=== PATIENT | female | born 1990 | race Caucasian/White ===

== ENCOUNTER 2018-06-04 16:30 | Emergency (ER) | payer OTHER, SELFPAY ==
[2018-06-04 16:31] VITALS: BP 124/72; PULSE 87; RESP 14; TEMP 37.1; O2SAT 97; BMI 25.0
--- NOTE | 2018-06-04 16:47 | US_ITS ---
STUDY: FIRST TRIMESTER OBSTETRICAL ULTRASOUND REASON FOR EXAM: Female, 28 years old. Vaginal bleeding LMP: 03/27/2018 TECHNIQUE: Transvaginal TECHNICAL QUALITY: Adequate. PRIOR ULTRASOUND: None. FINDINGS: There is visualization of a single gestational sac in a normal intrauterine position. Slightly irregular shape of the gestational sac measuring 9 mm. There is a visualized yolk sac. The yolk sac measures 2 mm. The placenta is non-visualized. There is no demonstrated embryo ( pole). The estimated gestation age (EGA) by LMP is 9 weeks, 6 days. The estimated date of delivery (ALEYDA) by LMP is 01/01/2019. The estimated gestation age (EGA) by US is 5 weeks, 4 days. The estimated date of delivery (ALEYDA) by US is 01/31/2019. The uterus measures 8.5 x 6.7 x 5.1 cm. There is no demonstrated uterine fibroid. The cervix is closed. The right ovary measures 2.6 x 2.3 x 1.2 cm. There is no right ovarian cyst. There is no visualized right adnexal mass or complex lesion. The left ovary measures 2.3 x 2.6 x 1.6 cm. Solid appearing isoechoic nodule in the left ovary measures 1.1 x 1.2 x 0.9 cm. There is no visualized left adnexal mass or complex lesion. There is no fluid in the cul de sac. US/Transvaginal w/Preg US IMPRESSION: Intrauterine gestational sac is noted with slight irregularity of the shape. Possible small amount of internal debris. No evidence of pole this time. Size and dates are not matching based on LMP and current gestational sac size. Possible early versus spontaneous . Electronically Signed: Zach Whitt DO at 19:10 EST Tel , Service support ,
--- NOTE | 2018-06-04 16:52 | ED.DCSUM_ITS ---
- ER Visit Summary Date of Service: 06/04/18 Chief Complaint: Spotting in History of Present Illness: The patient is a 28 F presenting with vaginal bleeding in . Patient states she found out 2-3 days ago that she is . She is unsure how far along she is. She believes her last mental period was end of February. She is . She complains of mild pelvic cramping. She does currently have a herpes outbreak as well. Physical Examination: Vitals are stable. Patient is afebrile. Alert no acute distress. HEENT exam is unremarkable. Neck is supple. Lungs are clear and equal bilaterally. Heart is regular rate and rhythm. Abdomen is soft nontender nondistended. Extremities are unremarkable. Skin is warm and dry. No focal neurologic deficit. Remainder of exam is unremarkable. Emergency Department Course and Treatment: HCG quant 3096. Blood type A+. Pelvic ultrasound shows intrauterine gestational sac is noted with slight irregularity of the shape. Possible small amount of internal debris. No evidence of pole this time. Size and dates are not matching based on LMP and current gestational sac size. Possible early versus spontaneous . Patient declined pelvic exam due to pain caused by her herpes outbreak. She states the bleeding has slowed down. She will follow-up with her DIRECTOR OF PHYSICAL THERAPY. She is advised importance of close follow-up. Advised return to ED if worsening complaints. Disposition: Discharge home Impression: Threatened This note was generated with [employer] dictation software. It may contain incorrect words, spelling, and punctuation that were not noted in review of the chart prior to signing ED Disposition - Plan for ED Patient: Referrals: [facility] Doctor,Out of [NON-STAFF] -
[2018-06-04 18:08] LABS: hCG Titer Quant., Serum 3096 mIU/mL (<9 non-preg)
[2018-06-04 18:51] VITALS: RESP 18
--- NOTE | 2018-06-04 19:52 | ED.RN ---
PT REFUSING PELVIC EXAM. DR MONTELONGO AWARE
--- NOTE | 2018-06-04 19:58 | ED.DEP ---
ED Disposition - Plan for ED Patient: Instructions: ED Miscarriage Poss Referrals: [facility],Out of [NON-STAFF] -
[2018-06-04 20:09] VITALS: BP 124/72; PULSE 87; RESP 14; O2SAT 97
== END 2018-06-04 20:11 | disposition home or self-care (01) ==
PROVIDERS: Emergency Provider Emergency Medicine; Family Provider Obstetrics & Gynecology; PCP Obstetrics & Gynecology
DX: O20.0 Threatened abortion (principal); O98.319 Other infections with a predominantly sexual mode of transmission complicating pregnancy, unspecified trimester; A60.04 Herpesviral vulvovaginitis; Z3A.00 Weeks of gestation of pregnancy not specified
CPT/HCPCS: 36415; 76817; 84702; 86900; 99282

== ENCOUNTER 2018-09-05 08:44 | Emergency (ER) | payer OTHER, SELFPAY ==
[2018-09-05 08:45] VITALS: BP 117/83; PULSE 81; RESP 17; TEMP 36.5; O2SAT 100; BMI 24.0
[2018-09-05] MEDS: 0.9% Normal Saline 1,000 ML 1000 ML IV (09:16)
[2018-09-05] MEDS: Ondansetron 4 MG/2 ML Vial IV (09:16)
--- NOTE | 2018-09-05 09:19 | ED.VIS.GEN ---
History of Present Illness Chief Complaint: Nausea/Vomiting Informant: Patient Onset: Days Context: Sudden Onset Timing: Continuous - Nausea and vomiting Quality: Nausea and vomiting and diarrhea Location: GI Current Severity: Moderate Maximum Severity: Moderate Worsened by: Attempt to eat or drink anything Relieved by: Nothing Associated Symptoms: Soft to watery stools x3 weeks Narrative: Patient is a 28-year-old G3, P1 Ab1 (miscarriage May 2018), who presents with nausea vomiting for the past 2 days. She states she is not able to eat or drink anything. She complains of thirst, dry mouth and lightheadedness. She reports decreased urine output. She denies fever, chills or night sweats. She states she has had soft to watery stools over the past 3 weeks. There is no history of inflammatory bowel disorder or IBS. She denies blood or mucus in her stool. She denies hematemesis. She denies abdominal pain. Prior similar symptoms: No Recent Illness/Hospitalization: No - Past Medical History (1) Genital herpes Status: Acute Past Medical History - Allergies and Home Meds Allergies/Adverse Reactions: Allergies morphine Adverse Reaction (Verified 09/05/18 08:45) Other Primary Care Physician: Care Physician,No Primary [Primary Care Provider] - Prior records reviewed: Yes Lives: Spouse/ Significant Other, With Family Smoking Status: Never smoker Review of Systems General: Denies: Chills, Fever, Sweats Eyes: Denies: Visual changes - bilaterally, Blurred Vision - bilaterally, Diplopia ENT: Denies: Rhinorrhea, Sore throat Cardiovascular: Denies: Chest pain, Palpitations Respiratory: Denies: Dyspnea, Cough, Dyspnea on exertion Gastrointestinal: Reports: Nausea, Vomiting, Diarrhea. Denies: Abdominal pain, Constipation, Melena, Hematochezia, -, - Genitourinary: Denies: Dysuria, Hematuria, Frequency Musculoskeletal: Denies: Back pain, Extremity Pain Skin: Denies: Rash, Wounds Neurological: Denies: Headache, Weakness, Parasthesia, Numbness Hematologic: Denies: Easy bruising, Easy bleeding Allergy: Denies: Uticaria, Swelling of the mouth Physical Exam Vital Signs/Narrative: Vital Signs Temp Pulse Resp BP Pulse Ox 09/05/18 08:45 97.7 F L 81 17 117/83 H 100 Inital Vital Signs reviewed: Yes General: Well nourished, Well developed, No Acute Distress Head: Normocephalic, Atraumatic Eyes: Perrl, EOMI ENT: No rhinorrhea, TM's clear, Dry mucous membranes Neck: Supple, Nontender Cardiovascular: Regular rate, Regular rhythm, No murmurs, Normal S1, Normal S2 Respiratory: No distress, CTA bilaterally, Chest nontender Abdomen: Soft, Nontender, Nondistended, Normal bowel sounds Back: Nontender, Normal Inspection. Negative for: CVA tenderness Extremities: Nontender, No edema Skin: Normal color, No rash Neurological: Alert, Oriented x3, Cranial nerves II-XII grossly intact, Normal Strength, Normal Sensation, Normal Gait Psychological: Tearful Diagnostic/Tx/Re-eval Laboratory Results 09/05/18 09:15 Sodium 139 Potassium 3.6 Chloride 103 Carbon Dioxide 24.0 Anion Gap 12 BUN 6 L Creatinine 0.63 Estim Creat Clear Calc 128.13 Est GFR (MDRD) Af Amer 143 Est GFR (MDRD) Non-Af 118 BUN/Creatinine Ratio 9.5 L Glucose 81 Calcium 8.9 - Medical Decision Making With history of nausea vomiting for past 2 days and diarrhea for 3 weeks basic medical panel was obtained to assess electively specifically potassium, CO2 and anion gap as well as renal function. Clinically patient is dehydrated. She received 1 L of normal saline wide open and Zofran. Will reassess after first liter has infused. Nausea vomiting suspected secondary to . Clinically she is dehydrated. Diarrhea may represent IBS. Other causes need to be entertained as well. Patient was reassessed at 1212. She has passed p.o. challenge. Plan is to discharge to home with excuse for work today and tomorrow. ED Disposition - Plan for ED Patient: Disposition: Home or Assisted Living Diagnosis: Nausea & vomiting, First trimester , Mild dehydration Prescriptions: Ondansetron [Zofran Odt] 4 mg PO Q8H PRN PRN #10 tab PRN Reason: Nausea Referrals: Care Physician,No Primary [Primary Care Provider] - Additional Instructions: Follow-up with your OB as scheduled.
[2018-09-05 09:42] LABS: Anion Gap 12 (5-15); BUN 6 mg/dL (7-18); BUN/Creat Ratio 9.5 RATIO (10-20); Calcium,Total 8.9 mg/dL (8.5-10.1); Chloride 103 mmol/L (98-107); Creatinine, Serum 0.63 mg/dL (0.55-1.02); EST Glomerular Filtration Rate 118 mL/min (>60); Est Glom Filt Rate - Afr Amer 143 mL/min (>60); Estimated Creatinine Clearance 128.13 ml/min; Glucose 81 mg/dL (74-106); Potassium 3.6 mmol/L (3.5-5.1); Sodium Level 139 mmol/L (136-145)
[2018-09-05 11:19] VITALS: BP 121/76; PULSE 76; RESP 14; O2SAT 96
--- NOTE | 2018-09-05 12:17 | ED.VISSUMM ---
- ER Visit Summary Date of Service: 09/05/18 Chief Complaint: [] History of Present Illness: The patient is a 28 F [] Physical Examination: [] Test Results: [] Emergency Department Course and Treatment: [] Treatment Plan: [] Disposition: [] Impression: [] This note was generated with [employer] dictation software. It may contain incorrect words, spelling, and punctuation that were not noted in review of the chart prior to signing ED Disposition - Plan for ED Patient: Disposition: Home or Assisted Living Diagnosis: Nausea & vomiting, First trimester , Mild dehydration Instructions: ED Nausea Vomiting Prescriptions: Ondansetron [Zofran Odt] 4 mg PO Q8H PRN PRN #10 tab PRN Reason: Nausea Referrals: Care Physician,No Primary [Primary Care Provider] - Additional Instructions: Follow-up with your OB as scheduled.
[2018-09-05 12:58] VITALS: BP 118/79; PULSE 81; RESP 14; O2SAT 98
== END 2018-09-05 12:59 | disposition home or self-care (01) ==
PROVIDERS: Emergency Provider Emergency Medicine
DX: O21.9 Vomiting of pregnancy, unspecified (principal); O26.891 Other specified pregnancy related conditions, first trimester; E86.0 Dehydration; O98.511 Other viral diseases complicating pregnancy, first trimester; B00.9 Herpesviral infection, unspecified; Z3A.00 Weeks of gestation of pregnancy not specified
CPT/HCPCS: 80048; 96361; 96374; 99283; J7030; A4216; J2405

== ENCOUNTER 2018-10-17 20:11 | Emergency (ER) | payer MEDICAID, SELFPAY ==
[2018-10-17 20:12] VITALS: BP 101/65; PULSE 93; RESP 16; TEMP 36.8; O2SAT 99; BMI 23.3
[2018-10-17 21:29] LABS: Red Blood Cells-Urine 0 SEEN /hpf (0-5)
[2018-10-17 21:31] LABS: Color, Urine Yellow (Yellow); Glucose, Dipstick Normal (Normal); Leukocyte Esterase-Dipstick 25 /ul (Negative); Nitrite-Dipstick Negative (Negative); Occult Blood-Urine Negative /ul (Negative); Protein-Dipstick 15 mg/dl (Negative); Urine Bilirubin Dipstick Negative (Negative); Urine Clarity Sl. Cloudy (Clear); Urine Urobilinogen 4 mg/dl (Normal)
[2018-10-17 21:33] LABS: Absolute Lymphocyte Count 1.34 X10^3/uL (0.83-4.51); Absolute Neutrophil Count 7.3 X10^3/uL (2.0-7.7); Basophil# 0.02 X10^3/uL; Basophil% 0.2 % (0-1); Eosinophil# 0.08 X10^3/uL; Eosinophils% 0.9 % (0-5); Hematocrit 33.6 % (37-47); Hemoglobin 11.6 g/dL (12.0-15.0); Lymphocyte # 1.34 X10^3/ul (4.0); Lymphocyte % 14.3 % (19-41); Mean Corp Hgb Conc 34.5 g/dL (32-36); Mean Corpuscular Hgb 31.4 pg (27.0-32.0); Mean Corpuscular Volume 90.8 fL (81-99); Mean Platelet Vol. 10.5 fl (6.2-12.0); Monocyte# 0.59 X10^3/uL; Monocyte% 6.3 % (0-10); NRBC Flagged by Analyzer 0 % (0-5); Neutrophil # 7.28 X10^3/uL (2.7-7.7); Neutrophil % 77.8 % (47-70); Platelet Count 211 K/mm3 (150-450); RBC Distribution Width CV 13.2 % (11.6-14.6); RBC Distribution Width SD 43.6 fl (35.1-43.9); White Blood Count 9.4 K/mm3 (4.4-11.0)
[2018-10-17 21:34] LABS: Ketone-Dipstick 150 mg/dl (Negative)
[2018-10-17] MEDS: proMETHazine 25 MG/ML Syringe 12.5 MG IV (21:38)
[2018-10-17] MEDS: 0.9% Normal Saline 1,000 ML 1000 ML IV ×2 (21:38→22:00)
[2018-10-17 21:39] LABS: Mucous, Urine 3+ /hpf (<or=2+); White Blood Cells 0-5 SEEN /hpf (0-5)
[2018-10-17 21:40] LABS: Bacteria RARE /hpf (None Seen); Squamous Epithelial Cells - UA 5-10 SEEN /hpf (5-10)
[2018-10-17 21:46] LABS: Anion Gap 9 (5-15); BUN 7 mg/dL (7-18); BUN/Creat Ratio 13.6 RATIO (10-20); Calcium,Total 8.9 mg/dL (8.5-10.1); Chloride 103 mmol/L (98-107); Creatinine, Serum 0.52 mg/dL (0.55-1.02); EST Glomerular Filtration Rate 149 mL/min (>60); Est Glom Filt Rate - Afr Amer 181 mL/min (>60); Estimated Creatinine Clearance 155.23 ml/min; Glucose 82 mg/dL (74-106); Potassium 3.4 mmol/L (3.5-5.1); Sodium Level 135 mmol/L (136-145)
--- NOTE | 2018-10-17 22:35 | ED.DCSUM_ITS ---
- ER Visit Summary Date of Service: 10/17/18 Chief Complaint: Nausea vomiting History of Present Illness: The patient is a 28 F who states that she is approximately 12 weeks . She states this has been plagued with a significant amount of nausea and vomiting. She is tried multiple agents with no relief. Today while retching and vomiting she states she saw some black specks in the vomit. This concerned her. She is G3, P1 Ab1. Previous medical history as noted. She is a smoker. No diarrhea or fevers. She states she is having a difficult time even keeping water down today. She currently sees BIOMEDICAL INSTRUMENT TECHNICIAN in [place]. Physical Examination: Afebrile vital signs stable Gen: Well-nourished well-developed Head: Normocephalic atraumatic Eyes: Perrl EOMI ENT: TMs clear no rhinorrhea moist mucous membranes Neck: Supple no lymphadenopathy no JVD nontender CVS: Regular rate rhythm no murmurs normal S1-S2 Respiratory: No distress clear to auscultation bilaterally chest nontender Abdomen: Soft nontender nondistended normal bowel sounds no masses Back: Nontender Extremity: Nontender no edema Skin: Normal color no rash Neuro: alert orientated ?3 CN II-XII intact normal strength sensation Psych: Normal affect normal mood Test Results: Basic labs showed a potassium 3.4 hemoglobin 11.6. Urinalysis showed 150 ketones. Emergency Department Course and Treatment: Patient received 2 L of IV fluids as well as dose of Phenergan. No further emesis. Should be discharged home to follow-up with OB as scheduled. Impression: 1. Hyperemesis gravidarum This note was generated with [facility] dictation software. It may contain incorrect words, spelling, and punctuation that were not noted in review of the chart prior to signing ED Disposition - Plan for ED Patient: Disposition: Home or Assisted Living Instructions: Hyperemesis Gravidarum Additional Instructions: Follow-up with BIOMEDICAL INSTRUMENT TECHNICIAN as scheduled
[2018-10-17 22:58] VITALS: BP 108/79; PULSE 66; RESP 14; O2SAT 99
== END 2018-10-17 22:59 | disposition home or self-care (01) ==
PROVIDERS: Emergency Provider Emergency Medicine
DX: O21.0 Mild hyperemesis gravidarum (principal); O99.331 Smoking (tobacco) complicating pregnancy, first trimester; Z3A.12 12 weeks gestation of pregnancy
CPT/HCPCS: 80048; 81001; 85025; 96361; 96374; 99283; J7030; A4216

== ENCOUNTER 2018-10-18 22:22 | Emergency (ER) | payer MEDICAID, SELFPAY ==
[2018-10-17 20:12] VITALS: BMI 23.3
[2018-10-18 22:23] VITALS: BP 112/72; PULSE 92; RESP 16; TEMP 36.8; O2SAT 97; BMI 23.3
[2018-10-18] MEDS: Dicyclomine 20 MG/2 ML Vial IM (22:48)
[2018-10-18] MEDS: proMETHazine 25 MG/ML Syringe 12.5 MG IV (23:05)
[2018-10-18] MEDS: 0.9% Normal Saline 1,000 ML 1000 ML IV (23:06)
[2018-10-18] MEDS: 0.9% Normal Saline 1,000 ML 999 ML IV (23:39)
[2018-10-18 23:41] LABS: Absolute Lymphocyte Count 0.99 X10^3/uL (0.83-4.51); Absolute Neutrophil Count 7.4 X10^3/uL (2.0-7.7); Basophil# 0.03 X10^3/uL; Basophil% 0.3 % (0-1); Eosinophil# 0.06 X10^3/uL; Eosinophils% 0.7 % (0-5); Hemoglobin 11.6 g/dL (12.0-15.0); Lymphocyte # 0.99 X10^3/ul (4.0); Lymphocyte % 11.1 % (19-41); Mean Corp Hgb Conc 34.1 g/dL (32-36); Mean Corpuscular Hgb 30.9 pg (27.0-32.0); Mean Corpuscular Volume 90.4 fL (81-99); Mean Platelet Vol. 10.4 fl (6.2-12.0); Monocyte% 4.5 % (0-10); NRBC Flagged by Analyzer 0 % (0-5); Neutrophil # 7.42 X10^3/uL (2.7-7.7); Neutrophil % 82.8 % (47-70); Platelet Count 208 K/mm3 (150-450); RBC Distribution Width CV 13.4 % (11.6-14.6); RBC Distribution Width SD 43.7 fl (35.1-43.9); Red Blood Count 3.76 M/mm3 (4.2-5.4)
[2018-10-18 23:54] LABS: Lactic Acid 0.8 mmol/L (0.4-2.0)
[2018-10-19 00:01] LABS: ALB/GLOB Ratio 0.8 RATIO (0.9-2.4); AST(SGOT) 9 U/L (15-37); Alanine Aminotransfer ALT/SGPT 13 U/L (13-56); Albumin, Serum 3.5 g/dL (3.2-5.0); Alkaline Phosphatase 86 U/L (45-117); Anion Gap 10 (5-15); BUN 3 mg/dL (7-18); BUN/Creat Ratio 6.4 RATIO (10-20); Calcium,Total 8.7 mg/dL (8.5-10.1); Chloride 105 mmol/L (98-107); Creatinine, Serum 0.47 mg/dL (0.55-1.02); EST Glomerular Filtration Rate 166 mL/min (>60); Est Glom Filt Rate - Afr Amer 201 mL/min (>60); Estimated Creatinine Clearance 171.75 ml/min; Globulin 4.3 g/dL (2.2-4.2); Glucose 75 mg/dL (74-106); Potassium 3.6 mmol/L (3.5-5.1); Protein, Total 7.8 g/dL (6.4-8.2); Sodium Level 133 mmol/L (136-145)
[2018-10-19 00:16] LABS: Mucous, Urine 0 SEEN /hpf (<or=2+); Red Blood Cells-Urine 0 SEEN /hpf (0-5)
[2018-10-19 00:22] LABS: Color, Urine Yellow (Yellow); Glucose, Dipstick Normal (Normal); Leukocyte Esterase-Dipstick 25 /ul (Negative); Nitrite-Dipstick Negative (Negative); Occult Blood-Urine Negative /ul (Negative); Protein-Dipstick 30 mg/dl (Negative); Urine Bilirubin Dipstick Negative (Negative); Urine Clarity Clear (Clear); Urine Urobilinogen Normal (Normal)
[2018-10-19 00:33] LABS: Ketone-Dipstick 150 mg/dl (Negative)
[2018-10-19 00:34] LABS: Bacteria RARE /hpf (None Seen); Squamous Epithelial Cells - UA 0-5 SEEN /hpf (5-10); White Blood Cells 0-5 SEEN /hpf (0-5)
--- NOTE | 2018-10-19 01:04 | ED.DCSUM_ITS ---
- ER Visit Summary Date of Service: 10/19/18 Chief Complaint: [Vomiting and diarrhea] History of Present Illness: The patient is a 28 F [[place]entz to the emergency department with vomiting and diarrhea that started yesterday. Patient initially started with vomiting and was seen in the emergency department yesterday. Patient had a history of hyperemesis gravidarum. Patient is about 12 weeks . Patient is G3, P1. She describes abdominal cramping. Patient states the diarrhea started today and she has had 3 watery stools. Patient also has noticed intermittent bright red blood in her emesis. Patient feels generally weak. She denies any fevers. She denies urinary symptoms.] She denies vaginal bleeding. Physical Examination: [HEENT-PERRLA, EOMI. Cranial nerves II through XII grossly intact. TMs clear. Mucous membranes dry. No adenopathy. Cardiovascular-regular rate and rhythm without murmur or ectopy Lungs-clear to auscultation, chest wall stable without crepitus or subcu emphysema Abdomen-normoactive bowel sounds, soft. Patient has some tenderness in the right upper quadrant and epigastric region. There is no rebound, rigidity, cranial signs. Extremities-intact ?4, normal range of motion, normal pulses, atraumatic] Test Results: [CBC with differential white count 9.0, hemoglobin 11.6, hematocrit 34, placed 208. Chemistries unremarkable other than a low CO2 of 18. BUN was 20 creatinine 0.47. Lactate was 0.8. Urinalysis was unremarkable for infection however she did have 150 ketones.] Emergency Department Course and Treatment: [She was given 2 L normal same fluid boluses. Patient initially given Phenergan 12.5 mg IV however she continued to complain of nausea and was given another 12.5 mg IV. Patient was given Bentyl 20 mg IM and this did help her abdominal discomfort and cramping.] Treatment Plan: [I discussed treatment options with patient including admission for IV hydration versus going home and attempting to push fluids. Patient does not want to be admitted at this time and would prefer to go home. I suspect patient may have a gastroenteritis on top of her her hyperemesis.] Disposition: [Discharged home stable condition. Advised to return if persistent vomiting, hydration, or conditions worsen anyway. Advised to return if persistent blood in her emesis and passing clots. Patient did bring with her a sample of her emesis and it appeared there is green material with minimal evidence of blood in it.] Impression: [Gastroenteritis Hyperemesis gravidarum] This note was generated with [employer] dictation software. It may contain incorrect words, spelling, and punctuation that were not noted in review of the chart prior to signing ED Disposition - Plan for ED Patient: Referrals: Care Physician,No Primary [Primary Care Provider] -
[2018-10-19] MEDS: proMETHazine 25 MG/ML Syringe 12.5 MG IV (01:06)
--- NOTE | 2018-10-19 01:08 | ED.DEP ---
ED Disposition - Plan for ED Patient: Instructions: GASTROENTERITIS, Viral (6y-Adult), Hyperemesis Gravidarum (Severe Morning Sickness) Prescriptions: Metoclopramide [Reglan] 10 mg PO 4X/DAY PRN #10 tab PRN Reason: Vomiting Prescription Printed Referrals: Care Physician,No Primary [Primary Care Provider] - Additional Instructions: See your SOCIAL SCIENCE PROFESSOR in 2-3 days
[2018-10-19 02:01] VITALS: BP 120/96; PULSE 90; RESP 18; O2SAT 100
== END 2018-10-19 02:02 | disposition home or self-care (01) ==
LOC: ED 22:47
PROVIDERS: Emergency Provider Emergency Medicine
DX: O21.0 Mild hyperemesis gravidarum (principal); O99.611 Diseases of the digestive system complicating pregnancy, first trimester; K52.9 Noninfective gastroenteritis and colitis, unspecified; Z3A.12 12 weeks gestation of pregnancy
CPT/HCPCS: 80053; 81001; 83605; 85025; 96361; 96372; 96374; 96376; 99285; J7030

== ENCOUNTER 2018-10-20 19:11 | Inpatient (IN) | payer MEDICAID, SELFPAY ==
[2018-10-20 19:12] VITALS: BP 110/68; PULSE 125; RESP 24; TEMP 36.8; O2SAT 98; BMI 23.1
--- NOTE | 2018-10-20 19:25 | CT_ITS ---
STUDY: CTA CHEST REASON FOR EXAM: Female, 28 years old. Soreness of breath 2 days with right-sided pain. RADIATION DOSAGE (If Supplied By Facility): CTDIvol = ( 7.63 ) mGy, DLP = ( 238.90 ) mGycm TECHNIQUE: The examination was performed with the intravenous administration of 100 IV Isovue 370. Post-processing of the angiographic images was performed, with multiplanar reformation and 3D reconstruction. Individualized dose optimization techniques were used for this CT. COMPARISON: None. FINDINGS: There is a large proximal right pulmonary embolism extending into the bilateral posterior segments with mild extension into the proximal right upper pulmonary arteries.. Additionally there is a large proximal left lower pulmonary embolism extending into the basilar posterior segments. Normal enhancement of the bilateral peripheral pulmonary arteries. There is no demonstrated pulmonary embolism. Normal thoracic aorta and visualized great vessels. There is no demonstrated aortic dissection. Normal heart and pericardium. Normal mediastinum. Normal hilar regions. Normal visualized trachea and bronchi. The lungs are well expanded. Airspace disease overlies the right lower lobe posterior segment with differential including acute infiltrate and component of pulmonary infarction given proximal embolus. Normal pleura. Normal chest wall structures. Normal osseous structures. Normal visualized upper abdomen. CT/CTA Chest W/WO Contrast IMPRESSION: 1. Findings consistent with bilateral lower lobe pulmonary artery emboli extending into the posterior basilar segments with right lower lung airspace disease concerning for component of acute infiltrate and infarction given proximal embolus. Mild extension of embolus into the right upper proximal pulmonary artery is also noted. Electronically Signed: Antwan Jose DO at 20:29 EDT , Service support ,
--- NOTE | 2018-10-20 19:26 | EKG12_ITS ---
Test Reason : SOB Blood Pressure : / mmHG Vent. Rate : 130 BPM Atrial Rate : 130 BPM P-R Int : 162 ms QRS Dur : 070 ms QT Int : 286 ms P-R-T Axes : 080 075 045 degrees QTc Int : 420 ms Sinus tachycardia Abnormal ECG Confirmed by CATRACHO CARRILLO, VIBHA ([id number]), acquisitions editor GUNNAR CONWAY ([id number]) on 10/24/2018 2:06:03 PM Referred By: LINCOLN Confirmed By:CHERYL HAYDEN MD
[2018-10-20] MEDS: Ondansetron 4 MG/2 ML Vial IV (19:33)
[2018-10-20] MEDS: 0.9% Normal Saline 1,000 ML 1000 ML IV (19:33)
[2018-10-20 19:35] LABS: Absolute Lymphocyte Count 1.59 X10^3/uL (0.83-4.51); Absolute Neutrophil Count 7.1 X10^3/uL (2.0-7.7); Basophil# 0.03 X10^3/uL; Basophil% 0.3 % (0-1); Eosinophil# 0.13 X10^3/uL; Eosinophils% 1.4 % (0-5); Hematocrit 35.6 % (37-47); Hemoglobin 12.5 g/dL (12.0-15.0); Lymphocyte # 1.59 X10^3/ul (4.0); Lymphocyte % 16.8 % (19-41); Mean Corp Hgb Conc 35.1 g/dL (32-36); Mean Corpuscular Hgb 31.4 pg (27.0-32.0); Mean Corpuscular Volume 89.4 fL (81-99); Mean Platelet Vol. 10.4 fl (6.2-12.0); Monocyte# 0.63 X10^3/uL; Monocyte% 6.6 % (0-10); NRBC Flagged by Analyzer 0 % (0-5); Neutrophil # 7.06 X10^3/uL (2.7-7.7); Neutrophil % 74.5 % (47-70); Platelet Count 222 K/mm3 (150-450); RBC Distribution Width CV 13.4 % (11.6-14.6); RBC Distribution Width SD 43.8 fl (35.1-43.9); Red Blood Count 3.98 M/mm3 (4.2-5.4); White Blood Count 9.5 K/mm3 (4.4-11.0)
[2018-10-20] MEDS: HYDROmorphone 1 MG/ML Syringe IV (19:35)
[2018-10-20 19:57] LABS: ALB/GLOB Ratio 0.7 RATIO (0.9-2.4); AST(SGOT) 13 U/L (15-37); Alanine Aminotransfer ALT/SGPT 14 U/L (13-56); Albumin, Serum 3.4 g/dL (3.2-5.0); Alkaline Phosphatase 102 U/L (45-117); Anion Gap 10 (5-15); BUN 7 mg/dL (7-18); BUN/Creat Ratio 12.6 RATIO (10-20); Calcium,Total 9.4 mg/dL (8.5-10.1); Chloride 104 mmol/L (98-107); Creatinine, Serum 0.56 mg/dL (0.55-1.02); EST Glomerular Filtration Rate 136 mL/min (>60); Est Glom Filt Rate - Afr Amer 165 mL/min (>60); Estimated Creatinine Clearance 144.15 ml/min; Globulin 4.6 g/dL (2.2-4.2); Glucose 73 mg/dL (74-106); Lipase 162 U/L (73-393); Potassium 3.1 mmol/L (3.5-5.1); Sodium Level 135 mmol/L (136-145)
--- NOTE | 2018-10-20 20:39 | ED.VISSUMM ---
- ER Visit Summary Date of Service: 10/20/18 Chief Complaint: Right chest pain History of Present Illness: The patient is a 28 F presenting with right-sided chest pain and shortness of breath. She states this started earlier today. She is approximately 12 weeks . She denies any pelvic pain or vaginal bleeding. She has had vomiting throughout her . She had no vomiting today. Denies injury. Denies other complaints. Physical Examination: Vitals are stable. Heart rate 125. Patient is afebrile. Alert moderate acute distress. HEENT exam is unremarkable. Neck is supple. Lungs are clear and equal bilaterally. Heart is regular and tachycardic Abdomen is soft nontender nondistended. Extremities are unremarkable. Skin is warm and dry. No focal neurologic deficit. Remainder of exam is unremarkable. Emergency Department Course and Treatment: Patient was given Dilaudid, Zofran IV. EKG is sinus tachycardia rate of 130. CBC, chemistries unremarkable other than sodium 135, potassium 3.1, glucose 73. Lipase is 162. Troponin is negative. CTA chest shows findings consistent with bilateral lower lobe pulmonary artery emboli extending into the posterior basilar segments with right lower lung airspace disease concerning for component of acute infiltrate and infarction given proximal embolus. Mild extension of embolus into the right upper proximal pulmonary artery is also noted. 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. Discussed with Dr. Barrera and hospitalist. She was given Lovenox. Patient will be admitted. Disposition: Admission Impression: Bilateral PE, This note was generated with [employer] dictation software. It may contain incorrect words, spelling, and punctuation that were not noted in review of the chart prior to signing ED Disposition - Plan for ED Patient:
[2018-10-20 20:43] VITALS: RESP 18
--- NOTE | 2018-10-20 21:00 | HP.PCM_ITS ---
Problem List (1) Pulmonary embolus Status: Acute (2) Status: Acute History of Present Illness Date of Admission: 10/20/18 Chief Complaint: Chest pain The patient is a 28 year old F with PMH as below who is 12 weeks , presenting to the hospital with right-sided chest pain. Initially she had pain in her back yesterday, and then today progressed to her chest, along with shortness of breath. She presented to the ER and was found to have bilateral PEs on CTA of her chest possible infarct. In the ER she was given a dose of therapeutic Lovenox as well as Dilaudid for pain. Of note she is getting OB care [place], and she having issues with hyperemesis and was being evaluated for having a Zofran pump placed. She was recently in this ER for hematemesis which appears to have resolved. She is okay with seeing one of our OBs while in the hospital. Past Medical History Allergies morphine Adverse Reaction (Verified 10/20/18 19:11) Other HEADACHE AND IRRITABILITY Home Medications: Ambulatory Orders Medication Instructions Recorded Ondansetron [Zofran Odt] 4 mg PO Q8H PRN PRN #10 tab 09/05/18 Sertraline HCl [Zoloft] 50 mg PO DAILY 10/17/18 Metoclopramide [Reglan] 10 mg PO 4X/DAY PRN #10 tab 10/19/18 Surgical History: no surgical history Smoking Status: Former smoker Tobacco Use: Cigarettes Alcohol: None Drugs: None - *Family History Maternal History Items: - - Lupus Review of Systems Constitutional: Denies: Chills, Fever, Weight Change HEENT: Denies: Head Aches, Sinus Congestion, Sinus Drainage Cardiovascular: Reports: Chest Pain, Palpitations Respiratory: Reports: Shortness of Breath. Denies: Cough, Shortness of breath at rest, Sputum production Gastrointestinal: Denies: Abdominal Pain, Nausea, Vomiting Genitourinary: Denies: Dysuria Gynecological: Reports: - - 12 weeks Musculoskeletal: Denies: Joint Pain, Joint Tenderness Skin: Denies: Rash, Wounds Neurological: Denies: Numbness, Tingling, Focal weakness Psychiatric: Denies: Anxiety, Depression Hematologic/ Lymphatic: Denies: Easy Bruising, Easy Bleeding VTE Information - Inpt Only VTE Present on Admission: Yes VTE Mechan Device Prophylaxis: None VTE Pharm Prophylaxis ordered?: Yes VTE Suspected: Suspected PE Patient Problems: Active and Suspected Problems Pulmonary embolus (Acute) (Acute) - Physical Exam General: Alert, Oriented x3, Cooperative, - - Very anxious HEENT: Atraumatic, PERRLA, EOMI, Normocephalic Oral: Moist Mucosa Neck: Supple, No JVD Lungs: Clear to auscultation, Normal air movement, No rhonchi, No wheeze, No rales Cardiovascular: Regular rate, Regular Rhythm, Normal S1, Normal S2, No murmurs Abdomen: Soft, Non Tender, Non-Distended, No Hepato-splenomegaly Extremities: No edema, Capillary Refill Less than 3 Seconds Skin: No rashes, No breakdown Neurological: Deep Tendon Reflexes 2+/4 and Symmetrical, Sensory exam intact to light touch and pain Psych/Mental Status: Anxious Vital Signs Temp Pulse Resp BP Pulse Ox 98.3 F 125 H 18 110/68 98 10/20/18 19:12 10/20/18 19:12 10/20/18 20:43 10/20/18 19:12 10/20/18 19:12 Oxygen Delivery Method Room Air Weight: 147 lb 7.828 oz Body Mass Index (BMI) 23.1 Laboratory Tests Past 24 Hrs 10/20/18 10/20/18 19:27 19:27 WBC 9.5 RBC 3.98 L Hgb 12.5 Hct 35.6 L MCV 89.4 MCH 31.4 MCHC 35.1 RDW Std Deviation 43.8 RDW Coeff of Ziggy 13.4 Plt Count 222 MPV 10.4 Immature Gran % (Auto) 0.400 Neut % (Auto) 74.5 H Lymph % (Auto) 16.8 L [place] % (Auto) 6.6 Eos % (Auto) 1.4 Baso % (Auto) 0.3 Absolute Neuts (auto) 7.1 Absolute Lymphs (auto) 1.59 Absolute Nucleated RBC 0.00 Nucleated RBC % 0 Sodium 135 L Potassium 3.1 L Chloride 104 Carbon Dioxide 21.0 Anion Gap 10 BUN 7 Creatinine 0.56 Estim Creat Clear Calc 144.15 Est GFR (MDRD) Af Amer 165 Est GFR (MDRD) Non-Af 136 BUN/Creatinine Ratio 12.6 Glucose 73 L Calcium 9.4 Total Bilirubin 0.30 AST 13 L ALT 14 Alkaline Phosphatase 102 Troponin I < 0.015 Total Protein 8.0 Albumin 3.4 Globulin 4.6 H Albumin/Globulin Ratio 0.7 L Lipase 162 Assessment/Plan All Active Problems Pulmonary embolus (Acute) (Acute) Genital herpes (Acute) 1. Bilateral pulmonary embolisms with possible infarct/probable lupus -She underwent a CT scan in the ER and demonstrated bilateral lower lobe emboli with possible infarction in the right lower lung -Her mother has a history of lupus and has had multiple blood clots and is on blood thinners -The ER discussed the case with the on-call OB who recommended either heparin or Lovenox and she is not a candidate, due to her , for Xarelto or Eliquis or even Coumadin -I discussed with her and her that given her recent miscarriage, her PEs, and her family history of lupus in her mother and nephew, this probably indicates that she is also a carrier of antiphospholipid antibody syndrome. This does put this at risk for miscarriage as well and I discussed with her that we can have one of our OBs evaluate her while she is here in the hospital but she will need to continue Lovenox injections twice a day while here in the hospital and at home. In the . She will need to follow-up with a product support rep as an outpatient for further testing and evaluation. -For completeness sake we will obtain an echo tomorrow to evaluate her right- sided heart function, however now that we were able to answer any of her questions and calm down her anxiety her heart rate is in the 90s. -We will provide pain meds as necessary 2. 12-week /hyperemesis -She has a 3-year-old at home and just miscarried in May and appears to have gotten in June -We will consult OB for assistance while she is here and then she will resume care with her own OB and [place] -We will continue with her home Reglan and add Zofran 3. Depression -She has been struggling recently with the miscarriage and then the difficulty that she is having now with the hyperemesis -Been started on Zoloft as an outpatient which we will continue while she is here DVT: Therapeutic Lovenox Code Visit Inpatient E&M: 19348 Init Hosp L3
[2018-10-20] MEDS: HYDROmorphone 0.5 MG/0.5 ML SYRINGE IV (21:05)
[2018-10-20 21:07] VITALS: BP 128/75; PULSE 94; RESP 18; O2SAT 98
[2018-10-20] MEDS: Enoxaparin 60 MG/0.6 ML Syringe SC (21:22)
[2018-10-20 22:03] VITALS: BMI 23.3
[2018-10-20 22:17] VITALS: BP 111/69; PULSE 90; RESP 22; TEMP 36.4; O2SAT 100
[2018-10-20 22:20] VITALS: O2SAT 100
[2018-10-20] MEDS: 0.9% NaCl Peripheral Flush Adult/Peds IV (22:35)
[2018-10-20] MEDS: Acetaminophen 325 MG Tablet 650 MG PO (22:40)
--- NOTE | 2018-10-20 23:02 | ECHOD_ITS ---
Reason For Study: Pulm. emboli Procedure This was a 2D Doppler, Color Flow transthoracic echocardiogram. The study was technically difficult. Patient scanned sitting up due to pain. Exam performed portable in patient room. Left Ventricle Normal size and thickness. The estimated ejection fraction is 60 %. No evidence for diastolic dysfunction. No regional wall motion abnormalities noted. Right Ventricle Normal RV size. Normal systolic function. Atria Normal left atrium. Normal right atrium. No doppler evidence for ASD. Mitral Valve There is no mitral valve stenosis. No mitral valve insufficiency. Tricuspid Valve There is no tricuspid stenosis. Unable to estimate RV systolic pressure due to insufficient tricuspid regurgitant envelope. No tricuspid valve insufficiency. Aortic Valve Trisinus/trileaflet aortic valve. There is no aortic stenosis. No aortic valve insufficiency. Pulmonic Valve There is no pulmonic valvular stenosis. No pulmonic valve insufficiency. Great Vessels Normal aortic root. Pericardium/Pleural No pericardial effusion. MMode/2D Measurements & Calculations LVIDd: 3.9 cm IVSd: 0.84 cm Ao root diam: 2.7 cm LVIDs: 2.5 cm LVPWd: 0.89 cm RVDd: 3.0 cm FS: 36.1 % LAV(MOD-bp): 29.2 ml LA A4 area: 13.8 cm2 LA dimension(2D): 3.0 cm LAV(MOD-bp) Indexed: 16.3 ml/m2 LAV(MOD-sp2): 26.5 ml LAV(MOD-sp4): 27.7 ml RA A4 area: 15.8 cm2 Doppler Measurements & Calculations MV E max florentin: 86.4 cm/sec Lat Peak E' Florentin: 13.4 cm/sec Med Peak E' Florentin: 13.2 cm/sec MV A max florentin: 64.3 cm/sec E/E' lat: 6.5 E/E' med: 6.5 MV E/A: 1.3 Ao V2 max: 139.5 cm/sec LV V1 max: 132.9 cm/sec PA V2 max: 105.8 cm/sec Ao max P.8 mmHg LV V1 max P.1 mmHg Interpretation Summary The study was technically difficult as patient had to be scanned in the sitting position due to pain. The estimated ejection fraction is 60 %. No evidence for diastolic dysfunction. The study was technically difficult. Ordering Physician: Martníez Julian Performed By: Michaela Dickerson RDCS
--- NOTE | 2018-10-20 23:24 | NURSING ---
heart tones 150 per doppler
[2018-10-21] VITALS (11 sets, daily range): BP systolic 101–119; BP diastolic 62–85; PULSE 70–101; RESP 16–26; TEMP 36.4–37.2; O2SAT 98–100
[2018-10-21] MEDS: HYDROmorphone 0.5 MG/0.5 ML SYRINGE IV ×2 (01:35→05:41)
[2018-10-21] MEDS: 0.9% NaCl Peripheral Flush Adult/Peds IV ×8 (01:35→21:49)
[2018-10-21] MEDS: HYDROmorphone 1 MG/ML Syringe IV ×5 (02:53→21:48)
[2018-10-21] MEDS: Enoxaparin 80 MG/0.8 ML Syringe 70 MG SC ×2 (05:46→17:59)
[2018-10-21 05:53] LABS: Absolute Neutrophil Count 4.2 X10^3/uL (2.0-7.7); Basophil# 0.02 X10^3/uL; Basophil% 0.3 % (0-1); Eosinophil# 0.15 X10^3/uL; Eosinophils% 2.3 % (0-5); Hematocrit 28.7 % (37-47); Hemoglobin 10.1 g/dL (12.0-15.0); Mean Corp Hgb Conc 35.2 g/dL (32-36); Mean Corpuscular Hgb 31.1 pg (27.0-32.0); Mean Corpuscular Volume 88.3 fL (81-99); Mean Platelet Vol. 10.4 fl (6.2-12.0); Monocyte% 6.3 % (0-10); NRBC Flagged by Analyzer 0 % (0-5); Neutrophil % 65.6 % (47-70); Platelet Count 174 K/mm3 (150-450); RBC Distribution Width CV 13.7 % (11.6-14.6); Red Blood Count 3.25 M/mm3 (4.2-5.4); White Blood Count 6.4 K/mm3 (4.4-11.0)
[2018-10-21 06:11] LABS: Anion Gap 6 (5-15); BUN 4 mg/dL (7-18); BUN/Creat Ratio 11.4 RATIO (10-20); Calcium,Total 8.4 mg/dL (8.5-10.1); Chloride 107 mmol/L (98-107); Creatinine, Serum 0.35 mg/dL (0.55-1.02); EST Glomerular Filtration Rate 232 mL/min (>60); Est Glom Filt Rate - Afr Amer 280 mL/min (>60); Estimated Creatinine Clearance 230.63 ml/min; Glucose 91 mg/dL (74-106); Potassium 3.2 mmol/L (3.5-5.1); Sodium Level 135 mmol/L (136-145)
--- NOTE | 2018-10-21 09:13 | NURSING ---
FHT 150 via bedside doppler; reported to MS NANCY Maxwell.
--- NOTE | 2018-10-21 10:31 | PCM.CONS.PUL ---
Problem List (1) Pulmonary embolus Status: Acute Qualifiers: Chronicity: acute Acute cor pulmonale presence: without acute cor pulmonale (2) Status: Acute Qualifiers: Weeks of gestation: 12 weeks Qualified Code(s): Z3A.12 - 12 weeks gestation of (3) Genital herpes Status: Acute (4) Heroin use disorder, severe, in sustained remission Status: Chronic Reason for Consult Date of Consultation: 10/21/18 Reason for Consultation: Pulmonary embolism History of Present Illness: The patient is a 28 year old F, with past medical history listed below, who presented to [facility] 10/20/2018 secondary to acute onset of right-sided chest pain and dyspnea. Patient states that this had an abrupt onset and was pleuritic in nature. Patient did report that she is 12 weeks and had denied any pelvic pain or vaginal bleeding recently. Patient's primary [facility] is in the [place], but patient wishes to stay at [facility]. Patient has had some issues with vomiting early in her . Patient has not had any significant vomiting today. Patient denied any trauma to her chest. On evaluation in the ER, patient was noted to be tachycardic at 125 bpm and moderate acute distress. Patient was given Dilaudid and Zofran. A CTA of the chest showed bilateral pulmonary emboli with infiltrate in the right base. Patient was admitted to the floor for pain control on minimal nasal cannula oxygen. This morning, I was called emergently to the patient's room secondary to tachypnea and respiratory distress. Patient was reporting significant right chest pain. This was described as sharp and intense. This was worse with deep inhalation. Patient had denied any hemoptysis. Patient was placed on anticoagulation and has had no bleeding complications. Patient was seen by C[employer] ROLL PACKER earlier and heart rate was going to be monitored. Patient does report that her mother has a history of lupus and multiple blood clots in the past. To her knowledge, patient is never had a blood clot previously. Patient is unclear if her mother has a known hereditary predisposition for thrombosis, but states that she has been on anticoagulation for quite some time. Patient did report some concern for being given narcotics as she states that she was a heroin addict in the past. Review of systems otherwise negative x10 systems. Past Medical History Past Medical History (Chronic Problems): Chronic Problems Heroin use disorder, severe, in sustained remission (Chronic) Allergies morphine Adverse Reaction (Verified 10/20/18 19:11) Other HEADACHE AND IRRITABILITY Home Medications: Ambulatory Orders Medication Instructions Recorded Ondansetron [Zofran Odt] 4 mg PO Q8H PRN PRN #10 tab 09/05/18 Sertraline HCl [Zoloft] 50 mg PO DAILY 10/17/18 Metoclopramide [Reglan] 10 mg PO 4X/DAY PRN #10 tab 10/19/18 Surgical History: no surgical history Smoking Status: Former smoker Tobacco Use: Cigarettes Alcohol: None Drugs: None - *Family History Maternal History Items: - - Lupus Review of Systems Comment: See HPI Patient Problems: Active and Suspected Problems Pulmonary embolus (Acute) (Acute) Objective: CTA of the chest was personally reviewed. This does show bilateral pulmonary emboli with a possible infarction in the right lower lobe. No significant mediastinal lymphadenopathy appreciated. Patient does not have any previous echocardiogram or pulmonary function test available for review. - Physical Exam General: Alert, Oriented x3, Cooperative, - - Moderate to severe distress with splinting. Tearful on my arrival. HEENT: Atraumatic, PERRLA, EOMI, Normocephalic, - - Scleral injection without icterus. Oral: Moist Mucosa, No Gingival or Mucosal Lesions/ Ulcerations Neck: Supple, No JVD, No Nodes, Trachea Midline Lungs: No rhonchi, No wheeze, No rales, Diminished - Right base, Tachypneic, Using Accessory Muscles, - - Actively splinting respiration Cardiovascular: Normal S1, Normal S2, No murmurs, No rub noted, No Gallop, Tachycardic Abdomen: Bowel Sounds Present, Soft, Non Tender, Non-Distended Extremities: No clubbing, No cyanosis, No edema Skin: No rashes, No breakdown Musculoskeletal: No Tenderness to Palpation of Joints or Extremities Lymphatic: No Cervical, Supraclavicular, or Inguinal Adenopathy Neurological: Cranial nerves II-XII grossly intact, Neuro grossly intact, Motor Exam 5/5 strength throughout Psych/Mental Status: Agitated, Anxious, Restless Vital Signs Temp Pulse Resp BP Pulse Ox 36.4 C L 97 20 H 119/66 100 10/21/18 08:33 10/21/18 08:33 10/21/18 08:33 10/21/18 08:33 10/21/18 08:33 Oxygen Delivery Method Room Air Weight: 67.6 kg Body Mass Index (BMI) 23.3 Intake and Output for Last 24 Hours 10/19/18 10/20/18 10/21/18 23:59 23:59 23:59 Intake Total 600 / 600 Balance 600 / 600 Laboratory Tests Past 24 Hrs 10/20/18 10/20/18 10/21/18 19:27 19:27 05:30 WBC 9.5 6.4 RBC 3.98 L 3.25 L Hgb 12.5 10.1 L Hct 35.6 L 28.7 L MCV 89.4 88.3 MCH 31.4 31.1 MCHC 35.1 35.2 RDW Std Deviation 43.8 44.0 H RDW Coeff of Ziggy 13.4 13.7 Plt Count 222 174 MPV 10.4 10.4 Immature Gran % (Auto) 0.400 0.500 Neut % (Auto) 74.5 H 65.6 Lymph % (Auto) 16.8 L 25.0 [place] % (Auto) 6.6 6.3 Eos % (Auto) 1.4 2.3 Baso % (Auto) 0.3 0.3 Absolute Neuts (auto) 7.1 4.2 Absolute Lymphs (auto) 1.59 1.60 Absolute Nucleated RBC 0.00 0.00 Nucleated RBC % 0 0 Sodium 135 L Potassium 3.1 L Chloride 104 Carbon Dioxide 21.0 Anion Gap 10 BUN 7 Creatinine 0.56 Estim Creat Clear Calc 144.15 Est GFR (MDRD) Af Amer 165 Est GFR (MDRD) Non-Af 136 BUN/Creatinine Ratio 12.6 Glucose 73 L Calcium 9.4 Total Bilirubin 0.30 AST 13 L ALT 14 Alkaline Phosphatase 102 Troponin I < 0.015 Total Protein 8.0 Albumin 3.4 Globulin 4.6 H Albumin/Globulin Ratio 0.7 L Lipase 162 10/21/18 05:30 WBC RBC Hgb Hct MCV MCH MCHC RDW Std Deviation RDW Coeff of Ziggy Plt Count MPV Immature Gran % (Auto) Neut % (Auto) Lymph % (Auto) [place] % (Auto) Eos % (Auto) Baso % (Auto) Absolute Neuts (auto) Absolute Lymphs (auto) Absolute Nucleated RBC Nucleated RBC % Sodium 135 L Potassium 3.2 L Chloride 107 Carbon Dioxide 22.0 Anion Gap 6 BUN 4 L Creatinine 0.35 L Estim Creat Clear Calc 230.63 Est GFR (MDRD) Af Amer 280 Est GFR (MDRD) Non-Af 232 BUN/Creatinine Ratio 11.4 Glucose 91 Calcium 8.4 L Total Bilirubin AST ALT Alkaline Phosphatase Troponin I Total Protein Albumin Globulin Albumin/Globulin Ratio Lipase Clinical Impression(s) from Imaging Studies Chest CTA 10/20/18 19:25 IMPRESSION: 1. Findings consistent with bilateral lower lobe pulmonary artery emboli extending into the posterior basilar segments with right lower lung airspace disease concerning for component of acute infiltrate and infarction given proximal embolus. Mild extension of embolus into the right upper proximal pulmonary artery is also noted. Electronically Signed: Antwan Jose DO at 20:29 EDT , Service support , Assessment/Plan All Active Problems Pulmonary embolus (Acute) (Acute) Genital herpes (Acute) RECOMMENDATIONS: 1. Continue Lovenox therapy 2. Narcotics for pain control, no NSAIDs 3. Consider outpatient hypercoagulable work-up 4. Walking oximetry prior to discharge 5. Possibly repeat CT scan following IMPRESSIONS: 1. Acute hypoxic respiratory insufficiency secondary to acute bilateral pulmonary emboli with possible lung infarction Patient with significant infiltrate noted in the right lower lobe. Unclear if this represents infarction versus atelectasis secondary to splinting. Patient was also having a component of pleurisy, likely secondary to lung findings. Patient is currently , so Lovenox would be the preferred therapy. NSAIDs should be avoided given early . Patient does have a history of narcotic abuse, but these are likely indicated in the acute period. Encourage incentive spirometer. Patient will need a walking oximetry prior to discharge. Typically would repeat CT scan in 6 to 8 weeks, but given status, this could be completed following delivery, along with a complete PFT. 2. Possible hypercoagulable state Patient does report that her mother has had multiple clots previously. Recommend obtaining some information from her mother to see if she has a potential for genetic inborn error of thrombosis. Outpatient work-up would be recommended. Would not obtain these labs as an inpatient as they are likely not going to change the plan acutely. 3. History of narcotic abuse/genital herpes/ (12 weeks) Complicates care, management, recovery and prognosis. [facility] [facility] is currently following the patient. Code Visit Inpatient E&M: 85447 Init Hosp L3
--- NOTE | 2018-10-21 11:48 | CASEMGMT ---
Addendum entered by Prieto Herndon 10/21/18 14:32: Prior auth form completed by Dr. Johansen. Faxed to [employer] @ PHONE: . Agency is open Wednesday and Wednesday from 9-5:30. MS3 fax # given for return of approval or denial form Original Note: RN CM Assessment Presentation: Pulmonary Embolus Intro role of CM and purpose of RN CM assessment to patient in room. Mother and SO also in room. Demographics, PCP and Pharmacy verified. Pt does not have PCP but is agreeable to receive list of [facility] physicians in [place]. NANCY CM reviewed release of information form for [facility] to receive and give information to patient's PLATFORM STAPLER physician in [place]. Pt agreeable and signed form. Dr. Johansen called pt's HEAT AND FROST INSULATOR HELPER, reviewed case and will order Lovenox injections twice a day for pt. Prescription called to [facility]. Prior auth will be needed . -Call to [place] dept. Prior Auth Form to be faxed to [facility], completed and returned. Will be reviewed and determination received within 24 hours. No expedited Phone review is available through [place]. Dr. Johansen notifed through text that form needs signed. PCP: NONE. List for [facility] Physicians given Specialists: HEAT AND FROST INSULATOR HELPER Dr. Sabrina Galindo [address] [place] [address] [place] [address] PH: [phone] Preferred Pharmacy: [facility] Insurance: [facility] Prescription Benefit: Yes LNOK: MotherJazmin Living Arrangements: Lives independently. No care needs noted at this time. Transportation: Drives or family can drive DME: none. Pt is to have antinausea pump through her [employer]FORM STAP[employer]ER office. Will f/u oupt for this HHC: none SW Consult: Grief/Loss. Recent miscarriage/current High risk Patient DC goals: Home DC PLAN: Home Jenifer EM CM
[2018-10-21] MEDS: HYDROcodone Bitartrate/Apap 5/325 Tablet PO ×2 (13:11→19:18)
[2018-10-21] MEDS: Sertraline 50 MG Tablet PO (13:11)
--- NOTE | 2018-10-21 14:46 | PN_ITS ---
Patient Problems: Active and Suspected Problems Pulmonary embolus (Acute) (Acute) Subjective: Patient was seen and examined today, I talked at length with her and her family who are in the room today including her . Patient is continuing to have episodic pleuritic pain which is quite severe, I have placed her on Dilaudid IV which seems to help sometimes only for short period of time. I had pulmonary medicine see the patient and I also talked with the patient's IMMIGRATION LAW SPECIALIST physician Dr. Galindo who is in practice in the [place]. Dr. Galindo would prefer the patient be on twice daily Lovenox rather than once a day Lovenox due to her increased metabolism during . Pulmonary medicine states it is up to CLIENT DEVELOPMENT MANAGER what dose of Lovenox to use. I have decided to remove the patient from telemetry, I do not feel she needs telemetry, I also talked to the IMMIGRATION LAW SPECIALIST service here who felt that they did not have anything to offer concerning this case so I have decided to remove their consultation order. - Physical Exam General: Alert, Oriented x3, Cooperative, Well developed, - - Patient in moderate distress due to pleuritic chest pain HEENT: Atraumatic, PERRLA, EOMI, Normocephalic Oral: Moist Mucosa Neck: Supple, No JVD, Trachea Midline, Thyroid Normal Size and Texture Lungs: Clear to auscultation, Normal air movement, No rhonchi, No wheeze, No rales Cardiovascular: Regular rate, Regular Rhythm, Normal S1, Normal S2, No murmurs, No Ectopic Activity, PMI Normal, No rub noted Abdomen: Bowel Sounds Present, Soft, Non Tender, Non-Distended, No hernias noted Extremities: No clubbing, No cyanosis, No edema, Capillary Refill Less than 3 Seconds Skin: No rashes, No breakdown Musculoskeletal: No Tenderness to Palpation of Joints or Extremities Neurological: Cranial nerves II-XII grossly intact, Neuro grossly intact, Sens ory exam intact to light touch and pain, Coordination normal Psych/Mental Status: Normal Affect, Appropriate, Alert and oriented to time, place, person, mood and affect Vital Signs Temp Pulse Resp BP Pulse Ox 98.0 F 101 H 22 H 112/85 H 100 10/21/18 11:10 10/21/18 11:10 10/21/18 11:10 10/21/18 11:10 10/21/18 11:10 Oxygen Delivery Method Room Air Weight: 67.6 kg Body Mass Index (BMI) 23.3 Intake and Output for Last 24 Hours 10/19/18 10/20/18 10/21/18 23:59 23:59 23:59 Intake Total 800 / 800 Balance 800 / 800 Laboratory Tests Past 24 Hrs 10/20/18 10/20/18 10/21/18 19:27 19:27 05:30 WBC 9.5 6.4 RBC 3.98 L 3.25 L Hgb 12.5 10.1 L Hct 35.6 L 28.7 L MCV 89.4 88.3 MCH 31.4 31.1 MCHC 35.1 35.2 RDW Std Deviation 43.8 44.0 H RDW Coeff of Ziggy 13.4 13.7 Plt Count 222 174 MPV 10.4 10.4 Immature Gran % (Auto) 0.400 0.500 Neut % (Auto) 74.5 H 65.6 Lymph % (Auto) 16.8 L 25.0 [place] % (Auto) 6.6 6.3 Eos % (Auto) 1.4 2.3 Baso % (Auto) 0.3 0.3 Absolute Neuts (auto) 7.1 4.2 Absolute Lymphs (auto) 1.59 1.60 Absolute Nucleated RBC 0.00 0.00 Nucleated RBC % 0 0 Sodium 135 L Potassium 3.1 L Chloride 104 Carbon Dioxide 21.0 Anion Gap 10 BUN 7 Creatinine 0.56 Estim Creat Clear Calc 144.15 Est GFR (MDRD) Af Amer 165 Est GFR (MDRD) Non-Af 136 BUN/Creatinine Ratio 12.6 Glucose 73 L Calcium 9.4 Total Bilirubin 0.30 AST 13 L ALT 14 Alkaline Phosphatase 102 Troponin I < 0.015 Total Protein 8.0 Albumin 3.4 Globulin 4.6 H Albumin/Globulin Ratio 0.7 L Lipase 162 10/21/18 05:30 WBC RBC Hgb Hct MCV MCH MCHC RDW Std Deviation RDW Coeff of Ziggy Plt Count MPV Immature Gran % (Auto) Neut % (Auto) Lymph % (Auto) [place] % (Auto) Eos % (Auto) Baso % (Auto) Absolute Neuts (auto) Absolute Lymphs (auto) Absolute Nucleated RBC Nucleated RBC % Sodium 135 L Potassium 3.2 L Chloride 107 Carbon Dioxide 22.0 Anion Gap 6 BUN 4 L Creatinine 0.35 L Estim Creat Clear Calc 230.63 Est GFR (MDRD) Af Amer 280 Est GFR (MDRD) Non-Af 232 BUN/Creatinine Ratio 11.4 Glucose 91 Calcium 8.4 L Total Bilirubin AST ALT Alkaline Phosphatase Troponin I Total Protein Albumin Globulin Albumin/Globulin Ratio Lipase Medical Necessity - Tobacco Use Smoking Status: Former smoker Tobacco Use: Cigarettes Assessment/Plan All Active Problems Pulmonary embolus (Acute) (Acute) Genital herpes (Acute) #1 bilateral pulmonary emboli-etiology unclear, possibly secondary to her , continue subcu Lovenox, request was sent for pre-CERT for the patient's Lovenox to her pharmacy. #2 #3 past history of heroin addiction-according to the patient's IMMIGRATION LAW SPECIALIST physician, patient does not use heroin for 3 years. #4 hypokalemia-supplemental potassium was given #5 pleurisy secondary to #1-Dilaudid will be used IV for pain if it is severe, otherwise [place] will be used Code Visit Inpatient E&M: 38860 Subs Hosp L2
--- NOTE | 2018-10-21 15:01 | CASEMGMT ---
Social Work Note SW received referral for support. Pt had a miscarriage in May and is currently with a high risk . SW met with pt, pt currently sleeping but is easily awake. Pt's boyfriend sleeping in pt's room. SW introduced self and role at [facility]. Pt is alert and orientated x4. Pt states that she is doing ok. SW asked pt about any anxious or depressive feelings and pt denied any current anxious or depressive feelings. Pt states that she feels supportive and is overall doing ok. Pt denied any additional needs or concerns at this time. Odette Lester MAGNETIC LOCATER, FORM TAMPER
[2018-10-21] MEDS: Ondansetron 4 MG/2 ML Vial IV (18:37)
[2018-10-22 02:26] VITALS: BP 119/78; PULSE 82; RESP 16; TEMP 36.4; O2SAT 98
[2018-10-22] MEDS: HYDROcodone Bitartrate/Apap 5/325 Tablet PO ×2 (02:28→11:46)
[2018-10-22] MEDS: Ondansetron 4 MG/2 ML Vial IV ×2 (02:34→10:20)
[2018-10-22] MEDS: 0.9% NaCl Peripheral Flush Adult/Peds IV ×2 (02:34→11:47)
--- NOTE | 2018-10-22 06:24 | NURSING ---
FHR found in RLQ 158. Abdomen palpates soft, no contractions noted.
[2018-10-22] MEDS: Enoxaparin 80 MG/0.8 ML Syringe 70 MG SC ×2 (06:27→18:15)
[2018-10-22] MEDS: Acetaminophen 325 MG Tablet 650 MG PO ×2 (07:16→15:58)
--- NOTE | 2018-10-22 07:37 | PCM.PN.PUL ---
Patient Problems: Active and Suspected Problems Pulmonary embolus (Acute) (Acute) Subjective: Patient did well overnight. Patient reporting that her pain is much better controlled today than it was yesterday. Patient reports she had 1 dose of Dilaudid overnight. Patient does report some dark-colored sputum with cough, but no marii hemoptysis. No bleeding complications have been reported. Objective: Echocardiogram shows no RV dysfunction. EF of 60%. - Physical Exam General: Alert, Oriented x3, Cooperative, No apparent distress, Well developed, Well nourished, - - Speaking in full sentences. HEENT: Atraumatic, PERRLA, EOMI, Normocephalic, - - No scleral icterus or injection noted. Oral: Moist Mucosa, No Gingival or Mucosal Lesions/ Ulcerations Neck: Supple, No JVD, No Nodes, Trachea Midline Lungs: No wheeze, No rales, Rhonchi - Right base Cardiovascular: Regular rate, Regular Rhythm, Normal S1, Normal S2, No murmurs, No rub noted, No Gallop Abdomen: Bowel Sounds Present, Soft, Non Tender, Non-Distended Extremities: No clubbing, No cyanosis, No edema, Capillary Refill Less than 3 Seconds Skin: No rashes, No breakdown Musculoskeletal: No Tenderness to Palpation of Joints or Extremities Lymphatic: No Cervical, Supraclavicular, or Inguinal Adenopathy Neurological: Cranial nerves II-XII grossly intact, Neuro grossly intact, Motor Exam 5/5 strength throughout, Sensory exam intact to light touch and pain Psych/Mental Status: Alert and oriented to time, place, person, mood and affect Vital Signs Temp Pulse Resp BP Pulse Ox 36.4 C L 82 16 119/78 98 10/22/18 02:26 10/22/18 02:26 10/22/18 02:26 10/22/18 02:26 10/22/18 02:26 Oxygen Flow Rate (L/min) 2 Oxygen Delivery Method Room Air Weight: 67.6 kg Body Mass Index (BMI) 23.3 Intake and Output for Last 24 Hours 10/20/18 10/21/18 10/22/18 23:59 23:59 23:59 Intake Total 1000 / 1000 Balance 1000 / 1000 Medical Necessity - Tobacco Use Smoking Status: Former smoker Tobacco Use: Cigarettes Assessment/Plan All Active Problems Pulmonary embolus (Acute) (Acute) Genital herpes (Acute) RECOMMENDATIONS: 1. Continue Lovenox therapy 2. Consider using Tylenol ATC with OxyIR for breakthrough, no NSAIDs 3. Consider outpatient hypercoagulable work-up 4. Walking oximetry prior to discharge 5. Likely okay to follow-up with UNIX ANALYST for anticoagulation recommendations 6. Okay to discharge if ambulates on room air IMPRESSIONS: 1. Acute hypoxic respiratory insufficiency secondary to acute bilateral pulmonary emboli with possible lung infarction Patient with significant infiltrate noted in the right lower lobe. Unclear if this represents infarction versus atelectasis secondary to splinting. Patient was also having a component of pleurisy, likely secondary to lung findings. Patient is currently , so Lovenox would be the preferred therapy. NSAIDs should be avoided given early . Patient may benefit from the use of Tylenol [id number] with OxyIR for breakthrough. A CT scan can be completed after the for evaluation. Anticoagulation can be managed by UNIX ANALYST from my perspective given the lack of right heart strain, but we would be happy to see her in the office if requested. Will obtain a walking oximetry. The patient does not require supplemental oxygen, okay to discharge from my perspective. 2. Possible hypercoagulable state Patient does report that her mother has had multiple clots previously. Recommend obtaining some information from her mother to see if she has a potential for genetic inborn error of thrombosis. Outpatient work-up would be recommended. Would not obtain these labs as an inpatient as they are likely not going to change the plan acutely. 3. History of narcotic abuse/genital herpes/ (12 weeks) Complicates care, management, recovery and prognosis. UNIX ANALYST is currently following the patient. Code Visit Inpatient E&M: 82152 Subs Hosp L2
[2018-10-22] MEDS: Sertraline 50 MG Tablet PO (10:02)
[2018-10-22 10:08] VITALS: BP 110/65; PULSE 84; RESP 20; TEMP 37; O2SAT 97
[2018-10-22] MEDS: Ensure Clear 120 ML Liquid PO (10:26)
--- NOTE | 2018-10-22 10:33 | CASEMGMT ---
Case Management Progress Note: Confirmed Fax received for Prior Authorization and Approved for Lovenox, Dr Johansen made aware and states patient is feeling better and plan for DC today. 1030- Called Lilly Ji [phone], s/w Lakeisha and confirmed Has Prior Auth and has Medication Available for patient DC today. Dr Johansen updated on this. Claudia Hernandez RNCM
--- NOTE | 2018-10-22 10:40 | PCM.DC ---
- Discharge Diagnoses Current Active Problems: Current Active and Chronic Problems Pulmonary embolus (Acute) (Acute) Heroin use disorder, severe, in sustained remission (Chronic) You will use the following diet at home:: No restrictions Your food should be the consistency of: Regular Your liquids should be the consistency of: Regular/Thin Discharge Activity: Return to Normal Activity Weight Bearing Status: Full weight bearing Allergies/Adverse Reactions: Allergies morphine Adverse Reaction (Verified 10/20/18 19:11) Other HEADACHE AND IRRITABILITY Medications to take at Discharge Ondansetron [Zofran Odt] 4 mg PO Q8H PRN PRN #10 tab 09/05/18 Sertraline HCl [Zoloft] 50 mg PO DAILY 10/17/18 Metoclopramide [Reglan] 10 mg PO 4X/DAY PRN #10 tab 10/19/18 Acetaminophen [Tylenol Tablet] 650 mg PO Q6H PRN PRN tablet 10/22/18 Enoxaparin [Lovenox] 70 mg SC Q12@0600,1800 syringe 10/22/18 Hydrocodone Bitart/Apap 5-325 [[place] 5/325] 1 - 2 tab PO Q6H PRN PRN 7 Days #10 tab 10/22/18 The following prescriptions were given: Hydrocodone Bitart/Apap 5-325 [[place] 5/325] 1 - 2 tab PO Q6H PRN PRN 7 Days #10 tab PRN Reason: Severe Pain (-01/05) Prescription Printed Primary Care Physician: Care Physician,No Primary [Primary Care Provider] - Test Results: Test results from this visit will be discussed in further detail at your follow-up appointment, if applicable. Please Follow Up With: Sabrina Galindo DO When: call next week to arrange for followup Please Follow Up With: Bj Singleton MD When: in 4 weeks-call for appointment
[2018-10-22] MEDS: proMETHazine 25 MG/ML Syringe 12.5 MG IV (11:48)
--- NOTE | 2018-10-22 12:35 | NURSING ---
AT 1130 this morning, pt sitting up in bed, holding emesis bag having emesis and grabbing side for pain relief. 8 out of 10 pain. Too early for tylenol so [place] can be given but pt vomitting. Zofran recently given and reglan is po. So x1 order obtained at this time for Phenergan 12.5mg IV X1 Which was given and then norco was given as well. Pt is now alseep in bed. No distress and brother is at her side.
--- NOTE | 2018-10-22 15:42 | DS.PCM_ITS ---
Discharge Date and Diagnosis - Problem List Patient Problems: Active and Suspected Problems Pulmonary embolus (Acute) (Acute) Date of Admission: 10/20/18 Date of Discharge: 10/22/18 - Primary Discharge Diagnosis Active and Suspected Problems #1 bilateral pulmonary emboli-etiology unclear, possibly secondary to her #2 #3 past history of heroin addiction #4 hypokalemia #5 pleurisy secondary to #1 - Secondary Discharge Diagnosis Chronic Problems Heroin use disorder, severe, in sustained remission (Chronic) Hospital Course and Treatment Operations: None Procedures: 2-D Echocardiogram Summary of Care Provided: The patient is a 28 year old F who was seen in the emergency room at [facility] with chief complaint of right-sided chest pain and shortness of breath that started earlier in the day. Patient was 12 weeks . Wo rk-up in the emergency room included an EKG which showed a sinus tachycardia at a rate of 130, CBC and chemistries were unremarkable other than a sodium of 136, potassium of 3.1. Troponin was negative. CTA shows findings consistent with bilateral lower lobe pulmonary emboli. Patient was given Lovenox and admitted to [place] [address] with acute bilateral pulmonary emboli, she was given IV narcotics for severe pain felt to be pleuritic in nature. Patient was seen in consultation by pulmonary medicine, she also had an echocardiogram performed which showed a normal EF. I had conversations with the patient's SKIN CARE INSTRUCTOR physician over the phone about her medical care. Patient's chest pain improved during her hospital stay, she did not require any oxygen, on 10/22/2018, patient was seen and examined: On examination she appeared in good health and spirits. Vital signs as documented. Skin warm and dry and without overt rashes. Neck without JVD. Lungs clear. Heart exam notable for regular rhythm, normal sounds and absence of murmurs, rubs or gallops. Abdomen unremarkable and without evidence of organomegaly, masses, or abdominal aortic enlargement. Extremities nonedematous. Neuro: Cranial nerves II through XII are grossly intact, no focal motor deficits were noted, sensation to light touch and pinprick is intact. Psych: Patient is alert and oriented x3, she does not appear anxious or depressed On 10/22/2018, patient was seen and examined and felt to be in stable condition for discharge home Patient Problems: Active and Suspected Problems Pulmonary embolus (Acute) (Acute) - Physical Exam Vital Signs Temp Pulse Resp BP Pulse Ox 98.6 F 84 20 H 110/65 97 10/22/18 10:08 10/22/18 10:08 10/22/18 10:08 10/22/18 10:08 10/22/18 10:08 Oxygen Flow Rate (L/min) 2 Oxygen Delivery Method Room Air Weight: 67.6 kg Body Mass Index (BMI) 23.3 Intake and Output for Last 24 Hours 10/20/18 10/21/18 10/22/18 23:59 23:59 23:59 Intake Total 1000 / 1000 Balance 1000 / 1000 Discharge Activity: Return to Normal Activity Weight Bearing Status: Full weight bearing Home Medications: Medications to take at Discharge Ondansetron [Zofran Odt] 4 mg PO Q8H PRN PRN #10 tab 09/05/18 Sertraline HCl [Zoloft] 50 mg PO DAILY 10/17/18 Metoclopramide [Reglan] 10 mg PO 4X/DAY PRN #10 tab 10/19/18 Acetaminophen [Tylenol Tablet] 650 mg PO Q6H PRN PRN tab 10/22/18 Enoxaparin [Lovenox] 70 mg SUBCUT Q12@0600,1800 syringe 10/22/18 Hydrocodone Bitart/Apap 5-325 [[place] 5/325] 1 - 2 tab PO Q6H PRN PRN 7 Days #10 tab 10/22/18 Following Prescrptions Were Given to Patient: Hydrocodone Bitart/Apap 5-325 [[place] 5/325] 1 - 2 tab PO Q6H PRN PRN 7 Days #10 tab PRN Reason: Severe Pain (-01/05) Prescription Printed Primary Care Physician: Care Physician,No Primary [Primary Care Provider] - Please Follow Up With: Sabrina Galindo DO When: call next week to arrange for followup Please Follow Up With: Bj Singleton MD When: in 4 weeks-call for appointment Disposition: Home Minutes spent on discharge:: 32 Patient Condition:: Stable Medical Necessity - Tobacco Use Smoking Status: Former smoker Tobacco Use: Cigarettes Meaningful Use Info Meaningful Use Diagnoses (Choose all that apply): VTE - VTE Anticoag overlap given w/in hospital stay or rx'd at dc?: No Pt receive overlap for 5 days?: No Reason overlap not ordered, prescribed, or given for 5 days: Treatment Not Indicated Code Visit Inpatient E&M: 82598 Disch Hosp
[2018-10-22 16:00] VITALS: BP 106/66; PULSE 71; RESP 18; TEMP 37.1; O2SAT 100
[2018-10-22] MEDS: Metoclopramide 10 MG Tablet PO (16:00)
--- NOTE | 2018-10-22 16:57 | NURSING ---
This nurse went to give Mag Citrate this morning, pt was nauseated and then a little later vomited. This nurse went to re-assess and pt refused. I'm not drinking that stuff. Will inform Dr. Johansen.
[2018-10-22] MEDS: Bisacodyl 10 MG Suppository RECTAL (18:13)
--- NOTE | 2018-10-24 12:36 | CASEMGMT ---
NANCY MILAN DC PHONE CALL DC DATE: 10/22/18 DC Disposition: Home Diagnosis on Discharge: Pulmonary embolism LACE/STRATA: 11/29 Intro role of CM to patient. States she is doing well, no questions re: Lovenox, other prescriptions, f/u or instructions. No care improvement suggestions were given. Jenifer MARMOLEJON RN ACM
== END 2018-10-22 18:35 | disposition home or self-care (01) | DRG 566 ==
LOC: ED 20:33 → MS3 21:39
PROVIDERS: Admitting Provider Family Medicine; Emergency Provider Emergency Medicine; Visit Provider Internal Medicine
DX: O88.811 Other embolism in pregnancy, first trimester (principal); Z3A.12 12 weeks gestation of pregnancy; Z87.891 Personal history of nicotine dependence; O99.321 Drug use complicating pregnancy, first trimester; F11.21 Opioid dependence, in remission; R09.1 Pleurisy; O99.281 Endocrine, nutritional and metabolic diseases complicating pregnancy, first trimester; E87.6 Hypokalemia
CPT/HCPCS: 36415; 71275; 80048; 80053; 81001; 83605; 83690; 84484; 85025; 93005; 93306; 96361; 96372; 96374; 96376; 99283; 99285; J7030; Q9967; A4216; J2405

== ENCOUNTER 2018-11-11 05:10 | Emergency (ER) | payer MEDICAID, SELFPAY ==
[2018-10-20 22:03] VITALS: BMI 23.3
[2018-11-11 05:11] VITALS: BP 114/75; PULSE 94; RESP 18; TEMP 36.6; O2SAT 98; BMI 23.6
--- NOTE | 2018-11-11 05:22 | EKG12_ITS ---
Test Reason : CP Blood Pressure : / mmHG Vent. Rate : 090 BPM Atrial Rate : 090 BPM P-R Int : 194 ms QRS Dur : 072 ms QT Int : 368 ms P-R-T Axes : -01 033 028 degrees QTc Int : 450 ms Normal sinus rhythm with sinus arrhythmia Normal ECG Confirmed by ANDRAE CARRILLO, JADEN ([id number]), aerial advertiser GUNNAR CONWAY ([id number]) on 11/17/2018 1:07:10 PM Referred By: NATALIYA Confirmed By:JADEN ABEBE MD
--- NOTE | 2018-11-11 05:22 | RAD_ITS ---
HISTORY: Chest pain ADDITIONAL HISTORY: None provided. COMPARISON: CTA 10/20/2018 TECHNIQUE: Frontal and lateral chest radiographs. Number of images including paperwork: 2 FINDINGS: LUNGS AND PLEURA: No consolidation, mass or pleural effusion. Minimal basilar scarring appears similar. CARDIAC SILHOUETTE: Unremarkable. MEDIASTINUM AND HERBER: Unremarkable. UPPER ABDOMEN: Unremarkable. SKELETON AND SOFT TISSUES: No acute findings. OTHER DEVICES AND HARDWARE: Plate and screws in the left clavicle. RAD/Chest PA and Lateral IMPRESSION: No acute cardiopulmonary abnormality. at 0558 Reported and signed by: Rosita Brandon MD Electronically Signed: Rosita Brandon MD at 5:57 EDT Tel , Service support ,
--- NOTE | 2018-11-11 05:23 | ED.VIS.GEN ---
History of Present Illness Chief Complaint: Chest Pain Informant: Patient Narrative: Presents with right-sided sharp chest pain. She stated she had a blood clot diagnosed 3 weeks ago. She had bilateral PEs. Worse clot burden on the right per patient. She is been on Lovenox for the last 3 weeks. She had inpatient stay for 3 days and given narcotics. She was given Vicodin for home which did help control the pain. Since then though she has had worsening pain at night that waxes and wanes. Last night the pain was so significant that she had to come in today for pain control and further evaluation. She denies any shortness of breath. She is 15 weeks . She has not missed any Lovenox injections. She is getting Lovenox twice daily. She followed up with her senior user experience architect recently who told her things were going well and that the pain is likely from arterial inflammation from the clot burden. Patient denies any swelling or pain in her legs. Current severity per patient is moderate. She did take Tylenol. Denies any cardiac history or cardiac risk factors. - Past Medical History (1) Genital herpes Status: Acute (2) Status: Acute (3) Pulmonary embolus Status: Acute (4) Heroin use disorder, severe, in sustained remission Status: Chronic Past Medical History - Allergies and Home Meds Allergies/Adverse Reactions: Allergies morphine Adverse Reaction (Verified 11/11/18 05:15) Other HEADACHE AND IRRITABILITY Primary Care Physician: Care Physician,No Primary [Primary Care Provider] - Prior records reviewed: Yes Past Medical History: - - See problem list Surgical History: no surgical history Smoking Status: Never smoker Alcohol: None Drugs: None - Family History Maternal Family History: Reports: - - Lupus Review of Systems General: Denies: Chills, Fever, Sweats Eyes: Denies: Visual changes - bilaterally, Diplopia ENT: Denies: Rhinorrhea, Sore throat Cardiovascular: Reports: Chest pain. Denies: Palpitations Respiratory: Denies: Dyspnea, Cough, Dyspnea on exertion Gastrointestinal: Denies: Abdominal pain, Nausea, Vomiting, Diarrhea, Melena, Hematochezia Genitourinary: Denies: Dysuria, Hematuria, Frequency Musculoskeletal: Denies: Back pain, Extremity Pain Skin: Denies: Rash, Wounds Neurological: Denies: Headache, Weakness, Numbness Physical Exam Vital Signs/Narrative: Vital Signs Temp Pulse Resp BP Pulse Ox 11/11/18 05:11 97.9 F 94 18 114/75 98 General: Well nourished, Well developed, No Acute Distress Head: Normocephalic, Atraumatic Eyes: Perrl, EOMI ENT: Moist mucous membranes, No rhinorrhea Neck: Supple, Nontender Cardiovascular: Regular rate, Regular rhythm, No murmurs Respiratory: No distress, CTA bilaterally, Chest nontender Abdomen: Soft, Nontender, Nondistended, Normal bowel sounds Back: Nontender, Normal Inspection Extremities: Nontender, No edema Skin: Normal color, No rash Neurological: Alert, Oriented x3, Cranial nerves II-XII grossly intact, Normal Strength, Normal Sensation Psychological: Normal affect, Normal Mood Diagnostic/Tx/Re-eval - Medical Decision Making IV established and lab work chest x-ray and EKG obtained. Patient given a dose of Dilaudid. EKG shows sinus rhythm at a rate of 90 with no ischemia. Positive sinus arrhythmia that is mild in nature. Chest x-ray shows nothing acute. Lab work shows a very slight anemia. Is actually better from previous. Troponin negative. Electrolytes show no acute abnormalities. Patient felt much better after dose of Dilaudid. Think she is having some pain from inflammation inside her pulmonary arteries from the blood clot that is previous. I do not feel she needs a repeat CAT scan. She is resting comfortably. She is not short of breath. Her pulse ox is 100%. She is having no new leg swelling. She is therapeutic on Lovenox and has not missed the dose. She will be given a short course of Vicodin for home. She will follow-up as an outpatient ED Disposition - Plan for ED Patient: Disposition: Home or Assisted Living Diagnosis: Pulmonary embolism affecting Instructions: Pulmonary Embolism Prescriptions: Hydrocodone Bitart/Apap 5-325 [[place] 5MG-325MG] 1 - 2 tab PO Q4H PRN PRN 2 Days #10 tab PRN Reason: Pain Prescription Printed Referrals: Bj Singleton MD [STAFF PHYSICIAN] -
[2018-11-11] MEDS: HYDROmorphone 1 MG/ML Syringe IV (05:33)
[2018-11-11 05:34] LABS: Absolute Lymphocyte Count 1.77 X10^3/uL (0.83-4.51); Absolute Neutrophil Count 6.4 X10^3/uL (2.0-7.7); Basophil# 0.06 X10^3/uL; Basophil% 0.6 % (0-1); Eosinophil# 0.84 X10^3/uL; Eosinophils% 8.7 % (0-5); Hematocrit 32.4 % (37-47); Hemoglobin 11.4 g/dL (12.0-15.0); Lymphocyte # 1.77 X10^3/ul (4.0); Lymphocyte % 18.2 % (19-41); Mean Corp Hgb Conc 35.2 g/dL (32-36); Mean Corpuscular Hgb 32.9 pg (27.0-32.0); Mean Corpuscular Volume 93.6 fL (81-99); Mean Platelet Vol. 9.8 fl (6.2-12.0); Monocyte% 5.1 % (0-10); NRBC Flagged by Analyzer 0 % (0-5); Neutrophil # 6.42 X10^3/uL (2.7-7.7); Neutrophil % 66.2 % (47-70); Platelet Count 242 K/mm3 (150-450); RBC Distribution Width CV 14.9 % (11.6-14.6); RBC Distribution Width SD 50.7 fl (35.1-43.9); Red Blood Count 3.46 M/mm3 (4.2-5.4); White Blood Count 9.7 K/mm3 (4.4-11.0)
[2018-11-11 05:53] LABS: Anion Gap 7 (5-15); BUN 5 mg/dL (7-18); BUN/Creat Ratio 10.4 RATIO (10-20); Calcium,Total 8.8 mg/dL (8.5-10.1); Chloride 106 mmol/L (98-107); Creatinine, Serum 0.48 mg/dL (0.55-1.02); EST Glomerular Filtration Rate 162 mL/min (>60); Est Glom Filt Rate - Afr Amer 196 mL/min (>60); Estimated Creatinine Clearance 168.17 ml/min; Glucose 84 mg/dL (74-106); Potassium 3.9 mmol/L (3.5-5.1); Sodium Level 138 mmol/L (136-145)
[2018-11-11 06:06] VITALS: BP 110/60; PULSE 91; RESP 18; O2SAT 98
== END 2018-11-11 06:07 | disposition home or self-care (01) ==
PROVIDERS: Emergency Provider Emergency Medicine
DX: O88.212 Thromboembolism in pregnancy, second trimester (principal); Z3A.15 15 weeks gestation of pregnancy
CPT/HCPCS: 71046; 80048; 84484; 85025; 93005; 96374; 99285; A4216

== ENCOUNTER 2018-12-09 18:05 | Outpatient (CLI) | payer MEDICAID, SELFPAY ==
[2018-12-09 18:24] VITALS: BMI 22.9
[2018-12-09 19:41] LABS: Bacteria 0 SEEN /hpf (None Seen); Mucous, Urine 0 SEEN /hpf (<or=2+); Red Blood Cells-Urine 0 SEEN /hpf (0-5); White Blood Cells 0 SEEN /hpf (0-5)
[2018-12-09 19:57] LABS: Color, Urine Yellow (Yellow); Glucose, Dipstick Normal (Normal); Ketone-Dipstick 50 mg/dl (Negative); Leukocyte Esterase-Dipstick Negative /ul (Negative); Nitrite-Dipstick Negative (Negative); Occult Blood-Urine Negative /ul (Negative); Protein-Dipstick Negative (Negative); Urine Bilirubin Dipstick Negative (Negative); Urine Clarity Clear (Clear); Urine Urobilinogen Normal (Normal)
[2018-12-09 20:13] LABS: Squamous Epithelial Cells - UA 0-5 SEEN /hpf (5-10)
[2018-12-09 20:30] LABS: Amphetamine Urine VISTA NEGATIVE (<1000 ng/mL); Barbiturate Urine VISTA NEGATIVE (< 200 ng/mL); Benzodiazepine Urine VISTA NEGATIVE (< 200 ng/mL); Cocaine Urine VISTA NEGATIVE (< 300 ng/mL); Ecstacy Urine VISTA NEGATIVE (< 500 ng/mL); Methadone Urine VISTA NEGATIVE (< 300 ng/mL); PCP Urine VISTA NEGATIVE (< 25 ng/mL); THC Urine VISTA POSITIVE (< 50 ng/mL); Vista UDS pH Range 6
--- NOTE | 2018-12-29 18:00 | OB.TRI.HP_ITS ---
- Problem List (1) contractions Status: Acute History of Present Illness Reason For Visit: CRAMPING Allergies morphine Adverse Reaction (Verified 11/11/18 05:15) Other HEADACHE AND IRRITABILITY Laboratory Studies: Laboratory Tests 12/09/18 12/09/18 Range/Units 19:15 19:15 Urine Color Yellow (Yellow) Urine Clarity Clear (Clear) Urine pH 7.0 (5.0 - 8.0) Ur Specific Counce 1.010 (1.002-1.030) Urine Protein Negative (Negative) mg/dl Urine Glucose (UA) Normal (Normal) mg/dl Urine Ketones 50 H (Negative) mg/dl Urine Occult Blood Negative (Negative) /ul Urine Nitrite Negative (Negative) Urine Bilirubin Negative (Negative) mg/dL Urine Urobilinogen Normal (Normal) mg/dl Ur Leukocyte Esterase Negative (Negative) /ul Urine RBC 0 SEEN (0-5) /hpf Urine WBC 0 SEEN (0-5) /hpf Ur Squamous Epith Cells 0-5 SEEN (5-10) /hpf Urine Bacteria 0 SEEN (None Seen) /hpf Urine Mucus 0 SEEN (<or=2+) /hpf Urine Opiates Screen NEGATIVE (< 300 ng/mL) Urine Methadone Screen NEGATIVE (< 300 ng/mL) Ur Barbiturates Screen NEGATIVE (< 200 ng/mL) Ur Phencyclidine Scrn NEGATIVE (< 25 ng/mL) Ur Amphetamines Screen NEGATIVE (<1000 ng/mL) U Methamphetamin-MDMA NEGATIVE (< 500 ng/mL) U Benzodiazepines Scrn NEGATIVE (< 200 ng/mL) Urine Cocaine Screen NEGATIVE (< 300 ng/mL) U Cannabinoids Screen POSITIVE H (< 50 ng/mL) Ur Drug Screen Comment Review of Systems Constitutional: Denies: Chills, Fever, Weight Change Physical Exam General: Alert, Oriented x3, No apparent distress NST - FHR Rate Baby A NST Reactive:: Yes Impression/Plan Patient with premature uterine cramping in 3rd trimester with no evidence of labor. Cervix secure. Urinalysis negative and FHR reassuring. Patient discharged to F/U with primary Encephalographer.
== END 2018-12-09 20:55 | disposition home or self-care (01) ==
LOC: WPOUT 18:12 → WP 18:14
PROVIDERS: Visit Provider Obstetrics & Gynecology Gynecology
DX: Z34.93 Encounter for supervision of normal pregnancy, unspecified, third trimester (principal)
CPT/HCPCS: 59025; 59050; 80307; 81001; 99218; G0378

== ENCOUNTER 2019-02-18 04:08 | Emergency (ER) | payer MEDICAID, SELFPAY ==
[2019-02-18 04:09] VITALS: BP 125/73; PULSE 93; RESP 18; TEMP 36.1; O2SAT 99; BMI 25.6
--- NOTE | 2019-02-18 04:56 | ED.DCSUM_ITS ---
History of Present Illness Chief Complaint: Dental Informant: Patient Onset: Days - 4 Context: Gradual Onset Timing: Continuous Quality: ache Location: right maxillary 1st molar Current Severity: Severe Maximum Severity: Severe Worsened by: palpation/eating Relieved by: - - orajel, tylenol not helping Narrative: Patient with a painful dental cavity on one maxillary tooth that is out of control and keeping her from sleeping tonight. She is 30 weeks , and anticoagulated for pulmonary embolus, so when she saw the dentist couple days ago, they referred her to oral surgery, who she would have to see in order to have her tooth definitively cared for. She is on an antibiotic. She was under the impression it would make the pain better but it is not. She denies any development of swelling or fevers or bleeding or purulent discharge. - Past Medical History (1) Pulmonary embolus Status: Chronic Past Medical History - Allergies and Home Meds Allergies/Adverse Reactions: Allergies morphine Adverse Reaction (Verified 11/11/18 05:15) Other HEADACHE AND IRRITABILITY Primary Care Physician: Care Physician,No Primary [Primary Care Provider] - Surgical History: no surgical history Lives: Spouse/ Significant Other Smoking Status: Never smoker - Family History Maternal Family History: Reports: - - Lupus Review of Systems General: Denies: Chills, Fever, Sweats ENT: Reports: - - Dental pain. See HPI.. Denies: Rhinorrhea, Sore throat Musculoskeletal: Denies: Neck pain, Back pain Hematologic: Reports: Easy bruising, Easy bleeding Physical Exam Vital Signs/Narrative: Vital Signs Temp Pulse Resp BP Pulse Ox 02/18/19 04:09 97.0 F L 93 18 125/73 H 99 Inital Vital Signs reviewed: Yes General: Well nourished, Well developed Head: Normocephalic, Atraumatic Mouth/Throat: Normal inspection lips/gums, Normal oral mucosa, Tenderness on tooth percussion - Tooth #3 only. Negative for: Dental trauma, Dental abscess, Trismus Neck: Supple, No lymphadenopathy, Nontender Skin: Normal color, No rash, No Trauma Neurological: Alert, Oriented x3, Cranial nerves II-XII grossly intact, Normal Strength, Normal Sensation, Normal Gait Psychological: Normal affect, Normal Mood Diagnostic/Tx/Re-eval - Medical Decision Making There is no cavity that is able to be grossly seen or easily reached with temporary filling. We discussed the pros and cons/risks of narcotics in . She understands that and states she would prefer not to have an injection, she has an OMFS appointment after the weekend and would prefer a prescription analgesic to get her through, I do not feel that she is drug- seeking although she does have a history of narcotic abuse in her medical record, she seems reasonable and understanding of the risks. ED Disposition - Plan for ED Patient: Disposition: Home or Assisted Living Diagnosis: Pain due to dental caries Instructions: Dental Pain Prescriptions: Hydrocodone Bitart/Apap 5-325 [[place] 5MG-325MG] 1 tablet PO Q4H PRN PRN 3 Days #15 tablet PRN Reason: Pain Transmission Status: Sent to [id number] Referrals: surgeon, oral [Other] (as scheduled)
[2019-02-18] MEDS: HYDROcodone Bitartrate/Apap 5/325 Tablet PO (05:02)
[2019-02-18 05:29] VITALS: PULSE 91; RESP 16; O2SAT 100
--- NOTE | 2019-02-18 05:30 | ED.RN ---
THIS NURSE REVIEWED D/C INSTRUCTIONS WITH PT AND VISITOR. BOTH VERBALIZED UNDERSTANDING OF INSTRUCTIONS. PT DENIES FURTHER NEEDS OR QUESTIONS AT THIS TIME. PT AMBULATES FROM ROOM ON OWN WITHOUT ASSISTANCE FROM STAFF
== END 2019-02-18 05:31 | disposition home or self-care (01) ==
PROVIDERS: Emergency Provider Emergency Medicine
DX: O26.893 Other specified pregnancy related conditions, third trimester (principal); K02.9 Dental caries, unspecified; Z3A.30 30 weeks gestation of pregnancy; O88.213 Thromboembolism in pregnancy, third trimester; Z79.01 Long term (current) use of anticoagulants
CPT/HCPCS: 99283

== ENCOUNTER 2019-04-21 09:35 | Outpatient (CLI) | payer MEDICAID, SELFPAY ==
--- NOTE | 2019-04-21 12:11 | OB.TRI.HP_ITS ---
History of Present Illness Date of Service: 04/21/19 Reason For Visit: DECREASED MOVEMENT Date of Service: 04/21/19 Final ALEYDA: 04/29/19 Gestational age: 38 Weeks and 6 Days History of Present Illness: Patient presented with decreased movement. Since arrival and after monitoring she now reports more FM and feels better. Allergies morphine Adverse Reaction (Verified 11/11/18 05:15) Other HEADACHE AND IRRITABILITY NST - FHR Rate Baby A Baseline: 135 Variability:: Moderate Accelerations:: 15 x 15 Decelerations:: Variable NST Reactive:: Yes Uterine Activity:: Irrregular Impression/Plan 29yo female @ 38&6 with decreased FM Reactive NST. TAUS - active fetus with fca, RUTH = 14. Patient plans for a scheduled repeat with at [facility]. She plans to f/u with later today. Reviewed FM precautions.
== END 2019-04-21 12:20 | disposition home or self-care (01) ==
LOC: WPOUT 09:39 → OBT 09:40
PROVIDERS: Referring Provider Obstetrics & Gynecology; Visit Provider Obstetrics & Gynecology
DX: O36.8130 Decreased fetal movements, third trimester, not applicable or unspecified (principal); Z3A.38 38 weeks gestation of pregnancy
CPT/HCPCS: 59025; 59050; 76815; 99218; G0378

== ENCOUNTER 2019-05-07 07:01 | Day surgery (SDC) | payer MEDICAID, SELFPAY ==
[2019-05-07] VITALS (10 sets, daily range): BP systolic 96–123; BP diastolic 60–86; PULSE 59–94; RESP 11–20; TEMP 36.3–37.4; O2SAT 96–99; BMI 24.7
[2019-05-07] MEDS: HYDROmorphone 1 MG/ML Syringe IV ×4 (07:20→14:45)
[2019-05-07] MEDS: 0.9% Normal Saline 1,000 ML 1000 ML IV (07:20)
[2019-05-07] MEDS: Ondansetron 4 MG/2 ML Vial IV (07:20)
[2019-05-07 07:30] LABS: Absolute Lymphocyte Count 1.64 X10^3/uL (0.83-4.51); Absolute Neutrophil Count 3.4 X10^3/uL (2.0-7.7); Basophil# 0.04 X10^3/uL; Basophil% 0.7 % (0-1); Eosinophil# 0.06 X10^3/uL; Eosinophils% 1.1 % (0-5); Hematocrit 34.1 % (37-47); Hemoglobin 10.4 g/dL (12.0-15.0); Lymphocyte # 1.64 X10^3/ul (4.0); Lymphocyte % 29.8 % (19-41); Mean Corp Hgb Conc 30.5 g/dL (32-36); Mean Corpuscular Hgb 25.8 pg (27.0-32.0); Mean Corpuscular Volume 84.6 fL (81-99); Mean Platelet Vol. 10.4 fl (6.2-12.0); Monocyte# 0.38 X10^3/uL; Monocyte% 6.9 % (0-10); NRBC Flagged by Analyzer 0 % (0-5); Neutrophil # 3.36 X10^3/uL (2.7-7.7); Neutrophil % 61.1 % (47-70); Platelet Count 395 K/mm3 (150-450); RBC Distribution Width CV 14.2 % (11.6-14.6); RBC Distribution Width SD 44.2 fl (35.1-43.9); Red Blood Count 4.03 M/mm3 (4.2-5.4); White Blood Count 5.5 K/mm3 (4.4-11.0)
--- NOTE | 2019-05-07 07:33 | US_ITS ---
STUDY: ULTRASOUND TRANSVAGINAL CLINICAL: Female, 29 years old. PATIENT GAVE VIA C SECTION ON 04/22/19 AND IS CURRENTLY HAVING PELVIC PAIN AND HEAVY BLEEDING TECHNIQUE: Transvaginal COMPARISON: None. FINDINGS: Normal uterine size measuring 12.9 x 8.0 x 6.6 cm in maximal craniocaudal dimension. There are no myometrial masses. Normal endometrial thickness measuring 24 mm. Echogenic fluid within the endometrial cavity worrisome for retained products of conception.. Normal uterine cervix. Normal right ovary, measuring 3.4 x 2.2 x 1.4 cm. There are multiple follicles without a dominant cyst. Normal left ovary, measuring 2.4 x 2.9 x 1.9 cm. There are multiple follicles without a dominant cyst. There is no free fluid in the pelvis. Polycystic ovary disease: No. US/Transvaginal Non- IMPRESSION: Suspect retained products of conception. Electronically Signed: Rigoberto Delgado MD at 10:27 EST Tel , Service support ,
[2019-05-07 07:34] LABS: Anion Gap 5 (5-15); BUN 14 mg/dL (7-18); BUN/Creat Ratio 21.9 RATIO (10-20); Calcium,Total 9.4 mg/dL (8.5-10.1); Chloride 110 mmol/L (98-107); Creatinine, Serum 0.64 mg/dL (0.55-1.02); EST Glomerular Filtration Rate 116 mL/min (>60); Est Glom Filt Rate - Afr Amer 140 mL/min (>60); Estimated Creatinine Clearance 124.99 ml/min; Glucose 96 mg/dL (74-106); Potassium 4.4 mmol/L (3.5-5.1); Sodium Level 139 mmol/L (136-145)
--- NOTE | 2019-05-07 07:42 | ED.RN ---
Pt resting comfortably. States pain minimal but better after med. Aware of tx plan.
[2019-05-07 07:54] LABS: hCG Titer Quant., Serum 1 mIU/mL (1-3)
--- NOTE | 2019-05-07 07:57 | ED.VISSUMM ---
- ER Visit Summary Date of Service: 05/07/19 Chief Complaint: Abdominal pain History of Present Illness: The patient is a 29 F with no primary care physician. She is 2 weeks status post by Dr. Galindo in [place]. She reports that her vaginal bleeding/lochia had stopped a few days ago. She began bleeding again on the way here. Patient reports that at 630 yesterday evening she had the sudden onset of a sharp, cramping suprapubic pain. Pain is 10 out of 10 in severity. Is worsened by walking and movement. Nothing makes this better. She denies any associated nausea, vomiting, or diarrhea. Her last bowel movement was yesterday. No melena hematochezia. No dysuria or frequency. No fever or chills. Physical Examination: Vitals: Stable. Afebrile. General: Well-nourished and well-developed. Head: Normocephalic atraumatic. Neck: Supple, no lymphadenopathy. No JVD. Nontender. Cardiovascular: Regular rate and rhythm. No murmurs. Respiratory: No respiratory distress. Clear to auscultation bilaterally. Abdominal: Soft, severe suprapubic tenderness to palpation, nondistended, normal bowel sounds. No guarding, rebound, or peritoneal signs. incision is healed well. There is no surrounding erythema or induration. Back: Nontender. Extremities: Nontender, no edema. Skin: Normal color, no rash. Neurologic: Alert and oriented ?3. Cranial nerves II through XII are intact. Normal strength and sensation. Psych: Normal affect. Test Results: CBC shows an H&H 10.4 and 34.1. Chem-7 shows a chloride of 110. Quantitative hCG is 1. Her blood type is a positive. Clinical Impression(s) from Imaging Studies Transvaginal US 05/07/19 07:33 IMPRESSION: Suspect retained products of conception. Electronically Signed: Rigoberto Delgado MD at 10:27 EST Tel , Service support , Emergency Department Course and Treatment: Patient had an IV placed. She was given Dilaudid and Zofran IV. She is resting more comfortably. Treatment Plan: The patient was discussed with Dr. Hutson, covering for Dr. Galindo. He states that she would be happy to take her at [facility], but as if I had spoken with the local OB. I discussed the patient with Dr. Vanita Vazquez. She is going to take her to the operating room and do a D&C here. Disposition: To operating room in stable condition. Impression: 1. 2 weeks status post . 3. Vaginal bleeding. 3. Pelvic pain. This note was generated with testhub dictation software. It may contain incorrect words, spelling, and punctuation that were not noted in review of the chart prior to signing ED Disposition - Plan for ED Patient: Referrals: Care Physician,No Primary [Primary Care Provider] -
[2019-05-07 08:06] LABS: Prothrombin Time (Protime)PT. 12.5 SECONDS (11.7-14.9)
[2019-05-07 08:07] LABS: Partial Thromboplast Time 32.7 Seconds (24.1-36.2)
--- NOTE | 2019-05-07 10:45 | NURSING ---
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
[2019-05-07] MEDS: miSOPROStol 200 MCG Tablet PO (11:18)
[2019-05-07] MEDS: 0.9% Normal Saline 1,000 ML 999 ML IV (11:19)
[2019-05-07] MEDS: Acetaminophen 500 MG Tablet 1000 MG PO (13:09)
[2019-05-07] MEDS: Ketorolac 30 MG/ML Syringe IV (13:09)
--- NOTE | 2019-05-07 13:09 | PCM.HP.BLA ---
History and Physical Date of Admission: 05/07/19 29-year-old female who underwent a section approximately 2 weeks ago. It was her second section. She reports there were no major complications. She received 1 dose of something in the operating room she said to help control her bleeding. She denies any history of blood transfusion or infection after the section. She has been on Lovenox for history of PE that was diagnosed during the . Her bleeding stopped approximately 1 week ago, then last night she started having's more severe abdominal pain from her symphysis to just below her umbilicus. She is having difficulty ambulating, and taking Motrin without relief of the pain. This morning the pain got worse and she was having trouble walking and her significant other called the ER. In the emergency room she started bleeding moderately. She was passing some small clots. Eats that the pain is persistent. She denies that it radiates. She denies any history of infection after her section. She denies any unusual activity yesterday. She denies any history of sexually transmitted diseases during the , and she denies being sexually active since delivery. She has received several doses of IV Dilaudid since she presented to the ER, and is requesting more. Review of systems: General: Denies fevers or chills Cardiac: Denies chest pain or palpitations : She denies any abnormal vaginal discharge, itching or burning. She denies any dysuria or hematuria Respiratory: No shortness of breath or cough GI: Some nausea from the pain, no emesis, normal bowel movements, she denies constipation or diarrhea Allergies: Patient is allergy to morphine Physical exam: Patient is lying on the ER cart, awake and alert no acute distress. Skin: Warm dry and intact Abdomen: Soft, moderate tenderness below the umbilicus. Some significant guarding. No palpable masses. Fascia is palpated to be intact. The incision is clean dry and intact. There is no palpable hematoma, seroma, or hernia. There is no surrounding erythema. There is just normal healing induration under the incision. TECHNICAL INSTRUCTOR: Normal external genitalia, normal perineum, normal mons pubis and hair distribution pattern. Normal urethra. Vagina has pink rugated, good support. Moderate dark brown blood in the vault. Cervix appears closed with some dark red blood coming from the office. No active bright red bleeding. No clots visible at the office. Patient did not tolerate bimanual exam Cellini 8 adnexa versus uterine tenderness. Labs and pelvic ultrasound reviewed. Assessment and plan: Status post repeat section 2 weeks ago. Pelvic ultrasound is difficult for possible retained products of conception versus blood clot. Suspect it is most likely a blood clot. Patient not has no evidence of infectious etiology for her pain, no evidence of hernia, wound dehiscence or other complication. Suspect that her pain is from trying to expel the clot. However, because there is a small chance of retained products will proceed with suction dilation and curettage. Risk benefits and alternatives to this were discussed with the patient and her partner, their questions were answered to their satisfaction she desires to proceed. Will likely be discharged home the same day. We will give a prescription for Toradol and may take acetaminophen as needed for pain. No indication for narcotic pain medication on discharge. If patient has fever, chills, or increased bleeding she should call her primary HUMAN RESOURCES FILE CLERK. She should follow-up with Dr. Galindo's office next week h/o PE- resume lovenox 2/10 am d/c home w/ doxycycline x 3 doses for antibiotic prophylaxis anemia- likely secondary to chronic antepartum anemia w/ superimposed blood loss anemia from c/s. No active large amount of bleeding now. start fe and encouraged to take pNV.
--- NOTE | 2019-05-07 15:56 | ED.RN ---
CALLED REPORT TO KOLBY IN SURGERY, ANTIBIOTIC NOT STARTED IN E.D. KOLBY REQUESTED TO HAVE ANTIBIOTIC SENT TO SURGERY.
--- NOTE | 2019-05-07 16:00 | EMB_PTH ---
PATIENT: MEGHAN LICEA [place] [facility] [id number] AGE/SX: 29/F ROOM: RE05/07/[address]: Dr. Vanita Vazquez MD : [id number] BED: DIS: 05/07/2019 SPEC #: [id number] RECD: 05/08/19 10:12 STATUS: GHASSAN SIMI #: [id number] AMELIA: 05/07/19 16:[address]: Vanita Vazquez DEPT: SURGICAL PATHOLOGY RECD BY: Phi Doll ENTERED: 05/08/19 12:41 SP TYPE: ENDOM BX/C LUIGI DR: No Primary Care Phys Tissues: Endometrium, NOS Procedures: Surgery Specimen Level IV HEADER OPERATION: Suction D & C PRE-OP DIAGNOSIS: Pelvic pain; bleeding TISSUE SUBMITTED: Endometrial curettings MICROSCOPIC DIAGNOSIS Endometrium, curettings: Autolyzed chorionic villi and decidualized stroma. Organizing blood clots. Secretory endometrium with chronic endometritis. Rare fragments of ectocervix and endocervix with mild chronic inflammation. AM:jason 05/09/19 MICROSCOPIC DESCRIPTION Slides are reviewed. GROSS DESCRIPTION Received in fixative is one container labeled with the patient's name and designated endometrial curettings. The specimen consists of multiple irregular fragments of pink-red soft tissue that in aggregate measure 5 x 4.5 x 1 cm. or placental tissue is not identified. Customer Engineering Specialist tissue is submitted in four cassettes. / SJ:jason 05/08/19 TC:3 CPT: 04670
--- NOTE | 2019-05-07 16:19 | DCINST_ITS ---
Discharge Diet: No Restrictions Discharge Activity: Return to Normal Activity, May Shower, May Take a Tub Bath - in 2 weeks. May shower in (days): 1 May resume sexual activity in: 3 weeks Call your doctor if your incision/area has: Sudden Increased Bleeding - sa turating 2 full pads in an hour for 2 hrs jimena row Call your doctor if you observe: Fever of 101 or Higher Cleanse incision/area with: Soap & Water Allergies/Adverse Reactions: Allergies morphine Adverse Reaction (Verified 05/07/19 07:06) Other HEADACHE AND IRRITABILITY Medications to take at Discharge Enoxaparin [Lovenox] 70 mg SUBCUT Q12@0600,1800 04/21/19 Sertraline HCl [Zoloft] 50 mg PO DAILY 04/21/19 Acetaminophen [Non-Aspirin Pain Relief] 1,000 mg PO Q8 PRN 7 Days #30 tab 05/07/19 Doxycycline 100 mg PO BID 2 Days #3 cap 05/07/19 Ketorolac [Toradol] 10 mg PO Q6H 3 Days #12 tab 05/07/19 Levothyroxine [Synthroid] 75 mcg PO DAILY 05/07/19 The following prescriptions were given: Doxycycline 100 mg PO BID 2 Days #3 cap Transmission Status: Pending to [id number] Acetaminophen [Non-Aspirin Pain Relief] 1,000 mg PO Q8 PRN 7 Days #30 tab PRN Reason: Pain Or Fever Transmission Status: Pending to [id number] Ketorolac [Toradol] 10 mg PO Q6H 3 Days #12 tab Transmission Status: Pending to [facility] Primary Care Physician: Care Physician,No Primary [Primary Care Provider] - Test Results: Test results from this visit will be discussed in further detail at your follow- up appointment, if applicable. Please Follow Up With: Sabrina Galindo DO When: Dr. Galindo's office in approximately 1 week or as needed
[2019-05-07] MEDS: Cefazolin 2 GM in 0.9% Normal Saline 100 ML IV (16:27)
--- NOTE | 2019-05-07 16:59 | OP.PCM_ITS ---
Report of Operation Date of Procedure: 05/07/19 Pre-Operative Diagnosis: postop pelvic pain, delayed hemorrhage, possible retained products of conception Post-Operative Diagnosis: SAME Surgery/Procedure Performed:: Suction dilation and curettage w/ ultrasound g uidance Description of Surgical Findings:: Normal-appearing cervix and vagina. Moderate amount of clot and debris in the uterus. holistic specialist: None Type of Anesthesia:: MAC/Supplemental/Local Anesthesiologist: Rodri Lynch Special Medications: None Specimen's removed: Endometrial curettings Drains: none Estimated Blood Loss (mL): 50 Fluids Replaced: 300 Description of Procedure: The patient was taken to the operating room where she was prepped and draped in a dorsolithotomy position. A bimanual examination was done and confirmed the ut erus to be 8 weeks size and anteverted. A weighted speculum was placed in the vagina and the anterior lip of the cervix was grasped with a single-tooth tenaculum. The cervix was dilated serially. A 8 mm suction curette was placed to the uterine fundus and the suction was created. With ultrasound guidance, gentle passes were made to remove clot and debris from the uterus. When minimal bleeding from the cervix and blood was returning procedure was ceased. Ultrasound confirmed a bright white endometrial stripe and the previously noted debris in the uterus was absent. At this point there is no active bleeding from the uterus and minimal blood and no further products of conception were removed. The instruments removed from the cervix and the cervix was observed and no active bleeding was identified. The tenaculum was removed off the cervix and hemostasis of the tenaculum site was assured. Made of the instruments removed from the vagina and the vaginal sweep was completed by me. Sponge and needle counts were correct. The patient was taken to the recovery room in stable condition. Findings: 8 week size uterus, normal cervix and vagina. Specimen: Endometrial curettings Grafts/Implants Used: none - Complications none - Admit VTE Documentation VTE Present on Admission: No VTE Mechan Device Prophylaxis: None VTE Pharm Prophylaxis ordered?: Yes
== END 2019-05-07 17:47 | disposition home or self-care (01) ==
LOC: ED 07:38 → SDC 16:00 → AC 16:02
PROVIDERS: Emergency Provider Emergency Medicine; Visit Provider Obstetrics & Gynecology
PROC: (CPT 59160; principal; 2019-05-07 16:00)
DX: O86.12 Endometritis following delivery (principal); O72.2 Delayed and secondary postpartum hemorrhage; O99.345 Other mental disorders complicating the puerperium; F41.8 Other specified anxiety disorders; Z79.899 Other long term (current) drug therapy; Z86.718 Personal history of other venous thrombosis and embolism; Z86.711 Personal history of pulmonary embolism
CPT/HCPCS: 59160; 76830; 80048; 84702; 85025; 85610; 85730; 88305; 93976; 99284; J7030; A4216; J2405

== ENCOUNTER → 2019-06-06 | Outpatient (CLI) | payer MEDICAID, SELFPAY ==
[2019-05-26 08:37] VITALS: BMI 24.7
[2019-06-06 10:30] LABS: Absolute Lymphocyte Count 1.06 X10^3/uL (0.83-4.51); Absolute Neutrophil Count 3.8 X10^3/uL (2.0-7.7); Basophil# 0.03 X10^3/uL; Basophil% 0.6 % (0-1); Eosinophil# 0.04 X10^3/uL; Eosinophils% 0.8 % (0-5); Hematocrit 33.6 % (37-47); Hemoglobin 9.6 g/dL (12.0-15.0); Lymphocyte # 1.06 X10^3/ul (4.0); Mean Corp Hgb Conc 28.6 g/dL (32-36); Mean Corpuscular Hgb 23.1 pg (27.0-32.0); Mean Corpuscular Volume 80.8 fL (81-99); Mean Platelet Vol. 10.6 fl (6.2-12.0); Monocyte# 0.34 X10^3/uL; Monocyte% 6.4 % (0-10); NRBC Flagged by Analyzer 0 % (0-5); Neutrophil # 3.82 X10^3/uL (2.7-7.7); Neutrophil % 71.8 % (47-70); Platelet Count 327 K/mm3 (150-450); RBC Distribution Width CV 15.3 % (11.6-14.6); RBC Distribution Width SD 44.7 fl (35.1-43.9); Red Blood Count 4.16 M/mm3 (4.2-5.4); White Blood Count 5.3 K/mm3 (4.4-11.0)
[2019-06-06 10:51] LABS: D-Dimer Quantitative (DVT/PE) 0.68 FEU/ug/m (0.27-0.49)
[2019-06-06 11:16] LABS: ALB/GLOB Ratio 0.8 RATIO (0.9-2.4); AST(SGOT) 10 U/L (15-37); Alanine Aminotransfer ALT/SGPT 19 U/L (13-56); Albumin, Serum 3.6 g/dL (3.2-5.0); Alkaline Phosphatase 90 U/L (45-117); Anion Gap 4 (5-15); BUN 13 mg/dL (7-18); BUN/Creat Ratio 18.5 RATIO (10-20); Calcium,Total 8.9 mg/dL (8.5-10.1); Chloride 107 mmol/L (98-107); EST Glomerular Filtration Rate 104 mL/min (>60); Est Glom Filt Rate - Afr Amer 125 mL/min (>60); Globulin 4.3 g/dL (2.2-4.2); Glucose 89 mg/dL (74-106); Protein, Total 7.9 g/dL (6.4-8.2); Sodium Level 137 mmol/L (136-145); T4 Free Direct 1.18 ng/dL (0.76-1.46); Thyroid Stim Hormone (TSH) 0.81 uIU/mL (0.358-3.74)
[2019-06-07 17:06] LABS: ANTINUCLEAR ANTIBODIES DIRECT Negative (Negative)
[2019-06-09 20:17] LABS: Thyroid Peroxidase AB < 9 IU/mL (0-34)
== END | disposition home or self-care (01) ==
LOC: LAB 09:41
PROVIDERS: Internal Medicine Endocrinology, Diabetes & Metabolism; Referring Provider Internal Medicine Hematology & Oncology; Visit Provider Internal Medicine Hematology & Oncology
DX: E03.9 Hypothyroidism, unspecified (principal); I26.99 Other pulmonary embolism without acute cor pulmonale
CPT/HCPCS: 36415; 80053; 81241; 84439; 84443; 85025; 85379; 86038; 86376

== ENCOUNTER 2019-06-11 17:54 | Emergency (ER) | payer MEDICAID, SELFPAY ==
[2019-05-26 08:37] VITALS: BMI 24.7
[2019-06-11 17:55] VITALS: BP 108/74; PULSE 84; RESP 17; TEMP 36.6; O2SAT 100; BMI 21.8
--- NOTE | 2019-06-11 18:23 | EKG12_ITS ---
Test Reason : ABD PAIN Blood Pressure : / mmHG Vent. Rate : 073 BPM Atrial Rate : 073 BPM P-R Int : 242 ms QRS Dur : 070 ms QT Int : 384 ms P-R-T Axes : 056 037 042 degrees QTc Int : 423 ms Sinus rhythm with sinus arrhythmia with 1st degree A-V block Otherwise normal ECG Confirmed by ANDRAE CARRILLO, JADEN ([id number]), science editor XOCHILT MONTESINOS ([id number]) on 06/15/2019 9:08:36 AM Referred By: DAVID Confirmed By:JADEN ABEBE MD
--- NOTE | 2019-06-11 18:36 | RAD_ITS ---
STUDY: X-RAY CHEST REASON FOR EXAM: Female, 29 years old. Shortness of breath, chest pain, Hx PE''s TECHNIQUE: Single frontal view of the chest. COMPARISON: November 11, 2018 FINDINGS: There is no new focal consolidation. Normal size heart. Normal mediastinum and graciela. Normal visualized pulmonary arteries. Normal visualized aortic arch and descending thoracic aorta. Normal visualized thoracic spine. There is a stable plate and screw fixation device within the left clavicle. There is no demonstrated abnormality of the visualized soft tissue structures of the upper abdomen. RAD/Chest 1 View (Portable) IMPRESSION: No acute cardiopulmonary process. Electronically Signed: Trudi Alfonso MD at 19:05 EDT Tel , Service support ,
[2019-06-11] MEDS: Mag Hydrox/Al Hydrox/Simeth 30 ML UDC PO (18:48)
[2019-06-11 18:49] LABS: Absolute Lymphocyte Count 1.52 X10^3/uL (0.83-4.51); Absolute Neutrophil Count 4.8 X10^3/uL (2.0-7.7); Basophil# 0.04 X10^3/uL; Basophil% 0.6 % (0-1); Eosinophil# 0.05 X10^3/uL; Eosinophils% 0.7 % (0-5); Hematocrit 31.8 % (37-47); Hemoglobin 9.4 g/dL (12.0-15.0); Lymphocyte # 1.52 X10^3/ul (4.0); Lymphocyte % 22.3 % (19-41); Mean Corp Hgb Conc 29.6 g/dL (32-36); Mean Corpuscular Hgb 23.9 pg (27.0-32.0); Mean Corpuscular Volume 80.7 fL (81-99); Mean Platelet Vol. 10.8 fl (6.2-12.0); Monocyte% 5.9 % (0-10); NRBC Flagged by Analyzer 0 % (0-5); Neutrophil # 4.79 X10^3/uL (2.7-7.7); Neutrophil % 70.2 % (47-70); Platelet Count 318 K/mm3 (150-450); RBC Distribution Width CV 15.3 % (11.6-14.6); RBC Distribution Width SD 44.8 fl (35.1-43.9); Red Blood Count 3.94 M/mm3 (4.2-5.4); White Blood Count 6.8 K/mm3 (4.4-11.0)
[2019-06-11] MEDS: 0.9% Normal Saline 1,000 ML 150 ML IV (18:50)
[2019-06-11 18:58] LABS: Internal QC Validated? YES +Cl - CLEAR BKGD; Pregnancy, Serum, hCG Quali. NEGATIVE Negative
[2019-06-11 19:12] LABS: AST(SGOT) 13 U/L (15-37); Alanine Aminotransfer ALT/SGPT 22 U/L (13-56); Albumin, Serum 3.4 g/dL (3.2-5.0); Alkaline Phosphatase 78 U/L (45-117); Anion Gap 9 (5-15); BUN 19 mg/dL (7-18); BUN/Creat Ratio 28.4 RATIO (10-20); Bilirubin, Direct 0.09 mg/dL (0.00-0.30); Calcium,Total 8.4 mg/dL (8.5-10.1); Chloride 107 mmol/L (98-107); Creatinine, Serum 0.67 mg/dL (0.55-1.02); EST Glomerular Filtration Rate 110 mL/min (>60); Est Glom Filt Rate - Afr Amer 133 mL/min (>60); Estimated Creatinine Clearance 132.77 ml/min; Globulin 3.9 g/dL (2.2-4.2); Glucose 92 mg/dL (74-106); Lipase 158 U/L (73-393); Potassium 3.7 mmol/L (3.5-5.1); Protein, Total 7.3 g/dL (6.4-8.2); Sodium Level 141 mmol/L (136-145)
--- NOTE | 2019-06-11 20:55 | ED.VIS.GEN ---
History of Present Illness Chief Complaint: Chest Pain Informant: Patient Onset: Today Context: Sudden Onset Current Severity: Mild Maximum Severity: Severe Narrative: Patient presents with rather sudden epigastric and chest pain that started approximate 30 minutes ago. She states she tried to take some Tums. She had difficulty breathing or even swallowing secondary to the pain. Pain is currently significantly improved. She states had a similar episode 2 days ago but it was not as severe. She is a history of PE and is currently on Eliquis. She denies missing any doses of her medication. She states the pain that she is experienced today is not similar to her PE. - Past Medical History (1) Genital herpes Status: Resolved (2) Heroin use disorder, severe, in sustained remission Status: Chronic (3) Hypothyroidism (acquired) Status: Chronic (4) Pulmonary embolus Status: Chronic Past Medical History - Allergies and Home Meds Allergies/Adverse Reactions: Allergies morphine Adverse Reaction (Verified 06/11/19 18:01) Other HEADACHE AND IRRITABILITY Primary Care Physician: Mariano Rogers MD [Primary Care Provider] - 1-2 Weeks Prior records reviewed: Yes Surgical History: no surgical history Lives: With Family Smoking Status: Former smoker - Family History Maternal Family History: Family History (Last Reviewed 05/26/19 @ 10:[address] Yinka Gamboa MD) Mother Anxiety Lupus Bleeding disorder Cancer Mental disorder Grandmother Cancer Aunt Cancer Other Psychiatric care Family History: Reports: - - Lupus Review of Systems General: Denies: Chills, Fever Eyes: Denies: Visual changes - bilaterally ENT: Denies: Bilateral ear pain Cardiovascular: Reports: Chest pain. Denies: Heart racing Respiratory: Reports: Dyspnea. Denies: Cough Gastrointestinal: Reports: Abdominal pain. Denies: Nausea, Vomiting, Diarrhea Genitourinary: Denies: Dysuria Musculoskeletal: Denies: Extremity Pain Skin: Denies: Rash Neurological: Denies: Headache Endocrine: Denies: Polyuria, Polydipsia Allergy: Denies: Uticaria Physical Exam Vital Signs/Narrative: Vital Signs Temp Pulse Resp BP Pulse Ox 06/11/19 17:55 97.8 F 84 17 108/74 100 Inital Vital Signs reviewed: Yes Head: Normocephalic ENT: Moist mucous membranes Neck: Supple Cardiovascular: Regular rate, Regular rhythm Respiratory: No distress, CTA bilaterally Abdomen: Soft, Tender - Focal tenderness in the epigastrium. Back: Nontender Extremities: Nontender Skin: Normal color Neurological: Alert, Oriented x3, Normal Strength, Normal Sensation Psychological: Normal affect Diagnostic/Tx/Re-eval Impressions Chest X-Ray 06/11/19 18:36 IMPRESSION: No acute cardiopulmonary process. Electronically Signed: Trudi Alfonso MD at 19:05 EDT Tel , Service support , 06/11/19 18:36 Chest 1 View (Portable) [RAD] Stat Laboratory Results 06/11/19 06/11/19 06/11/19 18:00 18:00 18:00 WBC 6.8 RBC 3.94 L Hgb 9.4 L Hct 31.8 L MCV 80.7 L MCH 23.9 L MCHC 29.6 L RDW Std Deviation 44.8 H RDW Coeff of Ziggy 15.3 H Plt Count 318 MPV 10.8 Immature Gran % (Auto) 0.300 Neut % (Auto) 70.2 H Lymph % (Auto) 22.3 Bureau % (Auto) 5.9 Eos % (Auto) 0.7 Baso % (Auto) 0.6 Absolute Neuts (auto) 4.8 Absolute Lymphs (auto) 1.52 Nucleated RBC % 0 Sodium 141 Potassium 3.7 Chloride 107 Carbon Dioxide 25.0 Anion Gap 9 BUN 19 H Creatinine 0.67 Estim Creat Clear Calc 132.77 Est GFR (MDRD) Af Amer 133 Est GFR (MDRD) Non-Af 110 BUN/Creatinine Ratio 28.4 H Glucose 92 Calcium 8.4 L Total Bilirubin 0.20 Direct Bilirubin 0.09 AST 13 L ALT 22 Alkaline Phosphatase 78 Troponin I < 0.015 Total Protein 7.3 Albumin 3.4 Globulin 3.9 Lipase 158 Serum , Qual NEGATIVE - EKG Initial EKG Interpretation: Sinus Rhythm - Sinus at 73 with first-degree AV block. No acute ischemia. - Medical Decision Making Patient was given a GI cocktail and Pepcid here. On repeat evaluation she reports significant improvement in her symptoms. She will be started on Prilosec. She will follow with her primary care physician return for worsening symptoms. ED Disposition - Plan for ED Patient: Disposition: Home or Assisted Living Diagnosis: GERD (gastroesophageal reflux disease) Instructions: GERD (Adult) Prescriptions: Omeprazole [Prilosec] 20 mg PO DAILY #30 cap Transmission Status: Received by [id number] Referrals: Mariano Rogers MD [Primary Care Provider] - 1-2 Weeks
[2019-06-11 21:07] VITALS: BP 124/79; PULSE 81; RESP 18; O2SAT 97
--- NOTE | 2019-06-11 21:08 | ED.RN ---
THIS NURSE REVIEWED D/C INSTRUCTIONS WITH PT. PT VERBALIZED UNDERSTANDING OF INSTRUCTIONS. IV D/C. IV CATHETER INTACT. PT TOLERATED WELL. PT DENIES FURTHER NEEDS OR QUESTIONS AT THIS TIME. PT AMBULATES FROM ROOM ON OWN WITHOUT ASSISTANCE FROM STAFF
== END 2019-06-11 21:09 | disposition home or self-care (01) ==
PROVIDERS: Emergency Provider Emergency Medicine; PCP Family Medicine
DX: K21.9 Gastro-esophageal reflux disease without esophagitis (principal); E03.9 Hypothyroidism, unspecified; Z86.711 Personal history of pulmonary embolism; Z79.02 Long term (current) use of antithrombotics/antiplatelets; Z79.899 Other long term (current) drug therapy; Z87.891 Personal history of nicotine dependence
CPT/HCPCS: 71045; 80048; 80076; 83690; 84484; 84703; 85025; 93005; 96365; 96366; 99285; J7050; A4216

== ENCOUNTER → 2019-06-12 | Outpatient (CLI) | payer MEDICAID, SELFPAY ==
[2019-05-07 11:34] VITALS: BMI 24.7
[2019-06-11 17:55] VITALS: BMI 21.8
--- NOTE | 2019-06-12 07:57 | CT_ITS ---
STUDY: CTA CHEST REASON FOR EXAM: Female, 29 years old. Follow up PE 09/2018, prior left clavicle surgery with hardware. RADIATION DOSAGE (If Supplied By Facility): CTDIvol = ( 4.44 ) mGy, DLP = ( 156.98 ) mGycm TECHNIQUE: The examination was performed with the intravenous administration of 100mL Isovue 300. Post-processing of the angiographic images was performed, with multiplanar reformation and 3D reconstruction. Individualized dose optimization techniques were used for this CT. COMPARISON: Comparison is made with prior examination dated October 20, 2018. FINDINGS: Normal enhancement of the main pulmonary artery and right and left pulmonary arteries. Normal enhancement of the bilateral peripheral pulmonary arteries. There is no demonstrated pulmonary embolism. Normal thoracic aorta and visualized great vessels. There is no demonstrated aortic dissection. Normal heart and pericardium. Normal mediastinum. Normal hilar regions. Normal visualized trachea and bronchi. The lungs are well expanded. Minimal increased markings at the right lung base suggestive of a right basilar linear atelectasis Normal pleura. Normal chest wall structures. Normal osseous structures. Normal visualized upper abdomen. CT/CTA Chest W/WO Contrast IMPRESSION: No evidence of pulmonary embolism. Mild degree of increased markings at the right lung base suggestive of linear atelectasis. Electronically Signed: Waqas Dela Cruz, at 9:34 EDT , Service support ,
== END | disposition home or self-care (01) ==
LOC: CT 07:55
PROVIDERS: PCP Family Medicine; Referring Provider Internal Medicine Hematology & Oncology; Visit Provider Internal Medicine Hematology & Oncology
DX: I26.99 Other pulmonary embolism without acute cor pulmonale (principal)
CPT/HCPCS: 71275; Q9967; A4216

== ENCOUNTER 2019-11-11 08:13 | Emergency (ER) | payer MEDICAID, SELFPAY ==
[2019-11-11 08:15] VITALS: BP 99/51; PULSE 111; RESP 28; TEMP 36.9; O2SAT 100; BMI 29.2
--- NOTE | 2019-11-11 08:19 | US_ITS ---
STUDY: ULTRASOUND OF THE FEMALE PELVIS - COMPLETE REASON FOR EXAM: Female, 29 years old. Lower abdominal and pelvic pain. LMP: 10/23/2019 TECHNIQUE: Transabdominal and Transvaginal TECHNICAL QUALITY: Adequate. COMPARISON: None. FINDINGS: The uterus is anteverted and is in a midline position. The uterus measures 9 x 5.8 x 4.7 cm. Normal uterine cervix. The endometrium measures 4 mm in thickness, and is hyperechoic. There is no demonstrated endometrial mass. There is no demonstrated myometrial mass. I.U.D. - The patient does have an I.U.D. The right ovary is visualized. The right ovary measures 2.8 x 2.3 x 1.8 cm. There is no right ovarian cyst or ovarian mass. There is no visualized right adnexal mass or complex lesion. There is normal arterial and normal venous vascularity. The left ovary is visualized. The left ovary measures 2.7 x 2.1 x 1.4 cm. There is no left ovarian cyst or ovarian mass. There is no visualized left adnexal mass or complex lesion. There is normal arterial and normal venous vascularity. There is mild fluid in the cul-de-sac. Polycystic ovary disease: No. US/Transvaginal Non- IMPRESSION: IUD in place. Free fluid in the pelvis. Otherwise unremarkable examination. Electronically Signed: Ubaldo Poon MD at 9:33 EDT Tel , Service support ,
[2019-11-11 08:20] VITALS: BP 118/75; PULSE 78; RESP 28; O2SAT 96
[2019-11-11] MEDS: Ondansetron 4 MG/2 ML Vial IV (08:27)
[2019-11-11] MEDS: HYDROmorphone 1 MG/ML Syringe 0.5 MG IV (08:28)
[2019-11-11] MEDS: HYDROmorphone 0.5 MG/0.5 ML SYRINGE IV (08:39)
--- NOTE | 2019-11-11 08:40 | ED.VIS.GEN ---
History of Present Illness Chief Complaint: Abd Pain Informant: Patient Onset: Hours - 20 minutes prior to presentation Context: Sudden Onset Timing: Continuous Quality: Colicky Location: Pelvic Current Severity: Severe Maximum Severity: Severe Worsened by: Nothing Relieved by: Nothing Associated Symptoms: Nausea Narrative: Patient is a 29-year-old G2, P2 female who delivered March 2019 at outside facility. She states she had similar pain that was due to retained placenta and required surgery after discharge. She denies vaginal bleeding. She states her last menses was not normal. She does have a Mirena device in place. She needs the device was placed April. She does report nausea without vomiting diarrhea. She denies dysuria, frequency, urgency or hematuria. She does have history of renal calculi. She denies fever, chills night sweats. She denies upper respiratory symptoms. She denies cardiac symptoms. Prior similar symptoms: Yes - Due to retained placenta March 2019. Recent Illness/Hospitalization: No - Past Medical History (1) Heroin use disorder, severe, in sustained remission Status: Chronic (2) Hypothyroidism (acquired) Status: Chronic (3) Pulmonary embolus Status: Chronic (4) Genital herpes Status: Resolved Past Medical History - Allergies and Home Meds Allergies/Adverse Reactions: Allergies morphine Adverse Reaction (Verified 06/11/19 18:01) Other HEADACHE AND IRRITABILITY Primary Care Physician: Mariano Rogers MD [Primary Care Provider] - Prior records reviewed: Yes Surgical History: no surgical history Lives: Spouse/ Significant Other, With Family Smoking Status: Former smoker Alcohol: Rare Drugs: Heroin - In remission - Family History Maternal Family History: Family History (Last Reviewed 05/26/19 @ 10:[address] Yinka Gmaboa MD) Mother Anxiety Lupus Bleeding disorder Cancer Mental disorder Grandmother Cancer Aunt Cancer Other Psychiatric care Family History: Reports: - - Lupus Review of Systems General: Denies: Chills, Fever, Malaise, Subjective, Sweats, Weight loss Eyes: Denies: Visual changes - bilaterally, Blurred Vision - bilaterally ENT: Denies: Rhinorrhea, Sore throat Cardiovascular: Denies: Chest pain, Palpitations Respiratory: Denies: Dyspnea, Cough, Dyspnea on exertion Gastrointestinal: Reports: Abdominal pain, Nausea, - - Colicky pelvic pain. Denies: Vomiting, Diarrhea, Constipation, Melena, Hematochezia, - Genitourinary: Denies: Dysuria, Hematuria, Frequency Musculoskeletal: Denies: Myalgias, Arthralgias, Neck pain, Back pain, Swelling, Extremity Pain, -, - Skin: Denies: Rash, Wounds Neurological: Denies: Headache, Weakness, Numbness Psych: Denies: Depression, Anxiety Hematologic: Denies: Easy bruising, Easy bleeding Physical Exam Vital Signs/Narrative: Vital Signs Temp Pulse Resp BP Pulse Ox 11/11/19 08:15 98.5 F 111 H 28 H 99/51 L 100 Inital Vital Signs reviewed: Yes General: Well nourished, Well developed, No Acute Distress Head: Normocephalic, Atraumatic Eyes: Perrl, EOMI. Negative for: Pale conjunctiva, Scleral icterus ENT: Moist mucous membranes, No rhinorrhea Neck: Supple, Nontender, No lymphadenopathy, No JVD Cardiovascular: Regular rhythm, No murmurs, Normal S1, Normal S2, Tachycardia Respiratory: No distress, CTA bilaterally, Chest nontender Abdomen: Soft, Nontender, Nondistended, Normal bowel sounds Rectal: Deferred : - - Genitalia normal. Bimanual exam was limited due to pain. She has significant discomfort with cervical motion and attempt to palpate uterus. Alan was limited because of guarding. Back: Nontender, Normal Inspection. Negative for: CVA tenderness Extremities: Negative for: Nontender, No edema Skin: Normal color, No rash Neurological: Alert, Oriented x3, Cranial nerves II-XII grossly intact, Normal Strength, Normal Sensation Diagnostic/Tx/Re-eval Impressions Transvaginal US 11/11/19 08:19 IMPRESSION: IUD in place. Free fluid in the pelvis. Otherwise unremarkable examination. Electronically Signed: Ubaldo Poon MD at 9:33 EDT Tel , Service support , 11/11/19 08:19 Transvaginal Non- [US] Stat Laboratory Results 11/11/19 11/11/19 11/11/19 08:30 08:30 08:30 WBC 7.1 RBC 5.08 Hgb 12.8 Hct 42.1 MCV 82.9 MCH 25.2 L MCHC 30.4 L RDW Std Deviation 56.3 H RDW Coeff of Ziggy 19.1 H Plt Count 284 MPV 10.7 Immature Gran % (Auto) 0.400 Neut % (Auto) 64.4 Lymph % (Auto) 25.2 [place] % (Auto) 8.2 Eos % (Auto) 1.5 Baso % (Auto) 0.3 Absolute Neuts (auto) 4.6 Absolute Lymphs (auto) 1.79 Nucleated RBC % 0 HCG, Quant < 1 Urine Color Urine Clarity Urine pH Ur Specific [place] Urine Protein Urine Glucose (UA) Urine Ketones Urine Occult Blood Urine Nitrite Urine Bilirubin Urine Urobilinogen Ur Leukocyte Esterase Urine RBC Urine WBC Ur Squamous Epith Cells Urine Bacteria Urine Mucus Blood Type A POSITIVE 11/11/19 09:55 WBC RBC Hgb Hct MCV MCH MCHC RDW Std Deviation RDW Coeff of Ziggy Plt Count MPV Immature Gran % (Auto) Neut % (Auto) Lymph % (Auto) [place] % (Auto) Eos % (Auto) Baso % (Auto) Absolute Neuts (auto) Absolute Lymphs (auto) Nucleated RBC % HCG, Quant Urine Color Yellow Urine Clarity Sl. Cloudy Urine pH 7.0 Ur Specific [place] 1.010 Urine Protein Negative Urine Glucose (UA) Normal Urine Ketones Negative Urine Occult Blood Negative Urine Nitrite Negative Urine Bilirubin Negative Urine Urobilinogen Normal Ur Leukocyte Esterase 25 H Urine RBC 0 SEEN Urine WBC 0 SEEN Ur Squamous Epith Cells 0-5 SEEN Urine Bacteria 0 SEEN Urine Mucus 0 SEEN Blood Type Ultrasound reveals mild to moderate fluid in the cul-de-sac/pelvis. She does have history ovarian cyst. Patient appears much more comfortable when she was reassessed at 1032. Urine reveals no evidence infection or blood to suggest obstructing ureteral stone. Suspect patient's pain was due to ruptured ovarian cyst. - Medical Decision Making Need to evaluate for ectopic , ovarian torsion, miscarriage, migration of device. Patient was medicated with IV Dilaudid and Zofran. She received additional dose of Dilaudid. Since her pain is pelvic ultrasound was obtained. status is uncertain. A bolus was ordered because of hypotension and tachycardia. ED Disposition - Plan for ED Patient: Disposition: Home or Assisted Living Diagnosis: Pelvic pain, Ruptured ovarian cyst Instructions: ED Cyst Ovarian Referrals: Mariano Rogers MD [Primary Care Provider] - As Needed
[2019-11-11 08:48] LABS: Absolute Lymphocyte Count 1.79 X10^3/uL (0.83-4.51); Absolute Neutrophil Count 4.6 X10^3/uL (2.0-7.7); Basophil# 0.02 X10^3/uL; Basophil% 0.3 % (0-1); Eosinophil# 0.11 X10^3/uL; Eosinophils% 1.5 % (0-5); Hematocrit 42.1 % (37-47); Hemoglobin 12.8 g/dL (12.0-15.0); Lymphocyte # 1.79 X10^3/ul (4.0); Lymphocyte % 25.2 % (19-41); Mean Corp Hgb Conc 30.4 g/dL (32-36); Mean Corpuscular Hgb 25.2 pg (27.0-32.0); Mean Corpuscular Volume 82.9 fL (81-99); Mean Platelet Vol. 10.7 fl (6.2-12.0); Monocyte# 0.58 X10^3/uL; Monocyte% 8.2 % (0-10); NRBC Flagged by Analyzer 0 % (0-5); Neutrophil # 4.58 X10^3/uL (2.7-7.7); Neutrophil % 64.4 % (47-70); Platelet Count 284 K/mm3 (150-450); RBC Distribution Width CV 19.1 % (11.6-14.6); RBC Distribution Width SD 56.3 fl (35.1-43.9); Red Blood Count 5.08 M/mm3 (4.2-5.4); White Blood Count 7.1 K/mm3 (4.4-11.0)
[2019-11-11 08:57] LABS: hCG Titer Quant., Serum < 1 mIU/mL (1-3)
[2019-11-11 09:08] VITALS: BP 112/73; PULSE 68; RESP 15; O2SAT 95
[2019-11-11 09:55] VITALS: BP 116/75; PULSE 77; RESP 16; O2SAT 100
[2019-11-11 10:07] LABS: Bacteria 0 SEEN /hpf (None Seen); Mucous, Urine 0 SEEN /hpf (<or=2+); Red Blood Cells-Urine 0 SEEN /hpf (0-5); White Blood Cells 0 SEEN /hpf (0-5)
[2019-11-11 10:08] LABS: Color, Urine Yellow (Yellow); Glucose, Dipstick Normal (Normal); Ketone-Dipstick Negative (Negative); Leukocyte Esterase-Dipstick 25 /ul (Negative); Nitrite-Dipstick Negative (Negative); Occult Blood-Urine Negative /ul (Negative); Protein-Dipstick Negative (Negative); Urine Bilirubin Dipstick Negative (Negative); Urine Clarity Sl. Cloudy (Clear); Urine Urobilinogen Normal (Normal)
[2019-11-11 10:14] LABS: Squamous Epithelial Cells - UA 0-5 SEEN /hpf (5-10)
[2019-11-11] MEDS: Ketorolac 15 MG/ML Vial IV (10:44)
[2019-11-11 10:46] VITALS: BP 100/62; PULSE 80; RESP 15; O2SAT 99
[2019-11-11 11:01] VITALS: BP 103/61; PULSE 67; RESP 14; O2SAT 98
== END 2019-11-11 11:08 | disposition home or self-care (01) ==
PROVIDERS: Emergency Provider Emergency Medicine; PCP Family Medicine
DX: N83.209 Unspecified ovarian cyst, unspecified side (principal); R10.2 Pelvic and perineal pain; E03.9 Hypothyroidism, unspecified; Z86.711 Personal history of pulmonary embolism; Z79.899 Other long term (current) drug therapy; Z87.891 Personal history of nicotine dependence
CPT/HCPCS: 76830; 81001; 84702; 85025; 86900; 86901; 93976; 96361; 96374; 96375; 99284; J7030; A4216; J2405

== ENCOUNTER → 2020-04-11 09:22 | Outpatient (CLI) | payer MEDICAID, SELFPAY ==
[2020-04-11 09:57] LABS: Absolute Lymphocyte Count 1.56 X10^3/uL (0.83-4.51); Absolute Neutrophil Count 3.2 X10^3/uL (2.0-7.7); Basophil# 0.03 X10^3/uL; Basophil% 0.6 % (0-1); Eosinophils% 1.9 % (0-5); Hematocrit 41.2 % (37-47); Hemoglobin 13.8 g/dL (12.0-15.0); Lymphocyte # 1.56 X10^3/ul (4.0); Lymphocyte % 29.2 % (19-41); Mean Corp Hgb Conc 33.5 g/dL (32-36); Mean Corpuscular Hgb 30.1 pg (27.0-32.0); Mean Platelet Vol. 10.7 fl (6.2-12.0); Monocyte# 0.41 X10^3/uL; Monocyte% 7.7 % (0-10); NRBC Flagged by Analyzer 0 % (0-5); Neutrophil # 3.23 X10^3/uL (2.7-7.7); Neutrophil % 60.4 % (47-70); Platelet Count 276 K/mm3 (150-450); RBC Distribution Width CV 14.2 % (11.6-14.6); RBC Distribution Width SD 46.1 fl (35.1-43.9); Red Blood Count 4.58 M/mm3 (4.2-5.4); White Blood Count 5.3 K/mm3 (4.4-11.0)
[2020-04-11 10:35] LABS: AST(SGOT) 19 U/L (15-37); Alanine Aminotransfer ALT/SGPT 22 U/L (13-56); Albumin, Serum 3.8 g/dL (3.2-5.0); Alkaline Phosphatase 92 U/L (45-117); Anion Gap 5 (5-15); BUN 12 mg/dL (7-18); BUN/Creat Ratio 16.1 RATIO (10-20); Calcium,Total 8.7 mg/dL (8.5-10.1); Chloride 108 mmol/L (98-107); Creatinine, Serum 0.75 mg/dL (0.55-1.02); EST Glomerular Filtration Rate 96 mL/min (>60); Est Glom Filt Rate - Afr Amer 117 mL/min (>60); Globulin 3.8 g/dL (2.2-4.2); Glucose 96 mg/dL (74-106); Potassium 3.9 mmol/L (3.5-5.1); Protein, Total 7.6 g/dL (6.4-8.2); Sodium Level 138 mmol/L (136-145)
[2020-04-11 10:57] LABS: Homocysteine 8.8 umol/L (3.2-10.7)
[2020-04-15 09:07] LABS: Dilute Prothrombin Time (dPT) 37.7 sec (0.0-55.0); Dilute Russell Viper Venom 51.2 sec (0.0-47.0); PTT-LA 40.3 sec (0.0-51.9); Thrombin Time 15.6 sec (0.0-23.0); dPT Confirm Ratio 1.44 Ratio (0.00-1.40)
[2020-04-15 10:42] LABS: Anti-Cardiolipin Ab, IgA, Qn < 9 APL U/mL (0-11); Anti-Cardiolipin Ab, IgG, Qn < 9 GPL U/mL (0-14); Anti-Cardiolipin Ab, IgM, Qn 18 MPL U/mL (0-12); Anti-Thrombin 3 AG, Immunol 126 % (72-124); Antithrombin 3 Function 130 % (75-135); Interpretation Comment: (.); Protein C, Functional 163 % (73-180); Protein S, Funtional 110 % (63-140)
== END ==
PROVIDERS: PCP Family Medicine; Referring Provider Internal Medicine Hematology & Oncology; Visit Provider Internal Medicine Hematology & Oncology
DX: D68.52 Prothrombin gene mutation (principal); I26.99 Other pulmonary embolism without acute cor pulmonale; I82.409 Acute embolism and thrombosis of unspecified deep veins of unspecified lower extremity
CPT/HCPCS: 36415; 80053; 83090; 85025; 85300; 85301; 85303; 85306; 86147

== ENCOUNTER → 2020-11-06 | Outpatient (CLI) | payer MEDICAID, SELFPAY ==
[2020-11-06 15:31] LABS: Prothrombin Time (Protime)PT. 21.6 SECONDS (11.7-14.9)
== END | disposition home or self-care (01) ==
LOC: LABSPEC 15:10
PROVIDERS: PCP Family Medicine; Visit Provider Family Medicine
DX: Z86.711 Personal history of pulmonary embolism (principal)
CPT/HCPCS: 85610

== ENCOUNTER → 2020-12-17 | Outpatient (CLI) | payer MEDICAID, SELFPAY ==
[2020-12-17 15:30] LABS: International Normalized Ratio 3.3; Prothrombin Time (Protime)PT. 32.6 SECONDS (11.7-14.9)
== END | disposition home or self-care (01) ==
LOC: LABSPEC 15:01
PROVIDERS: PCP Family Medicine; Visit Provider Family Medicine
DX: Z86.711 Personal history of pulmonary embolism (principal)
CPT/HCPCS: 85610

== ENCOUNTER 2021-02-10 17:00 | Emergency (ER) | payer MEDICAID, SELFPAY ==
[2021-02-10 17:00] VITALS: BP 142/89; PULSE 108; RESP 16; TEMP 36.4; O2SAT 100; BMI 29.6
--- NOTE | 2021-02-10 18:22 | EKG12_ITS ---
Test Reason : CP Blood Pressure : / mmHG Vent. Rate : 093 BPM Atrial Rate : 093 BPM P-R Int : 192 ms QRS Dur : 074 ms QT Int : 354 ms P-R-T Axes : 053 029 056 degrees QTc Int : 440 ms Normal sinus rhythm Normal ECG Confirmed by CECILIO CARRILLO, MANFRED ([id number]), editorial director GUNNAR CONWAY ([id number]) on 02/12/2021 9:54:26 AM Referred By: Confirmed By:MANFRED HERNANDES MD
--- NOTE | 2021-02-10 18:22 | EDS_ITS ---
HPI History of Present Illness Chief Complaint: Chest Pain Narrative Narrative: 30-year-old female presenting with left leg pain. She states on the lateral aspect of the left leg it starts at the left gluteal region and radiates on the lateral aspect of the left leg. This is been ongoing for a few days. She states he has increased sensation in that area not decreased. She is able to ambulate. She denies any numbness. She denies any injury. She does not have any back pain. Patient states that she has a clotting disorder and that she is on Coumadin and has been therapeutic. She states she tried to call her doctor's office however they said that she needed to come to the ER to rule out DVT. Patient herself does not believe it is DVT. The patient states that she is also had some intermittent chest discomfort in the center of her chest for the last 3 days. She denies shortness of breath, diaphoresis, nausea, lightheadedness. She states that this is mild. She does have history of PE but again has been anticoagulated on Coumadin. She has not had any breakthrough cl ots on Coumadin. She denies any cardiac history. [facility] Medical History Anemia BLOOD CLOTS Genital herpes Heroin use disorder, severe, in sustained remission contractions Pulmonary embolus Thyroid disease Home Medications levothyroxine 75 mcg PO DAILY 05/07/19 [History Last Taken 05/06/19] apixaban 5 mg tablet 2.5 mg PO BID 05/26/19 [History Last Taken Unknown] omeprazole 20 mg PO DAILY #30 cap 06/11/19 [Rx Last Taken Unknown] tizanidine 2 mg PO BID 11/11/19 [History Last Taken Unknown] venlafaxine 75 mg PO BID 11/11/19 [History Last Taken Unknown] gabapentin 600 mg PO TID PRN #12 tab 02/10/21 [Rx Last Taken Unknown] Allergy/AdvReac Type Severity Reaction Status Date / Time morphine AdvReac Other Verified 02/10/21 17:03 Family History Mother Anxiety Lupus Bleeding disorder Cancer Mental disorder Grandmother Cancer Aunt Cancer Other Psychiatric care Social History Smoking Status: Current every day smoker tobacco type: cigarettes alcohol intake: never substance use type: former substance user and heroin ROS ROS ED Constitutional Constitutional ED: Denies chills or fever(s) Eyes Eyes: Denies blurry vision or change in vision ENT ENT ED: Denies rhinorrhea or sore throat Cardiovascular Cardiovascular: Reports chest pain; Denies palpitations or racing heartbeat Respiratory/Chest Respiratory/Chest: Denies cough, dyspnea or sputum Gastrointestinal Gastrointestinal: Denies abdominal pain, nausea or vomiting Genitourinary Genitourinary ED: Denies dysuria or hematuria Musculoskeletal Musculoskeletal: Reports other Details: Left lateral leg pain Integumentary Denies Abrasions or rash Neurologic Neurologic: Denies headache(s) or paresthesias EXAM Physical Exam Const Vital Signs: 02/10/21 17:00 02/10/21 19:06 02/10/21 20:39 Temperature 97.6 F L Temperature Source Temporal Pulse Rate 108 H 76 89 Respiratory Rate 16 18 18 Blood Pressure 142/89 H 114/85 H 127/87 H Blood Pressure Mean 106 94 100 Pulse Ox 100 96 98 Oxygen Delivery Method Room Air Room Air 02/10/21 21:28 Temperature Temperature Source Pulse Rate 81 Respiratory Rate 20 H Blood Pressure 123/89 H Blood Pressure Mean 100 Pulse Ox 98 Oxygen Delivery Method Room Air Positive well nourished General Appearance ED: NAD; Negative for pallor HEENT Reports moist mucous membranes Negative for trauma Eyes PERRL and EOMs intact bilaterally Resp normal respiratory effort and clear to auscultation bilaterally Cardio regular rate and regular rhythm Extremity Extremity Narrative: Tenderness down the lateral aspect of the left leg from the hip down to the ankle. There is no tenderness to palpation midline or medially. There is no rash, ecchymosis. Left foot neurovascular intact brisk cap refill to all 5 toes. Plus pedal pulses General Extremety ED: Negative for edema General Extremity: Negative for edema Neuro oriented x3 and CN's II-XII intact bilaterally Sensorium / Orientation: alert Skin no rashes or lesions noted General Skin Exam: Negative for jaundice or pallor MDM MDM MDM Narrative Medical decision making narrative: 30-year-old female presenting with leg pain which appears to be neuropathic in origin. There is no external findings of significance. DVT studies of bilateral extremities are performed and these are negative. EKG on my interpretation shows sinus rhythm at 93 beats minute without sign of ischemic change. Chest x-ray shows no acute cardiopulmonary process and radiologist does agree.Patient does have a history of blood clotting disorder and is complaining of chest pain and since her INR is subtherapeutic I did do a CT of the chest and this is negative for PE. Patient has history of opioid dependence. I will give her a prescription for gabapentin for her pain which appears to be neuropathic in origin. I did attempt to call her primary care physician 3 times and had no return call. I think she is stable for discharge home and follow-up outpatient. Impression: 1. Left leg pain 2. Chest pain 3. Subtherapeutic INR Lab Data Attestation: I reviewed the patient's lab results. Labs: Laboratory Results - last 24 hr 02/10/21 02/10/21 02/10/21 17:40 17:40 17:40 WBC 6.2 RBC 4.39 Hgb 13.6 Hct 40.5 MCV 92.3 MCH 31.0 MCHC 33.6 RDW Std Deviation 45.5 H RDW Coeff of Ziggy 13.3 Plt Count 266 MPV 11.0 Immature Gran % (Auto) 0.300 Neut % (Auto) 63.5 Lymph % (Auto) 28.9 [place] % (Auto) 5.9 Eos % (Auto) 0.8 Baso % (Auto) 0.6 Absolute Neuts (auto) 4.0 Absolute Lymphs (auto) 1.80 Nucleated RBC % 0 PT 17.5 H INR 1.5 Sodium 139 Potassium 3.6 Chloride 108 H Carbon Dioxide 26.0 Anion Gap 5 BUN 13 Creatinine 0.72 Estim Creat Clear Calc 110.09 Est GFR (MDRD) Af Amer 121 Est GFR (MDRD) Non-Af 100 BUN/Creatinine Ratio 18.0 Glucose 97 Calcium 8.9 Troponin I High Sens 4 Radiography Diagnostic Testing: Clinical Impression(s) from Imaging Studies Chest X-Ray 02/10/21 18:30 IMPRESSION: No acute findings in the chest. at 1858 Reported and signed by: Valentín Schuler MD Electronically Signed: Valentín Schuler MD at 18:56 EST Tel , Service support , Venous Duplex 02/10/21 19:19 IMPRESSION: Normal bilateral lower extremity duplex venous ultrasound. at 2056 Reported and signed by: Valentín Schuler MD Electronically Signed: Valentín Schuler MD at 20:55 EST Tel , Service support , Chest CTA 02/10/21 19:40 IMPRESSION: Negative CTA chest. Individualized dose optimization techniques were used for this CT. at 2018 Reported and signed by: Valentín Schuler MD Electronically Signed: Valentín Schuler MD at 20:17 EST Tel , Service support , Discharge Plan Triage Chief Complaint: Chest Pain Other Complaint: Lower Extremity Injury ED Provider: Og Bradley Dx/Rx/DC Orders Instructions: ED Chest Pain, Noncardiac, ED Neuropathy, Peripheral Prescriptions: New gabapentin 600 mg tablet 600 mg PO TID PRN (Reason: pain) Qty: 12 RF: 0 No Action Eliquis 5 mg tablet 2.5 mg PO BID RF: 0 levothyroxine 75 MCG tablet 75 mcg PO DAILY RF: 0 omeprazole 20 MG capsule 20 mg PO DAILY Qty: 30 RF: 0 venlafaxine 75 MG tablet 75 mg PO BID RF: 0 tizanidine 2 MG tablet 2 mg PO BID RF: 0 Primary Care Provider: Mariano Rogers Referrals: Mariano Rogers MD [Primary Care Provider] - Disposition Disposition: Home, Self Care
--- NOTE | 2021-02-10 18:30 | RAD_ITS ---
EXAM: XR CHEST, 1 VIEW : 1990 CLINICAL INDICATION: chest pain TECHNIQUE: Frontal view of the chest. This report was created using [employer] report generation technology. COMPARISON: 06/11/2019 FINDINGS: LUNGS AND PLEURAL SPACES: Unremarkable. No consolidation or edema. No pneumothorax. No effusion. HEART: Unremarkable. Cardiac silhouette not enlarged. MEDIASTINUM: Central airways and mediastinal contour are unremarkable. BONES/JOINTS: There is an orthopedic plate and screws seen across a left clavicle fracture. SOFT TISSUES: Unremarkable. RAD/Chest 1 View (Portable) IMPRESSION: No acute findings in the chest. at 1858 Reported and signed by: Valentín Schuler MD Electronically Signed: Valentín Schuler MD at 18:56 EST Tel , Service support ,
[2021-02-10 18:41] LABS: Basophil# 0.04 X10^3/uL; Basophil% 0.6 % (0-1); Eosinophil# 0.05 X10^3/uL; Eosinophils% 0.8 % (0-5); Hematocrit 40.5 % (37-47); Hemoglobin 13.6 g/dL (12.0-15.0); Lymphocyte % 28.9 % (19-41); Mean Corp Hgb Conc 33.6 g/dL (32-36); Mean Corpuscular Volume 92.3 fL (81-99); Monocyte# 0.37 X10^3/uL; Monocyte% 5.9 % (0-10); NRBC Flagged by Analyzer 0 % (0-5); Neutrophil # 3.95 X10^3/uL (2.7-7.7); Neutrophil % 63.5 % (47-70); Platelet Count 266 K/mm3 (150-450); RBC Distribution Width CV 13.3 % (11.6-14.6); RBC Distribution Width SD 45.5 fl (35.1-43.9); Red Blood Count 4.39 M/mm3 (4.2-5.4); White Blood Count 6.2 K/mm3 (4.4-11.0)
[2021-02-10 18:45] LABS: International Normalized Ratio 1.5; Prothrombin Time (Protime)PT. 17.5 SECONDS (11.7-14.9)
[2021-02-10 18:55] LABS: Anion Gap 5 (5-15); BUN 13 mg/dL (7-18); Calcium,Total 8.9 mg/dL (8.5-10.1); Chloride 108 mmol/L (98-107); Creatinine, Serum 0.72 mg/dL (0.55-1.02); EST Glomerular Filtration Rate 100 mL/min (>60); Est Glom Filt Rate - Afr Amer 121 mL/min (>60); Estimated Creatinine Clearance 110.09 ml/min; Glucose 97 mg/dL (74-106); Potassium 3.6 mmol/L (3.5-5.1); Sodium Level 139 mmol/L (136-145); Troponin-I HS 4 pg/mL (3.0-54.0)
[2021-02-10 19:06] VITALS: BP 114/85; PULSE 76; RESP 18; O2SAT 96
--- NOTE | 2021-02-10 19:19 | US_ITS ---
EXAM: US DUPLEX BILATERAL LOWER EXTREMITIES VEINS : 1990 CLINICAL INDICATION: LEG PAIN LT>RT TECHNIQUE: Real-time duplex ultrasound scan of the bilateral lower extremity veins integrating B-mode two-dimensional vascular structure, Doppler spectral analysis, color flow Doppler imaging and compression. This report was created using [employer] report [employer] technology. COMPARISON: None. FINDINGS: RIGHT DEEP VEINS: Unremarkable. No DVT in the right common femoral, femoral, proximal deep femoral or popliteal veins. The veins demonstrate normal color flow, are normally compressible, with normal phasic flow and/or augmentation response. RIGHT SUPERFICIAL VEINS: Unremarkable. No thrombus in the visualized right great saphenous vein. LEFT DEEP VEINS: Unremarkable. No DVT in the left common femoral, femoral, proximal deep femoral or popliteal veins. The veins demonstrate normal color flow, are normally compressible, with normal phasic flow and/or augmentation response. LEFT SUPERFICIAL VEINS: Unremarkable. No thrombus in the visualized left great saphenous vein. SOFT TISSUES: No acute findings. No popliteal cyst. US/Venous Duplex Imag/Farzad Extrem IMPRESSION: Normal bilateral lower extremity duplex venous ultrasound. at 2056 Reported and signed by: Valentín Schuler MD Electronically Signed: Valentín Schuler MD at 20:55 EST Tel , Service support ,
--- NOTE | 2021-02-10 19:40 | CT_ITS ---
EXAM: CT ANGIOGRAPHY CHEST WITHOUT AND WITH INTRAVENOUS CONTRAST : 1990 CLINICAL INDICATION: chest pain TECHNIQUE: Helically acquired angiography images were obtained of the chest without and with intravenous contrast. This CT exam was performed using one or more of the following dose reduction techniques: automated exposure control, adjustment of the mA and/or kV according to patient size, and/or use of iterative reconstruction technique. This report was created using [employer] report generation technology. MIP reconstructed images were created and reviewed. CONTRAST: IV 100mL [id number] COMPARISON: None. FINDINGS: PULMONARY ARTERIES: Unremarkable. Normal in caliber. No evidence of pulmonary embolism. AORTA: Unremarkable. Normal in caliber. No evidence of dissection. GREAT VESSELS OF AORTIC ARCH: Unremarkable. Normal in caliber. No evidence of dissection. LUNGS AND PLEURAL SPACES: Unremarkable. No mass. No consolidation or edema. No pleural effusion or thickening. No pneumothorax. HEART: Unremarkable. Heart size is normal. No pericardial effusion. No signs of right heart strain, ratio of right ventricle to left ventricle measures less than 1. MEDIASTINUM: Unremarkable. No mediastinal or hilar adenopathy. Esophagus is unremarkable. No hiatal hernia. THYROID: Unremarkable. No thyroid lesions. BONES/JOINTS: Unremarkable. No suspicious lytic or blastic abnormality. CT/CTA Chest W/WO Contrast IMPRESSION: Negative CTA chest. Individualized dose optimization techniques were used for this CT. at 2018 Reported and signed by: Valentín Schuler MD Electronically Signed: Valentín Schuler MD at 20:17 EST Tel , Service support ,
[2021-02-10] MEDS: Gabapentin 600 MG Tablet PO (20:38)
[2021-02-10 20:39] VITALS: BP 127/87; PULSE 89; RESP 18; O2SAT 98
[2021-02-10 21:28] VITALS: BP 123/89; PULSE 81; RESP 20; O2SAT 98
== END 2021-02-10 21:40 | disposition home or self-care (01) ==
PROVIDERS: Emergency Provider Student in an Organized Health Care Education/Training Program; PCP Family Medicine
DX: M79.605 Pain in left leg (principal); R07.9 Chest pain, unspecified; R79.1 Abnormal coagulation profile; E07.9 Disorder of thyroid, unspecified; F17.210 Nicotine dependence, cigarettes, uncomplicated; Z79.899 Other long term (current) drug therapy; Z79.01 Long term (current) use of anticoagulants; Z86.711 Personal history of pulmonary embolism
CPT/HCPCS: 71045; 71275; 80048; 84484; 85025; 85610; 93005; 93970; 99284; Q9967

== ENCOUNTER 2021-05-28 06:55 | Emergency (ER) | payer MEDICAID, SELFPAY ==
[2021-05-28 06:56] VITALS: BP 132/95; PULSE 89; RESP 27; TEMP 36.4; O2SAT 98; BMI 30.4
--- NOTE | 2021-05-28 07:13 | EKG12_ITS ---
Test Reason : CP Blood Pressure : / mmHG Vent. Rate : 079 BPM Atrial Rate : 079 BPM P-R Int : 204 ms QRS Dur : 074 ms QT Int : 380 ms P-R-T Axes : 052 033 063 degrees QTc Int : 435 ms Normal sinus rhythm Normal ECG Confirmed by ANDRAE CARRILLO, JADEN ([id number]), city editor GUNNAR CONWAY ([id number]) on 05/29/2021 1:40:06 PM Referred By: SHELDON Confirmed By:JADEN ABEBE MD
--- NOTE | 2021-05-28 07:16 | ED.VIS.CHEST ---
HPI History of Present Illness Chief Complaint: Chest Pain Informant: patient Onset/Context/Timing Onset: Yesterday Activity at onset: gradual and onset Timing: Continuous Quality: Positive for Pain and Sharp Location: - (sternal w/o radiation) Current Severity: Severe Maximum Severity: Severe Worsened By: Movement of Arm, Movement of Torso, Palpation, Breathing, Coughing and - (lying down) Relieved By: Remaining Still Associated Symptoms: Positive for Palpitations (chronic, occasional skip, unchanged); Negative for Nausea, Vomiting, Diaphoresis, Dyspnea, Cough, Fever and Lightheadedness Narrative Narrative: 31-year-old female with a history of antiphospholipid antibody syndrome and pulmonary emboli remotely presenting with sternal chest discomfort that started yesterday and woke up with it much worse and constant today. She said feels like muscular pain but it is severe she has no reason to have obvious muscular pain, has not changed her usual activities lately, no injury that she remembers or overuse of these muscles. She denies any dyspnea but it really hurts to breathe and to move things around especially when she turns her torso in a different positions. She denies any leg pain or swelling recently. No recent illness except for Covid which was 1.5 months ago. She states it was a mild illness and she got over it without any hospitalization or severe problems, she had been scheduled for her Covid vaccine around that time but then got ill and has postponed it, she subsequently has had the first injection and that was several weeks ago and she is going to get the second 1 here soon. She states she used to be on apixaban but they took her off of it because a specialist at [facility] told her it was not working as it supposed to in her, so and she has been on warfarin ever since. Former IV heroin user, she states she has been clean for the last 7 years. [facility] Medical History (Updated 05/28/21 @ 10:[address] Denver Jimenez MD) Anemia BLOOD CLOTS Genital herpes Heroin use disorder, severe, in sustained remission contractions Pulmonary embolus Thyroid disease Home Medications levothyroxine 75 mcg PO DAILY 05/07/19 [History Last Taken 05/06/19] omeprazole 20 mg PO DAILY #30 cap 06/11/19 [Rx Last Taken Unknown] tizanidine 2 mg PO BID 11/11/19 [History Last Taken Unknown] venlafaxine 75 mg PO BID 11/11/19 [History Last Taken Unknown] warfarin 15 mg PO 05/28/21 [History Last Taken Unknown] Allergy/AdvReac Type Severity Reaction Status Date / Time morphine AdvReac Other Verified 02/10/21 17:03 Family History Mother Anxiety Lupus Bleeding disorder Cancer Mental disorder Grandmother Cancer Aunt Cancer Other Psychiatric care Social History Smoking Status: Current every day smoker tobacco type: cigarettes alcohol intake: never substance use type: former substance user and heroin ROS ROS ED Constitutional Constitutional ED: Denies chills or fever(s) Eyes Eyes: Denies change in vision or diplopia ENT ENT ED: Denies rhinorrhea or sore throat Cardiovascular Cardiovascular: Reports as per HPI, chest pain and palpitations Respiratory/Chest Respiratory/Chest: Denies cough or dyspnea Gastrointestinal Gastrointestinal: Denies abdominal pain, diarrhea, nausea or vomiting Genitourinary Genitourinary ED: Denies dysuria or hematuria Musculoskeletal Musculoskeletal: Denies back pain or neck pain Integumentary Denies abscess or rash Neurologic Neurologic: Denies headache(s), paresthesias or weakness Psychiatric Psychiatric: Denies anxiety or suicidal thoughts EXAM Physical Exam Const Vital Signs: 05/28/21 06:56 05/28/21 06:59 05/28/21 07:26 Temperature 97.6 F L Temperature Source Oral Pulse Rate 89 Respiratory Rate 27 H Respiratory Effort Normal Short of Breath Blood Pressure 132/95 H Blood Pressure Mean 107 Pulse Ox 98 Oxygen Delivery Method Room Air Bi-pap 05/28/21 07:27 05/28/21 08:42 05/28/21 09:13 Temperature Temperature Source Pulse Rate 77 91 85 Respiratory Rate 16 17 21 H Respiratory Effort Blood Pressure 129/88 H 117/88 H 113/68 Blood Pressure Mean 101 97 83 Pulse Ox 96 97 97 Oxygen Delivery Method Room Air Room Air 05/28/21 10:06 Temperature Temperature Source Pulse Rate 67 Respiratory Rate 15 Respiratory Effort Blood Pressure 138/81 H Blood Pressure Mean 100 Pulse Ox 95 Oxygen Delivery Method Positive well nourished and well developed General Appearance ED: well developed and NAD HEENT Reports moist mucous membranes normocephalic and atraumatic Eyes PERRL and EOMs intact bilaterally Neck full ROM and supple Chest Wall inspection of chest normal Chest Narrative: Tender throughout mid sternum reproducing the patient's pain Resp normal respiratory effort and clear to auscultation bilaterally Cardio regular rate, regular rhythm and no murmurs Rate: Negative for tachycardic GI non-tender and non-distended Auscultation: normoactive bowel sounds Palpation: soft Back/Spine no CVA tenderness General Back: other FROM Extremity normal to inspection, no calf tenderness and no pedal edema General Extremety ED: Negative for edema, pulses abnormal or tenderness General Extremity: Negative for edema or pulses abnormal Neuro oriented x3, CN's II-XII intact bilaterally and no sensory deficits noted Sensorium / Orientation: awake and alert Motor Exam: strength 5/5 throughout Psych mental status grossly normal and thought process normal Mood & Affect: anxious Skin no rashes or lesions noted and no wounds MDM MDM MDM Narrative Medical decision making narrative: With regard to treating the patient's pain, we discussed her history of substance abuse. She states she has had narcotics when she has needed them in the past 7 years without getting addicted, she just avoids getting prescriptions, and she would like something for the pain. We are both under the understanding that she is unable to have NSAIDs since she is anticoagulated. She was initially given a [place] and 1 something more for pain so she was then given fentanyl which helped some. Initially her labs were normal except her INR is subtherapeutic at 1.3. She states she cannot tell if the pain is just in her chest wall or in the inside so to be safe we did CT angiography of the chest after discussing the pros and cons of that, it is negative for pulmonary embolus, she is reassured, advised to take an extra dose of warfarin and have her INR checked in the near future, supportive care advised for what is likely costochondritis. Lab Data Attestation: I reviewed the patient's lab results. Labs: Laboratory Results - last 24 hr 05/28/21 05/28/21 05/28/21 07:00 07:00 07:00 WBC 6.6 RBC 4.88 Hgb 15.8 H Hct 46.2 MCV 94.7 MCH 32.4 H MCHC 34.2 RDW Std Deviation 47.2 H RDW Coeff of Ziggy 13.5 Plt Count 242 MPV 11.3 Immature Gran % (Auto) 0.600 Neut % (Auto) 62.7 Lymph % (Auto) 24.6 [place] % (Auto) 8.6 Eos % (Auto) 2.6 Baso % (Auto) 0.9 Absolute Neuts (auto) 4.2 Absolute Lymphs (auto) 1.63 Nucleated RBC % 0 PT 15.1 H INR 1.3 Sodium 136 Potassium 3.9 Chloride 104 Carbon Dioxide 23.0 Anion Gap 9 BUN 11 Creatinine 0.73 Estim Creat Clear Calc 107.59 Est GFR (MDRD) Af Amer 120 Est GFR (MDRD) Non-Af 99 BUN/Creatinine Ratio 15.2 Glucose 101 Calcium 8.9 Troponin I High Sens < 3 L Radiography Diagnostic Testing: Clinical Impression(s) from Imaging Studies Chest X-Ray 05/28/21 07:30 IMPRESSION: No radiographic evidence of acute cardiopulmonary disease. at 0806 Reported and signed by: Mariano Kennedy MD Electronically Signed: Mariano Kennedy MD at 8:05 EST , Chest CTA 05/28/21 09:50 IMPRESSION: Normal CTA chest examination, without a demonstrated pulmonary embolism or arterial dissection. Electronically Signed: Waqas Dela Cruz MD at 10:19 EST , EKG Initial EKG: Attestation: I personally reviewed and interpreted this EKG as follows: Interpretation: Sinus Rhythm and No Acute Injury Pattern Comments: Heart rate 79. No S1Q3T3 pattern. Normal EKG. Discharge Plan Triage Chief Complaint: Chest Pain ED Provider: Denver Jimenez Dx/Rx/DC Orders Clinical Impression: Acute costochondritis, Subtherapeutic international normalized ratio (INR) Instructions: ED Chest Wall Pain, Costochondritis Prescriptions: No Action levothyroxine 75 MCG tablet 75 mcg PO DAILY RF: 0 omeprazole 20 MG capsule 20 mg PO DAILY Qty: 30 RF: 0 venlafaxine 75 MG tablet 75 mg PO BID RF: 0 tizanidine 2 MG tablet 2 mg PO BID RF: 0 warfarin 5 mg tablet 15 mg PO RF: 0 Primary Care Provider: Mariano Rogers Referrals: Mariano Rogers MD [Primary Care Provider] - 3-5 Days if not improving Activity Restrictions/Additional Instructions: Take 1 extra dose of your warfarin, and discussed with your doctor regarding a repeat INR in 1 week or less. Disposition Disposition: Home, Self Care
[2021-05-28 07:27] VITALS: BP 129/88; PULSE 77; RESP 16; O2SAT 96
--- NOTE | 2021-05-28 07:30 | RAD_ITS ---
HISTORY: chest pain EXAMINATION/TECHNIQUE: XR Chest 1 View portable AP view COMPARISON: AP chest x-ray from 02/10/21 FINDINGS: LINES/DEVICES: residential monitor leads. LUNGS: No pulmonary edema. No focal airspace consolidation. No sizable pleural effusion. No pneumothorax detected. MEDIASTINUM AND CARDIOVASCULAR STRUCTURES: Heart size within normal limits for imaging technique. Central airways and mediastinal contour are unremarkable. BONES AND SOFT TISSUES: Status post ORIF left clavicle. RAD/Chest 1 View (Portable) IMPRESSION: No radiographic evidence of acute cardiopulmonary disease. at 0806 Reported and signed by: Mariano Kennedy MD Electronically Signed: Mariano Kennedy MD at 8:05 EST ,
[2021-05-28 07:37] LABS: Absolute Lymphocyte Count 1.63 X10^3/uL (0.83-4.51); Absolute Neutrophil Count 4.2 X10^3/uL (2.0-7.7); Basophil# 0.06 X10^3/uL; Basophil% 0.9 % (0-1); Eosinophil# 0.17 X10^3/uL; Eosinophils% 2.6 % (0-5); Hematocrit 46.2 % (37-47); Hemoglobin 15.8 g/dL (12.0-15.0); Lymphocyte # 1.63 X10^3/ul (0.83-4.51); Lymphocyte % 24.6 % (19-41); Mean Corp Hgb Conc 34.2 g/dL (32-36); Mean Corpuscular Hgb 32.4 pg (27.0-32.0); Mean Corpuscular Volume 94.7 fL (81-99); Mean Platelet Vol. 11.3 fl (6.2-12.0); Monocyte# 0.57 X10^3/uL; Monocyte% 8.6 % (0-10); NRBC Flagged by Analyzer 0 % (0-5); Neutrophil # 4.16 X10^3/uL (2.7-7.7); Neutrophil % 62.7 % (47-70); Platelet Count 242 K/mm3 (150-450); RBC Distribution Width CV 13.5 % (11.6-14.6); RBC Distribution Width SD 47.2 fl (35.1-43.9); Red Blood Count 4.88 M/mm3 (4.2-5.4); White Blood Count 6.6 K/mm3 (4.4-11.0)
[2021-05-28 07:43] LABS: Anion Gap 9 (5-15); BUN 11 mg/dL (7-18); BUN/Creat Ratio 15.2 RATIO (10-20); Calcium,Total 8.9 mg/dL (8.5-10.1); Chloride 104 mmol/L (98-107); Creatinine, Serum 0.73 mg/dL (0.55-1.02); EST Glomerular Filtration Rate 99 mL/min (>60); Est Glom Filt Rate - Afr Amer 120 mL/min (>60); Estimated Creatinine Clearance 107.59 ml/min; Glucose 101 mg/dL (74-106); Potassium 3.9 mmol/L (3.5-5.1); Sodium Level 136 mmol/L (136-145); Troponin-I HS < 3 pg/mL (3.0-54.0)
[2021-05-28] MEDS: HYDROcodone Bitartrate/Apap 5/325 Tablet PO (07:50)
[2021-05-28 08:41] LABS: International Normalized Ratio 1.3; Prothrombin Time (Protime)PT. 15.1 SECONDS (11.7-14.9)
[2021-05-28 08:42] VITALS: BP 117/88; PULSE 91; RESP 17; O2SAT 97
[2021-05-28] MEDS: 0.9% Normal Saline 1,000 ML 999 ML IV (09:10)
[2021-05-28 09:13] VITALS: BP 113/68; PULSE 85; RESP 21; O2SAT 97
[2021-05-28] MEDS: fentaNYL 100 MCG/2 ML Ampul 75 MCG IV (09:20)
--- NOTE | 2021-05-28 09:50 | CT_ITS ---
STUDY: CTA CHEST REASON FOR EXAM: Female, 31 years old. Chest pain, hx PE, subtherapeutic INR RADIATION DOSAGE (If Supplied By Facility): CTDIvol = ( 6.53 ) mGy, DLP = ( 225.02 ) mGycm TECHNIQUE: The examination was performed with the intravenous administration of IV 100mL Isovue-370. Post-processing of the angiographic images was performed, with multiplanar reformation and 3D reconstruction. Individualized dose optimization techniques were used for this CT. COMPARISON: Comparison is made with prior study dated 02/10/2021.. FINDINGS: Normal enhancement of the main pulmonary artery and right and left pulmonary arteries. Normal enhancement of the bilateral peripheral pulmonary arteries. There is no demonstrated pulmonary embolism. Normal thoracic aorta and visualized great vessels. There is no demonstrated aortic dissection. Normal heart and pericardium. Normal mediastinum. Normal hilar regions. Normal visualized trachea and bronchi. The lungs are well expanded. Normal pulmonary parenchyma. Normal pleura. Normal chest wall structures. Normal osseous structures. Dilated inferior vena cava. This is unchanged from prior studies. CT/CTA Chest W/WO Contrast IMPRESSION: Normal CTA chest examination, without a demonstrated pulmonary embolism or arterial dissection. Electronically Signed: Waqas Dela Cruz MD at 10:19 EST ,
[2021-05-28 10:06] VITALS: BP 138/81; PULSE 67; RESP 15; O2SAT 95
[2021-05-28 11:02] VITALS: BP 130/80; PULSE 74; RESP 14; O2SAT 100
== END 2021-05-28 11:14 | disposition home or self-care (01) ==
PROVIDERS: Emergency Provider Emergency Medicine; PCP Family Medicine; Visit Provider Emergency Medicine
DX: M94.0 Chondrocostal junction syndrome [Tietze] (principal); D68.61 Antiphospholipid syndrome; R79.1 Abnormal coagulation profile; Z86.711 Personal history of pulmonary embolism; Z86.16 Personal history of COVID-19; E07.9 Disorder of thyroid, unspecified; Z79.899 Other long term (current) drug therapy; Z79.01 Long term (current) use of anticoagulants; F17.210 Nicotine dependence, cigarettes, uncomplicated
CPT/HCPCS: 71045; 71275; 80048; 84484; 85025; 85610; 93005; 96361; 96374; 99284; J7030; Q9967; A4216

== ENCOUNTER 2021-07-23 17:23 | Emergency (ER) | payer MEDICAID, SELFPAY ==
[2021-07-23 17:25] VITALS: BP 118/100; PULSE 105; RESP 14; TEMP 36.1; O2SAT 100; BMI 30.4
--- NOTE | 2021-07-23 18:00 | ED.VIS.LOWEX ---
HPI History of Present Illness Chief Complaint: Lower Extremity Injury Detail of Chief Complaint: Atraumatic left hamstring pain concern for blood clot Informant: patient Onset/Context/Timing Onset: Today Timing: Continuous Current Severity: Mild Maximum Severity: Mild Associated Symptoms Associated Symptoms: Negative for Parasthesia, Weakness and Loss of Funtion Narrative Narrative: 31-year-old female history of prior pulmonary emboli. History of antiphospholipid antibody syndrome. Has had subtherapeutic INR levels lately. She noticed a sore area in her left upper hamstring and went evaluated. She denies any chest pain. Prior similar symptoms: No Recent Illness/Hospitalization: No [facility] Medical History (Updated 07/23/21 @ 19:[address] Horace Hanson MD) Anemia BLOOD CLOTS Genital herpes Heroin use disorder, severe, in sustained remission contractions Pulmonary embolus Thyroid disease Home Medications omeprazole 20 mg PO DAILY #30 cap 06/11/19 [Rx Last Taken Unknown] tizanidine 2 mg PO BID 11/11/19 [History Last Taken Unknown] venlafaxine 75 mg PO BID 11/11/19 [History Last Taken Unknown] warfarin 15 mg PO DAILY 05/28/21 [History Last Taken Unknown] Allergy/AdvReac Type Severity Reaction Status Date / Time morphine AdvReac Other Verified 07/23/21 17:25 Family History Mother Anxiety Lupus Bleeding disorder Cancer Mental disorder Grandmother Cancer Aunt Cancer Other Psychiatric care Social History Smoking Status: Current every day smoker tobacco type: cigarettes alcohol intake: never substance use type: former substance user and heroin ROS ROS ED ROS Narrative Nausea, vomiting diarrhea last week. Since resolved. Review of Systems ROS Unobtainable: Denies due to encephalopathy Constitutional Constitutional ED: Denies fever(s) Eyes Eyes: Denies change in vision ENT ENT ED: Denies ear pain Cardiovascular Cardiovascular: Denies chest pain Respiratory/Chest Respiratory/Chest: Denies cough or dyspnea Gastrointestinal Gastrointestinal: Reports diarrhea, nausea and vomiting; Denies abdominal pain Genitourinary Genitourinary ED: Denies dysuria Musculoskeletal Musculoskeletal: Denies myalgias Integumentary Denies rash Neurologic Neurologic: Denies headache(s) Psychiatric Psychiatric: Denies depression Endocrine Endocrinology: Denies polyuria Hematologic/Lymphatic Hematologic/Lymphatic: Denies easy bruising Allergic/Immunologic Allergic/Immunologic ED: Denies urticaria EXAM Physical Exam Narrative Exam Narrative: Well-appearing 29-year-old female no acute distress. Vital signs stable afebrile. Pulse ox 9% on room air. H EENT exam unremarkable. Lungs clear. Heart regular rhythm no murmur. Rate about 100. Abdomen soft nontender. Moving all 4 extremities. Calves nontender without edema or cords. Proximal left medial hamstring there is an area of tenderness. Clinically I think this is most likely not a DVT. It seems superficial. Otherwise exam unremarkable. Const Vital Signs: 07/23/21 17:25 Temperature 97 F L Temperature Source Temporal Pulse Rate 105 H Respiratory Rate 14 Blood Pressure 118/100 H Blood Pressure Mean 106 Pulse Ox 100 Oxygen Delivery Method Room Air Positive well nourished and well developed; Negative for cachectic, contractures or unkempt General Appearance ED: well developed and NAD; Negative for unkempt, cachectic or contractures Nutritional Appearance: Negative for cachectic HEENT Reports moist mucous membranes normocephalic and atraumatic Eyes PERRL Neck full ROM and supple Thyroid: Negative for tender Chest Wall inspection of chest normal and palpation of chest normal Resp normal respiratory effort, no retractions and clear to auscultation bilaterally Auscultation: Negative for rales, rhonchi or wheezes Cardio regular rate, regular rhythm, S1 normal heart sound, S2 normal heart sound and no murmurs GI non-tender, non-distended and no masses Auscultation: normoactive bowel sounds Palpation: soft; Negative for tender or guarding Back/Spine no CVA tenderness General Back: Negative for CVA tenderness Cervical Spine: Negative for cervical spine tenderness Thoracic Spine / Upper Back: Negative for thoracic spinal tenderness Lumbar Spine / Lower Back: Negative for lumbar spinal tenderness Extremity normal to inspection and full ROM Extremity Narrative: Mild tender left proximal medial hamstring region. No edema. Calves nontender. General Extremety ED: Negative for cyanosis, edema or weight-bearing difficulty General Extremity: Negative for cyanosis, edema or weight-bearing difficulty Neuro oriented x3 and moves all extremities Sensorium / Orientation: alert, oriented to person, oriented to place and oriented to time; Negative for orientation impaired, confused, lethargic or stuporous Psych mental status grossly normal Appearance: Negative for unkempt Mood & Affect: Negative for anxious Skin no wounds Lesions: no lesions Rashes: no rashes MDM MDM MDM Narrative Medical decision making narrative: Patient with a hypercoagulable state with subtherapeutic Coumadin levels recently. Concern for a sore area on her left proximal hamstring. Ultrasound being obtained. Clinically I think this is most likely not a clot. Ultrasound of the legs showed no DVT as read by the radiologist. There was a nodule seen. She can follow-up with us. Patient be discharged to home Radiography Diagnostic Testing: Clinical Impression(s) from Imaging Studies Venous Duplex 07/23/21 18:20 IMPRESSION: There is no demonstrated deep venous thrombosis.Left medial thigh nodule is 11 mm. Electronically Signed: Kavon Cespedes MD at 19:03 EDT Reading Location ID and State: [facility] / [place] , Service support , Discharge Plan Triage Chief Complaint: Lower Extremity Injury ED Provider: Horace Hanson Dx/Rx/DC Orders Clinical Impression: Nodule of skin of left lower extremity, History of blood clotting disorder Prescriptions: No Action omeprazole 20 MG capsule 20 mg PO DAILY Qty: 30 RF: 0 venlafaxine 75 MG tablet 75 mg PO BID RF: 0 tizanidine 2 MG tablet 2 mg PO BID RF: 0 warfarin 5 mg tablet 15 mg PO DAILY RF: 0 Primary Care Provider: Mariano Rogers Referrals: Mariano Rogers MD [Primary Care Provider] - 1-2 Weeks Activity Restrictions/Additional Instructions: Follow-up with your primary care provider. There is no blood clot. They see a soft tissue nodule left upper leg. Disposition Disposition: Home, Self Care
--- NOTE | 2021-07-23 18:20 | US_ITS ---
STUDY: VENOUS DOPPLER ULTRASOUND - LEFT LOWER EXTREMITY REASON FOR EXAM: Female, 31 years old. LEG PAIN AND SWELLING LT INNER UPPER THIGH PAINFUL PALP LUMP TECHNIQUE: Ultrasound evaluation of the deep vein system to include bowen-scale imaging and compression was performed. Bowen-scale imaging and Doppler sonographic evaluation, including duplex spectral analysis and qualitative color flow sonography, was performed. COMPARISON: None. FINDINGS: Common Femoral Vein: Normal compression, spontaneity and augmentation. Normal color Doppler. Common Femoral Vein/Greater Saphenous Junction: Normal compression, spontaneity and augmentation. Normal color Doppler. Superficial Femoral Proximal: Normal compression, spontaneity and augmentation. Normal color Doppler. Superficial Femoral Middle: Normal compression, spontaneity and augmentation. Normal color Doppler. Superficial Femoral Distal: Normal compression, spontaneity and augmentation. Normal color Doppler. Popliteal Vein: Normal compression, spontaneity and augmentation. Normal color Doppler. Posterior Tibial Vein: Normal compression, spontaneity and augmentation. Normal color Doppler. Peroneal Vein: Normal compression, spontaneity and augmentation. Normal color Doppler. Left medial thigh nodule is 11 mm. There is no demonstrated deep venous thrombosis. US/Venous Duplex Imag/Limited/Uni IMPRESSION: There is no demonstrated deep venous thrombosis.Left medial thigh nodule is 11 mm. Electronically Signed: Kavon Cespedes MD at 19:03 EDT ,
== END 2021-07-23 19:45 | disposition home or self-care (01) ==
PROVIDERS: Emergency Provider Emergency Medicine; PCP Family Medicine; Visit Provider Emergency Medicine
DX: R22.9 Localized swelling, mass and lump, unspecified (principal); D68.59 Other primary thrombophilia; Z86.711 Personal history of pulmonary embolism; Z79.01 Long term (current) use of anticoagulants; F17.210 Nicotine dependence, cigarettes, uncomplicated
CPT/HCPCS: 93971; 99282

== ENCOUNTER 2021-12-05 10:01 | Emergency (ER) | payer MEDICAID, SELFPAY ==
[2021-12-05 10:01] VITALS: BP 127/94; PULSE 83; RESP 16; TEMP 36.6; O2SAT 97; BMI 28.3
--- NOTE | 2021-12-05 10:12 | CT_ITS ---
STUDY: CTA OF THE BRAIN REASON FOR EXAM: Female, 31 years old. Headache RADIATION DOSAGE (If Supplied By Facility): CTDIvol = ( 25.37 ) mGy, DLP = ( 1239.34 ) mGycm TECHNIQUE: CT angiography was performed with a multi-detector CT scanner. Data acquisition was obtained from the skull base through the vertex following intravenous administration of IV 100mL Isovue-370. MIP images were reconstructed from the axial data set. Post-processing of the angiographic images was performed, with multiplanar reformation and 3D reconstruction. Individualized dose optimization techniques were used for this CT. COMPARISON: None. FINDINGS: Normal bilateral petrous carotid arteries. Normal right cavernous carotid artery with a normal supraclinoid bifurcation. Normal left cavernous carotid artery with a normal supraclinoid bifurcation. Normal right A1 segments of the anterior cerebral artery. Normal left A1 segments of the anterior cerebral artery. Normal intact anterior communicating artery (ACOM). Normal bilateral A2 segments of the anterior cerebral arteries. Normal right M1 and M2 segments of the middle cerebral arteries, with a normal M1 bifurcation. Normal left M1 and M2 segments of the middle cerebral arteries, with a normal M1 bifurcation. There is a persistent origin of the right posterior cerebral artery with absence of the posterior communicating artery (PCOM). Normal left posterior communicating artery (PCOM). Normal bilateral vertebral arteries. Normal basilar artery with a normal basilar bifurcation. The visualized bilateral superior cerebellar (SCA) arteries are normal. Normal bilateral P1, P2 and visualized P3 segments of the posterior cerebral arteries. There is no demonstrated aneurysm of the [place] of [place]. There is no demonstrated abnormality of the visualized brain. CT/CTA Head W/WO Contrast IMPRESSION: Normal [place] of [place] without a demonstrated aneurysm or hemodynamically significant stenosis. Electronically Signed: Waqas Dela Cruz MD at 11:06 EDT ,
--- NOTE | 2021-12-05 10:14 | EX.ED.VIS.HA ---
HPI History of Present Illness Chief Complaint: Headache Narrative Narrative: 31-year-old female presenting with headache. She states that unilateral on the left side of her head. She admits to feeling dizzy when she bends over and moves. She states the headache was acute in onset yesterday. She admits to photophobia and phonophobia as well. No history of migraine headache. No visual complaints other than light sensitivity. No facial droop, slurred speech, paresthesias. She admits to feeling nauseous and sweaty with movements. She states when she bends over she gets lightheaded. 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 daily. She states she was previously on 15 mg p.o. daily and her INR was 1. Her Coumadin was increased last week to 20. She was on her way to get her INR checked but since had a headache she came to the emergency room. Patient denies any history of head injury. [facility] Medical History Anemia BLOOD CLOTS Genital herpes Heroin use disorder, severe, in sustained remission contractions Pulmonary embolus Thyroid disease Home Medications omeprazole 20 mg capsule,delayed release 20 mg PO DAILY #30 caps 06/11/19 [Rx Last Taken Unknown] tizanidine 2 mg tablet 2 mg PO BID 11/11/19 [History Last Taken Unknown] venlafaxine 75 mg tablet 75 mg PO BID 11/11/19 [History Last Taken Unknown] warfarin 5 mg tablet 15 mg PO QODAY 05/28/21 [History Last Taken Unknown] warfarin 10 mg tablet 10 mg PO QODAY 12/05/21 [History Last Taken Unknown] Allergy/AdvReac Type Severity Reaction Status Date / Time morphine AdvReac Other Verified 12/05/21 10:05 Family History Mother Anxiety Lupus Bleeding disorder Cancer Mental disorder Grandmother Cancer Aunt Cancer Other Psychiatric care Social History Smoking Status: Former smoker alcohol intake: never substance use type: former substance user and heroin ROS ROS ED Constitutional Constitutional ED: Reports sweats; Denies chills ENT ENT ED: Denies rhinorrhea or sore throat Cardiovascular Cardiovascular: Denies chest pain or palpitations Respiratory/Chest Respiratory/Chest: Denies cough, dyspnea or dyspnea on exertion Gastrointestinal Gastrointestinal: Reports nausea; Denies abdominal pain or constipation Genitourinary Genitourinary ED: Denies dysuria or hematuria Musculoskeletal Musculoskeletal: Denies neck pain Integumentary Denies Abrasions or rash Neurologic Neurologic: Reports headache(s); Denies paresthesias Psychiatric Psychiatric: Denies anxiety or depression EXAM Physical Exam Const Vital Signs: 12/05/21 10:01 Temperature 97.9 F Temperature Source Temporal Pulse Rate 83 Respiratory Rate 16 Blood Pressure 127/94 H Blood Pressure Mean 105 Pulse Ox 97 Oxygen Delivery Method Room Air Positive well nourished General Appearance ED: NAD; Negative for pallor HEENT Reports normocephalic, TM's clear and moist mucous membranes atraumatic Tympanic Membrane ED: Yes TM's clear Eyes PERRL and EOMs intact bilaterally Resp normal respiratory effort and clear to auscultation bilaterally Auscultation: Negative for rales or rhonchi Cardio regular rate and regular rhythm Extremity normal to inspection and full ROM Neuro oriented x3 and CN's II-XII intact bilaterally Sensorium / Orientation: awake and alert Coordination / Balance: [id number] test normal and [id number] test normal Speech: speech normal Motor Exam: strength 5/5 throughout Psych mental status grossly normal Skin General Skin Exam: Negative for jaundice or pallor MDM MDM MDM Narrative Medical decision making narrative: Patient presenting with fairly acute onset headache. She states has had these before with medication changes including her Coumadin and states this was recently increased she thought this may be the problem which has no history of migraine. No focal neurologic deficits. She only reports photophobia and phonophobia. Blood work is obtained and her INR is subtherapeutic at 1.9 still even on 20 mg of Coumadin daily. She is counseled she will need to see her primary care provider for her medication changes. She is to continue taking her Coumadin. Renal function electrolytes are normal. CTA of the head head is negative. Patient reevaluated at 130 and her headache is completely gone. She wishes to be discharged home. Return precautions were discussed. Impression: 1. Headache 2. Subtherapeutic INR Lab Data Attestation: I reviewed the patient's lab results. Labs: Laboratory Results - last 24 hr 12/05/21 12/05/21 10:20 10:20 PT 21.8 H INR 1.9 Sodium 140 Potassium 4.0 Chloride 107 Carbon Dioxide 26.0 Anion Gap 7 BUN 14 Creatinine 0.74 Estim Creat Clear Calc 106.14 Est GFR (MDRD) Af Amer 116 Est GFR (MDRD) Non-Af 96 BUN/Creatinine Ratio 18.9 Glucose 100 Calcium 9.6 Total Bilirubin 0.40 AST 11 L ALT 29 Alkaline Phosphatase 76 Total Protein 8.0 Albumin 4.0 Globulin 4.0 Albumin/Globulin Ratio 1.0 Radiography Diagnostic Testing: Clinical Impression(s) from Imaging Studies Head CTA 12/05/21 10:12 IMPRESSION: Normal [place] without a demonstrated aneurysm or hemodynamically significant stenosis. Electronically Signed: Waqas Dela Cruz MD at 11:06 EDT Reading Location ID and State: [facility] / [place] , Service support , Discharge Plan Triage Chief Complaint: Headache ED Provider: Og Bradley Dx/Rx/DC Orders Instructions: ED Headache Unspecified Prescriptions: No Action omeprazole 20 MG capsule 20 mg PO DAILY Qty: 30 0RF venlafaxine 75 MG tablet 75 mg PO BID tizanidine 2 MG tablet 2 mg PO BID warfarin 5 mg tablet 15 mg PO QODAY Label Comments: TAKE 3 TABLETS BY MOUTH ONCE DAILY OR DIRECTED Rx Instructions: TAKES WEDNESDAY AND WEDNESDAY warfarin 10 mg Tablet 10 mg PO QODAY Rx Instructions: TAKES WEDNESDAY, WEDNESDAY, WEDNESDAY, WEDNESDAY AND WEDNESDAY Primary Care Provider: Mariano Rogers Referrals: Mariano Rogers MD [Primary Care Provider] - Disposition Disposition: Home, Self Care
[2021-12-05] MEDS: proCHLORPERazine 10 MG/2 ML Vial IV (10:22)
[2021-12-05] MEDS: DiphenhydrAMINE 50 MG/ML Syringe 25 MG IV (10:23)
--- NOTE | 2021-12-05 10:28 | ED.RN ---
CALLED CT SCAN TO COME TAKE PT TO CT SCAN MELINDA.
[2021-12-05 10:40] LABS: International Normalized Ratio 1.9; Prothrombin Time (Protime)PT. 21.8 SECONDS (11.7-14.9)
[2021-12-05 11:03] LABS: AST(SGOT) 11 U/L (15-37); Alanine Aminotransfer ALT/SGPT 29 U/L (13-56); Alkaline Phosphatase 76 U/L (45-117); Anion Gap 7 (5-15); BUN 14 mg/dL (7-18); BUN/Creat Ratio 18.9 RATIO (10-20); Calcium,Total 9.6 mg/dL (8.5-10.1); Chloride 107 mmol/L (98-107); Creatinine, Serum 0.74 mg/dL (0.55-1.02); EST Glomerular Filtration Rate 96 mL/min (>60); Est Glom Filt Rate - Afr Amer 116 mL/min (>60); Estimated Creatinine Clearance 106.14 ml/min; Glucose 100 mg/dL (74-106); Sodium Level 140 mmol/L (136-145)
== END 2021-12-05 13:36 | disposition home or self-care (01) ==
PROVIDERS: Emergency Provider Student in an Organized Health Care Education/Training Program; PCP Family Medicine; Visit Provider Student in an Organized Health Care Education/Training Program
DX: R51.9 Headache, unspecified (principal); Z79.01 Long term (current) use of anticoagulants; Z87.891 Personal history of nicotine dependence
CPT/HCPCS: 70496; 80048; 80053; 85610; 96374; 96375; 99283; Q9967

== ENCOUNTER 2022-05-16 08:34 | Observation (INO) | payer MEDICAID, SELFPAY ==
[2022-05-16] VITALS (14 sets, daily range): BP systolic 111–142; BP diastolic 64–86; PULSE 78–100; RESP 16–20; TEMP 36.4–36.8; O2SAT 93–100; BMI 29.7
--- NOTE | 2022-05-16 08:49 | US_ITS ---
HISTORY: PAIN RUQ. TECHNIQUE: Bowen scale and color doppler imaging was performed of the right upper quadrant. 109 images. COMPARISON: None. FINDINGS: LIVER: 15.7 cm in length. Homogeneous echotexture without focal lesion demonstrated. No intrahepatic ductal dilatation. MAIN PORTAL VEIN: Patent. COMMON BILE DUCT: 3 mm in diameter. GALLBLADDER: 13 mm nonmobile gallstone in the gallbladder neck. 2 mm wall thickness, within normal limits with the gallbladder distended. No pericholecystic fluid. Sonographic Prakash sign positive. PANCREAS: Visualized proximal portion unremarkable. RIGHT KIDNEY: 11.7 cm in length with a cortical thickness of 1.7 cm. No hydronephrosis or gross renal mass demonstrated. US/Gallbladder IMPRESSION: Cholelithiasis with a large impacted gallstone in the gallbladder neck and a positive sonographic Prakash sign reported, raising the possibility of acute cholecystitis. Electronically Signed: Maribell Reyes MD at 10:43 EST ,
--- NOTE | 2022-05-16 08:50 | EDS_ITS ---
HPI HPI - GI History of Present Illness Chief Complaint: Abd Pain Detail of Chief Complaint: Upper quadrant abdominal pain with known history of gallstones. Informant: patient Abdominal Pain/Flank Pain Onset: Days Context: Gradual Onset Timing: Intermittent Location: RUQ Current Severity: Mild Maximum Severity: Moderate Worsened by: Food Relieved by: Nothing Nausea/Vomiting/Emesis GI Symptom: Positive for Nausea and Vomiting Onset: Days Severity: Mild Diarrhea/Melena/Hematochezia GI Symptom: Negative for Diarrhea, Melena or Hematochezia Associated Symptoms Associated Symptoms: Negative for Dysuria, Frequency, Hematuria or Urgency Narrative Narrative: 32-year-old female history of antiphospholipid antibody syndrome with prior DVT and PEs on Coumadin. Also has a history of known gallstones diagnosed on ultrasound. They discussed with her having her gallbladder taken out in the past she was just concerned due to her clotting disorder and was hoping she would not need that. States over the last several months she has had recurrent right upper quadrant abdominal pain nausea and vomiting. Denies fever. The symptoms she had attributes to when she eats. She had about a 10 pound weight l oss in the last several months. She states she feels bloated. She has had a prior appendectomy. Prior similar symptoms: Yes Recent Illness/Hospitalization: No PFSH PFS Medical History Anemia BLOOD CLOTS Genital herpes Heroin use disorder, severe, in sustained remission contractions Pulmonary embolus Thyroid disease Home Medications omeprazole 20 mg capsule,delayed release 20 mg PO DAILY #30 caps 06/11/19 [Rx Last Taken Unknown] tizanidine 2 mg tablet 2 mg PO BID 11/11/19 [History Last Taken Unknown] venlafaxine 75 mg tablet 75 mg PO BID 11/11/19 [History Last Taken Unknown] warfarin 5 mg tablet 15 mg PO QODAY 05/28/21 [History Last Taken Unknown] warfarin 10 mg tablet 10 mg PO QODAY 12/05/21 [History Last Taken Unknown] Allergy/AdvReac Type Severity Reaction Status Date / Time morphine AdvReac Other Verified 05/16/22 08:38 Family History Mother Anxiety Lupus Bleeding disorder Cancer Mental disorder Grandmother Cancer Aunt Cancer Other Psychiatric care Social History Smoking Status: Former smoker alcohol intake: never substance use type: former substance user and heroin ROS ROS ED ROS Narrative Right upper quadrant abdominal pain nausea and vomiting. Review of Systems ROS Unobtainable: Denies due to encephalopathy Constitutional Constitutional ED: Denies chills or fever(s) ENT ENT ED: Denies ear pain Cardiovascular Cardiovascular: Denies chest pain Respiratory/Chest Respiratory/Chest: Denies cough or dyspnea Gastrointestinal Gastrointestinal: Reports abdominal pain, nausea and vomiting; Denies constipation, diarrhea or melena Genitourinary Genitourinary ED: Denies dysuria or hematuria Musculoskeletal Musculoskeletal: Denies arthralgias Integumentary Denies abscess Neurologic Neurologic: Denies headache(s) Psychiatric Psychiatric: Denies anxiety Endocrine Endocrinology: Denies polydipsia Hematologic/Lymphatic Hematologic/Lymphatic: Denies easy bleeding Allergic/Immunologic Allergic/Immunologic ED: Denies mouth swelling or tongue swelling EXAM Physical Exam Narrative Exam Narrative: 32-year-old female vital signs stable afebrile. She does not look septic or toxic. She does not look dehydrated. H EENT exam unremarkable. Lungs clear. Heart regular rhythm rate about 95 no murmur. Chest were nontender. Abdomen so ft nondistended normal bowel sounds no peritoneal signs. Right upper quadrant tenderness. Left-sided abdomen right lower quadrant unremarkable. No hernia or mass. No obstruction. Back nontender. Moving all 4 extremities. Neurologically awake and alert with no focal motor deficits. Const Vital Signs: 05/16/22 08:36 Temperature 98.3 F Temperature Source Temporal Pulse Rate 100 Respiratory Rate 18 Blood Pressure 142/84 H Blood Pressure Mean 103 Pulse Ox 98 Oxygen Delivery Method Room Air Positive well nourished and well developed; Negative for cachectic, contractures or unkempt General Appearance ED: well developed and NAD; Negative for unkempt, cachectic, contractures or pallor Nutritional Appearance: Negative for cachectic HEENT Reports moist mucous membranes normocephalic and atraumatic; Negative for trauma or tenderness Eyes PERRL and EOMs intact bilaterally General Eye ED: Negative for pale conjunctiva or scleral icterus Neck no lymphadenopathy, supple and no JVD Lymph Lymphatic: Negative for other Resp normal respiratory effort and clear to auscultation bilaterally Effort and Inspection: Negative for respiratory distress Auscultation: Negative for rales, rhonchi or wheezes Cardio regular rate, regular rhythm, S1 normal heart sound, S2 normal heart sound and no murmurs Rate: Negative for bradycardia Rhythm: Negative for abnormal rhythm GI non-distended and no masses; Negative for non-tender Inspection: Negative for abdominal distention Auscultation: normoactive bowel sounds Palpation: soft and tender; Negative for guarding, rigid, hepatomegaly, splenomegaly, hernia, mass, pulsatile mass or rebound tenderness present Back/Spine no CVA tenderness Extremity full ROM General Extremety ED: Negative for edema or tenderness General Extremity: Negative for edema Neuro CN's II-XII intact bilaterally and moves all extremities Sensorium / Orientation: alert, oriented to person, oriented to place and oriented to time; Negative for orientation impaired, confused, lethargic or stuporous Motor Exam: strength 5/5 throughout Psych mental status grossly normal and thought process normal Appearance: Negative for unkempt Attitude: No agitated Mood & Affect: Negative for depressed, anxious or tearful Skin no wounds General Skin Exam: Negative for jaundice or pallor Lesions: no lesions Rashes: no rashes Trauma: Negative for abrasion Nails: Negative for discolored MDM MDM MDM Narrative Medical decision making narrative: 32-year-old female with a right upper quadrant abdominal pain with nausea vomiting. This been going on for several weeks to months. She has a known history of gallstones. She strongly would like her gallbladder removed. The complicating factor is that she has a clotting disorder is on Coumadin. The appropriate abdominal labs will be obtained along with a right upper quadrant ultrasound. She did not anything for pain she will be given 4 mg of Zofran. Her INR will also be checked due to being on Coumadin. Exam no significant change at 11:39 AM. Patient still has right upper quadrant abdominal pain. She and I discussed all of her test results her labs are unremarkable but the ultrasound does show a gallstone stuck in the gallbladder neck and also signs of cholecystitis. I discussed the patient's case and care with general surgeon on-call Dr. Lydia Hua. She will admit the patient. Patient be started on IV Zosyn. She will be given Dilaudid for pain. Surgery will determine when they can do her cholecystectomy. Lab Data Attestation: I reviewed the patient's lab results. Lab results narrative: CBC shows a white count of 3.8. H&H 14 and 44. Platelets 259. Electrolytes unremarkable gap of 7 normal BUN and creatinine. Liver enzymes are unremarkable. Lipase is 122. test is negative. Labs: Laboratory Results - last 24 hr 05/16/22 05/16/22 05/16/22 08:00 08:00 08:00 WBC 3.8 L RBC 4.89 Hgb 14.8 Hct 44.7 MCV 91.4 MCH 30.3 MCHC 33.1 RDW Std Deviation 44.1 H RDW Coeff of Ziggy 13.0 Plt Count 259 MPV 10.8 Immature Gran % (Auto) 0.500 Neut % (Auto) 59.4 Lymph % (Auto) 28.2 [place] % (Auto) 10.0 Eos % (Auto) 1.1 Baso % (Auto) 0.8 Absolute Neuts (auto) 2.3 Absolute Lymphs (auto) 1.07 Nucleated RBC % 0 PT 16.9 H INR 1.4 Sodium 141 Potassium 3.6 Chloride 107 Carbon Dioxide 27.0 Anion Gap 7 BUN 13 Creatinine 0.73 Estim Creat Clear Calc 106.59 Est GFR (MDRD) Af Amer 118 Est GFR (MDRD) Non-Af 98 BUN/Creatinine Ratio 17.9 Glucose 99 Calcium 8.8 Total Bilirubin 0.50 AST 20 ALT 30 Alkaline Phosphatase 80 Total Protein 7.8 Albumin 3.7 Globulin 4.1 Albumin/Globulin Ratio 0.9 Lipase 122 Urine Test 05/16/22 08:40 WBC RBC Hgb Hct MCV MCH MCHC RDW Std Deviation RDW Coeff of Ziggy Plt Count MPV Immature Gran % (Auto) Neut % (Auto) Lymph % (Auto) [place] % (Auto) Eos % (Auto) Baso % (Auto) Absolute Neuts (auto) Absolute Lymphs (auto) Nucleated RBC % PT INR Sodium Potassium Chloride Carbon Dioxide Anion Gap BUN Creatinine Estim Creat Clear Calc Est GFR (MDRD) Af Amer Est GFR (MDRD) Non-Af BUN/Creatinine Ratio Glucose Calcium Total Bilirubin AST ALT Alkaline Phosphatase Total Protein Albumin Globulin Albumin/Globulin Ratio Lipase Urine Test Negative Radiography Diagnostic Testing: Clinical Impression(s) from Imaging Studies Gallbladder Ultrasound 05/16/22 08:49 IMPRESSION: Cholelithiasis with a large impacted gallstone in the gallbladder neck and a positive sonographic Prakash sign reported, raising the possibility of acute cholecystitis. Electronically Signed: Maribell Reyes MD at 10:43 EST , Discharge Plan Dx/Rx/DC Orders Clinical Impression: Acute cholecystitis, Cholelithiasis, History of blood clotting disorder Disposition Disposition: Acute Care Hospital [facility]
[2022-05-16] MEDS: Ondansetron 4 MG/2 ML Vial IV ×3 (09:17→19:46)
[2022-05-16] MEDS: 0.9% Normal Saline 1,000 ML 125 ML IV (09:17)
[2022-05-16 09:18] LABS: Absolute Lymphocyte Count 1.07 X10^3/uL (0.83-4.51); Absolute Neutrophil Count 2.3 X10^3/uL (2.0-7.7); Basophil# 0.03 X10^3/uL; Basophil% 0.8 % (0-1); Eosinophil# 0.04 X10^3/uL; Eosinophils% 1.1 % (0-5); Hematocrit 44.7 % (37-47); Hemoglobin 14.8 g/dL (12.0-15.0); International Normalized Ratio 1.4; Lymphocyte # 1.07 X10^3/ul (0.83-4.51); Lymphocyte % 28.2 % (19-41); Mean Corp Hgb Conc 33.1 g/dL (32-36); Mean Corpuscular Hgb 30.3 pg (27.0-32.0); Mean Corpuscular Volume 91.4 fL (81-99); Mean Platelet Vol. 10.8 fl (6.2-12.0); Monocyte# 0.38 X10^3/uL; NRBC Flagged by Analyzer 0 % (0-5); Neutrophil # 2.26 X10^3/uL (2.7-7.7); Neutrophil % 59.4 % (47-70); Platelet Count 259 K/mm3 (150-450); Prothrombin Time (Protime)PT. 16.9 SECONDS (11.7-14.9); RBC Distribution Width SD 44.1 fl (35.1-43.9); Red Blood Count 4.89 M/mm3 (4.2-5.4); White Blood Count 3.8 K/mm3 (4.4-11.0)
[2022-05-16 09:19] LABS: Internal QC Validated? YES +Cl - CLEAR BKGD; Pregnancy, Urine Negative Negative
[2022-05-16 09:24] LABS: ALB/GLOB Ratio 0.9 RATIO (0.9-2.4); AST(SGOT) 20 U/L (15-37); Alanine Aminotransfer ALT/SGPT 30 U/L (13-56); Albumin, Serum 3.7 g/dL (3.2-5.0); Alkaline Phosphatase 80 U/L (45-117); Anion Gap 7 (5-15); BUN 13 mg/dL (7-18); BUN/Creat Ratio 17.9 RATIO (10-20); Calcium,Total 8.8 mg/dL (8.5-10.1); Chloride 107 mmol/L (98-107); Creatinine, Serum 0.73 mg/dL (0.55-1.02); EST Glomerular Filtration Rate 98 mL/min (>60); Est Glom Filt Rate - Afr Amer 118 mL/min (>60); Estimated Creatinine Clearance 106.59 ml/min; Globulin 4.1 g/dL (2.2-4.2); Glucose 99 mg/dL (74-106); Lipase 122 U/L (73-393); Potassium 3.6 mmol/L (3.5-5.1); Protein, Total 7.8 g/dL (6.4-8.2); Sodium Level 141 mmol/L (136-145)
[2022-05-16] MEDS: HYDROmorphone 1 MG/ML Syringe IV (12:06)
--- NOTE | 2022-05-16 12:26 | RAD_ITS ---
INDICATION: LAP KACY EXAMINATION/TECHNIQUE: Images assigned to this order were provided in conjunction with a surgical procedure performed in the operating room/procedural suite. Please see operative report for details. Fluoroscopic images: 33 Fluoroscopic time: 6.0 seconds Cumulative dose: NA, mGym2; 2.02; mGy COMPARISON: Gallbladder ultrasound examination of 05/16/2022 FINDINGS: No filling defects are identified. There is no biliary ductal dilatation. There is free passage into the duodenum. RAD/Cholangiogram/ O R,Initial IMPRESSION: Normal intraoperative cholangiogram, no filling defects or evidence of choledocholithiasis. Electronically Signed: Rigoberto Aly MD at 17:12 EST ,
--- NOTE | 2022-05-16 12:32 | HP.PCM.SX_ITS ---
HPI - General General Date of Admission: 05/16/22 HPI Narrative MEGHAN LICEA, is a 32 F who presents to the ER due to right upper quadrant pain nausea and vomiting. Patient has a history of known gallstones. She has been having gallbladder episodes for about the last year however the last month has been the worst and she has been having off-and-on nausea and vomiting. Patient is on Coumadin for history of PE/DVT. Have her INR at admission is 1.4 due to patient's nausea and vomiting. Ultrasound the gallbladder showed gallbladder stone at the neck of the gallbladder no pericholecystic fluid, normal common bile duct. Patient has what blood count 3.8, normal LFTs. [facility] Medical History Anemia BLOOD CLOTS Genital herpes Heroin use disorder, severe, in sustained remission contractions Pulmonary embolus Thyroid disease Home Medications omeprazole 20 mg capsule,delayed release 20 mg PO DAILY #30 caps 06/11/19 [Rx Last Taken Unknown] tizanidine 2 mg tablet 2 mg PO BID 11/11/19 [History Last Taken Unknown] venlafaxine 75 mg tablet 75 mg PO BID 11/11/19 [History Last Taken Unknown] warfarin 5 mg tablet 15 mg PO QODAY 05/28/21 [History Last Taken Unknown] warfarin 10 mg tablet 10 mg PO QODAY 12/05/21 [History Last Taken Unknown] Allergy/AdvReac Type Severity Reaction Status Date / Time morphine AdvReac Other Verified 05/16/22 08:38 Family History Mother Anxiety Lupus Bleeding disorder Cancer Mental disorder Grandmother Cancer Aunt Cancer Other Psychiatric care Social History Smoking Status: Former smoker alcohol intake: never substance use type: former substance user and heroin Vital Signs Vital Signs Vital Signs: 05/16/22 08:36 05/16/22 10:35 05/16/22 12:29 Temperature 98.3 F 97.8 F Temperature Source Temporal Temporal Pulse Rate 100 78 78 Respiratory Rate 18 16 16 Blood Pressure 142/84 H 134/78 H 134/78 H Blood Pressure Mean 103 96 96 Pulse Ox 98 98 98 Oxygen Delivery Method Room Air Room Air Room Air 05/16/22 12:31 Temperature Temperature Source Pulse Rate 78 Respiratory Rate 16 Blood Pressure 139/64 H Blood Pressure Mean 89 Pulse Ox 98 Oxygen Delivery Method Room Air Weight Weight: 190 lb Body Mass Index (BMI) 29.7 Physical Exam Const alert, oriented x3 and no apparent distress HEENT normocephalic and head/scalp atraumatic Resp normal respiratory effort Cardio regular rate GI soft to palpation; Negative for non-distended Palpation: tender RUQ; Negative for guarding Extremity no clubbing, cyanosis or edema Neuro CN's II-XII intact bilaterally Psych mental status grossly normal Results Lab / Micro Data Result Diagrams: 05/16/22 08:00 05/16/22 08:00 Labs: Laboratory Results - last 24 hr 05/16/22 08:00: WBC 3.8 L, RBC 4.89, Hgb 14.8, Hct 44.7, MCV 91.4, MCH 30.3, MCHC 33.1, RDW Std Deviation 44.1 H, RDW Coeff of Ziggy 13.0, Plt Count 259, MPV 10.8, Immature Gran % (Auto) 0.500, Neut % (Auto) 59.4, Lymph % (Auto) 28.2, [place] % (Auto) 10.0, Eos % (Auto) 1.1, Baso % (Auto) 0.8, Absolute Neuts (auto) 2.3, Absolute Lymphs (auto) 1.07, Nucleated RBC % 0 05/16/22 08:00: PT 16.9 H, INR 1.4 05/16/22 08:00: Sodium 141, Potassium 3.6, Chloride 107, Carbon Dioxide 27.0, Anion Gap 7, BUN 13, Creatinine 0.73, Estim Creat Clear Calc 106.59, Est GFR (MDRD) Af Amer 118, Est GFR (MDRD) Non-Af 98, BUN/Creatinine Ratio 17.9, Glucose 99, Calcium 8.8, Total Bilirubin 0.50, AST 20, ALT 30, Alkaline Phosphatase 80, Total Protein 7.8, Albumin 3.7, Globulin 4.1, Albumin/Globulin Ratio 0.9, Lipase 122 05/16/22 08:40: Urine Test Negative Radiology Impression Gallbladder Ultrasound 05/16/22 08:49 IMPRESSION: Cholelithiasis with a large impacted gallstone in the gallbladder neck and a positive sonographic Prakash sign reported, raising the possibility of acute cholecystitis. Electronically Signed: Maribell Reyes MD at 10:43 EST , Assessment & Plan Assessment/Plan (1) Acute cholecystitis: (2) History of blood clotting disorder: PLAN: Plan Plan to get patient started back on her anticoagulation postoperatively would likely bridge with Lovenox starting tomorrow. Reviewed the anatomy with the patient and discussed the procedure: laparoscopic cholecystectomy with possible cholangiograms, possible open. Review risks including but not limited to bleeding, infection, hernia, bile leak, retained gallstones requiring another procedure ERCP- Endoscopic Retrograde Cholangiopan creatography, injury to another organ (bile ducts, common bile duct, small bowel, etc.) and conversion to an open procedure. All questions were answered. Patient no further question this time. Kristie Hua M.D. Pager: [phone] [facility] [address] [place] [address], [address] [place] [address] Office: [phone]
[2022-05-16] MEDS: Lactated Ringers 1,000 ML 15 ML IV (13:30)
--- NOTE | 2022-05-16 14:10 | PCM.OPRPT ---
Report of Operation Date of Procedure: 05/16/22 Pre-Operative Diagnosis: Acute cholecystitis Post-Operative Diagnosis: Same Surgery/Procedure Performed:: Laparoscopic cholecystectomy with cholangiograms Surgeon: Kristie Hua Type of Anesthesia: General/Supplemental Anesthesiologist: Benjamin Chilel Special Medications: Zosyn 4.5 g IV x1 given in the ER for acute cholecystitis Specimen's removed: Gallbladder and stone Estimated Blood Loss (mL): 10 cc Description of Procedure: Indications: this is a 32 year-old female who developed abdominal pain/nausea/vomiting and on workup was found to have acute cholecystitis, cholelithiasis, with a normal common bile duct. Laparoscopic cholecystectomy was elected. Description procedure: The patient was placed on operating table in supine position. A timeout was completed verifying correct patient, procedure, site, position and special equipment prior to beginning procedure. General Anesthesia was induced. The abdomen was prepped and draped in usual sterile fashion. An incision was made in the natural skin line below the umbilicus. The fascia was elevated and incised. The peritoneum was elevated and incised. Entry into the peritoneum was confirmed visually and no bowel was noted in the vicinity of the incision. Irwin trocar was placed. The abdomen was insufflated with carbon dioxide to a pressure of 12-15 mmHg. Patient tolerated insufflation well. The laparoscope was then inserted and abdomen inspected. No injuries from initial trocar placement were noted. Additional trochars were then inserted in the following locations 5 mm trocar in the epigastrium and 2 more 5 mm trochars along the right costal margin. The abdomen was inspected no abnormalities were found. The table is placed in reverse Trendelenburg position with the right side up. The adhesions between the gallbladder and omentum were lysed sharply. The dome of the gallbladder was grasped with atraumatic grasper passed through the lateral port and retracted over the dome of the liver. Infundibulum was then grasped with atraumatic grasper through the midclavicular port and retracted to the right lower quadrant. This maneuver exposed Calot's triangle. The peritoneum overlying the gallbladder infundibulum was then incised and cystic duct and artery identified and circumferentially dissected. Steve catheter was used for cholangiograms. The cholangiogram showed good filling of the common bile duct into the duodenum with no filling defects, good filling of the right and left bile ducts as well. The cystic duct and artery were then doubly clipped and divided close to the gallbladder. The gallbladder then dissected from its peritoneal attachments by electrocautery. Hemostasis was checked and the gallbladder and contained stones were removed using the endoscopic retrieval bag through the umbilical port. The gallbladder is passed off table as specimen. The gallbladder fossa was irrigated with saline and hemostasis obtained. There is no evidence of bleeding from the gallbladder fossa or cystic artery leakage of bile from the cystic duct stump. Secondary trochars removed under direct vision. No bleeding was noted the trocar sites. The laparoscope was withdrawn and umbilical trocar removed. The abdomen was allowed to collapse. The fascia of the 12 mm trocar was closed with a [id number] 0 Vicryl suture. The skin was closed with sutures of 4-0 Monocryl and Steri-Strips. The patient was extubated. The patient tolerated procedure well and was taken to the postanesthesia care unit in stable condition. Complications none
[2022-05-16] MEDS: Bupivacaine Mpf 0.5% 30 ML VIAL (14:11)
[2022-05-16] MEDS: 0.9% Normal Saline 1,000 ML 120 ML IV (15:56)
[2022-05-16] MEDS: HYDROmorphone 0.5 MG/0.5 ML SYRINGE IV ×2 (15:57→19:40)
--- NOTE | 2022-05-16 16:55 | CPS ---
patient refused due to nausea.
[2022-05-16] MEDS: oxyCODONE 5 MG Tablet PO ×2 (17:41→22:13)
[2022-05-16] MEDS: Enoxaparin 40 MG/0.4 ML Syringe SC (22:22)
[2022-05-17 00:38] VITALS: BP 114/86; PULSE 68; RESP 18; TEMP 36.4; O2SAT 100
[2022-05-17] MEDS: 0.9% Normal Saline 1,000 ML 120 ML IV ×2 (00:42→08:40)
[2022-05-17] MEDS: oxyCODONE 5 MG Tablet PO ×3 (03:20→11:18)
[2022-05-17 05:27] LABS: Absolute Lymphocyte Count 1.15 X10^3/uL (0.83-4.51); Absolute Neutrophil Count 3.5 X10^3/uL (2.0-7.7); Basophil# 0.01 X10^3/uL; Basophil% 0.2 % (0-1); Eosinophil# 0.04 X10^3/uL; Eosinophils% 0.8 % (0-5); Hematocrit 35.8 % (37-47); Hemoglobin 11.7 g/dL (12.0-15.0); Lymphocyte # 1.15 X10^3/ul (0.83-4.51); Lymphocyte % 22.6 % (19-41); Mean Corp Hgb Conc 32.7 g/dL (32-36); Mean Corpuscular Hgb 30.5 pg (27.0-32.0); Mean Corpuscular Volume 93.2 fL (81-99); Mean Platelet Vol. 10.8 fl (6.2-12.0); Monocyte# 0.39 X10^3/uL; Monocyte% 7.7 % (0-10); NRBC Flagged by Analyzer 0 % (0-5); Neutrophil # 3.47 X10^3/uL (2.7-7.7); Neutrophil % 68.1 % (47-70); Platelet Count 204 K/mm3 (150-450); RBC Distribution Width CV 13.2 % (11.6-14.6); RBC Distribution Width SD 45.1 fl (35.1-43.9); Red Blood Count 3.84 M/mm3 (4.2-5.4); White Blood Count 5.1 K/mm3 (4.4-11.0)
[2022-05-17 05:49] LABS: International Normalized Ratio 1.5; Prothrombin Time (Protime)PT. 18.2 SECONDS (11.7-14.9)
[2022-05-17 06:31] VITALS: BP 116/85; PULSE 81; RESP 18; TEMP 36.4; O2SAT 99
[2022-05-17] MEDS: Acetaminophen 325 MG Tablet 650 MG PO ×2 (06:44→11:17)
[2022-05-17 07:50] VITALS: BP 118/82; PULSE 77; RESP 16; TEMP 36.4; O2SAT 99
--- NOTE | 2022-05-17 08:39 | PCM.PN.SRG ---
Subjective Subjective Patient states her pain is controlled with the oxy currently complains of some bloating. Otherwise tolerating p.o. patient did not get Lovenox 40 mg subcu yesterday and also started her Coumadin 15 mg p.o. last night. Patient was concerned whether her insurance would be paying for her Lovenox for the bridge. Objective Data Objective Data Vital Signs: Vital Signs Temp Pulse Resp BP Pulse Ox O2 Del Method 97.6 F L 77 16 118/82 H 99 Room Air 05/17/22 07:50 05/17/22 07:50 05/17/22 07:50 05/17/22 07:50 05/17/22 07:50 05/17/22 07:50 Oxygen Delivery Method Room Air Weight: 190 lb Body Mass Index (BMI) 29.7 Intake & Output: Intake and Output for Last 24 Hours 05/15/22 05/16/22 05/17/22 23:59 23:59 23:59 Intake Total 1467.08 / 1467.08 1850 / 1850 Output Total 400 / 400 Balance 1467.08 / 1467.08 1450 / 1450 Lab / Micro Data Result Diagrams: 05/17/22 04:57 05/16/22 08:00 Labs: Laboratory Results - last 24 hr 05/16/22 08:00: WBC 3.8 L, RBC 4.89, Hgb 14.8, Hct 44.7, MCV 91.4, MCH 30.3, MCHC 33.1, RDW Std Deviation 44.1 H, RDW Coeff of Ziggy 13.0, Plt Count 259, MPV 10.8, Immature Gran % (Auto) 0.500, Neut % (Auto) 59.4, Lymph % (Auto) 28.2, Grundy % (Auto) 10.0, Eos % (Auto) 1.1, Baso % (Auto) 0.8, Absolute Neuts (auto) 2.3, Absolute Lymphs (auto) 1.07, Nucleated RBC % 0 05/16/22 08:00: PT 16.9 H, INR 1.4 05/16/22 08:00: Sodium 141, Potassium 3.6, Chloride 107, Carbon Dioxide 27.0, Anion Gap 7, BUN 13, Creatinine 0.73, Estim Creat Clear Calc 106.59, Est GFR (MDRD) Af Amer 118, Est GFR (MDRD) Non-Af 98, BUN/Creatinine Ratio 17.9, Glucose 99, Calcium 8.8, Total Bilirubin 0.50, AST 20, ALT 30, Alkaline Phosphatase 80, Total Protein 7.8, Albumin 3.7, Globulin 4.1, Albumin/Globulin Ratio 0.9, Lipase 122 05/16/22 08:40: Urine Test Negative 05/17/22 04:57: PT 18.2 H, INR 1.5 05/17/22 04:57: WBC 5.1, RBC 3.84 L, Hgb 11.7 L, Hct 35.8 L, MCV 93.2, MCH 30.5, MCHC 32.7, RDW Std Deviation 45.1 H, RDW Coeff of Ziggy 13.2, Plt Count 204, MPV 10.8, Immature Gran % (Auto) 0.600, Neut % (Auto) 68.1, Lymph % (Auto) 22.6, Grundy % (Auto) 7.7, Eos % (Auto) 0.8, Baso % (Auto) 0.2, Absolute Neuts (auto) 3.5, Absolute Lymphs (auto) 1.15, Nucleated RBC % 0 Radiography Diagnostic Testing: Radiology Impression Gallbladder Ultrasound 05/16/22 08:49 IMPRESSION: Cholelithiasis with a large impacted gallstone in the gallbladder neck and a positive sonographic Prakash sign reported, raising the possibility of acute cholecystitis. Electronically Signed: Maribell Reyes MD at 10:43 EST , Cholangiogram 05/16/22 12:26 IMPRESSION: Normal intraoperative cholangiogram, no filling defects or evidence of choledocholithiasis. Electronically Signed: Rigoberto Aly MD at 17:12 EST , Physical Exam Resp normal respiratory effort Cardio regular rate GI GI Narrative: Abdomen: Soft, nondistended, tender near incision's dressed clean dry and intact, no peritoneal signs Assessment & Plan Assessment/Plan (1) S/P laparoscopic cholecystectomy: (2) History of blood clotting disorder: PLAN: Plan Patient is tolerating p.o. pain is controlled with OxyIR. Okay to DC home. Patient insurance did cover her Lovenox 90 mg subcu twice daily until her INR is therapeutic. Patient will follow-up with her PCP to continue to monitor this. Kristie Hua M.D. Pager: [phone] [facility] [address] [place] [address], [address] [place] [address] Office: [phone]
[2022-05-17] MEDS: Enoxaparin 100 MG/ML Syringe 90 MG SC (09:07)
--- NOTE | 2022-05-17 09:23 | DCINST_ITS ---
Discharge Instructions Diet Discharge Diet: No restrictions Activity Discharge Activity: May Shower (24 hr from surgery) Lifting Restrictions: < 20 lbs x 2 wk, <40 lbs for the next 2 wks- no strenuous exercise 5 wks Dressing / Incision Call your doctor if your incision/area has: Continuous Slow Oozing, Sudden Increased Bleeding, Increased Pain/ Swelling and Increased Redness Call your doctor if you observe: Fever of 101 or Higher Remove Dressing in: 2 days Cleanse incision/area with: Soap & Water Additional Dressing/Incision Instructions:: If still has not follow-up in 7 to 10 days okay to remove after 10 days. Follow Up Care Please Follow Up With: Kristie Hua MD When: Call the office for follow-up appointment in 2 weeks. [phone] Test Results: Test results from this visit will be discussed in further detail at your follow- up appointment, if applicable. Discharge Plan Admission Admit Date/Time: 05/16/22 11:57 Attending Provider: Kristie Hua Primary Care Provider: Mariano Rogers Discharge Orders/Prescriptions Prescriptions: New warfarin [Jantoven] 5 mg Tablet 15 mg PO DINNER Qty: 0 0RF enoxaparin [Lovenox] 100 mg/mL syringe 90 mg subcut Q12H Qty: 10 1RF oxycodone-acetaminophen 5-325 mg tablet 1 - 2 tab PO Q6H PRN (Reason: pain) 3 Days Qty: 18 0RF Discontinued warfarin 5 mg tablet 20 mg PO QODAY Label Comments: TAKE 4 TABLETS BY MOUTH ONCE DAILY OR DIRECTED No Action omeprazole 20 MG capsule 20 mg PO DAILY Qty: 30 0RF Referrals / Follow Up: Mariano Rogers MD [Primary Care Provider] - Disposition Disposition (needs filled in before D/C Order can be placed): Home, Self Care
--- NOTE | 2022-05-17 13:20 | GALL_PTH ---
PATIENT: MEGHAN LICEA LOC: MS3 U#:[id number] AGE/SX: 32/F ROOM: IN321 RE05/16/[address]: Dr. Kristie Hua MD : 1990 BED: 1 DIS: 05/17/2022 SPEC #: [id number] RECD: 05/17/22 15:02 STATUS: GHASSAN BELCHER #: [id number] AMELIA: 05/17/22 13:[address]: Kristie Hua DEPT: SURGICAL PATHOLOGY RECD BY: Maddie Herron ENTERED: 05/18/22 09:15 SP TYPE: MEERA MEYERS DR: Dr. Mariano Rogers MD Tissues: Gallbladder, NOS Procedures: Surgery Specimen Level III HEADER OPERATION: Laparoscopic cholecystectomy with IOC PRE-OP DIAGNOSIS: Acute cholecystitis, history of blood clotting disorder TISSUE SUBMITTED: Gallbladder MICROSCOPIC DIAGNOSIS Gallbladder, cholecystectomy: Chronic cholecystitis. See comment. ELLYN:jason 05/19/2022 COMMENT No stones are identified in the container or in the gallbladder. MICROSCOPIC DESCRIPTION Slides are reviewed. GROSS DESCRIPTION Received is one container labeled with the patient's name and designated gallbladder. The specimen consists of a gallbladder measuring 9.0 x 3.0 x 2.0 cm. The external surface is smooth and glistening. Focally, it is granular, hemorrhagic and contains cautery artifact. The lumen of the gallbladder contains yellow-green mucoid bile and no calculi. The mucosa is bile-stained and without any mass lesions. The gallbladder wall averages 0.2 cm in thickness and is free of mass lesions. Manager Administrative sections of the gallbladder and the cystic duct at margin of resection are submitted in one cassette. / AM:jason 05/18/2022 TC:3 CPT: 00376
== END 2022-05-17 11:32 | disposition home or self-care (01) ==
LOC: ED 12:21 → MS3 12:25
PROVIDERS: Admitting Provider Surgery; Emergency Provider Emergency Medicine; PCP Family Medicine; Visit Provider Surgery
PROC: (CPT 47610; principal; 2022-05-16 13:00)
DX: K81.2 Acute cholecystitis with chronic cholecystitis (principal); D68.9 Coagulation defect, unspecified; Z87.891 Personal history of nicotine dependence; Z86.718 Personal history of other venous thrombosis and embolism; Z86.711 Personal history of pulmonary embolism; Z79.01 Long term (current) use of anticoagulants; Z79.899 Other long term (current) drug therapy
CPT/HCPCS: 47563; 00790; J0330; J7030 ×2; J7120; 36415; 74300; 76000; 76705; 80053; 81025; 83690; 85025; 85610; 88304; 94668; 96361; 96365; 96366; 96367; 96372; 96375; 96376; 99221; 99252; 99284; J7050; A4216; G0378; G0463; J2405

== ENCOUNTER 2022-05-21 15:30 | Emergency (ER) | payer MEDICAID, SELFPAY ==
[2022-05-21 15:31] VITALS: BP 135/87; PULSE 74; RESP 16; TEMP 36; O2SAT 98; BMI 29.7
--- NOTE | 2022-05-21 16:03 | CT_ITS ---
STUDY: CT ABDOMEN AND PELVIS WITH CONTRAST REASON FOR EXAM: Female, 32 years old. post op pain RADIATION DOSAGE (If Supplied By Facility): CTDIvol = ( 12.71 ) mGy, DLP = ( 859.99 ) mGycm TECHNIQUE: Transaxial images were obtained from the dome of the diaphragm to the symphysis pubis without oral contrast. IV 100mL Isovue-300 was administered. Sagittal and coronal images were reconstructed. Individualized dose optimization techniques were used for this CT. COMPARISON: Abdominal ultrasound May 16, 2022. FINDINGS: The visualized lung bases are unremarkable. The visualized portions of the heart are within normal limits. Normal liver. Gallbladder is not identified. Normal spleen. Normal pancreas. Normal bilateral adrenal glands. Punctate nonobstructing nephrolith noted on the right. Normal left kidney. Normal visualized stomach. Normal small intestine. Normal colon. Appendix is surgically absent. Normal abdominal aorta. Normal inferior vena cava. Normal retroperitoneum. Normal urinary bladder. IUD is in the uterus. Bilateral adnexal cysts measuring up to 3 cm on the left. Fat-containing umbilical hernia. Normal osseous structures. CT/Abdomen/Pelvis W IV Cont ONLY IMPRESSION: Bilateral adnexal cysts measuring up to 3 cm on the left. IUD in the uterus. Punctate nonobstructing nephrolith on the right. Otherwise no acute disease. Pelvic ultrasound may be helpful if clinically warranted. Electronically Signed: Joo Vaughan MD at 17:16 EST ,
--- NOTE | 2022-05-21 16:08 | EX.ED.DYSGE1 ---
HPI History of Present Illness Chief Complaint: Abn Labs Narrative Narrative: 32-year-old female, past medical history of blood clotting disorder for which she takes 20 mg of Coumadin, presents with abnormal laboratory work. She relates history that she was having problems with her gallbladder and was seen in the emergency department on Wednesday, 6 days ago. At that time, her INR was low at 1.4, and she needed to have her cholecystectomy performed. She was admitted to the hospital and Dr. Hua reportedly performed a laparoscopic cholecystectomy. Patient states that she was discharged home on Lovenox and 15 mg of Coumadin daily. She had appropriate postoperative pain on Wednesday, but then the following day, 2 days ago, she felt very lightheaded and dizzy and felt as if she was going to pass out. She states she called EMS who evaluated her, and told her that her vital signs were normal, so she decided not to be transported, fell asleep, and awoke the next day. She has a standing order to have her INR checked because she states that her INR is tenuous and is always fluctuating. This morning, she had her INR drawn and it is elevated at 6.5. She was told to come to the emergency department for evaluation and to stop Coumadin and Lovenox. She states that she has been taking 15 mg daily and using Lovenox also and was supposed to do so until at least Wednesday, 4 days from now when she has follow-up with her surgeon. While she states she has appropriate abdominal pain she states that she does not feel right. [facility] Medical History Anemia BLOOD CLOTS Genital herpes Heroin use disorder, severe, in sustained remission contractions Pulmonary embolus Thyroid disease Home Medications omeprazole 20 mg capsule,delayed release 20 mg PO DAILY #30 caps 06/11/19 [Rx Last Taken Unknown] enoxaparin 100 mg/mL subcutaneous syringe (Lovenox) 90 mg (0.9 mL) subcut Q12H #10 mL 05/17/22 [Rx Last Taken Unknown] oxycodone-acetaminophen 5 mg-325 mg tablet 1 - 2 tab PO Q6H PRN pain 3 days #18 tabs 05/17/22 [Rx Last Taken Unknown] warfarin 5 mg tablet (Jantoven) 15 mg PO DINNER #0 tabs 05/17/22 [Rx Last Taken Unknown] ondansetron 4 mg disintegrating tablet 8 mg PO Q6H PRN nausea and vomiting #10 tabs 05/18/22 [Rx Last Taken Unknown] pantoprazole 40 mg tablet,delayed release (Protonix) 40 mg PO DAILY #30 tabs 05/18/22 [Rx Last Taken Unknown] Allergy/AdvReac Type Severity Reaction Status Date / Time morphine AdvReac HEADACHE Verified 05/21/22 15:39 AND IRRITABILITYH Family History Mother Anxiety Lupus Bleeding disorder Cancer Mental disorder Grandmother Cancer Aunt Cancer Other Psychiatric care Surgical History H/O dilation and curettage History of nasal surgery S/P laparoscopic appendectomy S/P laparoscopic cholecystectomy Social History Smoking Status: Former smoker alcohol intake: never substance use type: former substance user and heroin ROS ROS ED ROS Narrative Constitutional: No fever, no chills. Positive malaise. HEENT: No sore throat. No neck pain. No loss of vision. No rhinorrhea. Cardiovascular: No chest pain. No palpitations. No pedal edema. Respiratory: No cough, no shortness of breath. Abdominal: Right upper quadrant postoperative abdominal pain. No nausea. No vomiting. Genitourinary: No dysuria. No hematuria. Musculoskeletal: No myalgias. No arthralgias. Neurologic: No headaches. 2 days ago felt lightheaded and dizzy and near syncopal, but that has resolved. Skin: No rash. No change in color. Psychiatric: No depression. No anxiety. EXAM Physical Exam Narrative Exam Narrative: Afebrile. Vital signs noted. HEENT: Normocephalic. Atraumatic. PERRL, EOMI. Neck soft and supple. No point tenderness or step off. Cardiovascular: Regular rate and rhythm. No murmurs, rubs, or gallops appreciated. Respiratory: No tachypnea. Lungs clear to auscultation bilaterally. Gastrointestinal: Abdomen soft, mild tenderness right upper quadrant, appropriate, with normoactive bowel sounds. No rebound or guarding. Steri-Strips over port incisions, clean, dry, and intact. Neurological: Awake. Alert. Nonfocal, nonlateralizing. Skin: No rash. Normal color. No pallor. Musculoskeletal: No pedal edema. Full range of motion extremities. Const Vital Signs: 05/21/22 15:31 05/21/22 15:37 Temperature 96.8 F L Temperature Source Oral Pulse Rate 74 Respiratory Rate 16 Respiratory Effort Normal Non-Labored Respiratory Pattern Normal Blood Pressure 135/87 H Blood Pressure Mean 103 Pulse Ox 98 Oxygen Delivery Method Room Air MDM MDM MDM Narrative Medical decision making narrative: Primary concern is for postoperative hemorrhage with reported elevated INR. I will repeat her INR here, and obtain CT imaging. I will obtain a CBC to rule out profound anemia requiring transfusion. We will also check her BUN and creatinine to make sure that she can handle the dye load. I reviewed the patient's laboratory work. She has normal white count of 5.4, and her hemoglobin is normal at 13.4 with platelet count normal at 299. Repeat of her INR today shows it to be at the top range of her therapeutic level at 3.5. CMP is grossly unremarkable except for AST of 218 and ALT of 371, but she is postoperative from laparoscopic cholecystectomy. There is no evidence of dehydration. CT of the abdomen pelvis was obtained with IV contrast which shows no postoperative intra-abdominal bleeding. At this point in time, I feel she can be discharged safely home with follow-up to her primary care physician regarding her use of Coumadin. She states that it ranges anywhere from 10 mg to 20 at times. She will call him tomorrow to see how much she should be taking as her INR is therapeutic currently. I did discuss the patient with her surgeon, Dr. Hua, who agrees with scheduled outpatient follow-up. I feel she be discharged safely home. Return instructions were reviewed. Disposition is discharged home in stable condition. Lab Data Attestation: I reviewed the patient's lab results. Labs: Laboratory Results - last 24 hr 05/21/22 05/21/22 05/21/22 16:15 16:15 16:15 WBC 5.4 RBC 4.38 Hgb 13.4 Hct 40.3 MCV 92.0 MCH 30.6 MCHC 33.3 RDW Std Deviation 43.0 RDW Coeff of Ziggy 12.9 Plt Count 299 MPV 10.5 Immature Gran % (Auto) 0.400 Neut % (Auto) 56.3 Lymph % (Auto) 35.9 Gordon % (Auto) 5.4 Eos % (Auto) 1.1 Baso % (Auto) 0.9 Absolute Neuts (auto) 3.1 Absolute Lymphs (auto) 1.94 Nucleated RBC % 0 PT 34.9 H INR 3.5 Sodium 141 Potassium 3.7 Chloride 107 Carbon Dioxide 26.0 Anion Gap 8 BUN 11 Creatinine 0.60 Estim Creat Clear Calc 129.69 Est GFR (MDRD) Af Amer 149 Est GFR (MDRD) Non-Af 124 BUN/Creatinine Ratio 18.5 Glucose 92 Calcium 9.3 Total Bilirubin 0.30 AST 218 H ALT 371 H Alkaline Phosphatase 101 Total Protein 7.3 Albumin 3.7 Globulin 3.6 Albumin/Globulin Ratio 1.0 Radiography Diagnostic Testing: Clinical Impression(s) from Imaging Studies Abdomen/Pelvis CT 05/21/22 16:03 IMPRESSION: Bilateral adnexal cysts measuring up to 3 cm on the left. IUD in the uterus. Punctate nonobstructing nephrolith on the right. Otherwise no acute disease. Pelvic ultrasound may be helpful if clinically warranted. Electronically Signed: Joo Vaughan MD at 17:16 EST Reading Location ID and State: [facility] / [place] , Service support , Discharge Plan Triage Chief Complaint: Abn Labs ED Provider: Rhett Alberto Dx/Rx/DC Orders Clinical Impression: Postoperative abdominal pain, Encounter for monitoring Coumadin therapy Instructions: Managing Post-Op Pain at Home, ED Post Op Wound Check, Pain Prescriptions: No Action omeprazole 20 MG capsule 20 mg PO DAILY Qty: 30 0RF warfarin [Jantoven] 5 mg Tablet 15 mg PO DINNER Qty: 0 0RF enoxaparin [Lovenox] 100 mg/mL syringe 90 mg subcut Q12H Qty: 10 1RF oxycodone-acetaminophen 5-325 mg tablet 1 - 2 tab PO Q6H PRN (Reason: pain) 3 Days Qty: 18 0RF ondansetron 4 mg tablet,disintegrating 8 mg PO Q6H PRN (Reason: nausea and vomiting) Qty: 10 0RF pantoprazole [Protonix] 40 mg tablet,delayed release (DR/EC) 40 mg PO DAILY Qty: 30 2RF Primary Care Provider: Mariano Rogers Referrals: Mariano Rogers MD [Primary Care Provider] - 1 Day Activity Restrictions/Additional Instructions: Stop use of your Lovenox as your INR was measured at 3.[address] Rogers regarding how much Coumadin you should be taking now. Follow-up with Dr. Hua on Wednesday as scheduled. Disposition Disposition: Home, Self Care
[2022-05-21 16:40] LABS: Absolute Lymphocyte Count 1.94 X10^3/uL (0.83-4.51); Absolute Neutrophil Count 3.1 X10^3/uL (2.0-7.7); Basophil# 0.05 X10^3/uL; Basophil% 0.9 % (0-1); Eosinophil# 0.06 X10^3/uL; Eosinophils% 1.1 % (0-5); Hematocrit 40.3 % (37-47); Hemoglobin 13.4 g/dL (12.0-15.0); Lymphocyte # 1.94 X10^3/ul (0.83-4.51); Lymphocyte % 35.9 % (19-41); Mean Corp Hgb Conc 33.3 g/dL (32-36); Mean Corpuscular Hgb 30.6 pg (27.0-32.0); Mean Platelet Vol. 10.5 fl (6.2-12.0); Monocyte# 0.29 X10^3/uL; Monocyte% 5.4 % (0-10); NRBC Flagged by Analyzer 0 % (0-5); Neutrophil # 3.05 X10^3/uL (2.7-7.7); Neutrophil % 56.3 % (47-70); Platelet Count 299 K/mm3 (150-450); RBC Distribution Width CV 12.9 % (11.6-14.6); Red Blood Count 4.38 M/mm3 (4.2-5.4); White Blood Count 5.4 K/mm3 (4.4-11.0)
[2022-05-21 16:47] LABS: International Normalized Ratio 3.5; Prothrombin Time (Protime)PT. 34.9 SECONDS (11.7-14.9)
[2022-05-21 16:53] LABS: AST(SGOT) 218 U/L (15-37); Alanine Aminotransfer ALT/SGPT 371 U/L (13-56); Albumin, Serum 3.7 g/dL (3.2-5.0); Alkaline Phosphatase 101 U/L (45-117); Anion Gap 8 (5-15); BUN 11 mg/dL (7-18); BUN/Creat Ratio 18.5 RATIO (10-20); Calcium,Total 9.3 mg/dL (8.5-10.1); Chloride 107 mmol/L (98-107); EST Glomerular Filtration Rate 124 mL/min (>60); Est Glom Filt Rate - Afr Amer 149 mL/min (>60); Estimated Creatinine Clearance 129.69 ml/min; Globulin 3.6 g/dL (2.2-4.2); Glucose 92 mg/dL (74-106); Potassium 3.7 mmol/L (3.5-5.1); Protein, Total 7.3 g/dL (6.4-8.2); Sodium Level 141 mmol/L (136-145)
[2022-05-21 18:12] VITALS: BP 124/69; PULSE 71; RESP 16; O2SAT 98
== END 2022-05-21 18:13 | disposition home or self-care (01) ==
PROVIDERS: Emergency Provider Emergency Medicine; PCP Family Medicine; Visit Provider Emergency Medicine
DX: R10.9 Unspecified abdominal pain (principal); G89.18 Other acute postprocedural pain; Z87.891 Personal history of nicotine dependence; Z79.01 Long term (current) use of anticoagulants; Z51.81 Encounter for therapeutic drug level monitoring; Z86.2 Personal history of diseases of the blood and blood-forming organs and certain disorders involving the immune mechanism
CPT/HCPCS: 74177; 80053; 85025; 85610; 99285; Q9967; A4216

== ENCOUNTER → 2022-05-27 | Outpatient (CLI) | payer MEDICAID, SELFPAY ==
[2022-05-27 11:10] LABS: International Normalized Ratio 3.9; Prothrombin Time (Protime)PT. 37.8 SECONDS (11.7-14.9)
== END | disposition home or self-care (01) ==
LOC: LAB.FUTURE 10:03 → LAB 10:06
PROVIDERS: PCP Family Medicine; Referring Provider Family Medicine; Visit Provider Family Medicine
DX: D68.59 Other primary thrombophilia (principal); Z79.01 Long term (current) use of anticoagulants; Z51.81 Encounter for therapeutic drug level monitoring
CPT/HCPCS: 36415; 85610

== ENCOUNTER → 2023-06-28 | Outpatient (CLI) | payer OTHER, SELFPAY ==
[2023-06-28 16:59] LABS: Vitamin B12 276 pg/mL (211-911)
[2023-06-28 17:02] LABS: Cholesterol 200 mg/dL (200); High Density Lipoprotein 37 mg/dL; Thyroid Stim Hormone (TSH) 2.71 uIU/mL (0.358-3.74); Triglycerides 169 mg/dL; Very Low Density Lipoprotein 34 mg/dL (5-40)
[2023-06-28 17:27] LABS: Vitamin D,25 Hydroxy 33.6 ng/mL
== END | disposition home or self-care (01) ==
LOC: BIMLAB 14:26
PROVIDERS: PCP Nurse Practitioner; Referring Provider Nurse Practitioner; Visit Provider Nurse Practitioner
DX: Z00.00 Encounter for general adult medical examination without abnormal findings (principal); E03.9 Hypothyroidism, unspecified; L65.9 Nonscarring hair loss, unspecified
CPT/HCPCS: 36415; 80061; 82306; 82607; 84439; 84443

== ENCOUNTER → 2023-06-29 | Outpatient (CLI) | payer OTHER, SELFPAY ==
[2023-07-05 00:07] LABS: Calprotectin, Stool 7 ug/g (0-120)
== END | disposition home or self-care (01) ==
LOC: LABSPEC 11:37
PROVIDERS: PCP Nurse Practitioner; Visit Provider Nurse Practitioner
DX: K58.9 Irritable bowel syndrome, unspecified (principal); R19.7 Diarrhea, unspecified
CPT/HCPCS: 82274; 83630; 83993; 87177; 87209; 87329; 87493; 87506

== ENCOUNTER 2023-07-27 16:09 | Emergency (ER) | payer OTHER, SELFPAY ==
[2023-07-27 16:10] VITALS: BP 140/89; PULSE 84; RESP 18; TEMP 36.4; O2SAT 100
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
--- NOTE | 2023-07-27 16:44 | RAD_ITS ---
STUDY: X-RAY - LEFT CLAVICLE REASON FOR EXAM: Female, 33 years old. Injury/Pain TECHNIQUE: 2 view(s) of the clavicle. COMPARISON: None. FINDINGS: There is an old healed fracture of the mid clavicle with indwelling orthopedic hardware.. Normal acromioclavicular articulation. Normal visualized sternoclavicular articulation. Normal visualized pulmonary apex. RAD/Clavicle IMPRESSION: Old healed midclavicular fracture status post ORIF without evidence for acute fracture or dislocation Electronically Signed: David Pinon MD at 17:00 EDT ,
[2023-07-27 18:31] VITALS: BP 120/85; PULSE 76; RESP 16; TEMP 35.3; O2SAT 97
== END 2023-07-27 18:32 | disposition home or self-care (01) ==
PROVIDERS: Emergency Provider Emergency Medicine; PCP Nurse Practitioner; Visit Provider Emergency Medicine
DX: M25.512 Pain in left shoulder (principal); F43.10 Post-traumatic stress disorder, unspecified; Z87.891 Personal history of nicotine dependence; E03.9 Hypothyroidism, unspecified
CPT/HCPCS: 73000; 99282

== ENCOUNTER 2023-08-13 22:08 | Emergency (ER) | payer SELFPAY ==
[2023-08-13 22:08] VITALS: BP 141/89; PULSE 95; RESP 16; TEMP 35.6; O2SAT 98; BMI 29.9
--- NOTE | 2023-08-13 22:22 | EKG12_ITS ---
Test Reason : CP Blood Pressure : / mmHG Vent. Rate : 085 BPM Atrial Rate : 085 BPM P-R Int : 212 ms QRS Dur : 074 ms QT Int : 352 ms P-R-T Axes : 062 020 058 degrees QTc Int : 418 ms Sinus rhythm with 1st degree A-V block Possible Left atrial enlargement Borderline ECG Confirmed by Mehrdad Jacob ([id number]), slot editor MARTINEZ WASSERMAN ([id number]) on 08/16/2023 1:00:47 PM Referred By: VALERIANO Confirmed By:Mehrdad Jacob
--- NOTE | 2023-08-13 22:45 | EX.ED.DYSGE1 ---
HPI History of Present Illness Chief Complaint: Chest Pain Informant: patient and family Narrative Narrative: Patient is a 33-year-old female with past medical history of PTSD hypothyroidism and pulmonary embolus. She states this evening she was at home alone watching TV and as she began to fall asleep she noted pain in the right anterior chest wall. She states there is been no trauma or excessive activity. She denies any recent sick symptoms such as congestion cough nausea vomiting or diarrhea. She states there is no family history of cardiac disease at a young age. She does admit to a previous PE multiple years ago and states that she was taken off her anticoagulation years ago as well. She denies any recent travel or surgery but because of her chest discomfort and history of PE she presents for evaluation [facility] Medical History (Updated 08/14/23 @ 03:[address] Clinton Tierney, DO) Panic disorder Depression PTSD (post-traumatic stress disorder) delivery delivered Antiphospholipid antibody syndrome ADHD Thyroid disease BLOOD CLOTS Anemia contractions Heroin use disorder, severe, in sustained remission Pulmonary embolus Genital herpes Home Medications ?Medication ?Instructions ?Recorded ?Last Taken ?Type omeprazole 40 mg capsule,delayed 40 mg PO QDAY #30 caps 06/28/23 Unknown Rx release cholestyramine (with sugar) 4 gram 2 ea PO BID 08/13/23 Unknown History oral powder Allergy/AdvReac Type Severity Reaction Status Date / Time No Known Allergies Allergy Verified 08/13/23 22:10 Family History Mother Anxiety Lupus Bleeding disorder Cancer Mental disorder Grandmother Cancer Aunt Cancer Other Psychiatric care Surgical History (Updated 08/13/23 @ 22:20 by Patti Vyas) History of appendectomy S/P laparoscopic cholecystectomy History of nasal surgery H/O dilation and curettage S/P laparoscopic appendectomy Social History adopted: No household members: children number of children: 2 current occupational status: employed current occupation: [employer] pets and animals: No Smoking Status: Current every day smoker tobacco type: cigarettes Tobacco: How many years used: 15 alcohol intake: never substance use type: former substance user and heroin caffeine: No frequency: 1-2 times per week do you feel safe at home: Yes ROS ROS ED Constitutional Constitutional ED: Denies chills or fever(s) Eyes Eyes: Denies change in vision ENT ENT ED: Denies sore throat Cardiovascular Cardiovascular: Reports chest pain; Denies palpitations or racing heartbeat Respiratory/Chest Respiratory/Chest: Denies cough or dyspnea Gastrointestinal Gastrointestinal: Denies abdominal pain, diarrhea, nausea or vomiting Genitourinary Genitourinary ED: Denies dysuria or hematuria Musculoskeletal Musculoskeletal: Denies back pain or myalgias Integumentary Denies rash Neurologic Neurologic: Denies headache(s) Psychiatric Psychiatric: Reports anxiety; Denies suicidal ideation or suicidal thoughts Hematologic/Lymphatic Hematologic/Lymphatic: Denies easy bleeding or easy bruising EXAM Physical Exam Const Vital Signs: 08/13/23 22:08 08/13/23 22:18 08/13/23 22:49 Temperature 96.1 F L 97.3 F L Temperature Source Temporal Pulse Rate 95 67 Respiratory Rate 16 17 Respiratory Effort Normal Non-Labored Blood Pressure 141/89 H 110/63 Blood Pressure Mean 106 78 Pulse Ox 98 98 Oxygen Delivery Method Room Air Positive well nourished and well developed General Appearance ED: well developed; Negative for pallor HEENT HEENT Narrative: Normocephalic atraumatic Eyes PERRL and EOMs intact bilaterally General Eye ED: Negative for scleral icterus Neck supple and No no JVD Neck Narrative: No nuchal rigidity or meningeal signs Chest Wall Chest Narrative: There is reproducible right anterior chest wall pain and rib regions 4-6 that the patient states is the same pain she has been experiencing. No bony deformity or crepitus No overlying soft tissue skin changes to suggest trauma or infection Resp normal respiratory effort and clear to auscultation bilaterally Cardio regular rate and regular rhythm Rate: other Other Details: Heart is regular rate and rhythm without murmurs rubs or gallops Radial and carotid pulses are equal and symmetric GI normal to inspection, nondistended, normoactive bowel sounds, non-tender, non-distended and no masses GI Narrative: No voluntary guarding or rigidity or pulsatile mass Auscultation: normoactive bowel sounds Palpation: soft Back/Spine no CVA tenderness Extremity normal to inspection Extremity Narrative: No asymmetric edema no pitting edema negative Homans' sign bilaterally Neuro oriented x3, CN's II-XII intact bilaterally and no sensory deficits noted Sensorium / Orientation: alert Motor Exam: Negative for strength 5/5 throughout Psych Psych Narrative: Patient has a nervous/anxious affect Skin no rashes or lesions noted and no wounds General Skin Exam: Negative for jaundice or pallor MDM MDM MDM Narrative Medical decision making narrative: Patient arrived to the ER mildly hypertensive otherwise with stable vitals. She reported right anterior chest pain that occurred in the last 1 to 2 hours without excessive activity or trauma or sick symptoms. She admits to a history of DVT/PE but denies any recent travel or surgery. He denies any family history of cardiac disease at a young age. An EKG was obtained which revealed normal sinus rhythm without ischemic changes or pulmonary strain pattern. I discussed with patient that differential diagnosis is for acute coronary syndrome versus musculoskeletal chest wall pain versus anxiety versus lung pathology such as pneumonia or pneumothorax. We discussed obtaining basic blood work and a chest x-ray. Patient states that as her EKG and vitals are normal and that physical exam points more of a musculoskeletal cause she does not want workup at this time. Therefore patient be discharged home. She does understand that she can return at any time for repeat workup if she changes her mind History & Record Review Discussion w/independent historian: Patient and Family Discharge Plan Triage Chief Complaint: Chest Pain ED Provider: Clinton Tierney Dx/Rx/DC Orders Clinical Impression: Nonspecific chest pain, Hypothyroidism (acquired), PTSD (post-traumatic stress disorder) Instructions: ED Chest Pain, Uncertain Cause Prescriptions: No Action omeprazole 40 mg capsule,delayed release(DR/EC) 40 mg PO QDAY Qty: 30 1RF cholestyramine (with sugar) 4 gram powder 2 ea PO BID Primary Care Provider: Darcy Reyes Referrals: Darcy Reyes, MARSHAL-C [Primary Care Provider] - Activity Restrictions/Additional Instructions: If symptoms worsen or he have any further concerns please return to the ER for repeat evaluation Print Language: Turkmen Disposition Disposition: Home, Self Care Discharge Date/Time: 08/13/23 22:50
[2023-08-13 22:49] VITALS: BP 110/63; PULSE 67; RESP 17; TEMP 36.3; O2SAT 98
== END 2023-08-13 22:50 | disposition home or self-care (01) ==
PROVIDERS: Emergency Provider Emergency Medicine; PCP Nurse Practitioner; Visit Provider Emergency Medicine
DX: R07.89 Other chest pain (principal); F43.10 Post-traumatic stress disorder, unspecified; F17.210 Nicotine dependence, cigarettes, uncomplicated; E03.9 Hypothyroidism, unspecified; Z86.711 Personal history of pulmonary embolism; F41.9 Anxiety disorder, unspecified
CPT/HCPCS: 93005; 99282

== ENCOUNTER → 2023-08-19 | Outpatient (CLI) | payer SELFPAY ==
[2023-08-21 12:10] LABS: Chlamydia By Nucleic Acid AMP Negative (Negative); Gonococcus By Nucleic Acid AMP Negative (Negative)
[2023-08-26 03:07] LABS: HPV APTIMA, High Risk Positive (Negative); HPV Genotype 16, Aptima Negative (Negative); HPV Genotype 18,45 Aptima Negative (Negative)
== END | disposition home or self-care (01) ==
PROVIDERS: PCP Nurse Practitioner; Referring Provider Nurse Practitioner Family; Visit Provider Nurse Practitioner Family
DX: Z12.4 Encounter for screening for malignant neoplasm of cervix (principal); Z11.3 Encounter for screening for infections with a predominantly sexual mode of transmission
CPT/HCPCS: 87491; 87591; 87624; 88175; G0145

== ENCOUNTER → 2023-09-20 | Outpatient (CLI) | payer OTHER, SELFPAY ==
--- NOTE | 2023-09-20 | ECC_PTH ---
PATIENT: MEGHAN LICEA [facility]: [facility] U#:[id number] AGE/SX: 33/F ROOM: RE09/20/[address]: Dr. Arelis Zepeda DO : 1990 BED: DIS: 09/20/2023 SPEC #: [id number] RECD: 09/20/23 14:23 STATUS: GHASSAN FERRERAMason #: [id number] AMELIA: 09/20/23 00:[address]: Arelis Zepeda DEPT: SURGICAL PATHOLOGY RECD BY: Phi Doll ENTERED: 09/20/23 14:23 SP TYPE: ALFA MEYERS DR: Darcy Reyes, GUEVARA Tissues: Endocervical Procedures: Surgery Specimen Level IV HEADER OPERATION: Colposcopy PRE-OP DIAGNOSIS: HPV+ TISSUE SUBMITTED: ECC MICROSCOPIC DIAGNOSIS Endocervical curettings: Rare minute fragments of benign endocervical epithelium and mucous, negative for dysplasia. See comment. ELLYN/ 09/21/2023 COMMENT Clinical correlation and appropriate follow up are necessary. MICROSCOPIC DESCRIPTION Slides are reviewed. GROSS DESCRIPTION Received in fixative is a metallic brush with adherent minute fragments of loyola-red tissue and labeled with the patient's name and and designated per the requisition as ECC BRUSH. The material is dislodged from the brush and submitted for cell block preparation in one cassette. SJ/mr 09/20/2023 TC:4
== END | disposition home or self-care (01) ==
LOC: LABSPEC 12:12
PROVIDERS: PCP Nurse Practitioner; Referring Provider Obstetrics & Gynecology; Visit Provider Obstetrics & Gynecology
DX: Z11.51 Encounter for screening for human papillomavirus (HPV) (principal)
CPT/HCPCS: 88305

== ENCOUNTER → 2023-11-05 | Outpatient (CLI) | payer OTHER, SELFPAY ==
--- NOTE | 2023-11-05 17:50 | US_ITS ---
HISTORY: Pelvic pain/IUD pain. TECHNIQUE: Transabdominal and transvaginal pelvic ultrasound was performed with souza scale and color Doppler evaluation. 103 images. COMPARISON: CT 05/21/2022. FINDINGS: UTERUS: 8.2 x 5 x 6.5 cm. Anteverted. Unremarkable cervix. ENDOMETRIAL THICKNESS: 6 mm. Intrauterine device in place. RIGHT OVARY: Not well-visualized due to overlying bowel gas and incomplete distention of the bladder. No adnexal masses. LEFT OVARY: 1.4 x 2 x 2.1 cm with follicles measuring up to 1.1 cm. No adnexal masses. FREE FLUID: Trace. US/Pelvic w/ Transvaginal IMPRESSION: Intrauterine device in place. Electronically Signed: Maribell Reyes MD at 10:10 EDT ,
== END | disposition home or self-care (01) ==
LOC: US 17:50
PROVIDERS: PCP Nurse Practitioner; Visit Provider Obstetrics & Gynecology
DX: R10.2 Pelvic and perineal pain (principal); N92.6 Irregular menstruation, unspecified
CPT/HCPCS: 76830; 76856

== ENCOUNTER 2024-02-20 17:04 | Emergency (ER) | payer OTHER, SELFPAY ==
[2024-02-20 17:04] VITALS: BP 124/79; PULSE 108; RESP 19; TEMP 36.2; O2SAT 100; BMI 28.7
--- NOTE | 2024-02-20 17:40 | EDS_ITS ---
HPI History of Present Illness Chief Complaint: Upper Extremity Injury Informant: patient Narrative Narrative: Patient states she injured her right hand an hour or 2 ago while she was putting a bed frame together. She states she was trying to click the 2 parts together and it slipped and the end of one of the metal pieces hit her hard in the hand and she sustained a couple of abrasions is resolved, which is where the pain is now. [id number]. No other injuries. [facility] Medical History Panic disorder Depression PTSD (post-traumatic stress disorder) delivery delivered Antiphospholipid antibody syndrome ADHD Thyroid disease BLOOD CLOTS Anemia contractions Heroin use disorder, severe, in sustained remission Pulmonary embolus Genital herpes Home Medications ?Medication ?Instructions ?Recorded ?Last Taken ?Type omeprazole 40 mg capsule,delayed 40 mg PO QDAY #30 caps 06/28/23 Unknown Rx release levonorgestrel (Mirena) 1 device intrauterine ONCE 08/19/23 Unknown History aripiprazole 5 mg tablet 5 mg PO QHS #30 tabs 09/14/23 Unknown Rx escitalopram oxalate 10 mg tablet 10 mg PO DAILY #30 tabs 09/14/23 Unknown Rx ondansetron 4 mg disintegrating 4 mg PO Q6H PRN nausea and 09/28/23 Unknown Rx tablet vomiting #30 tabs sumatriptan succinate 50 mg tablet 50 mg PO .COMPLEX #30 tabs 09/28/23 Unknown Rx cholestyramine (with sugar) 4 gram 2 ea PO DAILY #378 grams 01/19/24 Unknown Rx oral powder Allergy/AdvReac Type Severity Reaction Status Date / Time No Known Allergies Allergy Verified 02/20/24 17:07 Family History Mother Anxiety Lupus Bleeding disorder Cancer Mental disorder Grandmother Cancer Aunt Cancer Other Psychiatric care Surgical History Broken clavicle History of appendectomy S/P laparoscopic cholecystectomy History of nasal surgery H/O dilation and curettage S/P laparoscopic appendectomy Social History adopted: No household members: children number of children: 2 current occupational status: employed current occupation: [employer] pets and animals: No Smoking Status: Current every day smoker tobacco type: cigarettes Tobacco: How many years used: 15 alcohol intake: never substance use type: former substance user and heroin caffeine: No frequency: 1-2 times per week do you feel safe at home: Yes ROS ROS ED Constitutional Constitutional ED: Denies chills or fever(s) Musculoskeletal Musculoskeletal: Reports extremity pain; Denies neck pain Integumentary Denies Abrasions, rash or wounds Neurologic Neurologic: Denies paresthesias or weakness EXAM Physical Exam Const Vital Signs: 02/20/24 17:04 Temperature 97.1 F L Temperature Source Temporal Pulse Rate 108 H Respiratory Rate 19 H Blood Pressure 124/79 H Blood Pressure Mean 94 Pulse Ox 100 Oxygen Delivery Method Room Air Positive well nourished and well developed Constitutional Narrative: Smells of marijuana. Alert and cooperative. General Appearance ED: well developed and NAD Neck full ROM and supple Back/Spine normal ROM and normal to inspection Extremity full ROM Extremity Narrative: Superficial linear abrasions and contusions to the radial aspect of the dorsum of the right hand, mostly pain and tenderness in the area of the second metacarpal. No deformities. All FDS FDP and extensor tendon function intact throughout. No other injuries. Neuro oriented x3, no focal motor deficits and no sensory deficits noted Sensorium / Orientation: alert Psych mental status grossly normal and thought process normal Skin no wounds Rashes: no rashes MDM MDM MDM Narrative Medical decision making narrative: Three-view x-ray series of the right hand were obtained and are negative on my interpretation radiology in agreement. Patient's abrasions were cleansed and dressed, she was given some ibuprofen and instructions for supportive care. Discharge Plan Triage Chief Complaint: Upper Extremity Injury ED Provider: Denver Jimenez Dx/Rx/DC Orders Clinical Impression: Contusion of hand, right, Abrasion of hand, right Instructions: ED Hand Contusion Prescriptions: No Action omeprazole 40 mg capsule,delayed release(DR/EC) 40 mg PO QDAY Qty: 30 1RF Mirena 21 mcg/24 hr (8 yrs) 52 mg intrauterine device 1 device intrauterine ONCE Rx Instructions: as a single dose escitalopram oxalate 10 mg tablet 10 mg PO DAILY Qty: 30 1RF aripiprazole 5 mg tablet 5 mg PO QHS Qty: 30 1RF sumatriptan succinate 50 mg tablet 50 mg PO .COMPLEX Qty: 30 0RF Rx Instructions: 50 mg orally; take 1 tab at onset of headache; if no relief may repeat 1 tab after at least 2 hrs; max = 4 tabs/24 hr PO and 12 tablets per month ondansetron 4 mg tablet,disintegrating 4 mg PO Q6H PRN (Reason: nausea and vomiting) Qty: 30 0RF cholestyramine (with sugar) 4 gram powder 2 ea PO DAILY Qty: 378 0RF Primary Care Provider: Darcy Reyes Referrals: Darcy Reyes, GANTRY RIGGER-C [Primary Care Provider] - As Needed Print Language: Icelandic Disposition Disposition: Home, Self Care
[2024-02-20] MEDS: Ibuprofen 600 MG Tablet PO (17:43)
--- NOTE | 2024-02-20 17:45 | RAD_ITS ---
EXAM: XR RIGHT HAND COMPLETE, 3 OR MORE VIEWS CLINICAL INDICATION: injury TECHNIQUE: Frontal, lateral and oblique views of the right hand. COMPARISON: No relevant prior studies available. FINDINGS: BONES/JOINTS: Unremarkable. No acute fracture. No subluxation. Normal alignment. Preservation of the joint space. No sclerotic or destructive changes observed. SOFT TISSUES: Unremarkable. No soft tissue swelling or gas. No radiopaque foreign body. RAD/Hand Min 3 Views IMPRESSION: Negative right hand x-rays. Electronically Signed: Kavon Cespedes MD at 17:57 EST ,
== END 2024-02-20 18:42 | disposition home or self-care (01) ==
PROVIDERS: Emergency Provider Emergency Medicine; PCP Nurse Practitioner; Visit Provider Emergency Medicine
DX: S60.511A Abrasion of right hand, initial encounter (principal); F17.210 Nicotine dependence, cigarettes, uncomplicated; S60.221A Contusion of right hand, initial encounter; W22.8XXA Striking against or struck by other objects, initial encounter
CPT/HCPCS: 73130; 99282

== ENCOUNTER → 2024-03-06 | Outpatient (CLI) | payer OTHER, SELFPAY ==
[2024-03-06 12:32] LABS: D-Dimer Quantitative (DVT/PE) 0.31 FEU/ug/m (0.27-0.49)
[2024-03-06 12:53] LABS: CPK Total, Creatine Kinase 53 U/L (26-192); Rheumatoid Factor < 10.0 IU/mL (<15); Troponin-I HS < 3 pg/mL (3.0-54.0)
[2024-03-07 11:09] LABS: Anti-Centromere B Ab <0.2 AI (0.0-0.9); Anti-Chromatin <0.2 AI (0.0-0.9); Anti-Jo <0.2 AI (0.0-0.9); Anti-Scleroderma-70 AB <0.2 AI (0.0-0.9); Anti-dsDNA Ab 1 IU/mL (0-9); RNP Ab <0.2 AI (0.0-0.9); SJOGREN'S Anti-SS-A test < 0.2 AI (0.0-0.9); SJOGREN'S Anti-SS-B test < 0.2 AI (0.0-0.9); Smith Ab <0.2 AI (0.0-0.9)
[2024-03-07 16:09] LABS: CCP IgG Antibodies 6 units (0-19); Endomysial Antibody IgA Negative (Negative); Immunoglobulin A 237 mg/dL (87-352); t-Transglutaminase IgA <2 U/mL (0-3)
== END | disposition home or self-care (01) ==
LOC: BIMLAB 08:20
PROVIDERS: PCP Internal Medicine; Referring Provider Internal Medicine; Visit Provider Internal Medicine
DX: R07.9 Chest pain, unspecified (principal); K52.9 Noninfective gastroenteritis and colitis, unspecified
CPT/HCPCS: 36415; 82550; 82784; 83516; 84484; 85379; 86200; 86225; 86235; 86255; 86431

== ENCOUNTER 2024-03-22 13:02 | Emergency (ER) | payer OTHER, SELFPAY ==
[2024-03-22 13:03] VITALS: BP 130/74; PULSE 99; RESP 22; TEMP 36.7; O2SAT 99; BMI 28.1
--- NOTE | 2024-03-22 13:11 | RAD_ITS ---
INDICATION: cough, dyspnea EXAMINATION/TECHNIQUE: X-RAY - XR Chest 1 View COMPARISON: May 28, 2021 FINDINGS: LINES/DEVICES: None. LUNGS: There are patchy opacities throughout the left mid and lower lung. There is a nodular opacity within the right lower lung. No pneumothorax. MEDIASTINUM AND CARDIOVASCULAR STRUCTURES: Cardiac silhouette not enlarged. Central airways and mediastinal contour are unremarkable. BONES AND SOFT TISSUES: There is a plate and screw fixation device within the left clavicle. RAD/Chest 1 View (Portable) IMPRESSION: Bilateral nonspecific opacities, more pronounced on the left, suggestive of pneumonia. Recommend follow-up chest radiograph in 6-8 weeks. Electronically Signed: Trudi Alfonso MD at 13:59 EST ,
--- NOTE | 2024-03-22 13:17 | EKG12_ITS ---
Test Reason : CP Blood Pressure : */* mmHG Vent. Rate : 83 BPM Atrial Rate : 83 BPM P-R Int : 214 ms QRS Dur : 74 ms QT Int : 352 ms P-R-T Axes : 53 26 50 degrees QTcB Int : 413 ms Sinus rhythm with 1st degree A-V block Otherwise normal ECG Confirmed by ANDRAE CARRILLO, JADEN ([id number]), editor dictionary GUNNAR CONWAY ([id number]) on 03/24/2024 9:27:07 AM Referred By: Confirmed By: JADEN ABEBE MD
--- NOTE | 2024-03-22 13:18 | EX.ED.DYSGE1 ---
HPI History of Present Illness Chief Complaint: Chest Pain Detail of Chief Complaint: Cough, chest pain, shortness of breath Informant: patient Narrative Narrative: Patient presents the emergency department complaint of cough and chest pain and shortness of breath. She initially started with the cough 3 days ago and at that time had a fever up to 103. Since that time she had an antibiotic called in and she is currently on Augmentin 875 mg twice a day. She has been on the antibiotic for 2 days. Patient complains of pain with breathing and cough mostly in her chest. She describes a burning sensation. She has history of PEs but states that this feels different. She tells me her son was ill recently with cough. [facility] Medical History Panic disorder Depression PTSD (post-traumatic stress disorder) delivery delivered Antiphospholipid antibody syndrome ADHD Thyroid disease BLOOD CLOTS Anemia contractions Heroin use disorder, severe, in sustained remission Pulmonary embolus Genital herpes Home Medications ?Medication ?Instructions ?Recorded ?Last Taken ?Type omeprazole 40 mg capsule,delayed 40 mg PO QDAY #30 caps 06/28/23 Unknown Rx release levonorgestrel (Mirena) 1 device intrauterine ONCE 08/19/23 Unknown History aripiprazole 5 mg tablet 5 mg PO QHS #30 tabs 03/06/24 Unknown Rx cholestyramine (with sugar) 4 gram 2 ea PO DAILY #378 grams 03/06/24 Unknown Rx oral powder escitalopram oxalate 10 mg tablet 10 mg PO DAILY #30 tabs 03/06/24 Unknown Rx ondansetron 4 mg disintegrating 4 mg PO Q6H PRN nausea and 03/06/24 Unknown Rx tablet vomiting #30 tabs sumatriptan succinate 50 mg tablet 50 mg PO .COMPLEX #30 tabs 03/06/24 Unknown Rx hydrocodone-acetaminophen 5-325mg 1 tab PO Q4H PRN PRN Pain 2 days 03/22/24 Unknown Rx 5mg-325mg #10 TABLETS levofloxacin 750 mg tablet 750 mg PO DAILY #6 tabs 03/22/24 Unknown Rx Allergy/AdvReac Type Severity Reaction Status Date / Time No Known Allergies Allergy Verified 03/22/24 13:05 Family History Mother Anxiety Lupus Bleeding disorder Cancer Mental disorder Grandmother Cancer Aunt Cancer Other Psychiatric care Surgical History Broken clavicle History of appendectomy S/P laparoscopic cholecystectomy History of nasal surgery H/O dilation and curettage S/P laparoscopic appendectomy Social History adopted: No household members: children number of children: 2 current occupational status: employed current occupation: [employer] pets and animals: No Smoking Status: Current every day smoker tobacco type: cigarettes Tobacco: How many years used: 15 alcohol intake: never substance use type: former substance user and heroin caffeine: No frequency: 1-2 times per week do you feel safe at home: Yes ROS ROS ED Review of Systems ROS Unobtainable: other Constitutional Constitutional ED: Reports lethargy; Denies chills, fever(s), sweats or weight loss Eyes Eyes: Denies blurry vision, change in vision or diplopia ENT ENT ED: Denies rhinorrhea or sore throat Cardiovascular Cardiovascular: Reports chest pain; Denies orthopnea or racing heartbeat Respiratory/Chest Respiratory/Chest: Reports cough, dyspnea and dyspnea on exertion; Denies orthopnea or sputum Gastrointestinal Gastrointestinal: Denies abdominal pain, diarrhea, nausea or vomiting Genitourinary Genitourinary ED: Denies dysuria, hematuria or urinary frequency Musculoskeletal Musculoskeletal: Denies arthralgias, back pain, myalgias or neck pain Integumentary Denies abscess, Abrasions or rash Neurologic Neurologic: Denies headache(s) or weakness Psychiatric Psychiatric: Denies anxiety, depression or suicidal thoughts Endocrine Endocrinology: Denies polydipsia, polyphagia or polyuria Hematologic/Lymphatic Hematologic/Lymphatic: Denies easy bleeding, easy bruising or lymphadenopathy Allergic/Immunologic Allergic/Immunologic ED: Denies mouth swelling, tongue swelling or urticaria EXAM Physical Exam Const Vital Signs: 03/22/24 13:03 Temperature 98.1 F Temperature Source Temporal Pulse Rate 99 Respiratory Rate 22 H Blood Pressure 130/74 H Blood Pressure Mean 92 Pulse Ox 99 Oxygen Delivery Method Room Air Positive well nourished and well developed General Appearance ED: well developed and NAD HEENT Reports TM's clear and moist mucous membranes normocephalic and atraumatic; Negative for trauma or tenderness Tympanic Membrane ED: Yes TM's clear Eyes PERRL and EOMs intact bilaterally General Eye ED: Negative for pale conjunctiva or scleral icterus Neck no lymphadenopathy, supple and no JVD General: Negative for tenderness Chest Wall inspection of chest normal and palpation of chest normal Chest: Negative for tenderness Resp normal respiratory effort and clear to auscultation bilaterally Effort and Inspection: Negative for respiratory distress or pain with movement Auscultation: Negative for rhonchi, wheezes or diminished lung sounds Cardio regular rate, regular rhythm, S1 normal heart sound, S2 normal heart sound and no murmurs Peripheral Pulses: pulses 2+ throughout GI normal to inspection, nondistended, normoactive bowel sounds, soft to palpation, non-tender, non-distended and no masses Back/Spine no CVA tenderness and no thoracic nor lumbar tenderness Extremity normal to inspection General Extremety ED: Negative for edema General Extremity: Negative for edema Neuro oriented x3, CN's II-XII intact bilaterally, no sensory deficits noted and gait normal Sensorium / Orientation: awake, alert, oriented to person, oriented to place and oriented to time Motor Exam: strength 5/5 throughout and strength abnormal Psych mental status grossly normal Skin no rashes or lesions noted and no wounds MDM MDM MDM Narrative Medical decision making narrative: Patient presents with cough and chest pain and had fever on day 1 of illness. History of PE currently not anticoagulated. Clinically suspect likely infectious etiology such as pneumonia or viral infection. Patient is not hypoxic. In the differential also would be PE given her history. IV line established. 1 view chest x-ray obtained showed left lower lobe infiltrate consistent with pneumonia. D-dimer also obtained and was elevated at 1.31. CTA of the chest was ordered. Blood cultures ordered and CBC, lactate, and BMP. Patient was started on Levaquin 750 mg IV. Care of patient turned over to evening physician awaiting CT results and remaining lab results. Clinically she looks well and I feel that if her workup is otherwise unremarkable she may be discharged to home with prescription for Levaquin and [place] for pain. Lab Data Attestation: I reviewed the patient's lab results. Labs: Laboratory Results - last 24 hr 03/22/24 13:36 D-Dimer Quant (PE/DVT) 1.31 H* Radiography Diagnostic Testing: Clinical Impression(s) from Imaging Studies Chest X-Ray 03/22/24 13:11 IMPRESSION: Bilateral nonspecific opacities, more pronounced on the left, suggestive of pneumonia. Recommend follow-up chest radiograph in 6-8 weeks. Electronically Signed: Trudi Alfonso MD at 13:59 EST , 1 view chest x-ray obtained interpreted by myself as left lower lobe infiltrate consistent with pneumonia. Radiology in agreement felt there were bilateral nonspecific opacities more pronounced on the left. Discharge Plan Triage Chief Complaint: Chest Pain ED Provider: Starr Casas Dx/Rx/DC Orders Clinical Impression: Pneumonia, Chest pain Instructions: ED Chest Pain, Uncertain Cause, ED Pneumonia (Adult) Prescriptions: New hydrocodone-acetaminophen 5-325 mg tablet 1 tab PO Q4H PRN PRN (Reason: Pain) 2 Days Qty: 10 0RF levofloxacin 750 mg tablet 750 mg PO DAILY Qty: 6 0RF No Action omeprazole 40 mg capsule,delayed release(DR/EC) 40 mg PO QDAY Qty: 30 1RF Mirena 21 mcg/24 hr (8 yrs) 52 mg intrauterine device 1 device intrauterine ONCE Rx Instructions: as a single dose cholestyramine (with sugar) 4 gram powder 2 ea PO DAILY Qty: 378 0RF ondansetron 4 mg tablet,disintegrating 4 mg PO Q6H PRN (Reason: nausea and vomiting) Qty: 30 0RF sumatriptan succinate 50 mg tablet 50 mg PO .COMPLEX Qty: 30 0RF Rx Instructions: 50 mg orally; take 1 tab at onset of headache; if no relief may repeat 1 tab after at least 2 hrs; max = 4 tabs/24 hr PO and 12 tablets per month aripiprazole 5 mg tablet 5 mg PO QHS Qty: 30 1RF escitalopram oxalate 10 mg tablet 10 mg PO DAILY Qty: 30 1RF Primary Care Provider: Marie Mclaughlin Referrals: Marie Mclaughlin MD [Primary Care Provider] - Print Language: Mohawk
[2024-03-22] MEDS: Morphine 4 MG/ML Syringe IV (13:30)
[2024-03-22] MEDS: Ondansetron 4 MG/2 ML Vial IV ×2 (13:30→15:53)
[2024-03-22 13:51] LABS: D-Dimer Quantitative (DVT/PE) 1.31 FEU/ug/m (0.27-0.49)
--- NOTE | 2024-03-22 13:57 | CT_ITS ---
STUDY: CTA CHEST REASON FOR EXAM: Female, 33 years old. Chest pain RADIATION DOSAGE (If Supplied By Facility): CTDIvol = ( 5.81 ) mGy, DLP = ( 314.43 ) mGycm TECHNIQUE: The examination was performed with the intravenous administration of IV 100mL Isovue-370. Post-processing of the angiographic images was performed, with multiplanar reformation and 3D reconstruction. The protocol utilizes one or more of the following dose reduction techniques: automated exposure control, adjustment of mA and/or kV according to patient size,and/or use of iterative reconstruction technique. COMPARISON: May 28, 2021 FINDINGS: Normal enhancement of the main pulmonary artery and right and left pulmonary arteries. Normal enhancement of the bilateral peripheral pulmonary arteries. There is no demonstrated pulmonary embolism. Normal thoracic aorta and visualized great vessels. There is no demonstrated aortic dissection. Normal heart and pericardium. There are no coronary artery calcifications. Normal mediastinum. Normal hilar regions. Normal visualized trachea and bronchi. Within the left upper lobe there are patchy opacities. There are less pronounced patchy and groundglass opacities within the right lower lobe. There is minimal bibasilar atelectasis and/or scarring. Normal chest wall structures. Normal osseous structures. The limited images of the upper abdomen demonstrate splenomegaly. CT/CTA Chest W/WO Contrast IMPRESSION: No demonstrated pulmonary embolism or arterial dissection. Left upper lobe patchy opacities associated with less pronounced right lower lobe patchy and groundglass opacities concerning for multifocal pneumonia, recommend follow-up chest radiograph 6-8 weeks to assess for resolution. Electronically Signed: Trudi Alfonso MD at 14:38 EST ,
[2024-03-22] MEDS: levoFLOXacin IV 750 MG/150 ML BAG 100 MG IV (14:16)
[2024-03-22 14:23] LABS: Absolute Neutrophil Count 6.1 X10^3/uL (2.0-7.7); Basophil# 0.04 X10^3/uL; Basophil% 0.5 % (0-1); Eosinophil# 0.07 X10^3/uL; Eosinophils% 0.9 % (0-5); Hematocrit 35.9 % (37-47); Hemoglobin 12.4 g/dL (12.0-15.0); Lymphocyte % 12.9 % (19-41); Mean Corp Hgb Conc 34.5 g/dL (32-36); Mean Corpuscular Hgb 31.7 pg (27.0-32.0); Mean Corpuscular Volume 91.8 fL (81-99); Mean Platelet Vol. 10.5 fl (6.2-12.0); Monocyte# 0.49 X10^3/uL; Monocyte% 6.3 % (0-10); NRBC Flagged by Analyzer 0 % (0-5); Neutrophil # 6.11 X10^3/uL (2.7-7.7); Platelet Count 189 K/mm3 (150-450); RBC Distribution Width CV 12.8 % (11.6-14.6); RBC Distribution Width SD 42.7 fl (35.1-43.9); Red Blood Count 3.91 M/mm3 (4.2-5.4); White Blood Count 7.7 K/mm3 (4.4-11.0)
[2024-03-22 14:33] LABS: Anion Gap 7 (5-15); BUN 11 mg/dL (7-18); BUN/Creat Ratio 17.1 RATIO (10-20); Calcium,Total 8.8 mg/dL (8.5-10.1); Chloride 107 mmol/L (98-107); Creatinine, Serum 0.64 mg/dL (0.55-1.02); EST Glomerular Filtration Rate 112 mL/min (>60); Est Glom Filt Rate - Afr Amer 135 mL/min (>60); Estimated Creatinine Clearance 136.13 ml/min; Glucose 99 mg/dL (74-106); Potassium 3.5 mmol/L (3.5-5.1); Sodium Level 136 mmol/L (136-145)
[2024-03-22 14:37] LABS: Lactic Acid 1.1 mmol/L (0.4-1.9)
[2024-03-22 14:56] VITALS: BP 119/72; PULSE 82; RESP 19; TEMP 36.8; O2SAT 100
[2024-03-22 15:02] VITALS: BP 122/77; PULSE 89; RESP 14; O2SAT 98
[2024-03-22 16:19] VITALS: BP 122/70; PULSE 78; RESP 18; TEMP 36.8; O2SAT 98
== END 2024-03-22 16:29 | disposition home or self-care (01) ==
PROVIDERS: Emergency Provider Emergency Medicine; PCP Internal Medicine; Visit Provider Emergency Medicine
DX: J18.9 Pneumonia, unspecified organism (principal); F17.210 Nicotine dependence, cigarettes, uncomplicated; R07.9 Chest pain, unspecified; Z86.711 Personal history of pulmonary embolism; Z79.890 Hormone replacement therapy
CPT/HCPCS: 71045; 71275; 80048; 83605; 85025; 85379; 87040; 87631; 93005; 96365; 96366; 96375; 96376; 99282; Q9967; A4216; J2405

== ENCOUNTER → 2024-04-27 | Outpatient (CLI) | payer OTHER, SELFPAY ==
--- NOTE | 2024-04-27 07:53 | ECHOD_ITS ---
Reason For Study: Palpitations Procedure This was a 2D Doppler, Color Flow transthoracic echocardiogram. Exam performed in department. Left Ventricle Normal LV size. Left ventricular systolic function is normal. The left ventricular ejection fraction is 60 %. No regional wall motion abnormalities noted. Right Ventricle Normal RV size. Normal systolic function. Atria Normal left atrium. Normal right atrium. Mitral Valve Normal mitral valve. Tricuspid Valve Normal tricuspid valve. Mild tricuspid valve insufficiency. Pulmonary artery systolic pressure is 23 mmHg. Aortic Valve Trisinus/trileaflet aortic valve. Pulmonic Valve Normal pulmonic valve. Great Vessels Normal aortic root. The pulmonary is not well visualized. Inferior vena cava collapse with respiration. Pericardium/Pleural No pericardial effusion. MMode/2D Measurements & Calculations LVIDd: 4.3 cm IVSd: 0.90 cm Ao root diam: 2.5 cm LVIDs: 2.9 cm LVPWd: 0.68 cm RVDd: 3.7 cm FS: 33.4 % _ LAV(MOD-bp): 36.9 ml LVAd ap4: 30.4 cm2 SV(MOD-sp4): 53.4 ml LAV(MOD-bp) Indexed: 19.1 ml/m2 LVLd ap4: 8.4 cm SI(MOD-sp4): 27.7 ml/m2 LAV(MOD-sp2): 35.8 ml EDV(MOD-sp4): 90.1 ml LAV(MOD-sp4): 35.5 ml EDV(sp4-el): 93.1 ml LVAs ap4: 17.5 cm2 LVLs ap4: 7.0 cm ESV(MOD-sp4): 36.7 ml ESV(sp4-el): 37.1 ml EF(MOD-sp4): 59.3 % EF(sp4-el): 60.2 % _ SV(sp4-el): 56.0 ml LA A4 area: 15.0 cm2 LA dimension(2D): 3.2 cm _ RA A4 area: 15.7 cm2 TAPSE: 1.6 cm Time Measurements MV dec time: 0.25 sec Doppler Measurements & Calculations MV E max florentin: 69.0 cm/sec Lat Peak E' Florentin: 16.2 cm/sec Med Peak E' Florentin: 12.7 cm/sec MV A max florentin: 75.4 cm/sec E/E' lat: 4.3 E/E' med: 5.4 MV E/A: 0.92 _ MV V2 max: 83.7 cm/sec MV P1/2t max florentin: 81.6 cm/sec Ao V2 max: 118.5 cm/sec MV max P.8 mmHg MV P1/2t: 83.6 msec Ao max P.6 mmHg MV V2 mean: 51.8 cm/sec Ao V2 mean: 87.7 cm/sec MV mean P.3 mmHg MV dec slope: 286.0 cm/sec2 Ao mean P.5 mmHg MV V2 VTI: 21.2 cm MVA(P1/2t): 2.6 cm2 Ao V2 VTI: 26.6 cm AV (velocity ratio): 0.77 _ LV V1 max: 98.5 cm/sec PA V2 max: 97.0 cm/sec TR max florentin: 223.5 cm/sec LV V1 max P.9 mmHg PA V2 mean: 67.1 cm/sec TR max P.0 mmHg LV V1 mean P.3 mmHg LV V1 mean: 71.1 cm/sec LV V1 VTI: 20.4 cm ECHO/Echo Complete Interpretation Summary Normal LV size. Left ventricular systolic function is normal. The left ventricular ejection fraction is 60 %. Pulmonary artery systolic pressure is 23 mmHg. Ordering Physician: Marie Mclaughlin Referring Physician: Marie Mclaughlin Performed By: Cb Moseley RCS
== END | disposition home or self-care (01) ==
PROVIDERS: PCP Internal Medicine; Referring Provider Internal Medicine; Visit Provider Internal Medicine
DX: I44.0 Atrioventricular block, first degree (principal); R00.2 Palpitations
CPT/HCPCS: 93306

== ENCOUNTER → 2024-09-18 | Outpatient (CLI) | payer SELFPAY ==
[2024-09-21 04:59] LABS: Chlamydia By Nucleic Acid AMP Negative (Negative); Gonococcus By Nucleic Acid AMP Negative (Negative)
== END | disposition home or self-care (01) ==
LOC: LABSPEC 16:31
PROVIDERS: PCP Internal Medicine; Referring Provider Obstetrics & Gynecology; Visit Provider Obstetrics & Gynecology
DX: Z11.3 Encounter for screening for infections with a predominantly sexual mode of transmission (principal)
CPT/HCPCS: 87491; 87591

== ENCOUNTER 2025-01-02 01:19 | Emergency (ER) | payer OTHER, SELFPAY ==
[2025-01-02 01:21] VITALS: BP 124/75; PULSE 104; RESP 18; TEMP 36.7; O2SAT 99
[2025-01-02 01:30] VITALS: BP 121/76; PULSE 100; RESP 18; O2SAT 98
--- NOTE | 2025-01-02 01:51 | EDS_ITS ---
HPI History of Present Illness Chief Complaint: Substance Abuse Informant: patient and family Narrative Narrative: Patient is a 34-year-old female with past medical history of anxiety and PTSD. She states she has done extensive counseling secondary to this. She states that she typically smokes marijuana at night to help her sleep. She states she typically gets her marijuana from a dispensary. However today she got it from a friend who grows their own. She states that sometimes this type of stress can lead to worsening anxiety. She states she was trying to sleep when she felt her like her heart was racing and she was shaking. She states this felt like her previous bouts of panic attacks. As she cannot get under control at home she presents for evaluation [facility] Medical History (Updated 01/02/25 @ 02:[address] Clinton Tierney, ) Marijuana smoker Panic disorder Depression PTSD (post-traumatic stress disorder) delivery delivered Antiphospholipid antibody syndrome ADHD Thyroid disease BLOOD CLOTS Anemia contractions Heroin use disorder, severe, in sustained remission Pulmonary embolus Genital herpes Home Medications ?Medication ?Instructions ?Recorded ?Last Taken ?Type cholestyramine (with sugar) 4 gram 2 g PO DAILY #378 g gladis 11/28/24 Unknown Rx oral powder ondansetron 4 mg disintegrating 4 mg PO Q8H PRN PRN Na usea #10 tabs 12/28/24 Unknown Rx tablet ubrogepant 100 mg tablet (Ubrelvy) 100 mg PO ONCE #12 tabs 12/29/24 Unknown Rx lorazepam 1 mg tablet (Ativan) 1 mg PO TID PRN anxiety 5 days #15 01/02/25 Unknown Rx tabs Allergy/AdvReac Type Severity Reaction Status Date / Time No Known Allergies Allergy Verified 01/02/25 01:20 Family History Mother Anxiety Lupus Bleeding disorder Cancer cervical Mental disorder Grandmother Cancer cervical Aunt Cancer cervical Sister Cancer cervical Other Psychiatric care Surgical History Delivery by section Broken clavicle S/P laparoscopic cholecystectomy History of nasal surgery H/O dilation and curettage S/P laparoscopic appendectomy Social History adopted: No household members: children number of children: 2 current occupational status: employed current occupation: [employer] pets and animals: No Smoking Status: Current every day smoker tobacco type: cigarettes Tobacco: How many years used: 15 quit status: considering quitting alcohol intake: never substance use type: former substance user Date of last use: 2014 and heroin caffeine: No frequency: 1-2 times per week do you feel safe at home: Yes ROS ROS ED Constitutional Constitutional ED: Denies chills or fever(s) Eyes Eyes: Denies blurry vision or change in vision ENT ENT ED: Denies sore throat Cardiovascular Cardiovascular: Reports palpitations and racing heartbeat; Denies chest pain Respiratory/Chest Respiratory/Chest: Denies cough or dyspnea Gastrointestinal Gastrointestinal: Reports nausea; Denies abdominal pain, diarrhea or vomiting Musculoskeletal Musculoskeletal: Denies myalgias Integumentary Denies rash Neurologic Neurologic: Denies headache(s) Psychiatric Psychiatric: Reports anxiety; Denies suicidal ideation or suicidal thoughts EXAM Physical Exam Const Vital Signs: 01/02/25 01:21 Temperature 98.1 F Temperature Source Oral Pulse Rate 104 H Respiratory Rate 18 Blood Pressure 124/75 H Blood Pressure Mean 91 Pulse Ox 99 Oxygen Delivery Method Room Air Positive well nourished and well developed General Appearance ED: well developed; Negative for pallor HEENT HEENT Narrative: Normocephalic atraumatic Eyes PERRL and EOMs intact bilaterally General Eye ED: Negative for scleral icterus Neck supple Resp normal respiratory effort and clear to auscultation bilaterally Cardio regular rate and regular rhythm Rate: other Other Details: Heart is regular rate and rhythm without murmurs rubs or gallop Radial and carotid pulses are equal and symmetric GI normal to inspection, nondistended, normoactive bowel sounds, non-tender, non- distended and no masses GI Narrative: No voluntary guarding or rigidity or pulsatile mass Auscultation: normoactive bowel sounds Palpation: soft Extremity normal to inspection Extremity Narrative: No asymmetric edema no pitting edema negative Homans' sign bilaterally Neuro oriented x3, CN's II-XII intact bilaterally and no sensory deficits noted Sensorium / Orientation: alert Motor Exam: strength 5/5 throughout Psych Psych Narrative: No homicidal or suicidal ideation Mood & Affect: anxious and tearful Skin no rashes or lesions noted General Skin Exam: Negative for jaundice or pallor MDM MDM MDM Narrative Medical decision making narrative: Patient arrived to the ER and had improvement of her reported heart rate/palpitations and shaking. She stated symptoms were consistent with her previous bouts of breakthrough anxiety. We discussed obtaining an EKG as well as keeping her on a cardiac cath rn to assess for cardiac ischemia or cardiac dysrhythmia. We also discussed obtaining laboratory studies to look for acute blood loss anemia acute kidney injury or [place] abnormality or thyroid disorder. The patient states this feels very similar nature to her previous bouts of anxiety. She is not have homicidal or suicidal ideation and therefore do not feel she needs evaluated by crisis center/psychiatry. At this time the patient states she believes she would benefit from medication to help calm her but does not believe she requires a workup as she has had this happen in the past. Based on her history and physical exam I do feel this was breakthrough anxiety. I have low concern that this is secondary to an infection hyper/hypothyroidism or electrolyte abnormality. Therefore she was given IM Ativan to help with the anxiety exacerbation and is otherwise safe for discharge History & Record Review Discussion w/independent historian: Patient and Family Discharge Plan Triage Chief Complaint: Substance Abuse ED Provider: Clinton Tierney Dx/Rx/DC Orders Clinical Impression: Anxiety reaction, PTSD (post-traumatic stress disorder), Hypothyroidism (acquired) Instructions: Your Body's Response to Anxiety Prescriptions: New lorazepam [Ativan] 1 mg tablet 1 mg PO TID PRN (Reason: anxiety) 5 Days Qty: 15 0RF No Action Ubrelvy 100 mg tablet 100 mg PO ONCE Qty: 12 1RF Rx Instructions: as a single dose; may repeat once in >=2 hours after first dose if needed cholestyramine (with sugar) 4 gram powder 2 g PO DAILY Qty: 378 0RF ondansetron 4 mg tablet,disintegrating 4 mg PO Q8H PRN PRN (Reason: Nausea) Qty: 10 0RF Primary Care Provider: Marie Mclaughlin Referrals: Marie Mclaughlin MD [Primary Care Provider, Internal Medicine] Activity Restrictions/Additional Instructions: Please continue all of your other medications as directed by your doctor. However if you have breakthrough anxiety you may take the prescribed Ativan as directed. Return to the ER should you have any further concerns Print Language: Iraqi Disposition Disposition: Home, Self Care
[2025-01-02 01:54] VITALS: BP 115/73; PULSE 92; RESP 18; TEMP 36.7; O2SAT 99
[2025-01-02 02:19] VITALS: BP 110/74; PULSE 85; RESP 16; O2SAT 97
== END 2025-01-02 02:20 | disposition home or self-care (01) ==
PROVIDERS: Emergency Provider Emergency Medicine; PCP Internal Medicine; Visit Provider Emergency Medicine
DX: F41.1 Generalized anxiety disorder (principal); F43.10 Post-traumatic stress disorder, unspecified; E03.9 Hypothyroidism, unspecified; F17.210 Nicotine dependence, cigarettes, uncomplicated
CPT/HCPCS: 96372; 99284

== ENCOUNTER 2025-03-04 07:21 | Emergency (ER) | payer SELFPAY ==
[2025-03-04 07:22] VITALS: BP 102/78; PULSE 118; RESP 18; TEMP 36.8; O2SAT 99; BMI 25.7
--- NOTE | 2025-03-04 08:00 | ED.VIS.LOWEX ---
HPI History of Present Illness Chief Complaint: Lower Extremity Injury Informant: patient Narrative Narrative: Patient is a 34-year-old female with a history of accessory navicular syndrome presenting with severe foot pain. - Reports severe pain in the bottom of her foot, making ambulation difficult; pain has been present since October. - Diagnosed with accessory navicular syndrome by podiatry; has tried a walking boot and steroids with minimal relief. - Describes pain as sharp and shooting, causing her toes to curl; worsened by pressure and movement of toes. 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 - Denies pain in the other foot, despite having accessory navicular syndrome bilaterally. - Has been using a heating pad, ice, and ibuprofen for pain management; reports ibuprofen causes stomach discomfort. - Wears a knee brace at work and tapes her foot for support; uses custom inserts provided by her director of retention. - Denies current swelling in the lower leg or ankle; has a history of pulmonary embolisms during and a genetic predisposition to blood clots; not on anticoagulants. 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 - Does not have health insurance currently but will obtain it in March; plans to follow up with podiatry and consider an MRI at that time. [facility] Medical History Marijuana smoker Panic disorder Depression PTSD (post-traumatic stress disorder) delivery delivered Antiphospholipid antibody syndrome ADHD Thyroid disease BLOOD CLOTS Anemia contractions Heroin use disorder, severe, in sustained remission Pulmonary embolus Genital herpes Home Medications ?Medication ?Instructions ?Recorded ?Last Taken ?Type ondansetron 4 mg disintegrating 4 mg PO Q8H PRN PRN Nausea #10 tabs 12/28/24 Unknown Rx tablet ubrogepant 100 mg tablet (Ubrelvy) 100 mg PO ONCE #12 tabs 12/29/24 Unknown Rx lorazepam 1 mg tablet (Ativan) 1 mg PO TID PRN anxiety 5 days #15 01/02/25 Unknown Rx tabs cholestyramine (with sugar) 4 gram 2 g PO DAILY #378 grams 01/23/25 Unknown Rx oral powder Allergy/AdvReac Type Severity Reaction Status Date / Time No Known Allergies Allergy Verified 03/04/25 07:23 Family History Mother Anxiety Lupus Bleeding disorder Cancer cervical Mental disorder Grandmother Cancer cervical Aunt Cancer cervical Sister Cancer cervical Other Psychiatric care Surgical History Delivery by section Broken clavicle S/P laparoscopic cholecystectomy History of nasal surgery H/O dilation and curettage S/P laparoscopic appendectomy Social History adopted: No household members: children number of children: 2 current occupational status: employed current occupation: [employer] pets and animals: No Smoking Status: Current every day smoker tobacco type: cigarettes Tobacco: How many years used: 15 quit status: considering quitting alcohol intake: never substance use type: former substance user Date of last use: 2014 and caffeine: No frequency: 1-2 times per week do you feel safe at home: Yes ROS ROS ED Constitutional Constitutional ED: Denies chills or fever(s) Cardiovascular Cardiovascular: Denies leg edema Musculoskeletal Musculoskeletal: Reports extremity pain; Denies neck pain Integumentary Denies Abrasions, rash or wounds Neurologic Neurologic: Denies paresthesias or weakness EXAM Physical Exam Const Vital Signs: 03/04/25 07:22 Temperature 98.2 F Temperature Source Oral Pulse Rate 118 H Respiratory Rate 18 Blood Pressure 102/78 Blood Pressure Mean 86 Pulse Ox 99 Oxygen Delivery Method Room Air Positive well nourished and well developed General Appearance ED: well developed and NAD Neck full ROM and supple Back/Spine normal ROM and normal to inspection Extremity normal to inspection and full ROM Extremity Narrative: Tenderness over accessory navicular bone medial right midfoot, normal appearing without swelling or skin abn. tenderness over plantar surface of foot just proximal to 1st MTPJ, pain with dorsiflexion of toes, but no bony tenderness throughout this area. no swelling or erythema. no leg edema or calf tenderness. Neuro oriented x3, no focal motor deficits and no sensory deficits noted Sensorium / Orientation: alert Psych mental status grossly normal and thought process normal Skin no wounds Rashes: no rashes MDM MDM MDM Narrative Medical decision making narrative: On the patient?s right foot, she has a prominent bony bump that is normal in appearance with regard to the skin but is sore when pressure is applied. This is consistent with an accessory navicular. There is no indication of fluid, cellulitis, or any other skin abnormality or lesion. With regards to the rest of her lower leg, there is no clinical suspicion here for DVT and patient is in agreement. Another area of tenderness is in the tendons of the plantar aspect of the foot, just proximal to the first MTP joint. The bone is not tender, and neither are the metatarsals dorsally. The skin is normal here as well. The patient agrees she would benefit from a post-op shoe to prevent bending her toes, as dorsiflexing her toes worsens the tendon pain. I believe this is consistent with tendinitis, in addition to the accessory navicular pain. She does not want analgesics and will take anti-inflammatories as needed. The post-op shoe is preferable to a boot because it lowers her risk for DVT. She is comfortable with this plan. Discharge Plan Triage Chief Complaint: Lower Extremity Injury ED Provider: Denver Jimenez Dx/Rx/DC Orders Clinical Impression: Tendinitis of right foot, Pain associated with accessory navicular bone of right foot Instructions: Treating Tendonitis of the Foot Prescriptions: No Action Ubrelvy 100 mg tablet 100 mg PO ONCE Qty: 12 1RF Rx Instructions: as a single dose; may repeat once in >=2 hours after first dose if needed lorazepam [Ativan] 1 mg tablet 1 mg PO TID PRN (Reason: anxiety) 5 Days Qty: 15 0RF ondansetron 4 mg tablet,disintegrating 4 mg PO Q8H PRN PRN (Reason: Nausea) Qty: 10 0RF cholestyramine (with sugar) 4 gram powder 2 g PO DAILY Qty: 378 0RF Primary Care Provider: Marie Mclaughlin Referrals: João Means DPM [Med Staff - Active Staff, Podiatry] Activity Restrictions/Additional Instructions: - Wear the prescribed post-op shoe on your right foot to keep your toes from bending when you walk; you can drive and do desk work while wearing it. - Place a piece of moleskin inside the shoe: cut a hole over the bony bump (accessory navicular) to cushion that area and reduce pressure. - Continue using the custom foot inserts Dr. Means provided for accessory navicular support. - Apply ice to the bottom of your foot and calf as needed to help with pain. - Take ibuprofen as needed for inflammation and pain relief, following the dosing on the label and monitoring for stomach discomfort. - Avoid lower-body exercises that stress the bottom of your foot (for example, squats or running); you may continue upper-body workouts. 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 - A doctor?s note has been provided for your time off work today. - After your health insurance starts in March, schedule a follow-up appointment with podiatry (Dr. Means) to discuss obtaining an MRI and next steps in treatment. Print Language: Angolan Disposition Disposition: Home, Self Care
--- OUTSIDE RECORDS SUMMARY | 2025-03-04 08:19 | XMS RPT_ITS | CCD ---
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 adjustment of mA and/or kV according to patient size,and/or use of iterative reconstruction technique. COMPARISON: May 28, 2021 FINDINGS: Normal enhancement of the main pulmonary artery and right and left pulmonary arteries. Normal enhancement of the bilateral peripheral pulmonary arteries. There is no demonstrated pulmonary embolism. Normal thoracic aorta and visualized great vessels. There is no demonstrated aortic dissection. Normal heart and pericardium. There are no coronary artery calcifications. Normal mediastinum. Normal hilar regions. Normal visualized trachea and bronchi. Within the left upper lobe there are patchy opacities. There are less pronounced patchy and groundglass opacities within the right lower lobe. There is minimal bibasilar atelectasis and/or scarring. Normal chest wall structures. Normal osseous structures. The limited images of the upper abdomen demonstrate splenomegaly. CT/CTA Chest W/WO Contrast IMPRESSION: No demonstrated pulmonary embolism or arterial dissection. Left upper lobe patchy opacities associated with less pronounced right lower lobe patchy and groundglass opacities concerning for multifocal pneumonia, recommend follow-up chest radiograph 6-8 weeks to assess for resolution. Electronically Signed: Trudi Alfonso MD at 14:38 EST , CC: Dr. Roman Mclaughlin MD; Dr. Starr Casas DO Jewelry Cutter: Signed Normal [facility] Chest 1 View (Portable)on Chest 1 View (Portable) [facility] Imaging Services [address] [place] [address] Chest 1 View (Portable) MR#: [id number] Acct: [id number] Name: MEGHAN LICEA Rep #: [id number] : 1990 F 33 From: Trudi Alfonso MD PCP: Dr. Roman Mclaughlin MD Status: REG ER Study: Chest 1 View (Portable) Date of Exam: 03/22/24 Exam# [id number] Ordering Dr: Starr Casas DO [id number] INDICATION: cough, dyspnea EXAMINATION/TECHNIQUE: X-RAY - XR Chest 1 View COMPARISON: May 28, 2021 FINDINGS: LINES/DEVICES: None. LUNGS: There are patchy opacities throughout the left mid and lower lung. There is a nodular opacity within the right lower lung. No pneumothorax. MEDIASTINUM AND CARDIOVASCULAR STRUCTURES: Cardiac silhouette not enlarged. Central airways and mediastinal contour are unremarkable. BONES AND SOFT TISSUES: There is a plate and screw fixation device within the left clavicle. RAD/Chest 1 View (Portable) IMPRESSION: Bilateral nonspecific opacities, more pronounced on the left, suggestive of pneumonia. Recommend follow-up chest radiograph in 6-8 weeks. Electronically Signed: Trudi Alfonos MD at 13:59 EST , CC: Dr. Roman Mclaughlin MD; Dr. Starr Casas DO Jewelry Cutter: Signed Normal [facility] D-Dimer Quantitative (DVT/PE )on 03-22-2024 D-DIMER QUANT 1.31 FEU/ug/m Invalid Interpretation Code 0.27-0.49 [facility] Comment on above: Result Comment: D-Di diana ELEVATED (>0.49): Additional studies and clinical assessments are indicated to conclude diagnosis of: Deep Vein Thrombosis (DVT) or Pulmonary Embolism (PE) CRITICAL VALUE CALLED TO DTENNANT 03/22/24 1351 Beatriz Doshi. RESULTS READ BACK BY SAME. Performed By: #### L [id number] #### [facility] [address] [place], [address] Emergency Department Summary on 03-22-2024 Emergency Department Summary [facility] Medical Records Department [address] [place] [address] Emergency Department Summary 03/22/24 MR#: [id number] Acct: [id number] Name: MEGHAN LICEA Rep #: [id number] : 1990 33 From: Starr Casas DO PCP: Dr. Roman Mclaughlin MD Status:REG ER Location: ED ADDENDUM by Dr. Starr Casas DO on 03/22/24 at 1411 EKG obtained showed a sinus rhythm with ventricular rate of 34 bpm with no acute ST segment changes 03/22/24 1411 Cosigner Signature (if applicable): cc: Dr. Roman Mclaughlin MD * Signed HPI History of Present Illness Chief Complaint: Chest Pain Detail of Chief Complaint: Cough, chest pain, shortness of breath Informant: patient Narrative Narrative: Patient presents the emergency department complaint of cough and chest pain and shortness of breath. She initially started with the cough 3 days ago and at that time had a fever up to 103. Since that time she had an antibiotic called in and she is currently on Augmentin 875 mg twice a day. She has been on the antibiotic for 2 days. Patient complains of pain with breathing and cough mostly in her chest. She describes a burning sensation. She has history of PEs but states that this feels different. She tells me her son was ill recently with cough. [facility] Medical History Panic disorder Depression PTSD (post-traumatic stress disorder) delivery delivered Antiphospholipid antibody syndrome ADHD Thyroid disease BLOOD CLOTS Anemia contractions Heroin use disorder, severe, in sustained remission Pulmonary embolus Genital herpes Home Medications ???Medication ???Instructions ???Recorded ???Last Taken ???Type omeprazole 40 mg capsule,delayed 40 mg PO QDAY #30 caps 06/28/23 Unknown Rx release levonorgestrel (Mirena) 1 device intrauterine ONCE 08/19/23 Unknown History aripiprazole 5 mg tablet 5 mg PO QHS #30 tabs 03/06/24 Unknown Rx cholestyramine (with sugar) 4 gram 2 ea PO DAILY #378 grams 03/06/24 Unknown Rx oral powder escitalopram oxalate 10 mg tablet 10 mg PO DAILY #30 tabs 03/06/24 Unknown Rx ondansetron 4 mg disintegrating 4 mg PO Q6H PRN nausea and 03/06/24 Unknown Rx tablet vomiting #30 tabs sumatriptan succinate 50 mg tablet 50 mg PO .COMPLEX #30 tabs 03/06/24 Unknown Rx hydrocodone-acetaminophen 5-325mg 1 tab PO Q4H PRN PRN Pain 2 days 03/22/24 Unknown Rx 5mg-325mg #10 TABLETS levofloxacin 750 mg tablet 750 mg PO DAILY #6 tabs 03/22/24 Unknown Rx Allergy/AdvReac Type Severity Reaction Status Date / Time No Known Allergies Allergy Verified 03/22/24 13:05 Family History Mother Anxiety Lupus Bleeding disorder Cancer Mental disorder Grandmother Cancer Aunt Cancer Other Psychiatric care Surgical History Broken clavicle History of appendectomy S/P laparoscopic cholecystectomy History of nasal surgery H/O dilation and curettage S/P laparoscopic appendectomy Social History adopted: No household members: children number of children: 2 current occupational status: employed current occupation: [employer] pets and animals: No Smoking Status: Current every day smoker tobacco type: cigarettes Tobacco: How many years used: 15 alcohol intake: never substance use type: former substance user and heroin caffeine: No frequency: 1-2 times per week do you feel safe at home: Yes ROS ROS ED Review of Systems ROS Unobtainable: other Constitutional Constitutional ED: Reports lethargy; Denies chills, fever(s), sweats or weight loss Eyes Eyes: Denies blurry vision, change in vision or diplopia ENT ENT ED: Denies rhinorrhea or sore throat Cardiovascular Cardiovascular: Reports chest pain; Denies orthopnea or racing heartbeat Respiratory/Chest Respiratory/Chest: Reports cough, dyspnea and dyspnea on exertion; Denies orthopnea or sputum Gastrointestinal Gastrointestinal: Denies abdominal pain, diarrhea, nausea or vomiting Genitourinary Genitourinary ED: Denies dysuria, hematuria or urinary frequency Musculoskeletal Musculoskeletal: Denies arthralgias, back pain, myalgias or neck pain Integumentary Denies abscess, Abrasions or rash Neurologic Neurologic: Denies headache(s) or weakness Psychiatric Psychiatric: Denies anxiety, depression or suicidal thoughts Endocrine Endocrinology: Denies polydipsia, polyphagia or polyuria Hematologic/Lymphatic Hematologic/Lymphatic: Denies easy bleeding, easy bruising or lymphadenopathy Allergic/Immunologic Allergic/Immunologic ED: Denies mouth swelling, tongue swelling or (more content not included)... Normal [facility] Lactic Acidon 03-22-2024 Lactate [Moles/Vol] 1.1 mmol/L Normal 0.4-1.9 [facility] Comment on above: Order Comment: Y Performed By: #### L 503.6005 ####[facility] [address] [facility] [place], [place], [address] M100.678on 03-22-2024 M100.678 Pending SARS-CoV-2 (COVID 19) Negative INFLUENZA A Negative INFLUENZA B Negative RSV PCR Negative Normal [facility] Comment on above: Performed By: #### M 100.678 ####[facility] [address] [facility] [place], [place], [address] HANNA Comprehensive Panelon HANNA TABLE Comment Normal . [facility] Comment on above: Result Comment: Auto antibody Disease Association Condition Frequency --------- Antinuclear Antibody, SLE, mixed connective Direct (HANNA-D) tissue diseases --------- dsDNA SLE 40 - 60% --------- Chromatin Drug induced SLE 90% SLE 48 - 97% --------- SSA (Ro) SLE 25 - 35% Sjogren's Syndrome 40 - 70% Lupus 100% --------- SSB (La) SLE 10% Sjogren's Syndrome 30% --------- Sm (anti-Viera) SLE 15 - 30% --------- CONFERENCE CONCIERGE Mixed Connective Tissue Disease 95% (U1 nRNP, SLE 30 - 50% anti-ribonucleoprotein) Polymyositis and/or Dermatomyositis 20% --------- Scl-70 (antiDNA Scleroderma (diffuse) 20 - 35% topoisomerase) Crest 13% --------- Wendi-1 Polymyositis and/or Dermatomyositis 20 - 40% --------- Centromere B Scleroderma - Crest variant 80% Performed at: [address] [id number] Crop Puller: Kevin Boo PhD, Phone: [phone] Performed By: #### L 300.8000, L505.7010, L4600.0100, L3410.2400, L501.3620, L3100.5440, L501.4020 ####[facility] [address] [facility] [place], [place], [address] ANTI-CENT B AB <0.2 Normal 0.0-0.9 [facility] Comment on above: Performed By: #### L 300.8000, L505.7010, L4600.0100, L3410.2400, L501.3620, L3100.5440, L501.4020 ####[facility] [address] [place], [place], [address] ANTI-DNA (DS)AB 1 IU/mL Normal 0-9 [facility] Comment on above: Result Comment: Nega tive <5 Equivocal 5 - 9 Positive >9 Performed By: #### L 300.8000, L505.7010, L4600.0100, L3410.2400, L501.3620, L3100.5440, L501.4020 ####[facility] [address] [place], [address] ANTI-WENDI-1 <0.2 Normal 0.0-0.9 [facility] Comment on above: Performed By: #### L 300.8000, L505.7010, L4600.0100, L3410.2400, L501.3620, L3100.5440, L501.4020 ####[facility] [address] [place], [address] ANTI-SS-A < 0.2 Normal 0.0-0.9 [facility] Comment on above: Performed By: #### L 300.8000, L505.7010, L4600.0100, L3410.2400, L501.3620, L3100.5440, L501.4020 ####[facility] [address] [place], [address] ANTI-SS-B < 0.2 Normal 0.0-0.9 [facility] Comment on above: Performed By: #### L 300.8000, L505.7010, L4600.0100, L3410.2400, L501.3620, L3100.5440, L501.4020 ####[facility] [address] [place], [address] ANTICHROMATIN <0.2 Normal 0.0-0.9 [facility] Comment on above: Performed By: #### L 300.8000, L505.7010, L4600.0100, L3410.2400, L501.3620, L3100.5440, L501.4020 ####[facility] [address] [place], [address] ANTISCLERODERM <0.2 Normal 0.0-0.9 [facility] Comment on above: Performed By: #### L 300.8000, L505.7010, L4600.0100, L3410.2400, L501.3620, L3100.5440, L501.4020 ####[facility] [address] [place], [address] CONFERENCE CONCIERGE Ab <0.2 Normal 0.0-0.9 [facility] Comment on above: Performed By: #### L 300.8000, L505.7010, L4600.0100, L3410.2400, L501.3620, L3100.5440, L501.4020 ####[facility] [address] [place], [address] VIERA Ab <0.2 Normal 0.0-0.9 [facility] Comment on above: Performed By: #### L 300.8000, L505.7010, L4600.0100, L3410.2400, L501.3620, L3100.5440, L501.4020 ####[facility] [address] [place], [address] CCP IgG Antibodieson 024 CCP IgG Ab. 6 units Normal 0-19 [facility] Comment on above: Result Comment: Nega tive <20 Weak positive 20 - 39 Moderate positive 40 - 59 Strong positive >59 Performed at: [address] [id number] Crop Puller: Kevin Boo PhD, Phone: [phone] Performed By: #### L 300.8000, L505.7010, L4600.0100, L3410.2400, L501.3620, L3100.5440, L501.4020 ####[facility] [address] [place], [address] Celiac Disease Profileon ENDOMYSIAL IGA Negative Normal Negative [facility] Comment on above: Performed By: #### L 300.8000, L505.7010, L4600.0100, L3410.2400, L501.3620, L3100.5440, L501.4020 ####[facility] [address] [place] [id number] IMMUNOGLOB A QN 237 mg/dL Normal 87-352 [facility] Comment on above: Performed By: #### L 300.8000, L505.7010, L4600.0100, L3410.2400, L501.3620, L3100.5440, L501.4020 ####[facility] [address] [place], [place], [address] tTG IGA <2 Normal 0-3 [facility] Comment on above: Result Comment: Nega tive 0 - 3 Weak Positive 4 - 10 Positive >10 Tissue Transglutaminase (tTG) has been identified as the endomysial antigen. Studies have demonstr- ated that endomysial IgA antibodies have over 99% specificity for gluten sensitive enteropathy. Performed By: #### L 300.8000, L505.7010, L4600.0100, L3410.2400, L501.3620, L3100.5440, L501.4020 ####[facility] [address] [place], [place], [address] CPK Total, Creatine Kinaseon 03-06-2024 CPK TOTAL 53 U/L Normal 26-192 [facility] Comment on above: Order Comment: 1 Performed By: #### L 300.8000, L505.7010, L4600.0100, L3410.2400, L501.3620, L3100.5440, L501.4020 #### [facility] [address] [place], [place], [address] D-Dimer Quantitative (DVT/PE )on 03-06-2024 D-DIMER QUANT 0.31 FEU/ug/m Normal 0.27-0.49 [facility] Comment on above: Result Comment: NORM AL D-Dimer level (<0.50) indicates no DVT or PE. Performed By: #### L 300.8000, L505.7010, L4600.0100, L3410.2400, L501.3620, L3100.5440, L501.4020 #### [facility] [address] [place], [address] L501.4020on 03-06-2024 TROPONIN-I HS < 3 Low 3.0-54.0 [facility] Comment on above: Order Comment: 1 Result Comment: Radha mcallister Note: New Test Units and Gender Specific Reference Ranges. For more information see Policy Stat Procedure [place] High Sensitivity Troponin (TNIH) and attachments. Performed By: #### L 300.8000, L505.7010, L4600.0100, L3410.2400, L501.3620, L3100.5440, L501.4020 #### [facility] [address] [place], [address] Rheumatoid Factoron 03-06-20 RHEUMATOID FAC < 10.0 Normal <15 [facility] Comment on above: Order Comment: 1 Performed By: #### L 300.8000, L505.7010, L4600.0100, L3410.2400, L501.3620, L3100.5440, L501.4020 ####[facility] [address] [place], [address] Internal Medicine Office Vis iton 03-01-2024 Internal Medicine Office Visit [facility] [address] [place], [place] [address] OFFICE VISIT Date of Service: 03/06/24 MR#: [id number] Acct: [id number] Name: MEGHAN LICEA Rep #: [id number] : 1990 Provider: Dr. Roman garcia MD Age/Sex: 33/F Location[place] [facility] Status: Signed Intake Vital Signs 02/20/24 17:04 03/06/24 07:38 Height 5 ft 7 in 5 ft 7 in Weight: 181 lb BMI 28.3 BP 110/72 Blood Pressure Location Lt brachial Position Sitting Respiration 14 Pulse 80 Pulse Source Monitor Temp 97.7 F L Temp Source Temporal Pulse Oximetry (%) 98 Oxygen Delivery Method room air Intake Visit Reasons: ACUTE CHEST PAINS- NEEDS EST APPT Shoe Reconditioner Required: No Is patient in pain?: No Allergies No Known Allergies Allergy (Verified 03/06/24 07:28) Medications ???Medication ???Instructions ???Recorded ???Confirmed ???Type omeprazole 40 mg capsule,delayed 40 mg PO QDAY #30 caps 06/28/23 03/06/24 Rx release levonorgestrel (Mirena) 1 device intrauterine ONCE 08/19/23 03/06/24 History aripiprazole 5 mg tablet 5 mg PO QHS #30 tabs 03/06/24 03/06/24 Rx cholestyramine (with sugar) 4 gram 2 ea PO DAILY #378 grams 03/06/24 03/06/24 Rx oral powder escitalopram oxalate 10 mg tablet 10 mg PO DAILY #30 tabs 03/06/24 03/06/24 Rx ondansetron 4 mg disintegrating 4 mg PO Q6H PRN nausea and 03/06/24 03/06/24 Rx tablet vomiting #30 tabs sumatriptan succinate 50 mg tablet 50 mg PO .COMPLEX #30 tabs 03/06/24 03/06/24 Rx Nurse's Note: States she has h/o PE. States Dr. John did not explain anything for her to understand so she has no info regarding this. Also see's Rheumatology as Lupus runs in family and she could not get a definitive dx. Thinks she does have flares and wonders if the chest pains are asscociated w/ it. States that the chest pains are random. States that it is the top chest which goes all across, states it is sharp and squeezing. Nothing seems to bring it on or make it go away she will have to hold her chest when this happens. Denies any radiation into arms or back. States she is not able to identify if there is any SOB associated as it is so painful. States L collar bone is fake and gives her issues. Was wondering about labs that could be rheumatoid, or cardiac related to rule everything out. States when this happens she does not treat w/ anything otc. States that it doesn't last long when it comes on. unable to identify how many a week she gets. She gets during physical acitivty and w/o doing. is not currently having chest pains. needs refill on cholestramine PFSH Medical History Panic disorder Depression PTSD (post-traumatic stress disorder) delivery delivered Antiphospholipid antibody syndrome ADHD Thyroid disease BLOOD CLOTS Anemia contractions Heroin use disorder, severe, in sustained remission Pulmonary embolus Genital herpes Surgical History Broken clavicle History of appendectomy S/P laparoscopic cholecystectomy History of nasal surgery H/O dilation and curettage S/P laparoscopic appendectomy Family History Mother Anxiety Lupus Bleeding disorder Cancer Mental disorder Grandmother Cancer Aunt Cancer Other Psychiatric care Social History adopted: No household members: children number of children: 2 current occupational status: employed current occupation: [employer] pets and animals: No Smoking Status: Current every day smoker tobacco type: cigarettes Tobacco: How many years used: 15 alcohol intake: never substance use type: former substance user and heroin caffeine: No frequency: 1-2 times per week do you feel safe at home: Yes HPI HPI Details: MEGHAN LICEA, is a 33 F who presents to the office today for an acute visit. She was seeing Vince Reyes, and plans on re-establishing at a future visit. She has concerns about chest pain. She reports that it has been going on intermittently for about a year to year and a half. She reports she has been seen in the ED twice with a negative work up. She reports they are getting more frequent and painful. She reports they are a sharp, squeezing, tight pain, which can involve either side, although seems to be more on the left side recently. She reports there is no predictability to how often it occurs stating she can have multiple episodes in one day, and other times can go multiple days between an episode. She reports the episodes last only seconds when they come on and then resolve on their own. She reports it doesn't last long enough to take anyt (more content not included)... Normal [facility] Emergency Department Summary on 02-20-2024 Emergency Department Summary [facility] Medical Records Department [address] [place] [address] Emergency Department Summary 02/20/24 MR#: [id number] Acct: [id number] Name: MEGHAN LICEA Rep #: [id number] : 1990 33 From: Denver Jimenez MD PCP: GUEVARA Trujillo Status:REG ER Location: ED HPI History of Present Illness Chief Complaint: Upper Extremity Injury Informant: patient Narrative Narrative: Patient states she injured her right hand an hour or 2 ago while she was putting a bed frame together. She states she was trying to click the 2 parts together and it slipped and the end of one of the metal pieces hit her hard in the hand and she sustained a couple of abrasions is resolved, which is where the pain is now. Usmqm-wxxj-mkecbnul. No other injuries. [facility] Medical History Panic disorder Depression PTSD (post-traumatic stress disorder) delivery delivered Antiphospholipid antibody syndrome ADHD Thyroid disease BLOOD CLOTS Anemia contractions Heroin use disorder, severe, in sustained remission Pulmonary embolus Genital herpes Home Medications ???Medication ???Instructions ???Recorded ???Last Taken ???Type omeprazole 40 mg capsule,delayed 40 mg PO QDAY #30 caps 06/28/23 Unknown Rx release levonorgestrel (Mirena) 1 device intrauterine ONCE 08/19/23 Unknown History aripiprazole 5 mg tablet 5 mg PO QHS #30 tabs 09/14/23 Unknown Rx escitalopram oxalate 10 mg tablet 10 mg PO DAILY #30 tabs 09/14/23 Unknown Rx ondansetron 4 mg disintegrating 4 mg PO Q6H PRN nausea and 09/28/23 Unknown Rx tablet vomiting #30 tabs sumatriptan succinate 50 mg tablet 50 mg PO .COMPLEX #30 tabs 09/28/23 Unknown Rx cholestyramine (with sugar) 4 gram 2 ea PO DAILY #378 grams 01/19/24 Unknown Rx oral powder Allergy/AdvReac Type Severity Reaction Status Date / Time No Known Allergies Allergy Verified 02/20/24 17:07 Family History Mother Anxiety Lupus Bleeding disorder Cancer Mental disorder Grandmother Cancer Aunt Cancer Other Psychiatric care Surgical History Broken clavicle History of appendectomy S/P laparoscopic cholecystectomy History of nasal surgery H/O dilation and curettage S/P laparoscopic appendectomy Social History adopted: No household members: children number of children: 2 current occupational status: employed current occupation: [employer] pets and animals: No Smoking Status: Current every day smoker tobacco type: cigarettes Tobacco: How many years used: 15 alcohol intake: never substance use type: former substance user and heroin caffeine: No frequency: 1-2 times per week do you feel safe at home: Yes ROS ROS ED Constitutional Constitutional ED: Denies chills or fever(s) Musculoskeletal Musculoskeletal: Reports extremity pain; Denies neck pain Integumentary Denies Abrasions, rash or wounds Neurologic Neurologic: Denies paresthesias or weakness EXAM Physical Exam Const Vital Signs: 02/20/24 17:04 Temperature 97.1 F L Temperature Source Temporal Pulse Rate 108 H Respiratory Rate 19 H Blood Pressure 124/79 H Blood Pressure Mean 94 Pulse Ox 100 Oxygen Delivery Method Room Air Positive well nourished and well developed Constitutional Narrative: Smells of marijuana. Alert and cooperative. General Appearance ED: well developed and NAD Neck full ROM and supple Back/Spine normal ROM and normal to inspection Extremity full ROM Extremity Narrative: Superficial linear abrasions and contusions to the radial aspect of the dorsum of the right hand, mostly pain and tenderness in the area of the second metacarpal. No deformities. All FDS FDP and extensor tendon function intact throughout. No other injuries. Neuro oriented x3, no focal motor deficits and no sensory deficits noted Sensorium / Orientation: alert Psych mental status grossly normal and thought process normal Skin no wounds Rashes: no rashes MDM MDM MDM Narrative Medical decision making narrative: Three-view x-ray series of the right hand were obtained and are negative on my interpretation radiology in agreement. Patient's abrasions were cleansed and dressed, she was given some ibuprofen and instructions for supportive care. Discharge Plan Triage Chief Complaint: Upper Extremity Injury ED Provider: Denver Jimenez Dx/Rx/DC Orders Clinical Impression: Contusion of hand, right, Abrasion of hand, right Instructions: ED Hand Contusion Prescriptions: No Action omeprazole 40 mg capsule,delayed release(DR/EC) (more content not included)... Normal [facility] Hand Min 3 Viewson 4 Hand Min 3 Views [facility] Imaging Services [address] [place] [address] Hand Min 3 Views MR#: [id number] Acct: [id number] Name: MEGHAN LICEA Rep #: [id number] : 1990 F 33 From: Kavon Olvera PCP: AIDEN TrujilloC Status: REG ER Study: Hand Min 3 Views Date of Exam: 02/20/24 Exam# [id number] Ordering Dr: Denver Jimenez MD 1:[id number] EXAM: XR RIGHT HAND COMPLETE, 3 OR MORE VIEWS CLINICAL INDICATION: injury TECHNIQUE: Frontal, lateral and oblique views of the right hand. COMPARISON: No relevant prior studies available. FINDINGS: BONES/JOINTS: Unremarkable. No acute fracture. No subluxation. Normal alignment. Preservation of the joint space. No sclerotic or destructive changes observed. SOFT TISSUES: Unremarkable. No soft tissue swelling or gas. No radiopaque foreign body. RAD/Hand Min 3 Views IMPRESSION: Negative right hand x-rays. Electronically Signed: Kavon Cespedes MD at 17:57 EST Reading Location ID and State: [facility] / [place] , Service support , CC: GUEVARA Reyes; Dr. Denver Jimenez MD Jewelry Cutter: Signed Normal [facility] CT Abdomen and Pelvis W cont rast Best 07-02-2023 [facility] Clostridioides difficile nuc leic acid assay by PCROrdered By: Vince Reyes on 06-29-2023 C. difficile DNA GOSIA+probe Ql (Unsp spec) [facility] No Panel InformationOrdered By: Vince Reyes on 06-29-2023 Giardia Antigen (KATERYNA) [facility] Stool Calprotectin 7 ug/g 0-120 [facility] Comment on above: Concentration Interp retation Follow-Up< 5 - 50 ug/g Normal None>50 -120 ug/g Borderline Re-evaluate in 4-6 weeks >120 ug/g Abnormal Repeat as clinically indicatedPerformed at: - [facility] [id number] Director: Rufina Ochoa MD, Phone: [phone] Ova and parasitesOrdered By: Vince Reyes on 06-29-2023 Ova and parasites identified LM Nom (Unsp spec) [facility] Stool enteric pathogen panel by probe and target amplification methodOrdered By: Vince Reyes on 06-29-2023 Gastrointestinal pathogens panel GOSIA+probe (Stl) [facility] Stool gastrointestinal hemog lobin detection by immunologic methodOrdered By: Vince Reyes on 06-29-2023 Lower GI hemoglobin IA Ql (Stl) [facility] Stool lactoferrin detection by immunoassayOrdered By: Vince Reyes on 06-29-2023 Lactoferrin IA Ql (l) [facility] Basophil percentageOrdered B y: Vince Reyes on 06-28-2023 Cholesterol [Mass/Vol] 200 mg/dL <200 [facility] Comment on above: <200 mg/dL Desirable 200-240 mg/dL Borderline >240 mg/dL High Risk Triglyceride [Mass/Vol] 169 mg/dL <199 [facility] Comment on above: The drugs N-Acetylcy steine and Metamizole may falsely depress this assay.Serum Triglycerides Reference Interval Normal <150 mg/dL Borderline high 150 - 199 mg/dL High 200 - 499 mg/dL Very High > or = 500 mg/dL Laboratory - Chemistry and C hemistry - challengeOrdered By: Vince Reyes on 06-28-2023 Cholesterol in HDL [Mass/Vol] 37 mg/dL >40 [facility] Comment on above: The drugs N-Acetylcy steine and Metamizole may falsely depress this assay. Reference Range HDL <40 mg/dL Low HDL Cholesterol HDL >or= 60 mg/dL High HDL Cholesterol Cholesterol in LDL [Mass/Vol] 129 mg/dL 0-130 [facility] Cobalamin (Vitamin B12) [Mass/Vol] 276 pg/mL 211-911 [facility] No Panel InformationOrdered By: Vince Reyes on 06-28-2023 Vitamin D 25-Hydroxy 33.6 ng/mL [facility] Comment on above: Vitamin D 25(OH) Sta tus Range Deficiency <20 ng/mL (50nmol/L) Insufficiency 20 - 30 ng/mL (50 - 75 nmol/L) Sufficiency 30 - 100 ng/mL (75 - 250 nmol/L) Toxicity >100 ng/mL (>250 nmol/L) VLDL Cholesterol 34 mg/dL 5-40 [facility] Serum or plasma thyroid stim ulating hormone (TSH) measurement (units/volume)Ordered By: Vince Reyes on 06-28-2023 TSH Qn 2.71 uIU/mL 0.358-3.74 [facility] Thin prep Papanicolaou smear with manual screeningOrdered By: Vince Reyes on 06-28-2023 Thin prep Papanicolaou smear with manual screening 0.90 ng/dL 0.76-1.46 [facility] INDUSTRY CONSULTANT Visit - [employer] 3 INDUSTRY CONSULTANT Visit - Text INDUSTRY CONSULTANT Visit Entered On : 01/05/2023 18:12 EDT Performed On: 01/05/2023 18:11 EDT by Anneliese Jauregui INDUSTRY CONSULTANT Menstrual History Menstrual Status : Prophylaxis Anneliese Jauregui - 01/05/2023 18:11 EDT INDUSTRY CONSULTANT Screenings Date of Last Pap Smear : 10/20/21 Last Pap Result : Positive for abnormal cells Last Pap Result Comment : 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 Anneliese Jauregui - 01/05/2023 18:11 EDT Contraception Contraception Method : IUD IUD Type : Mirena IUD Insertion Date : 06/05/2019 IUD Replacement Date : 06/05/2027 Anneliese Jauregui - 01/05/2023 18:11 EDT Normal [facility] Phone Ms[facility]ona 08-05-2022 Phone Msg - From: Heavenly Chavez To: JAMES MUNROE; Sent: 08/05/2022 09:13:52 EDT Subject: NO SHOW APPT Actions: Message Caller Name: MEGHAN LICEA; Caller Number: Janie CALLED AND SPOKE WITH PATIENT REGARDING HER APPT FOR 08/05/2022 SHE DID NOT SHOW AND SHE STATED SHE FORGOT TO CALL SHE IS WAITING ON MEDICAL CLEARANCE FROM A VASCLUAR DOCTOR. SHE THEN WILL CALL BACK TO R/S APPT TO MICHAEL DAWSON. 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 Alberto on 05-21-2022 Lymphocytes Auto (Unsp spec) [#/Vol] 1.94 10*3/uL 0.83-4.51 [facility] Basophil percentageOrdered B y: Dr. Alberto on 05-21-2022 Basophils/100 WBC (Bld) 0.9 % 0-1 [facility] Bilirubin [Mass/Vol] 0.30 mg/dL 0.20-1.00 [facility] Comment on above: For patients on eltr ombopag therapy, use of [place] TBIL is not recommended. Chloride [Moles/Vol] 107 mmol/L 98-107 [facility] Eosinophils/100 WBC (Bld) 1.1 % 0-5 [facility] Glucose [Mass/Vol] 92 mg/dL 74-106 [facility] Neutrophils (Bld) [#/Vol] 3.1 10*3/uL 2.0-7.7 [facility] Neutrophils/100 WBC (Bld) 56.3 % 47-70 [facility] Potassium [Moles/Vol] 3.7 mmol/L 3.5-5.1 [facility] Protein [Mass/Vol] 7.3 g/dL 6.4-8.2 [facility] Sodium [Moles/Vol] 141 mmol/L 136-145 [facility] WBC (Bld) [#/Vol] 5.4 10*3/uL 4.4-11.0 [facility] Blood erythrocytes count (nu mber/volume)Ordered By: Dr. Alberto on 05-21-2022 RBC (Bld) [#/Vol] 4.38 10*6/uL 4.2-5.4 [facility] Blood hemoglobin measurement (mass/volume)Ordered By: Dr. Alberto on 05-21-2022 Hemoglobin (Bld) [Mass/Vol] 13.4 g/dL 12.0-15.0 [facility] Blood lymphocytes/100 leukoc ytesOrdered By: Dr. Alberto on 05-21-2022 Lymphocytes/100 WBC (Bld) 35.9 % 19-41 [facility] Blood monocytes/100 leukocyt esOrdered By: Dr. Alberto on 05-21-2022 Monocytes/100 WBC (Bld) 5.4 % 0-10 [facility] Blood platelet mean volumeOr dered By: Dr. Alberto on 05-21-2022 Platelet mean volume (Bld) [Entitic vol] 10.5 fL 6.2-12.0 [facility] Determination of erythrocyte mean corpuscular volume (MCV)Ordered By: Dr. Alberto on 05-21-2022 MCV (RBC) [Entitic vol] 92.0 fL 81-99 [facility] Hematocrit Auto (Bld) [Volum e fraction]Ordered By: Dr. Alberto on 05-21-2022 Hematocrit (Bld) [Volume fraction] 40.3 % 37-47 [facility] INR in Blood by Coagulation assayOrdered By: Dr. Alberto on 05-21-2022 INR Coag (Bld) [Relative time] 3.5 {INR} [facility] Laboratory - Chemistry and C hemistry - challengeOrdered By: Dr. Alberto on 05-21-2022 ALP [Catalytic activity/Vol] 101 U/L 45-117 [facility] ALT [Catalytic activity/Vol] 371 U/L 13-56 [facility] CO2 [Moles/Vol] 26.0 mmol/L 21.0-32.0 [facility] Globulin (S) [Mass/Vol] 3.6 g/dL 2.2-4.2 [facility] Urea nitrogen/Creatinine [Mass ratio] 18.5 mg/mg 10-20 [facility] Laboratory - CoagulationOrde red By: Dr. Alberto on 05-21-2022 PT Coag (PPP) [Time] 34.9 s 11.7-14.9 [facility] Laboratory - Hematology and Cell countsOrdered By: Dr. Alberto on 05-21-2022 Erythrocyte distribution width (RBC) [Entitic vol] 43.0 fL 35.1-43.9 [facility] Erythrocyte distribution width (RBC) [Ratio] 12.9 % 11.6-14.6 [facility] Immature granulocytes/100 WBC (Bld) 0.400 % 0.0-0.9 [facility] Comment on above: IG% - Immature Granu locytes (promyelocytes, myelocytes and metamyelocytes) > 1% indicates that a LEFT SHIFT is Present. MCH (RBC) [Entitic mass] 30.6 pg 27.0-32.0 [facility] Nucleated RBC/100 WBC (Bld) [Ratio] 0 % 0-5 [facility] MCHC Auto (RBC) [Mass/Vol]Or dered By: Dr. Alberto on 05-21-2022 MCHC (RBC) [Mass/Vol] 33.3 g/dL 32-36 [facility] No Panel InformationOrdered By: Dr. Alberto on 05-21-2022 Estimated Creatinine Clearance Calc 129.69 ml/min [facility] Estimated GFR (MDRD) Amer 149 mL/min >60 [facility] Comment on above: GFR Calc Estimated GFR (MDRD) Non-Af Amer 124 mL/min >60 [facility] Comment on above: Non- GFR Calc Platelets bldOrdered By: Dr. Alberto on 05-21-2022 Platelets (Bld) [#/Vol] 299 10*3/uL 150-450 [facility] Serum or plasma albumin ted urement (mass/volume)Ordered By: Dr. Alberto on 05-21-2022 Albumin [Mass/Vol] 3.7 g/dL 3.2-5.0 [facility] Serum or plasma albumin/glob ulin mass ratioOrdered By: Dr. Alberto on 05-21-2022 Albumin/Globulin [Mass ratio] 1.0 {ratio} 0.9-2.4 [facility] Serum or plasma calcium ted urement (mass/volume)Ordered By: Dr. Alberto on 05-21-2022 Calcium [Mass/Vol] 9.3 mg/dL 8.5-10.1 [facility] Serum or plasma creatinine m easurement (mass/volume)Ordered By: Dr. Alberto on 05-21-2022 Creatinine [Mass/Vol] 0.60 mg/dL 0.55-1.02 [facility] Comment on above: The validity of the calculated GFR & GFRAA in patients over 70 years has not been determined. Clinical correlation is essential. Serum or plasma urea nitroge n measurement (mass/volume)Ordered By: Dr. Alberto on 05-21-2022 Urea nitrogen [Mass/Vol] 11 mg/dL 7-18 [facility] Thin prep Papanicolaou smear with manual screeningOrdered By: Dr. Alberto on 05-21-2022 Thin prep Papanicolaou smear with manual screening 218 U/L 15-37 [facility] Thin prep Papanicolaou smear with manual screening 8 5-15 [facility] Absolute lymphocyte countOrd ered By: Dr. Hua on 05-17-2022 Lymphocytes Auto (Unsp spec) [#/Vol] 1.15 10*3/uL 0.83-4.51 [facility] Basophil percentageOrdered B y: Dr. Hua on 05-17-2022 Basophils/100 WBC (Bld) 0.2 % 0-1 [facility] Eosinophils/100 WBC (Bld) 0.8 % 0-5 [facility] Neutrophils (Bld) [#/Vol] 3.5 10*3/uL 2.0-7.7 [facility] Neutrophils/100 WBC (Bld) 68.1 % 47-70 [facility] WBC (Bld) [#/Vol] 5.1 10*3/uL 4.4-11.0 [facility] Blood erythrocytes count (nu mber/volume)Ordered By: Dr. Hua on 05-17-2022 RBC (Bld) [#/Vol] 3.84 10*6/uL 4.2-5.4 [facility] Blood hemoglobin measurement (mass/volume)Ordered By: Dr. Hua on 05-17-2022 Hemoglobin (Bld) [Mass/Vol] 11.7 g/dL 12.0-15.0 [facility] Blood lymphocytes/100 leukoc ytesOrdered By: Dr. Hua on 05-17-2022 Lymphocytes/100 WBC (Bld) 22.6 % 19-41 [facility] Blood monocytes/100 leukocyt esOrdered By: Dr. Hua on 05-17-2022 Monocytes/100 WBC (Bld) 7.7 % 0-10 [facility] Blood platelet mean volumeOr dered By: Dr. Hua on 05-17-2022 Platelet mean volume (Bld) [Entitic vol] 10.8 fL 6.2-12.0 [facility] Determination of erythrocyte mean corpuscular volume (MCV)Ordered By: Dr. Hua on 05-17-2022 MCV (RBC) [Entitic vol] 93.2 fL 81-99 [facility] Hematocrit Auto (Bld) [Volum e fraction]Ordered By: Dr. Hua on 05-17-2022 Hematocrit (Bld) [Volume fraction] 35.8 % 37-47 [facility] INR in Blood by Coagulation assayOrdered By: Dr. Hua on 05-17-2022 INR Coag (Bld) [Relative time] 1.5 {INR} [facility] Laboratory - CoagulationOrde red By: Dr. Hua on 05-17-2022 PT Coag (PPP) [Time] 18.2 s 11.7-14.9 [facility] Laboratory - Hematology and Cell countsOrdered By: Dr. Hua on 05-17-2022 Erythrocyte distribution width (RBC) [Entitic vol] 45.1 fL 35.1-43.9 [facility] Erythrocyte distribution width (RBC) [Ratio] 13.2 % 11.6-14.6 [facility] Immature granulocytes/100 WBC (Bld) 0.600 % 0.0-0.9 [facility] Comment on above: IG% - Immature Granu locytes (promyelocytes, myelocytes and metamyelocytes) > 1% indicates that a LEFT SHIFT is Present. MCH (RBC) [Entitic mass] 30.5 pg 27.0-32.0 [facility] Nucleated RBC/100 WBC (Bld) [Ratio] 0 % 0-5 [facility] MCHC Auto (RBC) [Mass/Vol]Or dered By: Dr. Hua on 05-17-2022 MCHC (RBC) [Mass/Vol] 32.7 g/dL 32-36 [facility] Platelets bldOrdered By: Dr. Hua on 05-17-2022 Platelets (Bld) [#/Vol] 204 10*3/uL 150-450 [facility] Absolute lymphocyte countOrd ered By: Dr. Hanson on 05-16-2022 Lymphocytes Auto (Unsp spec) [#/Vol] 1.07 10*3/uL 0.83-4.51 [facility] Basophil percentageOrdered B y: Dr. Hanson on 05-16-2022 Basophils/100 WBC (Bld) 0.8 % 0-1 [facility] Bilirubin [Mass/Vol] 0.50 mg/dL 0.20-1.00 [facility] Comment on above: For patients on eltr ombopag therapy, use of [place] TBIL is not recommended. Chloride [Moles/Vol] 107 mmol/L 98-107 [facility] Eosinophils/100 WBC (Bld) 1.1 % 0-5 [facility] Glucose [Mass/Vol] 99 mg/dL 74-106 [facility] Neutrophils (Bld) [#/Vol] 2.3 10*3/uL 2.0-7.7 [facility] Neutrophils/100 WBC (Bld) 59.4 % 47-70 [facility] Potassium [Moles/Vol] 3.6 mmol/L 3.5-5.1 [facility] Protein [Mass/Vol] 7.8 g/dL 6.4-8.2 [facility] Sodium [Moles/Vol] 141 mmol/L 136-145 [facility] WBC (Bld) [#/Vol] 3.8 10*3/uL 4.4-11.0 [facility] Blood erythrocytes count (nu mber/volume)Ordered By: Dr. Hanson on 05-16-2022 RBC (Bld) [#/Vol] 4.89 10*6/uL 4.2-5.4 [facility] Blood hemoglobin measurement (mass/volume)Ordered By: Dr. Hanson on 05-16-2022 Hemoglobin (Bld) [Mass/Vol] 14.8 g/dL 12.0-15.0 [facility] Blood lymphocytes/100 leukoc ytesOrdered By: Dr. Hanson on 05-16-2022 Lymphocytes/100 WBC (Bld) 28.2 % 19-41 [facility] Blood monocytes/100 leukocyt esOrdered By: Dr. Hanson on 05-16-2022 Monocytes/100 WBC (Bld) 10.0 % 0-10 [facility] Blood platelet mean volumeOr dered By: Dr. Hanson on 05-16-2022 Platelet mean volume (Bld) [Entitic vol] 10.8 fL 6.2-12.0 [facility] Determination of erythrocyte mean corpuscular volume (MCV)Ordered By: Dr. Hanson on 05-16-2022 MCV (RBC) [Entitic vol] 91.4 fL 81-99 [facility] Hematocrit Auto (Bld) [Volum e fraction]Ordered By: Dr. Hanson on 05-16-2022 Hematocrit (Bld) [Volume fraction] 44.7 % 37-47 [facility] INR in Blood by Coagulation assayOrdered By: Dr. Hansno on 05-16-2022 INR Coag (Bld) [Relative time] 1.4 {INR} [facility] Laboratory - Chemistry and C hemistry - challengeOrdered By: Dr. Hanson on 05-16-2022 HCG ( test) Ql (U) Negative [facility] Comment on above: Very dilute urine sp ecimens, as indicated by a low specificgravity, may not contain b2b outside sales representative levels of hCG. If is still suspected, a first morning urinespecimen should be collected 48 hours later and tested. ALP [Catalytic activity/Vol] 80 U/L 45-117 [facility] ALT [Catalytic activity/Vol] 30 U/L 13-56 [facility] CO2 [Moles/Vol] 27.0 mmol/L 21.0-32.0 [facility] Globulin (S) [Mass/Vol] 4.1 g/dL 2.2-4.2 [facility] Lipase [Catalytic activity/Vol] 122 U/L 73-393 [facility] Urea nitrogen/Creatinine [Mass ratio] 17.9 mg/mg 10-20 [facility] Laboratory - CoagulationOrde red By: Dr. Hanson on 05-16-2022 PT Coag (PPP) [Time] 16.9 s 11.7-14.9 [facility] Laboratory - Hematology and Cell countsOrdered By: Dr. Hanson on 05-16-2022 Erythrocyte distribution width (RBC) [Entitic vol] 44.1 fL 35.1-43.9 [facility] Erythrocyte distribution width (RBC) [Ratio] 13.0 % 11.6-14.6 [facility] Immature granulocytes/100 WBC (Bld) 0.500 % 0.0-0.9 [facility] Comment on above: IG% - Immature Granu locytes (promyelocytes, myelocytes and metamyelocytes) > 1% indicates that a LEFT SHIFT is Present. MCH (RBC) [Entitic mass] 30.3 pg 27.0-32.0 [facility] Nucleated RBC/100 WBC (Bld) [Ratio] 0 % 0-5 [facility] MCHC Auto (RBC) [Mass/Vol]Or dered By: Dr. Hanson on 05-16-2022 MCHC (RBC) [Mass/Vol] 33.1 g/dL 32-36 [facility] No Panel InformationOrdered By: Dr. Hanson on 05-16-2022 Estimated Creatinine Clearance Calc 106.59 ml/min [facility] Estimated GFR (MDRD) Amer 118 mL/min >60 [facility] Comment on above: GFR Calc Estimated GFR (MDRD) Non-Af Amer 98 mL/min >60 [facility] Comment on above: Non- GFR Calc Platelets bldOrdered By: Dr. Hanson on 05-16-2022 Platelets (Bld) [#/Vol] 259 10*3/uL 150-450 [facility] Serum or plasma albumin ted urement (mass/volume)Ordered By: Dr. Hanson on 05-16-2022 Albumin [Mass/Vol] 3.7 g/dL 3.2-5.0 [facility] Serum or plasma albumin/glob ulin mass ratioOrdered By: Dr. Hanson on 05-16-2022 Albumin/Globulin [Mass ratio] 0.9 {ratio} 0.9-2.4 [facility] Serum or plasma calcium ted urement (mass/volume)Ordered By: Dr. Hanson on 05-16-2022 Calcium [Mass/Vol] 8.8 mg/dL 8.5-10.1 [facility] Serum or plasma creatinine m easurement (mass/volume)Ordered By: Dr. Hanson on 05-16-2022 Creatinine [Mass/Vol] 0.73 mg/dL 0.55-1.02 [facility] Comment on above: The validity of the calculated GFR & GFRAA in patients over 70 years has not been determined. Clinical correlation is essential. Serum or plasma urea nitroge n measurement (mass/volume)Ordered By: Dr. Hanson on 05-16-2022 Urea nitrogen [Mass/Vol] 13 mg/dL 18 [facility] Thin prep Papanicolaou smear with manual screeningOrdered By: Dr. Hanson on 05-16-2022 Thin prep Papanicolaou smear with manual screening 20 U/L 15-37 [facility] Thin prep Papanicolaou smear with manual screening 7 5-15 [facility] Basophil percentageon 2021 Bilirubin [Mass/Vol] 0.40 mg/dL 0.20-1.00 [facility] Work Phone: Comment on above: For patients on eltr ombopag therapy, use of [place] TBIL is not recommended. Chloride [Moles/Vol] 107 mmol/L 98-107 [facility] Work Phone: Glucose [Mass/Vol] 100 mg/dL 74-106 [facility] Work Phone: Comment on above: Fasting Glucose resu lt from 100 to 125 mg/dL suggests IMPAIRED HOMEOSTASIS per A.D.A. criteria. Potassium [Moles/Vol] 4.0 mmol/L 3.5-5.1 [facility] Work Phone: Protein [Mass/Vol] 8.0 g/dL 6.4-8.2 [facility] Work Phone: Sodium [Moles/Vol] 140 mmol/L 136-145 [facility] Work Phone: INR in Blood by Coagulation assayon 12-05-2021 INR Coag (Bld) [Relative time] 1.9 {INR} [facility] Work Phone: Laboratory - Chemistry and C hemistry - challengeon 12-05-2021 ALP [Catalytic activity/Vol] 76 U/L 45-117 [facility] Work Phone: ALT [Catalytic activity/Vol] 29 U/L 13-56 [facility] Work Phone: CO2 [Moles/Vol] 26.0 mmol/L 21.0-32.0 [facility] Work Phone: Globulin (S) [Mass/Vol] 4.0 g/dL 2.2-4.2 [facility] Work Phone: Urea nitrogen/Creatinine [Mass ratio] 18.9 mg/mg 10-20 [facility] Work Phone: Laboratory - Coagulationon 0 12-05-2021 PT Coag (PPP) [Time] 21.8 s 11.7-14.9 [facility] Work Phone: No Panel Informationon 12-05 Estimated Creatinine Clearance Calc 106.14 ml/min [facility] Work Phone: Estimated GFR (MDRD) Amer 116 mL/min >60 [facility] Work Phone: Comment on above: GFR Calc Estimated GFR (MDRD) Non-Af Amer 96 mL/min >60 [facility] Work Phone: Comment on above: Non- GFR Calc Serum or plasma albumin ted urement (mass/volume)on 12-05-2021 Albumin [Mass/Vol] 4.0 g/dL 3.2-5.0 [facility] Work Phone: Serum or plasma albumin/glob ulin mass ratioon 12-05-2021 Albumin/Globulin [Mass ratio] 1.0 {ratio} 0.9-2.4 [facility] Work Phone: Serum or plasma calcium ted urement (mass/volume)on 12-05-2021 Calcium [Mass/Vol] 9.6 mg/dL 8.5-10.1 [facility] Work Phone: Serum or plasma creatinine m easurement (mass/volume)on 12-05-2021 Creatinine [Mass/Vol] 0.74 mg/dL 0.55-1.02 [facility] Work Phone: Comment on above: The validity of the calculated GFR & GFRAA in patients over 70 years has not been determined. Clinical correlation is essential. Serum or plasma urea nitroge n measurement (mass/volume)on 12-05-2021 Urea nitrogen [Mass/Vol] 14 mg/dL 7-18 [facility] Work Phone: Thin prep Papanicolaou smear with manual screeningon 12-05-2021 Thin prep Papanicolaou smear with manual screening 11 U/L 15-37 [facility] Work Phone: Thin prep Papanicolaou smear with manual screening 7 5-15 [facility] Work Phone: XR FOOT GENERAL 3V AP/LAT/OB L BILATERALon 07-16-2021 [facility] Note - Heme Oncon Clinic Note - Heme Onc History of Present Illness: ID Statement: MEGHAN LICEA is a 30 year old Female Interval History: Interval history Patient was evaluated virtually on pulmonary embolism, she is currently on Eliquis 2.5 mg p.o. twice daily and is doing well since August 2019 Denies any bleeding from any orifice pt has Merina IUD PERTINENT ROS: no fever, sob, diarrhea, abdominal pain, urinary sx, ARGUELLO, sz Labs Done at [facility], in March 2020 Anticardiolipin antibody IgM is 18, circulating lupus anticoagulant is positive with DRVVT 51 and DPT confirmation ratio 1.44 overall consistent with presence of a circulating lupus anticoagulant. Antithrombin III level was 126% protein C 163%, protein S was 110% homocystine level was 8.8 Assessment and plan proximal right pulmonary embolism extending into bilateral posterior segment with mild extension into the proximal right upper pulmonary arteries on October 15, 2018, patient was admitted at [facility]. Patient was 13 weeks at that time. Patient was started on Lovenox 1 mg/kg subcutaneous twice a day. Patient delivered a baby on 22 April 2019, initially she was continued on Lovenox as she did have Lovenox at home until May 10, 2019 when she was switched to eliquis 5 mg by mouth twice a day until August 2019 and was later switched to Eliquis 2.5 mg p.o. twice daily. Hypercoagulable state work-up is positive for Prothrombin gene mutation- heterozygous diagnosed in August 2019, and in March 2020 she was found to have positive lupus anticoagulant and positive anticardiolipin antibody IgM of 18, overall consistent with antiphospholipid antibody syndrome done at [facility]. So patient was switched to Coumadin with goal INR 2.5-3.5 with Coumadin clinic follow-up from March 2020 Risk-benefit and alternative of anticoagulation and Coumadin were discussed I have also explained that in presence of antiphospholipid antibody Coumadin is better than Eliquis, and patient has agreed to change to Coumadin. My plan is to overlap Eliquis and Coumadin for at least 5 to 7 days until therapeutic INR is reached. Patient will be followed by Coumadin clinic close to home Coumadin education was done Teratogenicity of Coumadin were discussed Patient has Mirena IUD again risk and benefit of hormonal control were discussed Past history of heroin addiction patient is sober miscarriage during her second , probably related to lupus anticoagulant Charting was completed using voice recognition technology and may include unintended errors. Abraham Payne MD Hematology-Oncology [place] Office [facility] Office Allergies and Intolerances: Allergies: No Known Allergies: Active Outpatient Medication Profile: * Patient Currently Takes Medications as of 26-Sep-2019 11:00 documented in Structured Notes Eliquis 2.5 mg oral tablet: 1 tab(s) orally 2 times a day , Start Date: 26-Sep-2019 Zoloft 50 mg oral tablet: 1 tab(s) orally once a day Medical History: Prothrombin [id number] mutation: ICD-10: D68.52, Status: Active : ICD-10: Z34.90, Status: Active PE (pulmonary thromboembolism): ICD-10: I26.99, Status: Active Family History: No Family History items are recorded in the problem list. Social History: Social Substance History: Smoking Statusformer smoker Additional History Patient smoked 1 pack per day for 7 years, quit in June 2018, denies any alcohol use, patient denies illicit drug use at this time. She has a history of heroin abuse in the past Single A1, currently 13 weeks (1) Lab Results: Results CBC date/time WBC HGB HCT PLT Neut 10-Jan-2019 08:53 8.9 10.4(L) 31.4(L) 224 7.38 BMP date/time NA K CL CO2 BUN CREAT 10-Jan-2019 08:52 137 4.5 105 N/A 6 0.45(L) Patient Instructions: Instructions: change to Eliquis 5 mg twice a day, patient already has the prescription and she will take it. Start Coumadin 5 mg p.o. nightly concomitantly with Eliquis. Patient to see Coumadin clinic close to [facility] on Wednesday to have PT/INR tested. If we cannot find Coumadin clinic close by, she can follow-up with Coumadin clinic at in [place] goal INR is 2.5-3.5 Patient can discontinue Eliquis once her goal INR is reached Return for follow-up in 6 weeks Note Recipients: Talha Rogers MD - [id number] Lulu Ledbetter MD - [id number] Select Yes when ready to send to Provider(s) Listed Above: Note sent to providers named above Electronic Signatures: Abraham Payne) (Signed 16-Apr-2020 15:31) Authored: History of Present Illness, Allergies and Outpatient Medication Profile, Problem List, Social History, Physical Exam, Results, Patient Instructions, To Send Document via Auto Fax, Attestation Last Updated: 16-Apr-2020 15:31 by Abraham Payne) References: 1. Data Referenced From Clinic Note - Heme Onc 26-Sep-2019 10:30 Normal [facility] Clinic Note - Heme Oncon Clinic Note - Heme Onc History of Present Illness: Interval History: Problem list proximal right pulmonary embolism extending into bilateral posterior segment with mild extension into the proximal right upper pulmonary arteries on October 15, 2018, patient was admitted at [facility]. Patient was 13 weeks . Patient also had significant nausea and vomiting related to keeping her very ill and decreased activity and contributed to her pulmonary embolism. Patient was started on Lovenox 1 mg/kg subcutaneous twice a day. Patient delivered a baby on 22 April 2019, initially she was continued on Lovenox as she did have Lovenox at home until May 10, 2019 when she was switched to eliquis 5 mg by mouth twice a day. prothrombin gene mutation- heterozygous diagnosed in August 2019 Factor V Leiden was negative Past medical history Past history of heroin addiction Miscarriage during her second Interval history Patient returns today for follow-up on pulmonary embolism, Patient is currently on eliquis 5 mg by mouth twice a day starting April 2019 after she delivered a baby in March 2019, prior to that she was taking Lovenox. She is being feeling good denies any headache fever cough chest pain shortness of breath urinary symptom nausea vomiting and seems to be tolerating eliquis without any major problem although she feels very uncomfortable stopping anticoagulation. PERTINENT ROS: no fever, sob, diarrhea, abdominal pain, urinary sx, ARGUELLO, sz Physical examination General: Conscious, alert, oriented x3, HEENT: Normocephalic. JUAN. No icterus. Conjunctivae and pharynx are pink. Oral mucosa dry. No nasal discharge. Neck is supple. No cervical or supraclavicular lymphadenopathy. Chest:Bilateral symmetrical, bilateral air entry. CVS: S1, S2. Regular rate and rhythm. Abdomen: Soft, gravid uterus LEVELMAN: Speech is normal. Extremities: No clubbing, cyanosis, or edema. Skin: No petechial rash. Assessment and plan patient developed large pulmonary embolism and she was 13 weeks in September 2018. Hypercoagulable state workup revealed prothrombin gene mutation heterozygous Patient is currently on eliquis Patient does not require long-term anticoagulation at the same time patient is feeling very uncomfortable stopping anticoagulation. Risk-benefit and alternative of anticoagulation versus risk of recurrence of venous thromboembolism were discussed. Again patient feels uncomfortable stopping anticoagulation so we will reduce the dose of eliquis to 2.5 mg by mouth twice a day especially it may have similar risk of prevention of venous thromboembolism with approximately 1% risk of bleeding. Follow-up CT chest in May 2019 was negative at [facility] Hypercoagulable state workup revealed prothrombin gene mutation- heterozygous,factor V lieden -ve, Other hypercoagulable state workup including lupus anticoagulant, protein C protein S antithrombin III anti-beta-2 glycoprotein 1 antibody and anticardiolipin antibodies as well as homocystine level was not tested initially which we will check with next blood draw. Charting was completed using voice recognition technology and may include unintended errors. Abraham Payne MD Hematology-Oncology [facility] Office [facility] Office Allergies and Intolerances: Allergies: No Known Allergies: Active Outpatient Medication Profile: * Patient Currently Takes Medications as of 26-Sep-2019 10:11 documented in Structured Notes Eliquis 5 mg oral tablet: Last Dose Taken: , 1 tab(s) orally 2 times a day , Start Date: 10-Jul-2019 Zoloft 50 mg oral tablet: Last Dose Taken: , 1 tab(s) orally once a day Medical History: : ICD-10: Z34.90, Status: Active PE (pulmonary thromboembolism): ICD-10: I26.99, Status: Active Social History: Social Substance History: Smoking Statusformer smoker (1) Additional History Patient smoked 1 pack per day for 7 years, quit in June 2018, denies any alcohol use, patient denies illicit drug use at this time. She has a history of heroin abuse in the past Single A1, currently 13 weeks (1) Patient Instructions: Instructions: change to Eliquis 2.5 mg bid RTC 6 months CBC, CMP, lupus anticoagulant, protein C protein S antithrombin III anti-beta-2 glycoprotein 1 antibody and anticardiolipin antibodies as well as homocystine level Note Recipients: Lulu Ledbetter MD - [id number] [] Talha Rogers MD - [id number] [] Select Yes when ready to send to Provider(s) Listed Above: Note sent to providers named above Electronic Signatures: Abraham Payne) (Signed 26-Sep-2019 18:13) Authored: History of Present Illness, Allergies and Outpatient Medication Profile, Problem List, Social History, Physical Exam, Patient Instructions, To Send Document via Auto Fax Last Updated: 26-Sep-2019 18:13 by Abraham Payne) References: 1. Data Referenced From Clinic Note - Heme Onc 09-May-2019 14:02 Normal [facility] Clinic Note - Intakeon 09-25 Clinic Note - Intake Patient Visit Infor mation: Visit TypeFollow Up Visit Patient StatesFollow up Source of Informationpatient Admission Information: Admission Since Last VisitNo Vital Signs: Temp (degrees C)36.5 degrees C Heart Rate (beats/min)86 beats per minute Respiration (breaths/min)16 breath per minute BP Systolic (mm Hg)114 mmHg BP Diastolic (mm Hg)79 mmHg BP Mean (mm Hg)90 mmHg Height in cm169.7 centimeter(s) Height Methodmeasured per last note Heightstanding Weight in kg80.1 kilogram(s) Weight Methodstanding scale BMI (kg/m2)27.8 BSA (m2)1.94 Last 3 Weights & HeightsDate: Weight/Scale Type:Height: 09-May-2019 13:3770.2 kg / standing rjbro522.7 cm 17-Mar-2019 12:2674.8 kg / standing bndmi387.7 cm 10-Jan-2019 09:0768.3 kg 169.7 cm SpO2 (%)100 % SpO2 Patient Onroom air Pain Screening: Patient States Painno (0) Allergies: No Known Allergies: Active Outpatient Medication Profile: * Patient Currently Takes Medications as of 26-Sep-2019 10:11 documented in Structured Notes Eliquis 5 mg oral tablet: Last Dose Taken: , 1 tab(s) orally 2 times a day , Start Date: 10-Jul-2019 Zoloft 50 mg oral tablet: Last Dose Taken: , 1 tab(s) orally once a day Notification: NotificationsAnnual Screens Due Dates ___ Advanced Directives: Oct 25, 2019 Family Violence: Oct 25, 2019 Depression (Due every 6 months for ONC only; all others use Annual date): Apr 23, 2019 Substance Use - Alcohol: Oct 25, 2019 Substance Use - Drugs: Oct 25, 2019 Nutrition: Oct 25, 2019 Learning: Oct 25, 2019 Travel History: COVID-19 Screening Completedno exposure or symptoms Falls: Have you fallen in the last 6 monthsno Do you have a fear of fallingno Do you feel you need assistanceno Is the patient using an assistive deviceno Electronic Signatures: Gauri Cordova) (Signed 26-Sep-2019 10:12) Authored: Patient Visit Information, Vital Signs, Allergies, Outpatient Medication Profile, Adult Admission Risk Screen Last Updated: 26-Sep-2019 10:12 by Gauri Cordova) [facility] Clinic Note - Heme Oncon Clinic Note - Heme Onc History of Present Illness: Interval History: Problem list proximal right pulmonary embolism extending into bilateral posterior segment with mild extension into the proximal right upper pulmonary arteries on October 15, 2018, patient was admitted at [facility]. Patient was 13 weeks . Patient also had significant nausea and vomiting related to keeping her very ill and decreased activity and contributed to her pulmonary embolism. Patient was started on Lovenox 1 mg/kg subcutaneous twice a day. Patient delivered a baby on 22 April 2019, initially she was continued on Lovenox as she did have Lovenox at home until May 10, 2019 when she was switched to eliquis 5 mg by mouth twice a day. Past medical history Past history of heroin addiction Miscarriage during her second Interval history Patient returns today for follow-up on pulmonary embolism, patient is currently on Lovenox 70 mg subcutaneous twice a day, patient delivered healthy baby on 22 April 2019, patient has been taking Lovenox as she did have injections at home, patient at this time denies any headache fever cough chest pain shortness of breath. Patient claims that one week after delivering a baby she had significant vaginal bleeding requiring D&C when she was admitted at [facility]. Patient at this time denies any vaginal bleeding or bleeding from any orifice. Patient has been doing well denies any chest pain shortness of breath or urinary symptom. PERTINENT ROS: no fever, sob, diarrhea, abdominal pain, urinary sx, ARGUELLO, sz Physical examination General: Conscious, alert, oriented x3, HEENT: Normocephalic. JUAN. No icterus. Conjunctivae and pharynx are pink. Oral mucosa dry. No nasal discharge. Neck is supple. No cervical or supraclavicular lymphadenopathy. Chest:Bilateral symmetrical, bilateral air entry. CVS: S1, S2. Regular rate and rhythm. Abdomen: Soft, gravid uterus LEVELMAN: Speech is normal. Extremities: No clubbing, cyanosis, or edema. Skin: No petechial rash. Assessment and plan Patient who was 13 weeks , also has one miscarriage in the past and a family history with mother with pulmonary embolism who has large bilateral pulmonary embolism, patient received Lovenox during and tired , later she delivered a baby on 22 April 2019, postoperative she was placed back on Lovenox 70 mg subcutaneous twice a day, we will now switch her to eliquis 5 mg by mouth twice a day. Patient is not breast feeding at this time.. We will do CT chest in 5-6 weeks, if negative, could consider stopping anticoagulation and 5 weeks later we will check d-dimer and other hypercoagulable state workup. Patient although somewhat uncomfortable stopping anticoagulation, for now we will check factor V Leiden and prothrombin gene mutation, she was also told that she may have lupus so I will also add HANNA at that time. In case if he decided to discontinue anticoagulation she will have other hypercarbic of the state workup 5 weeks after stopping eliquis such as lupus anticoagulant, protein C protein S antithrombin III anti-beta-2 glycoprotein 1 antibody and anticardiolipin antibodies as well as homocystine level.. Charting was completed using voice recognition technology and may include unintended errors. Abraham Payne MD Hematology-Oncology [place] Office [facility] Office Allergies and Intolerances: Allergies: No Known Allergies: Active Outpatient Medication Profile: * Patient Currently Takes Medications as of 09-May-2019 13:39 documented in Structured Notes Zoloft 50 mg oral tablet: Last Dose Taken: , 1 tab(s) orally once a day Medical History: : Status: Active PE (pulmonary thromboembolism): Status: Active Family History: No Family History items are recorded in the problem list. Social History: Smoking Status: former smoker (1) Alcohol Use: denies(1) Drug Use: history of abuse (1) Additional History: Patient smoked 1 pack per day for 7 years, quit in June 2018, denies any alcohol use, patient denies illicit drug use at this time. She has a history of heroin abuse in the past Single A1, currently 13 weeks (1) Vitals and Measurements: Vitals: Temp: 37.2 HR: 82 RR: 16 BP: 82/16 SPO2%: 99 Measurements: HT(cm): 169.7 WT(kg): 70.2 BSA: 1.81 BMI: 24.3 Lab Results: Results CBC date/time WBC HGB HCT PLT Neut 10-Jan-2019 08:53 8.9 10.4(L) 31.4(L) 224 7.38 BMP date/time NA K CL CO2 BUN CREAT 10-Jan-2019 08:52 137 4.5 105 N/A 6 0.45(L) Patient Instructions: Instructions: d/c lovenox start Eliquis 5 mg bid( coupon please) in 5 wks CBC, CMP, D dimer, factor V Leiden Prothrombin gene mutation, HANNA Ct chest with PE protocol in 5 wks RTC 6 wks Smoking Cessation Counseling Referral: Is the patient interested in referral for cessation counseling: no Note Recipients: Lulu Ledbetter MD - [id number] Kayy Eddy DO - [id number] Select Yes when ready to send to Provider(s) Listed Above: Note sent to providers named above Electronic Signatures: Abraham Payne) (Signed 09-May-2019 17:14) Authored: History of Present Illness, Allergies and Outpatient Medication Profile, Problem List, Social History, Performance Assessments, Vitals and Measurements, Physical Exam, Results, Patient Instructions, To Send Document via Auto Fax Last Updated: 09-May-2019 17:14 by Abraham Payne) References: 1. Data Referenced From Clinic Note - Heme Onc 17-Mar-2019 12:47 Normal [facility] Clinic Note - Intakeon 05-09 Clinic Note - Intake Patient Visit Infor mation: Visit TypeFollow Up Visit Patient StatesFollow up Source of Informationpatient Admission Information: Admission Since Last VisitNo Vital Signs: Temp (degrees C)37.2 degrees C Temperaturecore Heart Rate (beats/min)82 beats per minute Respiration (breaths/min)16 breath per minute BP Systolic (mm Hg)Image has been removed. 82 mmHg BP Diastolic (mm Hg)Image has been removed. 16 mmHg BP Mean (mm Hg)Image has been removed. 38 mmHg Height in cm169.7 centimeter(s) Height Methodper last note Heightstanding Weight in kg70.2 kilogram(s) Weight Methodstanding scale BMI (kg/m2)24.3 BSA (m2)1.81 Last 3 Weights & HeightsDate: Weight/Scale Type:Height: 17-Mar-2019 12:2674.8 kg / standing wnvba219.7 cm 10-Jan-2019 09:0768.3 kg 169.7 cm 08-Nov-2018 08:4565.5 kg / standing .7 cm SpO2 (%)99 % SpO2 Patient Onroom air Pain Screening: Patient States Painno (0) Allergies: No Known Allergies: Active Outpatient Medication Profile: * Patient Currently Takes Medications as of 09-May-2019 13:39 documented in Structured Notes Zoloft 50 mg oral tablet: Last Dose Taken: , 1 tab(s) orally once a day Notification: NotificationsAnnual Screens Due Dates ___ Advanced Directives: Oct 25, 2019 Family Violence: Oct 25, 2019 Depression: Oct 25, 2019 Substance Use - Alcohol: Oct 25, 2019 Substance Use - Drugs: Oct 25, 2019 Nutrition: Oct 25, 2019 Learning: Oct 25, 2019 Falls: Have you fallen in the last 6 monthsno Do you have a fear of fallingno Do you feel you need assistanceno Is the patient using an assistive deviceno Electronic Signatures: Gauri Cordova) (Signed 09-May-2019 13:39) Authored: Patient Visit Information, Vital Signs, Allergies, Outpatient Medication Profile, Adult Admission Risk Screen Last Updated: 09-May-2019 13:39 by Gauri Cordova) Normal [facility] Comprehensive Panelon 2018 ALP [Catalytic activity/Vol] 153 U/L High 45-117 [facility] Comment on above: Performed By: #### L P14 #### [facility] [address] [place], [place] [address] Bilirubin [Mass/Vol] 0.2 mg/dL Normal 0.2-1.0 [facility] Comment on above: Performed By: #### L P14 #### [address] [address] Protein [Mass/Vol] 7.3 g/dL Normal 6.4-8.2 [facility] Comment on above: Performed By: #### L P14 #### [address] [address] ALT [Catalytic activity/Vol] 11 U/L Low 12-78 [facility] Comment on above: Performed By: #### L P14 #### [facility] [address] [place], [place] [address] AST [Catalytic activity/Vol] 9 U/L Low 15-37 [facility] Comment on above: Performed By: #### L P14 #### [address] [address] Creatinine [Mass/Vol] 0.44 mg/dL Low 0.51-0.95 [facility] Comment on above: Performed By: #### L P14 #### [address] [address] Albumin [Mass/Vol] 2.9 g/dL Low 3.4-5.0 [facility] Comment on above: Performed By: #### L P14 #### [facility] [address] [place], [place] [address] Anion gap [Moles/Vol] 12 mmol/L Normal 8-16 [facility] Comment on above: Performed By: #### L P14 #### [address] [address] CO2 [Moles/Vol] 22 mmol/L Normal 21-32 [facility] Comment on above: Performed By: #### L P14 #### [facility] [address] [place], [place] [address] Glucose [Mass/Vol] 84 mg/dL Normal 70-99 [facility] Comment on above: Performed By: #### L P14 #### [facility] [address] [place], [place] [address] Urea nitrogen [Mass/Vol] 5 mg/dL Low 7-18 [facility] Comment on above: Performed By: #### L P14 #### [facility] [address] [place], [place] [address] Calcium [Mass/Vol] 9.1 mg/dL Normal 8.5-10.1 [facility] Comment on above: Performed By: #### L P14 #### [facility] [address] [place] [address] Chloride [Moles/Vol] 108 mmol/L High 98-107 [facility] Comment on above: Performed By: #### L P14 #### [facility] [address] [place] [address] Potassium [Moles/Vol] 3.9 mmol/L Normal 3.5-5.1 [facility] Comment on above: Performed By: #### L P14 #### [facility] [address] [place] [address] Sodium [Moles/Vol] 138 mmol/L Normal 136-145 [facility] Comment on above: Performed By: #### L P14 #### [place] [address] Cult Urineon 03-22-2019 Cult Urine Test performed at [facility] ORGANISM: Mixed Shannon (ID: 1) >100,000 CFU/ml Three or more organisms, no one type predominant, suggesting contamination during collection. Recollect if clincally indicated. Normal [facility] Comment on above: Performed By: #### L P14 #### [facility] [address] [place] [address] ED NOTEon 03-22-2019 ED NOTE HNO ID: [id number] Author: Tashia GarciaBernardo Hickman RN Service: ? Author Type: Registered Nurse Type: ED Notes Filed: 03/22/2019 2:09 PM Note Text: Bed: 21-ED Expected date: Expected time: Means of arrival: Comments: TRIAGE Normal [facility] ED NOTE HNO ID: [id number] Author: Dasia JohnsonRn) JEET Bennett Service: [facility] EMERGENCY DEPT SURGERY Author Type: Registered Nurse Type: ED Notes Filed: 03/22/2019 2:05 PM Note Text: Pt was discharged from [facility] yesterday for same. Pt states was started on Lovenox after a Heparin trial. Pt is on Lovenox for PE. Pt's Hgb was 8.3 at [facility] per her fiance. Pt c/o ongoing fatigue, SOB, dizziness, and weakness x one week. Respirations unlabored at this time. [facility] ED PROV NOTEon 03-22-2019 ED PROV NOTE HNO ID: [id number] Author: Brittany Maxwell MD Service: Emergency Medicine Author Type: Physician Type: ED Provider Notes Filed: 03/22/2019 3:17 PM Note Text: Patient is 34 weeks . She presents to the emergency department complaining of lightheadedness which occurs every time she stands as well as shortness of breath. She was diagnosed with pulmonary emboli during her 13th week of and was started on subcutaneous Lovenox. She was evaluated if he reviewed a week ago for shortness of breath where she had a CAT scan of her chest which was reportedly negative. The switch her from subcutaneous Lovenox subcutaneous heparin. She denies any nausea or vomiting. She also denies any melena, vaginal bleeding, or abdominal cramping. She is awake and alert. Her skin is pink, warm, dry. Her lungs rose are clear. Abdomen is gravid and nontender. It is consistent with dates. She is alert and appropriate with a nonfocal exam with no tenderness or swelling in the legs bilaterally. We will need to assess laboratory studies here to identify any potential cause for her lightheadedness such as anemia or electrolyte imbalance. EKG demonstrates a sinus rhythm and also acute ischemic changes or ectopy. heart tones are pending. She is currently in stable condition. Brittany Maxwell MD 03/22/19 1517 Normal [facility] [facility] HNO ID: [id number] Author: Brittany Maxwell MD Service: Emergency Medicine Author Type: Physician Type: ED Provider Notes Filed: 03/22/2019 3:46 PM Note Text: ED Provider Note Patient Name: Meghan Licea SERVICE DATE: 03/22/19 History Patient presents with: Shortness of Breath Chest Pain Weakness The patient is a 28-year-old female who is 34 weeks with PEs in the 13th week of currently on subcutaneous Lovenox presents for lightheadedness, shortness of breath. The patient states that these symptoms developed approximately 6 days ago was seen at [facility] on the . She states that this was the time she was switched from Lovenox to subcutaneous heparin. The patient states that she has had a headache has a profound weakness and exertional dyspnea as well as lightheadedness. The patient states that when she goes from laying flat to sitting, she becomes very lightheaded and her heart rate rises. She has similar symptoms when she attempts to ambulate. The patient is felt weak and run down. The patient denies chest pain or pressure. The patient states that she was seen at [facility] and a PE was ruled out with a CT scan. The patient also stated that she was told her hemoglobin was 8.6 down from 10 at that time. She has no history of hypertension, gestational hypertension, gestational diabetes, or preeclampsia. The patient states that her symptoms improved after fluid [facility] but she is currently experiencing the same symptoms again. The patient denies worsening of symptoms and states that they are similar to how they were prior to going to [facility]. The patient also states that while at [facility] she was switched back to the Lovenox instead of the heparin. The patient denies chest pain and states this does not feel like her PE. The patient states that she feels the baby moving. The patient has 4-5 contractions every day PAST MEDICAL HISTORY Diagnosis Date - Abnormal weight loss - Alopecia - Anxiety state - Cough - Depressive disorder with anxiety - Dysmenorrhea - Generalized anxiety disorder - Genital herpes in women - Herpetic vulvovaginitis Acyclovir - Hip pain - Low back pain Pars intercularis issues - Muscle pain - Neuropathic pain - Palpitations PACs - Pleurisy - Pleuritic pain - Post herpetic neuralgia - Ruptured ovarian cyst - Seizure (HCC) - Trochanteric bursitis - Unspecified inflammatory disease of female pelvic organs and tissues Rocephin, Metronidazole, Doxycycline PAST SURGICAL HISTORY Procedure Laterality Date - APPENDECTOMY HX - PAST SURGICAL HISTORY OF 05/14/2010 left clavicle repair - RHINOPLASTY 05/14/2010 fx FAMILY HISTORY Problem Relation Age of Onset - Breast Cancer Maternal Grandmother - Cancer Maternal Grandmother ovarian - Arthritis Mother RA - other (Bipolar disorder) Mother - other (Depressive disorder) Mother - other (Systemic lupus) Mother Maternal GF - other (Heart disease) Maternal Grandfather Paternal GF - other (Anxiety) Other - other (Blood Clots) Other Social History Tobacco Use - Smoking status: Former Smoker Packs/day: 0.50 Types: Cigarettes - Smokeless tobacco: Never Used - Tobacco comment: 3 CIGGS PER DAY Substance and Sexual Activity - Alcohol use: No Comment: Non-drinker - Drug use: No Types: Marijuana, Narcotics Comment: recovering heoin addict stopped 8 months ago - Sexual activity: Yes Partners: Male control/protection: None ALLERGIES Allergen Reactions - Morphine Other: See Comments Severe headache - Narcotics [Opioids * Other: See Comments Pt is a recovering addict - Tramadol Other: See Comments headache Review of Systems Constitutional: Negative for chills and fever. HENT: Negative for congestion. Eyes: Negative for visual disturbance. Respiratory: Positive for shortness of breath. Negative for cough. Cardiovascular: Negative for chest pain, palpitations and leg swelling. Gastrointestinal: Positive for constipation. Negative for abdominal pain, diarrhea, nausea and vomiting. Genitourinary: Positive for frequency. Negative for dysuria. Musculoskeletal: Negative for back pain and neck pain. Skin: Negative for rash and wound. Neurological: Positive for weakness (generalized), light-headedness and headaches. Negative for dizziness, syncope and numbness. Physical Exam BP 114/62 Pulse 101 Temp (Src) 98.2 (Oral) Resp 16 Ht 5' 7 (1.70m) Wt 162 lb (73.5kg) SpO2 96% LMP 07/23/2018 BMI 25.37 kg/(m2). O2 Therapy: Room Air Physical Exam Vitals signs and nursing note reviewed. Constitutional: General: She is not in acute distress. Appearance: She is well-developed. HENT: Head: Normocephalic and atraumatic. Eyes: Pupils: Pupils are equal, round, and reactive to light. Neck: Musculoskeletal: Normal range of motion and neck supple. Cardiovascular: Rate and Rhythm: Normal rate and regular rhythm. Heart sounds: Normal heart sounds. No murmur. Pulmonary: Effort: Pulmonary effort is normal. No respiratory distress. Breath sounds: Decreased breath sounds (Diffuse) present. No wheezing. Abdominal: General: Bowel sounds are normal. There is no distension. Palpations: Abdomen is soft. Tenderness: There is no abdominal tenderness. Comments: Gravid Musculoskeletal: Normal range of motion. General: No tenderness or deformity. Right lower leg: She exhibits no tenderness. No edema. Left lower leg: She exhibits no tenderness. No edema. Skin: General: Skin is warm and dry. Capillary Refill: Capillary refill takes less than 2 seconds. Neurological: Mental Status: She is alert and oriented to person, place, and time. Cranial Nerves: No cranial nerve deficit. Diagnostic Testing ED Labs Ordered and Reviewed - No data to display Procedures ED Course / Clinical Impression MDM / Disposition / Plan The patient is a 28-year-old female presents for lightheadedness, dizziness and weakness specifically with ambulation. Reviewed imaging and lab work from [facility]. The patient's CT PE was negative for pulmonary embolus. I do not believe at this time we need to repeat chest imaging. We will check CBC to trend anemia and also ensure platelets are normal as patient was on heparin. We will look to rule out HIT. The patient will get a liter of normal saline. We will also check kidney function and LFTs. The patient is not hypertensive in the emergency department. The patient was signed out to Dr. Dorsey, pending laboratory evaluation. EKG was ordered. The patient will need orthostatic vitals the patient is to be discharged. At [facility] patient had significant elevation in her heart rate with ambulation and when going from a lying position to a seated position. Ultimate disposition pending laboratory evaluation. SIGNATURE: MD Tristen Childs (Res) Keila Resident 03/22/19 4751 Attending Note I evaluated the patient and personally participated in the solano components. I agree with the resident's findings and plan as documented and have discussed the case and management of the patient's care with the resident. Signature: Brittany Maxwell MD Date: 03/22/2019 Time: 3:46 PM Brittany Maxwell MD 03/22/19 1546 Normal [facility] ED Triage Noteon 03-22-2019 ED Triage Note HNO ID: [id number] Author: Rhiannon Garcia (Elana) ELANA Mason Service: Emergency Medicine Author Type: Physician Mail Messenger Contractor Type: ED Triage Notes Filed: 03/22/2019 2:06 PM Note Text: ED INTAKE NOTE Patient Name: Meghan Licea Service Date: 03/22/19 BRIEF HPI: 28y F 34w c/o generalized fatigue, SOB, lightheadedness. Pt takes lovenox for PEs and was switched to heparin. Was seen at [facility], discharged yesterday where they switched her back to lovenox. CT neg there and Hb 8.3. Pt states symptoms are worsening and we are closer, so she came here. BRIEF EXAM: Awake and Alert Tachy CTAB INTAKE WORKUP: defer SIGNATURE: Rhiannon Mason PA-C Normal [facility] Hemogram/Diffon 03-22-2019 Abs Immature Grans 0.15 thou/cmm High 0.00-0.05 [facility] Comment on above: Performed By: #### L P14 #### [place] [address] Abs Neut (ANC) 6.86 thou/cmm High 1.56-6.13 [facility] Comment on above: Performed By: #### L P14 #### [place] [address] Abs. Baso 0.03 thou/cmm Normal 0.01-0.08 [facility] Comment on above: Performed By: #### L P14 #### [place] [address] Abs. Pettis 0.56 thou/cmm Normal 0.27-0.70 [facility] Comment on above: Performed By: #### L P14 #### [place] [address] Basophils/100 WBC (Bld) 0.3 % Normal [facility] Comment on above: Performed By: #### L P14 #### [facility] [address] [place] [address] Eosinophils (Bld) [#/Vol] 0.05 thou/cmm Normal 0.00-0.31 [facility] Comment on above: Performed By: #### L P14 #### [facility] [address] [place] [address] Eosinophils/100 WBC (Bld) 0.5 % Normal [facility] Comment on above: Performed By: #### L P14 #### [facility] [address] [place] [address] Erythrocyte distribution width (RBC) [Ratio] 14.3 % Normal 11.7-14.4 [facility] Comment on above: Performed By: #### L P14 #### [place] [address] Hematocrit (Bld) [Volume fraction] 28.2 % Low 34.1-44.9 [facility] Comment on above: Performed By: #### L P14 #### [place] [address] Hemoglobin (Bld) [Mass/Vol] 9.3 g/dL Low 11.2-15.7 [facility] Comment on above: Performed By: #### L P14 #### [place] [address] Immature Grans 1.60 % Normal [facility] Comment on above: Performed By: #### L P14 #### [place] [address] Lymphocytes (Bld) [#/Vol] 1.51 thou/cmm Normal 1.18-3.74 [facility] Comment on above: Performed By: #### L P14 #### [place] [address] Lymphocytes/100 WBC (Bld) 16.5 % Normal [facility] Comment on above: Performed By: #### L P14 #### [place] [address] MCH (RBC) [Entitic mass] 29.7 pg Normal 25.6-32.2 [facility] Comment on above: Performed By: #### L P14 #### [facility] [address] [place] [address] MCHC (RBC) [Mass/Vol] 33.0 % Normal 31.6-34.8 [facility] Comment on above: Performed By: #### L P14 #### [facility] [address] [place] [address] MCV (RBC) [Entitic vol] 90.1 fL Normal 79.4-94.8 [facility] Comment on above: Performed By: #### L P14 #### [facility] [address] [place] [address] Monocytes/100 WBC (Bld) 6.1 % Normal [facility] Comment on above: Performed By: #### L P14 #### [facility] [address] [place] [address] Platelet mean volume (Bld) [Entitic vol] 10.2 fL Normal 9.4-12.3 [facility] Comment on above: Performed By: #### L P14 #### [facility] [address] [place] [address] Platelets (Bld) [#/Vol] 217 thou/cmm Normal 182-369 [facility] Comment on above: Performed By: #### L P14 #### [facility] [address] [place] [address] RBC (Bld) [#/Vol] 3.13 mil/cmm Low 3.93-5.22 [facility] Comment on above: Performed By: #### L P14 #### [facility] [address] [place] [address] RDW SD 46.4 fl High 36.4-46.3 [facility] Comment on above: Performed By: #### L P14 #### [facility] [address] [place] [address] Seg Neutrophil 75.0 % Normal [facility] Comment on above: Performed By: #### L P14 #### [facility] [address] [place] [address] WBC (Bld) [#/Vol] 9.15 thou/cmm Normal 3.98-10.04 [facility] Comment on above: Performed By: #### L P14 #### [place] [address] MDRD GFRon 03-22-2019 GFR/1.73 sq M predicted among non-blacks MDRD (S/P/Bld) [Vol rate/Area] mL/min/{1.73_m2} Normal >60mL/min/1 .73m2 [facility] Comment on above: Result Comment: If t he patient is , multiply the result by 1.210. Performed By: #### L P14 #### [place] [address] Urinalysis Routineon 019 Bacteria LM.HPF (Urine sed) [#/Area] 3+ Abnormal None [facility] Comment on above: Performed By: #### L P14 #### [place] [address] Ep Cells Urine 21.3 /hpf High 0.0-5.0 [facility] Comment on above: Performed By: #### L P14 #### [place] [address] Hyaline Cast 0.0 /lpf Normal 0.0-1.0 [facility] Comment on above: Performed By: #### L P14 #### [place] [address] RBC LM.HPF (Urine sed) [#/Area] 1.1 /[HPF] Normal 0.0-5.0 [facility] Comment on above: Performed By: #### L P14 #### [place] [address] WBC LM.HPF (Urine sed) [#/Area] 20.4 /[HPF] High 0.0-5.0 [facility] Comment on above: Performed By: #### L P14 #### [place] [address] Appearance (U) CLOUDY Normal [facility] Comment on above: Performed By: #### L P14 #### [address] [place], [place] [address] Bilirubin (U) [Mass/Vol] Negative Normal Negative [facility] Comment on above: Performed By: #### L P14 #### [facility] [address] [place] [address] Color (U) YELLOW Normal [facility] Comment on above: Performed By: #### L P14 #### [place] [address] Glucose Ql (U) Negative Normal Negative [facility] Comment on above: Performed By: #### L P14 #### [facility] [address] [place] [address] Hemoglobin,Urine Negative Normal Negative [facility] Comment on above: Performed By: #### L P14 #### [place] [address] Ketone Urine Negative Normal Negative [facility] Comment on above: Performed By: #### L P14 #### [place] [address] Leukocytes Esterase MODERATE Abnormal Negative [facility] Comment on above: Performed By: #### L P14 #### [place] [address] Nitrites Urine Negative Normal Negative [facility] Comment on above: Performed By: #### L P14 #### [place] [address] pH (U) 7.0 [pH] Normal 5.0-8.0 [facility] Comment on above: Performed By: #### L P14 #### [place] [address] Protein (U) [Mass/Vol] Negative Normal Negative [facility] Comment on above: Performed By: #### L P14 #### [place] [address] Specific [place], Ur 1.012 Normal 1.005-1.030 [facility] Comment on above: Performed By: #### L P14 #### [place] [address] Urobilinogen,Ur 1.0 EU/dL Normal 0.2-1.0 [facility] Comment on above: Performed By: #### L P14 #### [facility] [address] [place] [address] [address] CHEST W IVCON PEon 2018 CT CHEST W IVCON PE * * *Final Report* * * DATE OF EXAM: Mar 20 2019 10:47PM [facility] 0540 - CT CHEST W IVCON PE / PROCEDURE REASON: PE suspected, * * * * Physician Interpretation * * * * EXAMINATION: CHEST CT WITH CONTRAST (PULMONARY EMBOLISM PROTOCOL) CLINICAL HISTORY: 34 weeks, third trimester, , inpatient female presented with chest pain. PE suspected, . There is matching of prior pulmonary embolism to 13 weeks with no prior CTs available for direct comparison. Technique: Spiral CT acquisition of the chest from the thoracic inlet to the upper abdomen following IV contrast. MQ: CTCP_4 Contrast: 95 mL Omnipaque [address] Dose-Length Product: 229 mGy*cm CT Dose Reduction Employed: Automated exposure control (AEC) Comparison: Chest x-ray from 04/23/2017. No prior CT studies are available for comparison. RESULT: Limitations: Motion artifacts. Evaluation for thromboembolic disease: - Right heart chambers: No thromboembolic disease. - Main pulmonary arteries: No thromboembolic disease. - Lobar pulmonary arteries: No thromboembolic disease. - Segmental pulmonary arteries: Suboptimal assessment with no thromboembolic disease. - Subsegmental pulmonary arteries: Suboptimal assessment with no thromboembolic disease. Lines, tubes, and devices: None. Lung parenchyma and pleura: Linear subpleural densities noted in the right lower lobe consistent with areas of compressive atelectasis. No pneumothorax or consolidation. No suspicious pulmonary nodule. No pleural effusion. Central airways are patent. Thoracic inlet, heart, and mediastinum: No lymphadenopathy in the axillary, mediastinal, or hilar regions. The thoracic aorta and main pulmonary artery are normal in caliber. The cardiac chambers are normal in size. No coronary artery atherosclerotic calcifications are noted, although the study is not optimized for coronary assessment. No pericardial effusion or thickening. Bones and soft tissues: No destructive bone lesion. Chest wall is unremarkable. Upper abdomen: No acute abnormality in the imaged upper abdomen. IMPRESSION: Motion artifacts with no CT evidence of pulmonary embolism. No CT evidence of acute process in the chest. Jewelry Cutter: DEANA Transcribe Date/Time: Mar 20 2019 11:00P Dictated by : MARIA TERESA LORENZANA MD This examination was interpreted and the report reviewed and electronically signed by: MARIA TERESA LORENZANA MD on Mar 20 2019 11:08PM EST [id number] [facility] ECG COMPLETEon 03-21-2019 ECG COMPLETE NAME : MEGHAN LICEA PID : [id number] : 1990 Gender : Female Race : ORD : [id number] Procedure Date : Mar 20 2019 23:05:30 Edit Date : Mar 22 2019 12:02:59 Diagnosis:Sinus rhythm Prolonged TX interval Low voltage anterolateral leads Confirmed by MARY ENNIS M.D. ([id number]) on 03/22/2019 12:02:57 PM Ventricular Rate : 85 BPM Atrial Rate : 85 BPM P-R Interval : 234 ms QRS Duration : 92 ms Q-T Interval : 363 ms QTC Calculation(Bazett) : 432 ms P [place] : 50 degrees R [place] : 34 degrees [place] : 14 degrees Test Reason : Chest Pain Location : 400 : FVEKG 3S18 Overread By : MARY ENNIS M.D. Edited By : MARY ENNIS M.D. Referred By : , Acquired by : [id number], [facility] PROCEDUREon 03-21-2019 PROCEDURE HNO ID: [id number] Author: Yimi Henderson Service: Nursing Author Type: Physician Type: Procedures Filed: 03/21/2019 11:28 PM Note Text: OBSTETRICS NST SUMMARY SERVICE DATE: March 21, 2019 The patient is a 28 year old female, , who is at 34w3d with an ALEYDA of 04/29/2019, Date entered prior to episode creation dating method. NST OBJECTIVE FINDINGS PER NURSE: Start Time: 1019 (03/21/19 1050 : Arelis Garcia) Sandra, RN) Complete Time: 1050 (03/21/19 1050 : Arelis Flores, RN) Indications: Other: Comment(Chest pain) (03/21/19 1050 : Arelis Garcia) Sandra, RN) Patient Reason For: monitor baby (03/21/19 1050 : Arelis Flores, RN) NST Explanation: Procedure Explained;Monitor Explained;Verbalizes Understanding (03/21/19 1050 : Arelis Flores, RN) Acoustic Stimulator: No (03/21/19 1050 : Arelis Flores RN) Interventions: MONITORING/ASSESSMENT: Baseline: 145 bpm (03/21/19 1050 : Arelis lFores RN) Variability: Moderate (6-25 bpm) (03/21/19 1050 : Arelis Garcia) JEET Flores) Accelerations: Present (03/21/19 1050 : Arelis Flores RN) Decelerations: Decelerations: None (03/21/19 1050 : Arelis Garcia) JEET Flores) Contractions: Not present (03/21/19 1050 : Arelis Flores RN) Frequency: Above information forwarded to Dr. Henderson (03/21/19 1050 : Arelis Flores RN) for final review and interpretation. SIGNATURE: Arelis Flores RN PATIENT NAME: Meghan Licea DATE: March 21, 2019 TIME: 11:04 AM PROVIDER INTERPRETATION: Reactive SIGNATURE: Yimi Henderson MD DATE: March 21, 2019 TIME: 11:28 PM [facility] PROGRESSon 03-21-2019 PROGRESS HNO ID: [id number] Author: Horace Caceres Service: Maternal Medicine Author Type: Physician Type: Progress Notes Filed: 03/21/2019 2:14 PM Note Text: Patient feeling better this afternoon No complaints currently Blood pressure 107/66, pulse 87, temperature 36.7 ?C (98.1 ?F), temperature source Oral, resp. rate 16, height 170.2 cm (5' 7), weight 73.5 kg (162 lb), last menstrual period 07/23/2018, SpO2 97 %, unknown if currently . Echocardiogram - structurally normal heart, normal function; no evidence of pulmonary HTN TSH increased, Free T4 1.0 (0.9-1.7) Suspect mild hypothyroidism, particularly with patient's symptoms - will start synthroid 75 mcg every day Restart therapeutic lovenox - would continue til term (37 weeks) No other acute cardiopulmonary process at this time, and patient appears to be stable No obstetrical issues Will discharge home F/u with Dr. Ledbetter / Mateo in 1 week Horace Caceres MD [facility] PROGRESS HNO ID: [id number] Author: Horace Caceres Service: Gynecology Author Type: Physician Type: Progress Notes Filed: 03/21/2019 12:35 PM Note Text: OBSTETRICS ANTEPARTUM PROGRESS NOTE SERVICE DATE: 03/21/2019 SERVICE TIME: 6:35 AM ASSESSMENT AND PLAN: 28yo 34w3d a/f pre-syncope in setting of personal history of VTE in and FHx of APLS ? Pre-syncope - 03/17/2019 Transitioned to heparin 15,000 bid for concern for hx of PTL - Transitioned on admission back to Lovenox 70 BID given concern for acute VTE - 03/20 CTPE negative - R/o cardiac etiology: Trop WNL, EKG 1st degree AV block - no significant change from prior - R/o endocrine: TSH 5.74 (elevated), fT4 pending - start synthroid 75 mcg daily consider increasing to 100 mcg if T4 low - R/o metabolic: CBC, CMP WNL - R/o tox: UDS neg - R/o infection: AF, WBC 9.5, Flu neg - Overnight obs with IVF resuscitation - MFM consult to discuss optimal AC planning with patient given h/o PTL at 35w - F/u Echo today ? Depression: Home Venlafaxine ER 75 every day ? Routine - Pain Regimen: Tyl 650 q4h PRN - Anti-emetics PRN: Zofran 4 q6h PRN - Bowel regimen: None - Diet/IVF: Reg, HLIV - Lines: R Peripheral - PPX/PTOT: SCDs - ID: None - Labs/Imaging: As above - Consults: MFM - FWB: NST daily SUBJECTIVE: No current vaginal bleeding, No current leaking of fluid, No contractions, Good movement, No shortness of breath or chest pain, No calf tenderness and patient reports shortness of breath and chest pain especially when she ambulates, she also has had worsening fatigure for the last two weeks OBJECTIVE: LAST VITALS: Pulse BP Resp O2 Sat Temp Pain 83 105/70 15 99 % 36.5 ?C (97.7 ?F) 0 PHYSICAL EXAM: General: NAD Heart: RR, S1, S2, no neal, rub, or murmur appreciated Lungs: clear to auscultation Abdomen: soft, nontender Uterus: soft, NT Extremities: no edema MONITORING/ASSESSMENT: NST with text intrepretation: MONITORING/ASSESSMENT: Baseline: 140 bpm (03/20/192029 : Jessenia (Jeet) JEET Rodríguez) Variability: Moderate (6-25 bpm) (03/20/192029 : Jessenia (Jeet) Marcos RN) Accelerations: Present (03/20/192029 : Jessenia (Jeet) JEET Rodríguez) Decelerations: Decelerations: None (03/20/192029 : Jessenia (Jeet) JEET Rodríguez) Contractions: Not present (03/20/192029 : Jessenia (Jeet) JEET Rodríguez) Frequency: Reactive LABS Diagnostic tests reviewed for today's visit: Most recent labs and imaging results. 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 Uncertain etiology for symptoms - will get echocardiogram to better evaluate cardiac function Begin treatment with synthroid Restart Lovenox - will continue until 37 weeks Valtrex prophylaxis Horace Caceres MD Restart Lovenox Normal [facility] Rapid PCR Assay FLUon 2018 Influenza A PCR Negative [facility] Comment on above: Performed By: #### F LUPCR #### [place] [phone] Influenza B PCR Negative [facility] Comment on above: Performed By: #### F LUPCR #### [place] [phone] Specimen source Nom (Unsp spec) Nasopharyngeal Swab [facility] Comment on above: Performed By: #### F LUPCR #### [place] [address] Toxicology Screen,Uron 03-21 Amphetamines, Urine Negative Normal Negative [facility] Comment on above: Result Comment: Cuto ff threshold at 1000 ng/mL. Performed By: #### U TOX2 #### [place] [address] Barbiturates, Urine Negative Normal Negative [facility] Comment on above: Result Comment: Cuto ff threshold at 200 ng/mL. Performed By: #### U TOX2 #### [place] [address] Benzodiazepines, Ur Negative Normal Negative [facility] Comment on above: Result Comment: Cuto ff threshold at 200 ng/mL. Performed By: #### U TOX2 #### [place] [address] Cannabinoids, Urine Negative Normal Negative [facility] Comment on above: Result Comment: Cuto ff threshold at 50 ng/mL. Performed By: #### U TOX2 #### [place] [address] Cocaine, Urine Negative Normal Negative [facility] Comment on above: Result Comment: Cuto ff threshold at 300 ng/mL. Performed By: #### U TOX2 #### [place] [address] Ethanol, Urine <11 Normal <11 [facility] Comment on above: Performed By: #### U TOX2 #### [place] [address] Opiates, Urine Negative Normal Negative [facility] Comment on above: Result Comment: Cuto ff threshold at 300 ng/mL. Performed By: #### U TOX2 #### [place] [address] Oxycodone, Urine Negative Normal Negative [facility] Comment on above: Result Comment: Cuto ff threshold at 100 ng/mL. Comment: Immunoassay screen only. Cross reactivity with other substances can occur with immunoassay screening. Detection of any drug(s) in this urine toxicology panel is presumptive only. These tests are for medical purposes only and should not be used for compliance monitoring, legal, or forensic use. Samples should be within normal physiological conditions (e.g. pH). This assay does not include adulteration/specimen validity testing. In clinical settings, confirmatory testing is at the practitioner's discretion [1]. If clinically indicated, confirmation by high specificity, quantitative methodology, which includes adulteration/specimen validity testing, may be requested on the same specimen through Client Services ([phone]) if contacted within 48 hours of initial testing. [1]Substance Abuse and Mental Health Services Administration (2012). Clinical Drug Testing in Primary Care Technical Assistance Publication Series 32. Department of Health and Human Services, [place], p.10. Performed By: #### U TOX2 #### [place] [address] Phencyclidine, Urine Negative Normal Negative [facility] [place] Comment on above: Result Comment: Cuto ff threshold at 25 ng/mL. Performed By: #### U TOX2 #### [place] [address] Activated PTTon 03-20-2019 aPTT Coag (Bld) [Time] 24.6 s Normal 23.0-32.4 [facility] Comment on above: Result Comment: Note : New Reference Range Unfractionated Heparin Therapeutic Ranges: Standard Heparin Nomogram: 53 to 78 seconds (anti-Xa level of 0.3 to 0.7 U/mL) Low Dose/ACS Nomogram: 49 to 67 seconds (anti-Xa level of 0.2 to 0.5 U/mL) Stroke Treatment Nomogram: 49 to 67 seconds (anti-Xa level of 0.2 to 0.5 U/mL) Note: The APTT therapeutic range has been determined for the current lot of laboratory APTT reagent in use throughout the [facility]. Performed By: #### L P14 #### [facility] [address] [place] [address] Comprehensive Panelon 2018 Albumin [Mass/Vol] 3.2 g/dL Low 3.4-5.0 [facility] Comment on above: Performed By: #### L P14 #### [facility] [address] [place] [address] ALP [Catalytic activity/Vol] 189 U/L High 46-116 [facility] Comment on above: Performed By: #### L P14 #### [facility] [address] [place] [address] ALT-SGPT Blood 13 U/L Low 14-63 [facility] Comment on above: Performed By: #### L P14 #### [facility] [address] [place] [address] Anion gap [Moles/Vol] 10 mmol/L Normal 8-20 [facility] Comment on above: Performed By: #### L P14 #### [facility] [address] [place] [address] AST-SGOT Blood 11 U/L Low 15-37 [facility] Comment on above: Performed By: #### L P14 #### [facility] [address] [place] [address] Bilirubin Ql (U) 0.3 mg/dL Normal 0.2-1.0 [facility] Comment on above: Performed By: #### L P14 #### [place] [address] Calcium [Mass/Vol] 9.6 mg/dL Normal 8.5-10.1 [facility] Comment on above: Performed By: #### L P14 #### [place] [address] CO2 Blood 22 mEq/L Normal 21-32 [facility] Comment on above: Performed By: #### L P14 #### [facility] [address] [place] [address] Creatinine [Mass/Vol] 0.53 mg/dL Normal 0.51-0.95 [facility] Comment on above: Performed By: #### L P14 #### [place] [address] Glucose [Mass/Vol] 83 mg/dL Normal 70-99 [facility] Comment on above: Performed By: #### L P14 #### [facility] [address] [place], [place] [address] Protein [Mass/Vol] 8.2 g/dL Normal 6.4-8.2 [facility] Comment on above: Performed By: #### L P14 #### [facility] [address] [place], [place] [address] Urea nitrogen [Mass/Vol] 7 mg/dL Normal 7-18 [facility] Comment on above: Performed By: #### L P14 #### [facility] [address] [place], [place] [address] Urea nitrogen/Creatinine [Mass ratio] 13 mg/mg Normal 10-20 [facility] Comment on above: Performed By: #### L P14 #### [facility] [address] [place] [address] Chloride [Moles/Vol] 106 mmol/L Normal 98-109 [facility] Comment on above: Result Comment: Test ing performed on an Estrella i-STAT. Performed By: #### L P14 #### [facility] [address] [place], [place] [address] Potassium [Moles/Vol] 3.7 mmol/L Normal 3.5-4.9 [facility] Comment on above: Result Comment: Test ing performed on an Estrella i-STAT. Performed By: #### L P14 #### [place] [address] Sodium [Moles/Vol] 134 mmol/L Low 138-146 [facility] Comment on above: Result Comment: Test ing performed on an Estrella i-STAT. Performed By: #### L P14 #### [place] [address] ECG COMPLETEon 03-20-2019 ECG COMPLETE NAME : MEGHAN LICEA PID : [id number] : 1990 Gender : Female Race : ORD : [id number] Procedure Date : Mar 20 2019 13:20:04 Edit Date : Mar 23 2019 11:17:59 Diagnosis:NORMAL SINUS RHYTHM WITH FIRST DEGREE AV BLOCK CANNOT RULE OUT ANTERIOR INFARCT , AGE UNDETERMINED ABNORMAL ECG WHEN COMPARED WITH ECG OF 31-JAN-2013 15:20, NO SIGNIFICANT CHANGE WAS FOUND Confirmed by MD PAULA, HARINDER ([id number]) on 03/23/2019 11:17:58 AM Ventricular Rate : 88 BPM Atrial Rate : 88 BPM P-R Interval : 206 ms QRS Duration : 70 ms Q-T Interval : 364 ms QTC Calculation(Bazett) : 440 ms P [place] : 58 degrees R [place] : 46 degrees [place] : 41 degrees Test Reason : Chest Pain Location : 150 : LodiED 7 Overread By : MD MITCHELL VINAYAK Edited By : MD MITCHELL VINAYAK Referred By : , Acquired by : KENNEDY WONG Normal [facility] Fecal Occult Bloodon 019 Fecal Occult Blood Negative Normal Negative [facility] Comment on above: Performed By: #### L P14 #### [facility] [address] [place], [place] [address] Free T4on 03-20-2019 Free T4 [Mass/Vol] 1.0 ng/dL Normal 0.9-1.7 [facility] Comment on above: Performed By: #### T SH #### [facility] [address] [place] [address] #### FT4 #### [facility] [address] [place], [place] [id number] HISTORY PHYSICALon 9 HISTORY PHYSICAL HNO ID: [id number] Author: Miroslava Blair Service: Obstetrics Author Type: Physician Type: HANDP Filed: 03/21/2019 6:28 AM Note Text: OBSTETRICS HISTORY AND PHYSICAL SERVICE DATE: March 20, 2019 SERVICE TIME: 8:00 PM Subjective Patient's stated reason for arrival: Chest pain, and feels horrible CHIEF COMPLAINT: Pre-syncope HISTORY OF THE PRESENT ILLNESS: 28yo 34w2d here with pre-syncope. PMHx bilateral pulmonary emboli at 13wga, started on Lovenox 70 BID, last dose 03/18 7PM. Transitioned to SQ Heparin 25204 BID, first dose 03/19 7AM, last dose 03/19 7PM. Presented to lab for bloodwork on 03/20 AM and developed severe lightheadedness, SOB, tachycardia, dull occipital headache, intermittent sharp L anterolateral and posterolateral chest pain. Syndrome improves with rest, worse with exertion including extended periods of talking. Denies neurologic deficits, fevers, pleurisy, arrhythmia, abdominal pain, lower extremity edema, dysuria, hematuria, cough, new rash or dermatologic lesion. FHx notable for SLE in mother with APLS. In ED, symptoms not improved with IVF bolus. Patient ambulated in ED 20 yards before exertional tachycardia to 140s noted without change in SaO2. HISTORY REVIEW PAST MEDICAL HISTORY Diagnosis Date - Abnormal weight loss - Alopecia - Anxiety state - Cough - Depressive disorder with anxiety - Dysmenorrhea - Generalized anxiety disorder - Genital herpes in women - Herpetic vulvovaginitis Acyclovir - Hip pain - Low back pain Pars intercularis issues - Muscle pain - Neuropathic pain - Palpitations PACs - Pleurisy - Pleuritic pain - Post herpetic neuralgia - Ruptured ovarian cyst - Seizure (HCC) - Trochanteric bursitis - Unspecified inflammatory disease of female pelvic organs and tissues Rocephin, Metronidazole, Doxycycline PAST SURGICAL HISTORY Procedure Laterality Date - APPENDECTOMY HX - PAST SURGICAL HISTORY OF 05/14/2010 left clavicle repair - RHINOPLASTY 05/14/2010 fx FAMILY HISTORY Problem Relation Age of Onset - Breast Cancer Maternal Grandmother - Cancer Maternal Grandmother ovarian - Arthritis Mother RA - other (Bipolar disorder [Other]) Mother - other (Depressive disorder [Other]) Mother - other (Heart disease [Other]) Maternal Grandfather Paternal GF - other (Systemic lupus [Other]) Mother Maternal GF - other (Anxiety [Other]) Unknown - other (Blood Clots [Other]) Unknown Social History Tobacco Use - Smoking status: Smoker, Current Status Unknown Packs/day: 0.50 Types: Cigarettes - Smokeless tobacco: Never Used - Tobacco comment: 3 CIGGS PER DAY Substance Use Topics - Alcohol use: No Comment: Non-drinker - Drug use: No Types: Marijuana, Narcotics Comment: recovering heoin addict stopped 8 months ago Obstetric History T1 L1 SAB0 TAB0 Ectopic0 Multiple0 Live Births1 Name of Baby 1: Not recorded Date: 07/12/15 GA: 37w0d Delivery: , Low Transverse Apgar1: 9 Apgar5: 9 Living: Living Name of Baby 2: Not recorded Date: Not recorded GA: Not recorded Delivery: Not recorded Apgar1: Not recorded Apgar5: Not recorded Living: Not recorded Active Non-Hospital Problems Diagnosis Date Noted - Nicotine use disorder, F17.2 06/10/2018 - Herpes infection during in third trimester 07/11/2015 - labor in third trimester 07/11/2015 - False labor before 37 completed weeks of gestation in third trimester 05/27/2015 - ADHD (attention deficit hyperactivity disorder) 06/04/2014 - Polysubstance dependence in early, early partial, sustained full, or sustained partial remission (HCC) 06/04/2014 - Dysmenorrhea - Depression 09/26/2009 - Panic anxiety syndrome 09/26/2009 - Sacroiliitis (HCC) 09/26/2009 - Ovarian cyst 07/09/2009 - Lumbago 07/02/2009 ALLERGIES Allergen Reactions - Morphine Other: See Comments Severe headache - Narcotics [Opioids * Other: See Comments Pt is a recovering addict - Tramadol Other: See Comments headache Prior to Admission Medications Prescriptions Last Dose Informant Patient Reported? Taking? famotidine (PEPCID) 40 mg tablet Yes No Sig: Take 40 mg by mouth once daily. heparin sodium,porcine (HEPARIN, PORCINE, INJECTION) Yes No Si mL by INJECTION(UNSPECIFIED PARENTERAL ROUTES) route. prazosin (MINIPRESS) 1 mg cap No No Sig: Take 1 capsule by mouth daily at bedtime. venlafaxine ER (EFFEXOR XR) 75 mg 24 hr capsule No No Sig: Take 1 capsule by mouth once daily. Facility-Administered Medications: None REVIEW OF SYSTEMS: The remainder of the review of systems is negative. Objective LAST VITALS: Pulse BP Resp O2 Sat Temp Pain 88 114/69 18 100 % 36.8 ?C (98.2 ?F) HT/WT/BMI: Height Weight BMI (P) 170.2 cm (5' 7) (P) 73.5 kg (162 lb) (P) 25.37 PHYSICAL EXAM: Gen: AANDOx3, NAD CV: RRR no m/g/r Pulm: CTABL no w/r/r Abd: Soft nontender gravid Ext: Nonedematous BLEs, no palpable cords, -Bernardo's sign bilaterally Skin: No rashes or lesions Neuro: No focal deficit MONITORING/ASSESSMENT: Baseline: Baseline Rate: 140 bpm (03/20/19 2030 : Jessenia Garcia) JEET Rodríguez) Variability: Variability: Moderate (6-25 bpm) (03/20/192029 : Jessenia Rodríguez RN) Accelerations: Accelerations: Present (03/20/192029 : Jessenia Garcia) JEET Rodríguez) Decelerations: Decelerations: None (03/20/192029 : Jessenia Garcia) JEET Rodríguez) Contractions: Not present (03/20/192029 : Jessenia Rodríguez RN) Frequency: NST Interpretation: FHR Category: 1 EFW: 5 based on clinical assessment. LABS Diagnostic tests reviewed for today's visit: Most recent labs and imaging results. Assessment/Plan 28yo 34w2d a/f pre-syncope in setting of personal history of VTE in and FHx of APLS Pre-syncope - Resume Lovenox 70 BID given concern for acute VTE - R/o cardiac etiology: Trop WNL, EKG 1st degree AV block - R/o PE: CTPE WNL - R/o endocrine: TSH 5.74 (elevated), fT4 pending - R/o metabolic: CBC, CMP WNL - R/o tox: UDS neg - R/o infection: AF, WBC 9.5, Flu neg - Overnight obs with IVF resuscitation - MFM consult to discuss optimal AC planning with patient given h/o PTL at 35w Depression: Home Venlafaxine ER 75 every day Routine - Pain Regimen: Tyl 650 q4h PRN - Anti-emetics PRN: Zofran 4 q6h PRN - Bowel regimen: None - Diet/IVF: Reg, LR@75 - Lines: R Peripheral - PPX/PTOT: SCDs - ID: None - Labs/Imaging: As above - Consults: MFM - FWB: NST daily SIGNATURE: Lisandro Neumann MD PATIENT NAME: Meghan Licea DATE: March 20, 2019 TIME: 9:03 PM PAGER/CONTACT #: [phone] Attending Note: I saw and evaluated the patient with the resident. I personally obtained the solano and critical portions of the history and physical exam. I reviewed the resident's documentation and discussed the patient with the resident. I agree with the resident's medical decision making as documented in the resident's note. Transfer from [place] for rule out PE. Hx of PE at 13 wk had been on lovenox and transitioned to heparin on Wednesday- but didn't feel well, so when she was getting her scheduled labs on Wednesday went to ED. They were concerned for tachycardia and her hx and their CT PE machine was not functioning, so transferred here for further work-up. Per d/w MFM, pt was restarted on lovenox for ease of therapeutic dosing and Dr. Caceres will discuss further with patient today. VSS No acute processes noted on her CT PE here. FWB: Cat 1, reassuring. Miroslava Blair MD Normal [facility] Hemogram/Manual Diffon 03-20 Abs. Baso 0.00 thou/cmm Normal 0.00-0.08 [facility] Comment on above: Performed By: #### L MCBD #### [place] [address] Abs. Eosin 0.19 thou/cmm Normal 0.00-0.41 [facility] Comment on above: Performed By: #### L MCBD #### [place] [address] Abs. Lymph 1.05 thou/cmm Low 1.50-3.65 [facility] Comment on above: Performed By: #### L MCBD #### [place] [address] Abs. Pettis 0.29 thou/cmm Normal 0.20-1.00 [facility] Comment on above: Performed By: #### L MCBD #### [place] [address] Abs. Neut (ANC) 7.97 thou/cmm High 3.00-5.67 [facility] Comment on above: Performed By: #### L MCBD #### [place] [address] Anisocytosis Ql (Bld) Slight Normal [facility] Comment on above: Performed By: #### L MCBD #### [place] [address] Basophil 0.0 % Normal [facility] Comment on above: Performed By: #### L MCBD #### [facility] [address] [place], [place] [address] Eosinophil 2.0 % Normal [facility] Comment on above: Performed By: #### L MCBD #### [facility] [address] [place] [address] Lymphocyte 11.0 % Normal [facility] Comment on above: Performed By: #### L MCBD #### [facility] [address] [place] [address] Monocyte 3.0 % Normal [facility] Comment on above: Performed By: #### L MCBD #### [facility] [address] [place] [address] Platelets (Bld) [#/Vol] Normal Normal [facility] Comment on above: Performed By: #### L MCBD #### [facility] [address] [place] [address] Poikilocytosis Slight Normal [facility] Comment on above: Performed By: #### L MCBD #### [facility] [address] [place] [address] Seg Neutrophil 84.0 % Normal [facility] Comment on above: Performed By: #### L MCBD #### [facility] [address] [place] [address] Diff Type Manual Diff Normal [facility] Comment on above: Performed By: #### L MCBD #### [facility] [address] [place] [address] Erythrocyte distribution width (RBC) [Ratio] 14.2 % Normal 11.5-15.9 [facility] Comment on above: Performed By: #### L MCBD #### [facility] [address] [place] [address] Hematocrit (Bld) [Volume fraction] 26.3 % Low 37.0-47.0 [facility] Comment on above: Performed By: #### L MCBD #### [facility] [address] [place] [address] Hemoglobin (Bld) [Mass/Vol] 8.6 g/dL Low 12.0-16.0 [facility] Comment on above: Performed By: #### L MCBD #### [facility] [address] [place] [address] MCH (RBC) [Entitic mass] 30.1 pg Normal 27.0-31.0 [facility] Comment on above: Performed By: #### L MCBD #### [facility] [address] [place] [address] MCHC (RBC) [Mass/Vol] 32.7 % Normal 32.0-36.0 [facility] Comment on above: Performed By: #### L MCBD #### [facility] [address] [place] [address] MCV (RBC) [Entitic vol] 92.0 fl Normal 81.0-99.0 [facility] Comment on above: Performed By: #### L MCBD #### [place] [address] Platelet mean volume (Bld) [Entitic vol] 10.2 fl Normal 7.1-10.5 [facility] Comment on above: Performed By: #### L MCBD #### [place] [address] Platelets (Bld) [#/Vol] 272 thou/cmm Normal 150-400 [facility] Comment on above: Performed By: #### L MCBD #### [place] [address] RBC (Bld) [#/Vol] 2.86 mil/cmm Low 4.20-5.40 [facility] Comment on above: Performed By: #### L MCBD #### [facility] [address] [place] [address] WBC (Bld) [#/Vol] 9.5 thou/cmm Normal 4.8-10.5 [facility] Comment on above: Performed By: #### L MCBD #### [place] [address] Hgbon 03-20-2019 Hemoglobin (Bld) [Mass/Vol] 8.3 g/dL Low 12.0-16.0 [facility] Comment on above: Performed By: #### L P14 #### [facility] [address] [place], [place] [address] MDRD eGFRon 03-20-2019 GFR/1.73 sq M predicted among non-blacks MDRD (S/P/Bld) [Vol rate/Area] mL/min/{1.73_m2} Normal >60mL/min/1 .73m2 [facility] Comment on above: Result Comment: If t he patient is , multiply the result by 1.210. Performed By: #### L P14 #### [facility] [address] [place], [place] [address] PROCEDUREon 03-20-2019 PROCEDURE HNO ID: [id number] Author: Miroslava Blair Service: Services Author Type: Physician Type: Procedures Filed: 03/21/2019 12:17 AM Note Text: OBSTETRICS NST SUMMARY SERVICE DATE: March 20, 2019 The patient is a 28 year old female, , who is at 34w2d with an ALEYDA of 04/29/2019, Date entered prior to episode creation dating method. NST OBJECTIVE FINDINGS PER NURSE: Start Time: 1945 (03/20/192029 : Jessenia Rodríguez RN) Complete Time: 2029 (03/20/192029 : Jessenia Rodríguez RN) Indications: Other: Comment(chest pain) (03/20/192029 : Jessenia Rodríguez RN) Patient Reason For: monitor baby (03/20/192029 : Jessenia Rodríguez RN) NST Explanation: Procedure Explained;Monitor Explained;Verbalizes Understanding (03/20/192029 : Jessenia Rodríguez RN) Acoustic Stimulator: Interventions: MONITORING/ASSESSMENT: Baseline: 140 bpm (03/20/192029 : Jessenia Rodríguez RN) Variability: Moderate (6-25 bpm) (03/20/192029 : Jessenia Rodríguez RN) Accelerations: Present (03/20/192029 : Jessenia Rodríguez RN) Decelerations: Decelerations: None (03/20/192029 : Jessenia Rodríguez RN) Contractions: Not present (03/20/192029 : Jessenia Rodríguez RN) Frequency: Above information forwarded to Dr. blair (03/20/192029 : Jessenia Rodríguez RN) for final review and interpretation. SIGNATURE: Jessenia Rodríguez RN PATIENT NAME: Meghan Licea DATE: March 20, 2019 TIME: 8:35 PM PROVIDER INTERPRETATION: Category I and Reactive SIGNATURE: Miroslava Blair MD DATE: March 21, 2019 TIME: 12:17 AM Normal [facility] Protimeon 03-20-2019 INR Coag (PPP) [Relative time] 0.94 {INR} Normal 0.90-1.30 [facility] Comment on above: Result Comment: Rafaela min K Antagonist (VKA) Therapeutic Range: INR 2 to 3 (Target INR of 2.5) Note: For patients treated with VKA drugs, such as warfarin, the [place] [employer] 2012 Guideline recommends a therapeutic INR range of 2 to 3 (target INR of 2.5). This recommendation includes high-risk patients with antiphospholipid syndrome with previous arterial or venous thromboembolism, current-generation mechanical or bioprosthetic aortic heart valve replacement. Note: Patients with mechanical aortic valve replacement and additional risk factors for thromboembolic events (atrial fibrillation, previous thromboembolism, LV dysfunction, hypercoagulable conditions) or an older generation mechanical AVR (i.e., ball in-Cage) or any mechanical MVR should have a INR therapeutic range of 2.5 to 3.5 target INR of 3). Nicole GH, et al. Chest 2012; 141:7S-47S Bj RA, et al. JACC 2017; 70: 252-289 Performed By: #### L PT #### [address] [address] PT Coag (PPP) [Time] 10.0 s Normal 9.7-13.0 [facility] Comment on above: Result Comment: . Performed By: #### L PT #### [place] [id number] TSHon 03-20-2019 TSH Qn 5.740 uU/mL High 0.270-4.200 [facility] Comment on above: Result Comment: If t he patient is , TSH reference range varies by gestational period: First Trimester (weeks 9-12): 0.180-2.990 mcIU/mL Second Trimester: 0.110-3.980 mcIU/mL Third Trimester: 0.480-4.710 mcIU/mL Wayne Ahumada et al. A Practical Approach for the Verifications and Determination of Site- and Trimester-Specific Reference Intervals for Thyroid Function tests in . Thyroid, 2019:29:3:412-420. Bubba E, et al. 2017 Guidelines of the [place] [employer] for the Diagnosis and Management of Thyroid Disease during and the . Thyroid, 2017:27:3:315-389. Performed By: #### T SH #### [place] [phone] #### FT4 #### [facility] [address] [place] [phone] Troponin Ton 03-20-2019 Troponin T.cardiac [Mass/Vol] ug/L Normal 0.000-0.029 [facility] Comment on above: Performed By: #### T NT #### [place] [phone] Type and Scr,Prenatlon 03-20 ABO/RH(D) Positive Normal [facility] Comment on above: Performed By: #### T SPN #### [place] [phone] Urinalysis Routineon 019 Appearance (U) 1+ (HAZY) Normal [facility] [facility] Comment [facility] above: Performed By: #### L P14 #### [place] [address] Bacteria LM.HPF (Urine sed) [#/Area] FEW Abnormal None [facility] Comment on above: Performed By: #### L P14 #### [place] [id number] Bilirubin Urine Negative Normal Negative [facility] Comment on above: Performed By: #### L P14 #### [facility] [address] [place] [address] Color (U) YELLOW Normal [facility] Comment on above: Performed By: #### L P14 #### [facility] [address] [place] [address] Ep Cells Urine 13-20 Abnormal 0-5 [facility] Comment on above: Performed By: #### L P14 #### [facility] [address] [place] [address] Glucose Ql (U) Negative Normal Negative [facility] Comment on above: Performed By: #### L P14 #### [facility] [address] [place] [address] Hemoglobin,Urine Negative Normal Negative [facility] Comment on above: Performed By: #### L P14 #### [place] [address] Ketone Urine Negative Normal Negative [facility] Comment on above: Performed By: #### L P14 #### [facility] [address] [place] [address] Leukocytes Esterase TRACE Abnormal Negative [facility] Comment on above: Performed By: #### L P14 #### [facility] [address] [place] [address] Nitrites Urine Negative Normal Negative [facility] Comment on above: Performed By: #### L P14 #### [place] [address] pH (U) 6.5 [pH] Normal 5.0-8.0 [facility] Comment on above: Performed By: #### L P14 #### [facility] [address] [place] [address] Protein (U) [Mass/Vol] Negative Normal Negative [facility] Comment on above: Performed By: #### L P14 #### [facility] [address] [place] [address] RBC LM.HPF (Urine sed) [#/Area] 0-3 Normal 0-3 [facility] Comment on above: Performed By: #### L P14 #### [facility] [address] [place] [address] Specific [place], Ur 1.020 Normal 1.005-1.030 [facility] Comment on above: Performed By: #### L P14 #### [facility] [address] [place] [address] Urobilinogen,Ur 0.2 EU/dL Normal 0.2-1.0 [facility] Comment on above: Performed By: #### L P14 #### [facility] [address] [place] [address] WBC LM.HPF (Urine sed) [#/Area] 2-5 Normal 0-5 [facility] Comment on above: Performed By: #### L P14 #### [facility] [address] [place] [address] US Transvaginalon 08-23-2018 US Transvaginal Patient Name: MEGHAN LICEA Ultrasound Exam Date/Time 08/23/2018 13:08:07 EDT Exam US Transvaginal Ordering Physician [id number] YOO Accession Number [id number] CPT4 Codes 79110 () Reason For Exam ectopic Report OB ULTRASOUND-FIRST TRIMESTER: CLINICAL INDICATION: Pelvic cramping, positive home test on 08/19/2018. Beta-hCG of 1049. TECHNIQUE: Transvaginal evaluation of the pelvis COMPARISON: None. FINDINGS: The uterus is retroverted and measures 8.4 x 5.6 x 4.5 cm. The endometrium is thickened measuring 17 mm. No evidence of an intrauterine gestational sac. Other: There is a moderate amount of free pelvic fluid. Two hypoechoic lesions are seen in the left ovary, the larger measuring 1.7 cm. Single hypoechoic lesion is seen in the right ovary, measuring 2.2 cm.. IMPRESSION: 1. No evidence of an intrauterine . Given the patient's elevated beta hCG, these findings could be related to a failed first trimester , or could be related to a very early first trimester or nonvisualized ectopic . Recommend serial beta hCG levels in 48 hours and consider short-term follow-up ultrasound. 2. Moderate free pelvic fluid. 3. Hypoechoic lesions both ovaries, may represent small hemorrhagic cysts. Report Dictated on Final Dictated: 08/23/2018 1:19 pm Dictating Physician: MD SHEN NICHOLAS Signed Date and Time: 08/23/2018 1:26 pm Signed by: MD SHEN NICHOLAS Transcribed Date and Time: 08/23/2018 1:19 Normal [facility] Urinalysis,Macroon 9 Appearance (U) Clear Normal Clear [facility] Comment on above: Performed By: #### U AMAC, UAMIC #### [address] [place] [address] Bilirubin,Ur Negative Normal Negative [facility] Comment on above: Performed By: #### U AMAC, UAMIC #### [address] [place] [address] Color (U) Yellow Normal Lt. Yellow [facility] Comment on above: Performed By: #### U AMAC, UAMIC #### [address] [place] [address] Glucose Ql (U) NEG (Normal) Normal Negative [facility] Comment on above: Performed By: #### U AMAC, UAMIC #### [address] [place] [address] Ketone,Urine 1+ (small) Normal Negative [facility] Comment on above: Performed By: #### U AMAC, UAMIC #### [address] [place] [address] Nitrite Ql (U) Negative Normal Negative [facility] Comment on above: Performed By: #### U AMAC, UAMIC #### [address] [place] [address] Occult Blood,Ur Negative Normal Negative [facility] Comment on above: Performed By: #### U AMAC, UAMIC #### [address] [place] [address] pH (U) 6.0 Normal 5.0-8.0 [facility] Comment on above: Performed By: #### U AMAC, UAMIC #### [address] [address] Protein (U) [Mass/Vol] Negative Normal Negative [facility] Comment on above: Performed By: #### U AMAC, UAMIC #### [address] [address] Specific [place],Urine 1.015 Normal 1.005-1.030 [facility] Comment on above: Performed By: #### U AMAC, UAMIC #### [address] [address] Urobilinogen Qn (U) Normal (0.2) Normal 0-1 [facility] Comment on above: Performed By: #### U AMAC, UAMIC #### [address] [address] WBC (Bld) [#/Vol] Trace Normal Negative [facility] Comment on above: Performed By: #### U AMAC, UAMIC #### [address] [address] Urinalysis,Microscopicon Bacteria LM.HPF (Urine sed) [#/Area] Many (51-100) Normal Negative [facility] Comment on above: Performed By: #### U AMAC, UAMIC #### [address] [address] Epithelial cells LM.HPF (Urine sed) [#/Area] 3 - 5 Normal 3-5 [facility] Comment on above: Performed By: #### U AMAC, UAMIC #### [address] [address] Mucous Threads Few Normal Negative [facility] Comment on above: Performed By: #### U AMAC, UAMIC #### [address] [address] RBC LM.HPF (Urine sed) [#/Area] Negative Normal 0-2 [facility] Comment on above: Performed By: #### U AMAC, UAMIC #### [address] [address] WBC LM.HPF (Urine sed) [#/Area] 0 - 2 Normal 0-5 [facility] Comment on above: Performed By: #### U AMAC, UAMIC #### [facility] [address] [place] [address] hCG Quantitativeon 9 hCG Quantitative 1049 m[IU]/mL Abnormal < 3 [facility] Comment on above: Performed By: #### Q WNT #### [facility] [address] [place] [id number] Chronic Care Managementon Chronic Care Management Patient Care Team Care Team MemberRoleSpecialtyOffice Number Kayy Eddy DO [phone] Darin CARRILLO, Karen [phone] Active Problems Cigarette nicotine dependence without complication (305.1) (F17.210) Depression with anxiety (300.4) (F41.8) Headache (784.0) (R51) History of ADHD (V11.8) (Z86.59) Insomnia, unspecified type (780.52) (G47.00) Migraine headache (346.90) (G43.909) Numbness and tingling (782.0) (R20.0,R20.2) Panic attacks (300.01) (F41.0) PTSD (post-traumatic stress disorder) (309.81) (F43.10) Screen for STD (sexually transmitted disease) (V74.5) (Z11.3) Tension-type headache (339.10) (G44.209) Bipolar disorder (296.80) (F31.9) Allergies No Known Allergies Recorded By: Missy Diaz; 02/04/2017 3:06:01 PM Note Body Pt has a troubling past including drug addiction. She is rebuilding her life, has a young child that she is devoted to, has a job, sees counseling, and is willing to work hard to get better. Recently, has been experiencing some sadness and anxiety, meds were discussed and prescribed by . Reviewed her case with and PHIL. Total of 25 minutes. 06/01/18 Called and spoke with pt via telephone. She is doing well, no concerns or worries but found out she is . Congratulations offered. Pt is happy with news and wondered if it's safe to continue taking her meds. Message sent to to , psychiatrist, regarding psych meds. Also, placed referral in the system for psych access. Per , pt is ok to continue with meds until she sees either psych or obgyn. Called pt and she scheduled apt to see psych on 07/07 and OBGYN on 06/28. Encouraged pt to call and see if possible to get earlier apt to discuss meds.20 minutes Will not continue to engage pt with [facility] unless referred again for new needs. She connected with psychiatrist and psychologist. Signatures Electronically signed by : Mauricio Blanco, ; Aug 17 2018 9:36AM EST (Author) Electronically signed by : Kayy Eddy DO; Aug 17 2018 9:43AM EST (Author) Normal [facility] Comprehensive Panelon 2018 Albumin [Mass/Vol] 3.9 g/dL Normal 3.4-5.0 [facility] Comment on above: Performed By: #### L P14 #### [place] [address] ALP [Catalytic activity/Vol] 71 U/L Normal 46-116 [facility] Comment on above: Performed By: #### L P14 #### [place] [address] ALT-SGPT Blood 18 U/L Normal 14-63 [facility] Comment on above: Performed By: #### L P14 #### [place] [address] AST-SGOT Blood 13 U/L Low 15-37 [facility] Comment on above: Performed By: #### L P14 #### [place] [address] Bilirubin Ql (U) 0.4 mg/dL Normal 0.2-1.0 [facility] Comment on above: Performed By: #### L P14 #### [place] [address] Calcium [Mass/Vol] 9.1 mg/dL Normal 8.5-10.1 [facility] Comment on above: Performed By: #### L P14 #### [facility] [address] [place], [place] [address] CO2 Blood 24 mEq/L Normal 21-32 [facility] Comment on above: Performed By: #### L P14 #### [facility] [address] [place], [place] [address] Creatinine [Mass/Vol] 0.59 mg/dL Normal 0.51-0.95 [facility] Comment on above: Performed By: #### L P14 #### [facility] [address] [place], [place] [address] Glucose [Mass/Vol] 91 mg/dL Normal 70-99 [facility] Comment on above: Performed By: #### L P14 #### [facility] [address] [place], [place] [address] Protein [Mass/Vol] 7.4 g/dL Normal 6.4-8.2 [facility] Comment on above: Performed By: #### L P14 #### [facility] [address] [place], [place] [address] Urea nitrogen [Mass/Vol] 12 mg/dL Normal 7-25 [facility] Comment on above: Performed By: #### L P14 #### [facility] [address] [place], [place] [address] Urea nitrogen/Creatinine [Mass ratio] 20 mg/mg Normal 10-20 [facility] Comment on above: Performed By: #### L P14 #### [facility] [address] [place], [place] [address] Anion gap [Moles/Vol] 15 mmol/L Normal 8-20 [facility] Comment on above: Performed By: #### L P14 #### [facility] [address] [place], [place] [address] Chloride [Moles/Vol] 104 mmol/L Normal 98-109 [facility] Comment on above: Result Comment: Test ing performed on an Estrella i-STAT. Performed By: #### L P14 #### [address] [address] Potassium [Moles/Vol] 3.9 mmol/L Normal 3.5-4.9 [facility] Comment on above: Result Comment: Test ing performed on an Estrella i-STAT. Performed By: #### L P14 #### [facility] [address] [place] [address] Sodium [Moles/Vol] 139 mmol/L Normal 138-146 [facility] Comment on above: Result Comment: Test ing performed on an Estrella i-STAT. Performed By: #### L P14 #### [place] [address] HCG,Totalon 06-10-2018 HCG Qn 334.0 m[IU]/mL Normal [facility] Comment on above: Result Comment: Male <2 Non- female <6 female 0-1 Week 0 - 50 1-2 Weeks 40 - 300 2-3 Weeks 100 - 1000 3-4 Weeks 500 - 6000 1-2 Months 5000 - [id number] 2-3 Months [address] - [id number] 2nd Trimester 3000 - [address] The concentration of hCG in maternal serum rises rapidly in early . hCG levels less than 25 mIU/mL do NOT exclude . A further sample should be tested after 48 hours if is suspected. Performed By: #### L HCG #### [place] [address] Hemogram/Manual Diffon 06-10 Abs. Baso 0.00 thou/cmm Normal 0.00-0.08 [facility] Comment on above: Performed By: #### L MCBD #### [place] [address] Abs. Eosin 0.27 thou/cmm Normal 0.00-0.41 [facility] Comment on above: Performed By: #### L MCBD #### [place] [address] Abs. Lymph 1.36 thou/cmm Low 1.50-3.65 [facility] Comment on above: Performed By: #### L MCBD #### [place] [address] Abs. Pettis 0.54 thou/cmm Normal 0.20-1.00 [facility] Comment on above: Performed By: #### L MCBD #### [address] [address] Abs. Neut (ANC) 11.43 thou/cmm High 3.00-5.67 [facility] Comment on above: Performed By: #### L MCBD #### [facility] [address] [place] [address] Basophil 0.0 % Normal [facility] Comment on above: Performed By: #### L MCBD #### [facility] [address] [place] [address] Eosinophil 2.0 % Normal [facility] Comment on above: Performed By: #### L MCBD #### [facility] [address] [place] [address] Lymphocyte 10.0 % Normal [facility] Comment on above: Performed By: #### L MCBD #### [place] [address] Monocyte 4.0 % Normal [facility] Comment on above: Performed By: #### L MCBD #### [place] [address] Platelets (Bld) [#/Vol] Normal Normal [facility] Comment on above: Performed By: #### L MCBD #### [place] [address] RBC morphology finding Nom (Bld) Normal Normal [facility] Comment on above: Performed By: #### L MCBD #### [place] [address] Seg Neutrophil 84.0 % Normal [facility] Comment on above: Performed By: #### L MCBD #### [place] [address] Diff Type Manual Diff Normal [facility] Comment on above: Performed By: #### L MCBD #### [place] [address] Erythrocyte distribution width (RBC) [Ratio] 12.7 % Normal 11.5-15.9 [facility] Comment on above: Performed By: #### L MCBD #### [place] [address] Hematocrit (Bld) [Volume fraction] 39.6 % Normal 37.0-47.0 [facility] Comment on above: Performed By: #### L MCBD #### [facility] [address] [place] [address] Hemoglobin (Bld) [Mass/Vol] 13.4 g/dL Normal 12.0-16.0 [facility] Comment on above: Performed By: #### L MCBD #### [facility] [address] [place] [address] MCH (RBC) [Entitic mass] 31.0 pg Normal 27.0-31.0 [facility] Comment on above: Performed By: #### L MCBD #### [facility] [address] [place] [address] MCHC (RBC) [Mass/Vol] 33.8 % Normal 32.0-36.0 [facility] Comment on above: Performed By: #### L MCBD #### [place] [address] MCV (RBC) [Entitic vol] 91.7 fl Normal 81.0-99.0 [facility] Comment on above: Performed By: #### L MCBD #### [place] [address] Platelet mean volume (Bld) [Entitic vol] 10.4 fl Normal 7.1-10.5 [facility] Comment on above: Performed By: #### L MCBD #### [facility] [address] [place] [address] Platelets (Bld) [#/Vol] 247 thou/cmm Normal 150-400 [facility] Comment on above: Performed By: #### L MCBD #### [facility] [address] [place] [address] RBC (Bld) [#/Vol] 4.32 mil/cmm Normal 4.20-5.40 [facility] Comment on above: Performed By: #### L MCBD #### [facility] [address] [place] [address] WBC (Bld) [#/Vol] 13.6 thou/cmm High 4.8-10.8 [facility] Comment on above: Performed By: #### L MCBD #### [facility] [address] [place] [address] Lipase Bloodon 06-10-2018 Lipase Blood 83 U/L Normal 73-393 [facility] Comment on above: Performed By: #### L LIP #### [place] [address] MDRD eGFRon 06-10-2018 GFR/1.73 sq M predicted among non-blacks MDRD (S/P/Bld) [Vol rate/Area] mL/min/{1.73_m2} Normal >60mL/min/1 .73m2 [facility] Comment on above: Result Comment: If t he patient is , multiply the result by 1.210. Performed By: #### L GFR #### [place] [address] Urinalysis Routineon 019 Appearance (U) 1+ (HAZY) Normal [facility] Comment on above: Performed By: #### L URIN #### [place] [address] Bilirubin Urine Negative Normal Negative [facility] Comment on above: Performed By: #### L URIN #### [place] [address] Color (U) PALE RED Normal [facility] Comment on above: Performed By: #### L URIN #### [place] [address] Ep Cells Urine 0-2 Normal 0-5 [facility] Comment on above: Performed By: #### L URIN #### [place] [address] Glucose Ql (U) Negative Normal Negative [facility] Comment on above: Performed By: #### L URIN #### [place] [address] Hemoglobin,Urine 3+ Abnormal Negative [facility] Comment on above: Performed By: #### L URIN #### [facility] [address] [place] [address] Ketone Urine Negative Normal Negative [facility] Comment on above: Performed By: #### L URIN #### [facility] [address] [place] [address] Leukocytes Esterase Negative Normal Negative [facility] Comment on above: Performed By: #### L URIN #### [place] [address] Nitrites Urine Negative Normal Negative [facility] Comment on above: Performed By: #### L URIN #### [place] [address] pH (U) 8.5 [pH] High 5.0-8.0 [facility] Comment on above: Performed By: #### L URIN #### [place] [address] Protein (U) [Mass/Vol] Negative Normal Negative [facility] Comment on above: Performed By: #### L URIN #### [place] [address] RBC LM.HPF (Urine sed) [#/Area] 21-35 Abnormal 0-3 [facility] Comment on above: Performed By: #### L URIN #### [place] [address] Specific [place], Ur 1.015 Normal 1.005-1.030 [facility] Comment on above: Performed By: #### L URIN #### [place] [address] Urobilinogen,Ur 0.2 EU/dL Normal 0.0-1.0 [facility] Comment on above: Performed By: #### L URIN #### [place] [address] WBC LM.HPF (Urine sed) [#/Area] NONE Normal 0-5 [facility] Comment on above: Performed By: #### L URIN #### [place] [address] Urine Drug Screenon 06-11-19 19 Urine Amphetamine Non-Detected Normal Non-Detect e d [facility] Comment on above: Performed By: #### L UDR2 #### [facility] [address] [place] [address] Urine Barbiturates Non-Detected Normal Non-Detec te d [facility] Comment on above: Performed By: #### L UDR2 #### [place] [address] Urine Benzodiazepine Non-Detected Normal Non-Det ecte d [facility] Comment on above: Performed By: #### L UDR2 #### [place] [address] Urine Buprenorphine Non-Detected Normal Non-Dete cte d [facility] Comment on above: Result Comment: Urin e Drug Cutoff Levels Urine Amphetamine 500 ng/mL Urine Barbituate 200 ng/mL Urine Benzodiazepines 150 ng/mL Urine Cocaine 150 ng/mL Urine Methamphetamines 500 ng/mL Urine Methadone 200 ng/mL Urine Opiates 100 ng/mL Urine Oxycodone 100 ng/mL Urine Phencyclidine (PCP) 25 ng/mL Urine Propoxyphene 300 ng/mL Urine Tricyclics 300 ng/mL Urine THC 50 ng/mL Urine Buprenorphine 10 ng/mL The results of these analytes are unconfirmed and reported qualitatively as detected or non-detected relative to the cutoff value. Detected results indicate the sample is likely to contain the analyte. Non-detected results indicate that either the sample does not contain the analyte or it is present in concentrations below the cutoff level. This drug screen should be used for medical diagnostic purposes only. Testing Performed at: [place] [address] Performed By: #### L UDR2 #### [place] [address] Urine Cocaine Non-Detected Normal Non-Detecte d [facility] Comment on above: Performed By: #### L UDR2 #### [place] [address] Urine Methadone Non-Detected Normal Non-Detecte d [facility] Comment on above: Performed By: #### L UDR2 #### [place] [address] Urine Methamphetamine Non-Detected Normal Non-Detecte d [facility] Comment on above: Performed By: #### L UDR2 #### [facility] [address] [place], [place] [address] Urine Opiate Non-Detected Normal Non-Detecte d [facility] Comment on above: Performed By: #### L UDR2 #### [facility] [address] [place] [address] Urine Oxycodone Non-Detected Normal Non-Detecte d [facility] Comment on above: Performed By: #### L UDR2 #### [facility] [address] [place] [address] Urine PCP Non-Detected Normal Non-Detecte d [facility] Comment on above: Performed By: #### L UDR2 #### [place] [address] Urine Propoxyphene Non-Detected Normal Non-Detec te d [facility] Comment on above: Performed By: #### L UDR2 #### [place] [address] Urine THC see below Normal Non-Detecte d [facility] Comment on above: Result Comment: Dete cted (unconfirmed) Performed By: #### L UDR2 #### [place] [address] Urine Tricyclics Non-Detected Normal Non-Detecte d [facility] Comment on above: Performed By: #### L UDR2 #### [place] [address] [address] Maxillofacial w/o Contras ton 03-10-2017 CT Maxillofacial w/o Contrast Patient Name: MEGHAN LICEA CT Exam Date/Time 03/10/2017 11:33:[address] Maxillofacial w/o Contrast Ordering Physician TAHLA GOLDEN Accession Number [id number] CPT4 Codes 11402 () Reason For Exam chronic rhinitis Report Indication: Chronic rhinitis. No comparison. Trauma two years ago with nasal surgery. Fracture. FINDINGS: Unenhanced imaging maxillofacial bones performed. 3 mm reconstructions. Also 3-D imaging created and reviewed on independent 3-D workstation. The paranasal sinuses are clear. No acute process of the orbits. Within the nasal cavity, there is nasal septal deviation to the right of up to 3 mm. There is mucosal thickening especially along the inferior turbinates. No displaced fracture seen. IMPRESSION: Rhinitis and nasal septal deviation. No acute sinusitis visible. Report Dictated on Final Dictating Physician: MD TARIQ JOHN Signed Date and Time: 03/10/2017 8:53 pm Signed by: MD TARIQ JOHN Transcribed Date and Time: 03/10/2017 8:54 Normal [facility] Vital Signs Date Time Vital Sign Value Performing Clinician Facility 11-08-2024 16:48-0400 Body mass index (BMI) [Ratio] 26.62 kg/m2 Ileana Herrmann APRN.CLOTH STRETCHER Work Phone: [facility] 11-08-2024 16:48-0400 Body temperature 97.59 [degF] Ileana Hermrann APRN.CLOTH STRETCHER Work Phone: [facility] 11-08-2024 16:48-0400 Body weight 77.1 kg Ileana Herrmann APRN.CLOTH STRETCHER Work Phone: [facility] 11-08-2024 16:48-0400 Diastolic blood pressure 76 mm[Hg] Ileana Herrmann APRN.CLOTH STRETCHER Work Phone: [facility] 11-08-2024 16:48-0400 Heart rate 85 /min Ileana Herrmann APRN.CLOTH STRETCHER Work Phone: [facility] 11-08-2024 16:48-0400 Respiratory rate 17 /min Ileana Herrmann APRN.CLOTH STRETCHER Work Phone: [facility] 11-08-2024 16:48-0400 SaO2% (BldA) [Mass fraction] 98 % Ileana Herrmann APRN.CLOTH STRETCHER Work Phone: [facility] 11-08-2024 16:48-0400 Systolic blood pressure 110 mm[Hg] Ileana Herrmann APRN.CNP Work Phone: [facility] 07-27-2023 18:31-0400 Body temperature 95.6 [degF] Dr. Talha Rogers Work Phone: [facility] 07-27-2023 18:31-0400 Diastolic blood pressure 85 mm[Hg] Dr. Talha Rogers Work Phone: [facility] 07-27-2023 18:31-0400 Heart rate 76 /min Dr. Talha Rogers Work Phone: [facility] 07-27-2023 18:31-0400 Respiratory rate 16 /min Dr. Talha Rogers Work Phone: [facility] 07-27-2023 18:31-0400 SaO2% (BldA) [Mass fraction] 97 % Dr. Talha Rogers Work Phone: [facility] 07-27-2023 18:31-0400 Systolic blood pressure 120 mm[Hg] Dr. Talha Rogers Work Phone: [facility] 07-27-2023 16:10-0400 Body height 170.[address] Talha Rogers Work Phone: [facility] 07-27-2023 16:10-0400 Body mass index (BMI) [Ratio] 30 kg/m2 Dr. Talha Rogers Work Phone: [facility] 07-27-2023 16:10-0400 Body weight 87.[address] Talha Rogers Work Phone: [facility] 06-28-2023 13:02-0400 Body height 170.[address] Talha Rogers Work Phone: [facility] 06-28-2023 13:02-0400 Body mass index (BMI) [Ratio] 29.7 kg/m2 Dr. Talha Rogers Work Phone: [facility] 06-28-2023 13:02-0400 Body temperature 99.4 [degF] Dr. Talha Rogers Work Phone: [facility] 06-28-2023 13:02-0400 Body weight 86.[address] Talha Rogers Work Phone: [facility] 06-28-2023 13:02-0400 Diastolic blood pressure 80 mm[Hg] Dr. Talha Rogers Work Phone: [facility] 06-28-2023 13:02-0400 Heart rate 72 /min Dr. Talha Rogers Work Phone: [facility] 06-28-2023 13:02-0400 Respiratory rate 18 /min Dr. Talha Rogers Work Phone: [facility] 06-28-2023 13:02-0400 SaO2% (BldA) [Mass fraction] 98 % Dr. Talha Rogers Work Phone: [facility] 06-28-2023 13:02-0400 Systolic blood pressure 122 mm[Hg] Dr. Talha Rogers Work Phone: [facility] 01-13-2023 07:42-0400 Body weight 92.53 kg Nola Cerna MIRROR MAKER.CLOTH STRETCHER Work Phone: [facility] 01-13-2023 07:42-0400 Diastolic blood pressure 76 mm[Hg] Nola Bainshof MIRROR MAKER.CLOTH STRETCHER Work Phone: [facility] 01-13-2023 07:42-0400 Heart rate 83 /min Nola Bainshof MIRROR MAKER.CLOTH STRETCHER Work Phone: [facility] 01-13-2023 07:42-0400 Respiratory rate 16 /min Nola Bainshof MIRROR MAKER.CLOTH STRETCHER Work Phone: [facility] 01-13-2023 07:42-0400 SaO2% (BldA) [Mass fraction] 96 % Nola Cerna MIRROR MAKER.CLOTH STRETCHER Work Phone: [facility] 01-13-2023 07:42-0400 Systolic blood pressure 98 mm[Hg] Nola Bainshof MIRROR MAKER.CLOTH STRETCHER Work Phone: [facility] 09-19-2022 08:16-0400 Body temperature 98.71 [degF] Nola Tannhof MIRROR MAKER.CLOTH STRETCHER Work Phone: [facility] 09-19-2022 08:16-0400 Body weight 88.27 kg Nola Tannhof MIRROR MAKER.CLOTH STRETCHER Work Phone: [facility] 09-19-2022 08:16-0400 Diastolic blood pressure 78 mm[Hg] Nola Tannhof MIRROR MAKER.CLOTH STRETCHER Work Phone: [facility] 09-19-2022 08:16-0400 Heart rate 78 /min Nola Tannhof MIRROR MAKER.CLOTH STRETCHER Work Phone: [facility] 09-19-2022 08:16-0400 Respiratory rate 21 /min Nola Tannhof MIRROR MAKER.CLOTH STRETCHER Work Phone: [facility] 09-19-2022 08:16-0400 SaO2% (BldA) [Mass fraction] 100 % Nola Tannhof MIRROR MAKER.CLOTH STRETCHER Work Phone: [facility] 09-19-2022 08:16-0400 Systolic blood pressure 102 mm[Hg] Nola Tannhof MIRROR MAKER.CLOTH STRETCHER Work Phone: [facility] 07-12-2022 08:16-0400 Body temperature 98.4 [degF] Deborah Mccain MIRROR MAKER.CLOTH STRETCHER Work Phone: [facility] 07-12-2022 08:16-0400 Body weight 85.55 kg Deborah Mccain MIRROR MAKER.CLOTH STRETCHER Work Phone: [facility] 07-12-2022 08:16-0400 Diastolic blood pressure 80 mm[Hg] Deborah Mccain MIRROR MAKER.CLOTH STRETCHER Work Phone: [facility] 07-12-2022 08:16-0400 Heart rate 88 /min Deborah Mccain MIRROR MAKER.CLOTH STRETCHER Work Phone: [facility] 07-12-2022 08:16-0400 Respiratory rate 18 /min Deborah Mccain MIRROR MAKER.CLOTH STRETCHER Work Phone: [facility] 07-12-2022 08:16-0400 Systolic blood pressure 122 mm[Hg] Deborah Mccain MIRROR MAKER.CLOTH STRETCHER Work Phone: [facility] 06-17-2022 15:48-0400 Body height 171 cm Kiran Masci DO Work Phone: [facility] 06-17-2022 15:48-0400 Body temperature 98.1 [degF] Kiran Masci DO Work Phone: [facility] 06-17-2022 15:48-0400 Body weight 86.86 kg Kiran Masci DO Work Phone: [facility] 06-17-2022 15:48-0400 Diastolic blood pressure 76 mm[Hg] Kiran Masci DO Work Phone: [facility] 06-17-2022 15:48-0400 Heart rate 92 /min Kiran Masci DO Work Phone: [facility] 06-17-2022 15:48-0400 SaO2% (BldA) [Mass fraction] 98 % Kiran Masci DO Work Phone: [facility] 06-17-2022 15:48-0400 Systolic blood pressure 114 mm[Hg] Kiran Masci DO Work Phone: [facility] 05-21-2022 18:12-0500 Diastolic blood pressure 69 mm[Hg] Dr. Talha Rogers Work Phone: [facility] 05-21-2022 18:12-0500 Heart rate 71 /min Dr. Talha Rogers Work Phone: [facility] 05-21-2022 18:12-0500 Respiratory rate 16 /min Dr. Talha Rogers Work Phone: [facility] 05-21-2022 18:12-0500 SaO2% (BldA) [Mass fraction] 98 % Dr. Talha Rogers Work Phone: [facility] 05-21-2022 18:12-0500 Systolic blood pressure 124 mm[Hg] Dr. Talha Rogers Work Phone: [facility] 05-21-2022 15:31-0500 Body height 170.[address] Talha Rogers Work Phone: [facility] 05-21-2022 15:31-0500 Body mass index (BMI) [Ratio] 29.7 kg/m2 Dr. Talha Rogers Work Phone: [facility] 05-21-2022 15:31-0500 Body temperature 96.8 [degF] Dr. Talha Rogers Work Phone: [facility] 05-21-2022 15:31-0500 Body weight 86.[address] Talha Rogers Work Phone: [facility] 05-21-2022 08:52-0500 Body weight 84.37 kg Nola Cerna MIRROR MAKER.CLOTH STRETCHER Work Phone: [facility] 05-21-2022 08:52-0500 Diastolic blood pressure 90 mm[Hg] Nola Cerna MIRROR MAKER.CLOTH STRETCHER Work Phone: [facility] 05-21-2022 08:52-0500 Heart rate 72 /min Nola Cerna MIRROR MAKER.CLOTH STRETCHER Work Phone: [facility] 05-21-2022 08:52-0500 Respiratory rate 16 /min Nola Cerna MIRROR MAKER.CLOTH STRETCHER Work Phone: [facility] 05-21-2022 08:52-0500 SaO2% (BldA) [Mass fraction] 98 % Nola Cerna MIRROR MAKER.CLOTH STRETCHER Work Phone: [facility] 05-21-2022 08:52-0500 Systolic blood pressure 126 mm[Hg] Nola Cerna MIRROR MAKER.CLOTH STRETCHER Work Phone: [facility] 05-17-2022 07:50-0500 Body temperature 97.6 [degF] Dr. Talha Rogers Work Phone: [facility] 05-17-2022 07:50-0500 Diastolic blood pressure 82 mm[Hg] Dr. Talha Rogers Work Phone: 9(910)459-818014 [place] [address] 05-17-2022 07:50-0500 Heart rate 77 /min Dr. Talha Rogers Work Phone: 1(809)195-326314 [place] [address] 05-17-2022 07:50-0500 Respiratory rate 16 /min Dr. Talha Rogers Work Phone: 4(364)599-321614 [place] [address] 05-17-2022 07:50-0500 SaO2% (BldA) [Mass fraction] 99 % Dr. Talha Rogers Work Phone: 5(141)297-943814 [place] [address] 05-17-2022 07:50-0500 Systolic blood pressure 118 mm[Hg] Dr. Talha Rogers Work Phone: 6(615)680-822214 [place] [address] 05-16-2022 12:31-0500 Diastolic blood pressure 64 mm[Hg] Dr. Talha Rogers Work Phone: 3(381)928-972114 [place] [address] 05-16-2022 12:31-0500 Heart rate 78 /min Dr. Talha Rogers Work Phone: 2(242)366-184214 [place] [address] 05-16-2022 12:31-0500 Respiratory rate 16 /min Dr. Talha Rogers Work Phone: 5(332)802-137914 [place] [address] 05-16-2022 12:31-0500 SaO2% (BldA) [Mass fraction] 98 % Dr. Talha Rogers Work Phone: 2(809)821-235314 [place] [address] 05-16-2022 12:31-0500 Systolic blood pressure 139 mm[Hg] Dr. Talha Rogers Work Phone: 1(811)491-574514 [place] [address] 05-16-2022 12:29-0500 Body temperature 97.8 [degF] Dr. Talha Rogers Work Phone: 2(745)684-523814 [place] [address] 05-16-2022 08:36-0500 Body height 170.[address] Talha Rogers Work Phone: 5(132)202-360314 [place] [address] 05-16-2022 08:36-0500 Body mass index (BMI) [Ratio] 29.7 kg/m2 Dr. Talha Rogers Work Phone: [facility] 05-16-2022 08:36-0500 Body weight 86.[address] Talha Rogers Work Phone: [facility] 03-05-2022 06:56-0500 Body temperature 99.39 [degF] Nola Tannhof MIRROR MAKER.CLOTH STRETCHER Work Phone: [facility] 03-05-2022 06:56-0500 Body weight 86.18 kg Nolarebeka Bainshof MIRROR MAKER.CLOTH STRETCHER Work Phone: [facility] 03-05-2022 06:56-0500 Diastolic blood pressure 84 mm[Hg] Nola Narahof MIRROR MAKER.CLOTH STRETCHER Work Phone: [facility] 03-05-2022 06:56-0500 Heart rate 90 /min Nolarebeka Bainshof MIRROR MAKER.CLOTH STRETCHER Work Phone: [facility] 03-05-2022 06:56-0500 Respiratory rate 16 /min Nola Narahof MIRROR MAKER.CLOTH STRETCHER Work Phone: [facility] 03-05-2022 06:56-0500 SaO2% (BldA) [Mass fraction] 98 % Nolarebeka Bainshof MIRROR MAKER.CLOTH STRETCHER Work Phone: [facility] 03-05-2022 06:56-0500 Systolic blood pressure 120 mm[Hg] Nola Bainshof MIRROR MAKER.CLOTH STRETCHER Work Phone: [facility] 01-13-2022 14:35-0400 Body weight 87.49 kg Talha Rogers MD Work Phone: [facility] 01-13-2022 14:35-0400 Diastolic blood pressure 86 mm[Hg] Talha Rogers MD Work Phone: [facility] 01-13-2022 14:35-0400 Heart rate 88 /min Talha Rogers MD Work Phone: [facility] 01-13-2022 14:35-0400 Respiratory rate 16 /min Talha Rogers MD Work Phone: [facility] 01-13-2022 14:35-0400 Systolic blood pressure 122 mm[Hg] Talha Rogers MD Work Phone: [facility] 12-05-2021 10:01-0400 Body height 170.18 cm [facility] Work Phone: 12-05-2021 10:01-0400 Body mass index (BMI) [Ratio] 28.3 kg/m2 [facility] Work Phone: 12-05-2021 10:01-0400 Body temperature 97.9 [degF] [facility] Work Phone: 12-05-2021 10:01-0400 Body weight 82.1 kg [facility] Work Phone: 12-05-2021 10:01-0400 Diastolic blood pressure 94 mm[Hg] [facility] Work Phone: 12-05-2021 10:01-0400 Heart rate 83 /min [facility] Work Phone: 12-05-2021 10:01-0400 Respiratory rate 16 /min [facility] Work Phone: 12-05-2021 10:01-0400 SaO2% (BldA) [Mass fraction] 97 % [facility] Work Phone: 12-05-2021 10:01-0400 Systolic blood pressure 127 mm[Hg] [facility] Work Phone: Encounters Encounter Date Encounter Type Care Provider Facility Start: 02-07-2025 ambulatory Roman Lissette Facility :[facility] Start: 01-26-2025 ambulatory Roman Lissette Facility :[facility] Start: 01-17-2025 ambulatory [place] Start: 01-11-2025 End: 01-11-2025 ambulatory Roman [place] Facility:[facility] Start: 01-02-2025 End: 01-02-2025 Emergency department patient visit Roman [place] Facility:[facility] Start: 12-29-2024 End: 12-29-2024 ambulatory Roman Lissette Facility:[facility] Start: 11-09-2024 End: 11-09-2024 Patient encounter procedure Kristy Means Work Phone: Podiatry Comment on above: 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); Pain; Posterior tibial tendon dysfunction Start: 11-09-2024 End: 11-09-2024 ambulatory ROMAN G LISSETTE Facility:[facility] Start: 11-08-2024 End: 11-08-2024 Subsequent hospital visit by physician [facility] Work Phone: Radiology Comment on above: Pain [R52] Start: 11-08-2024 End: 11-08-2024 ambulatory ILEANA HERRMANN Facility:[facility] Start: 11-08-2024 End: 11-08-2024 Patient encounter procedure Ileana Herrmann MIRROR MAKER.CLOTH STRETCHER Work Phone: [facility] Comment on above: Pain (Primary Dx) Start: 10-09-2024 ambulatory Roman Lissette [place] Start: 10-03-2024 End: 10-03-2024 ambulatory DAVID SAUCEDO Facility:[facility] Start: 09-18-2024 End: 09-18-2024 ambulatory Roman Lissette [place] Start: 09-18-2024 End: 09-18-2024 ambulatory Roman [place] Facility:[facility] Start: 09-06-2024 End: 09-06-2024 ambulatory DAVID SAUCEDO Facility:[facility] Start: 07-31-2024 End: 07-31-2024 ambulatory Roman Lissette [place] Start: 07-25-2024 End: 07-25-2024 Emergency department patient visit DOROTEO GERARDO Facility:[facility] Start: 07-10-2024 End: 07-10-2024 ambulatory DAVID SAUCEDO Facility:[facility] Start: 06-27-2024 ambulatory Roman [place] Facility :[facility] Start: 06-21-2024 End: 06-21-2024 ambulatory Roman Lissette Facility:[facility] Start: 05-10-2024 End: 05-10-2024 ambulatory Roman Lissette Facility:[facility] Start: 04-27-2024 ambulatory Roman [place] Start: 04-27-2024 End: 04-27-2024 ambulatory Roman [place] Facility:[facility] Start: 03-22-2024 End: 03-22-2024 Emergency department patient visit Roman [place] Facility:[facility] Start: 03-08-2024 ambulatory Roman [place] Facility :[facility] Start: 03-06-2024 End: 03-06-2024 ambulatory Vince Ferullo Facility:[facility] Start: 03-06-2024 End: 03-06-2024 ambulatory Roman Lissette Facility:[facility] Start: 02-20-2024 End: 02-20-2024 Emergency department patient visit Vinceloki Gloriao Facility:[facility] Start: 07-27-2023 End: 07-27-2023 Emergency department patient visit Dr. Talha Rogers Work Phone: [facility] Work Phone: Start: 07-05-2023 Telephone encounter Nola jimenes APRN.CNP Work Phone: [facility] Comment on above: Results (CT Abdomen ) Start: 07-02-2023 End: 07-02-2023 Subsequent [facility] Comment on above: History of cholecyst ectomy [Z90.49] Start: 06-29-2023 End: 06-29-[address] Talha Rogers Work Phone: [facility] Work Phone: Start: 06-29-2023 End: 06-29-[address] Talha Rogers Work Phone: [facility]Laboratory, Specimen Work Phone: Start: 06-28-2023 End: 06-28-[address] Talha Rogers Work Phone: [facility] Work Phone: Start: 06-28-2023 End: 06-28-[address] Talha oRgers Work Phone: [facility], [facility] Start: 06-28-[address] Maeve Rogers Work Phone: [facility] Start: 06-28-2023 Telephone encounter Talha john MD Work Phone: [facility] Comment on above: Insurance Authorizat ion (Rifaximin) Start: 06-28-2023 End: 06-28-2023 Encounter for general adult medical examination without abnormal findings Dr. Talha Rogers Work Phone: [facility] Start: 06-28-2023 End: 06-28-[address] Talha Rogers Work Phone: [facility] Internal Medicine Work Phone: Start: 06-04-2023 Telephone encounter Nola Jimenez jalil MIRROR MAKER.CLOTH STRETCHER Work Phone: [facility] Comment on above: Results (Labs ) Start: 06-02-2023 End: 06-02-2023 ambulatory Nola Narasarah GIRALDO.CLOTH STRETCHER Work Phone: [facility] Comment on above: History of cholecyst ectomy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 Diabetic (Bd Sheri 2nd Gen Pen Needle) 32 gauge x 5/32 needle Start: 05-26-2019 End: 06-02-2019 Lancets (Onetouc h Delica Plus Lancet) 33 gauge misc Start: 05-26-2019 End: 05-26-2019 Pen Needle, Diabetic (Bd Sheri 2nd Gen Pen Needle) 32 gauge x 5/32 needle Start: 05-26-2019 End: 06-02-2019 Goals Date Patient Goal Desired Activity /State Functional Status Date Assessment Result Facility 05-17-2022 Functional status Up ad 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;Chair [facility] Work Phone: 03-21-2019 Are you deaf, or do you have serious difficulty hearing No 03/21/2019 3:16 PM Arelis Young, JEET No [facility] 03-21-2019 Are you blind, or do you have serious difficulty seeing, even when wearing glasses No 03/21/2019 3:16 PM Arelis Young, JEET No [facility] 03-21-2019 Do you have serious difficulty walking or climbing stairs No 03/21/2019 3:16 PM Arelis oYung, JEET No [facility] 03-21-2019 Do you have difficul ty dressing or bathing No 03/21/2019 3:16 PM Arelis Young, JEET No [facility] 03-21-2019 Because of a physica l, mental, or emotional condition, do you have difficulty doing errands alone such as visiting a physician's office or shopping No 03/21/2019 3:16 PM Arelis Young, JEET No [facility] Mental Status Date Assessment Result Facility 07-27-2023 Cognitive function Voice/Name [facility] Work Phone: 05-21-2022 Cognitive function Level Of Cons ciousness Awake;Alert;Appropriate;Fol lows Commands [facility] Work Phone: 05-17-2022 Cognitive function Voice/Name [facility] Work Phone: 12-05-2021 Cognitive function Level Of Cons ciousness Awake;Alert;Appropriate [facility] Work Phone: 03-21-2019 Because of a physica l, mental, or emotional condition, do you have serious difficulty concentrating, remembering, or making decisions 03/21/2019 3:16 PM Arelis Young RN No [facility] Clinical Notes 06-10-2018 to 11-09-2024 Sheila Viera LPN - 11/09/2024 3:38 PM EDTTKristy leija - 11/09/2024 3:23 PM EDTSSheila canas LPN - 11/09/2024 2:57 PM EDTPatient Ileana Humphrey APRN.CLOTH STRETCHER - 11/08/2024 5:40 PM EDT Note Date & Type Note Facility 11-09-2024 Note HNO ID: [id number] Author: SHEILA VIERA LPN Service: ? Author Type: LICENSED NURSE Type: Progress Notes Filed: 11/09/2024 15:39 Note Text: Per Dr. Means, Meghan was provided with donSeeMe aircast, size M, and instructed/educated in its application, wear, and care. All questions were answered, and patient was able to demonstrate competence with the necessary skills to utilize the above equipment. Billed to [employer]. Per Dr. Means, Meghan was provided with powerstep original inserts, size 8, and instructed/educated in its application, wear, and care. All questions were answered, and patient was able to demonstrate competence with the necessary skills to utilize the above equipment. Sheila Viera LPN [facility] 11-09-2024 History of Present illness Narrative Per Dr. Means Meghan was provided with donSeeMe aircast, size M, and instructed/educated in its application, wear, and care. All questions were answered, and patient was able to demonstrate competence with the necessary skills to utilize the above equipment. Billed to nazia. Per Dr. Means, Meghan was provided with powerstep original inserts, size 8, and instructed/educated in its application, wear, and care. All questions were answered, and patient was able to demonstrate competence with the necessary skills to utilize the above equipment. Sheila Viera LPN Consultation requested by Dr. Herrmann for an opinion regarding foot pain. My final recommendations will be communicated back to the requesting physician by way of shared Medical record or letter to requesting physician via US mail. Subjective Meghan Licea is a 34-year-old female, with a history of pulmonary embolism, presenting with right foot pain. Meghan reports a 1.5 week onset of right foot pain, described as a burning sensation, with associated swelling. The pain is localized to the medial aspect of the foot and radiates to the lower leg. She denies calf pain. 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 She notes that ibuprofen causes gastrointestinal discomfort. She has been wearing supportive tennis shoes, but wore Crocs today due to not having her tennis shoes available. She visited urgent care yesterday, where radiographs were taken, revealing a bone spur but no fractures. The urgent care provider suggested a possible ligamentous issue. She has a history of heel spurs and a fluid pocket behind her kneecap, for which she has a follow-up appointment with her PCP on 11/14/2022. She has a history of pulmonary embolism during a previous , for which she was treated with Lovenox and Coumadin. She is currently not on anticoagulants due to a Factor II gene mutation that does not require anticoagulation at this time. She denies any recent changes in activity level or footwear that could explain the onset of symptoms. 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 Musculoskeletal: (+) right foot pain, (+) right foot swelling, (+) right leg pain, (-) calf pain PAST MEDICAL HISTORY Diagnosis Date Abnormal weight loss Alopecia Anxiety state Cough Depressive disorder with anxiety Dysmenorrhea Generalized anxiety disorder Genital herpes in women Herpetic vulvovaginitis Acyclovir Hip pain Low back pain Pars intercularis issues Muscle pain Neuropathic pain Palpitations PACs Pleurisy Pleuritic pain Post herpetic neuralgia Ruptured ovarian cyst Seizure (HCC) Trochanteric bursitis Unspecified inflammatory disease of female pelvic organs and tissues Rocephin, Metronidazole, Doxycycline Current Outpatient Medications Medication Sig Dispense Refill methylPREDNISolone (MEDROL, RAJEEV,) 4 mg Dose-Pack Take as directed 21 tablet 0 omeprazole (PRILOSEC) 20 mg capsule Take 1 capsule by mouth daily before breakfast. 1/2 hr before meal. (Patient not taking: Reported on 11/08/2024) 30 capsule 5 fluticasone (FLONASE) 50 mcg/actuation nasal spray Use 2 Sprays in each nostril once daily. Rinse mouth after use. (Patient not taking: Reported on 11/08/2024) 1 Each 3 apixaban (ELIQUIS) 5 mg tab(s) Take 1 tablet by mouth twice daily. (Patient not taking: Reported on 11/08/2024) 60 tablet 2 predniSONE (DELTASONE) 10 mg tablet Take 4 tabs daily for 3 days, then 2 tabs daily for 3 days, then 1 tab daily for 3 days with food. (Patient not taking: Reported on 01/13/2023) 21 tablet 0 albuterol HFA (PROVENTIL HFA, VENTOLIN HFA) 90 mcg/actuation inhaler Inhale 2 Puffs as instructed every 4 hours as needed for wheezing/shortness of breath. (Patient not taking: Reported on 11/08/2024) 8 g 0 ARIPiprazole (ABILIFY) 10 mg tablet Take 1 tablet by mouth once daily. (Patient not taking: Reported on 11/08/2024) 30 tablet 5 enoxaparin (LOVENOX) 100 mg/mL syrg Inject 0.9 mL subcutaneously every 12 hours. (Patient not taking: Reported on 01/13/2023) 60 Each 1 warfarin (COUMADIN) 5 mg tablet 15 mg daily or as directed (Patient not taking: Reported on 01/13/2023) 90 tablet 11 levonorgestrel (MIRENA) 20 mcg/24 hours (5 yrs) 52 mg IUD 1 Each by INTRAUTERINE route one time only for 1 dose. (Patient not taking: Reported on 11/08/2024) 1 Each 0 No current facility-administered medications for this visit. Family History Problem Relation Age of Onset Breast Cancer Maternal Grandmother Cancer Maternal Grandmother ovarian Arthritis Mother RA other (Bipolar disorder) Mother other (Depressive disorder) Mother other (Systemic lupus) Mother Maternal GF other (gallbladder removed) Mother other (Heart disease) Maternal Grandfather Paternal GF other (Anxiety) Other other (Blood Clots) Other other (gallbladder removed) Sister Objective unknown if currently . - Cardiovascular: Dorsalis pedis and posterior tibial pulses palpable bilaterally; capillary refill <5 seconds; skin temperature warm from proximal to distal. - Skin: No open sores or calluses noted on bilateral feet; feet appear well-hydrated. - Musculoskeletal: - Left Ankle: No pain on palpation. - Right Ankle: - Prominent navicular tuberosity with pain on palpation. - Pain along the course of the posterior tibial tendon inferior to the medial malleolus; no pain proximal to the medial malleolus. - No pain with calf compression. - MMT: 5/5 for dorsiflexion, plantar flexion, inversion, and eversion; pain with resisted inversion. - Weight-bearing examination demonstrates slight collapse of medial longitudinal arch. Imaging: - X-ray Right Foot: Bone spur identified, no fractures, accessory navicular bone noted. small lucency seen on navicular but similar to 2021 xray. suspect this is from prominent accessory navicular. - (2021) X-ray Both Feet: Accessory navicular bones bilaterally, no acute fractures Assessment & Plan 1. 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 X-rays reveal accessory navicular bones in both feet, with the right foot showing a continuation of the navicular bone. No acute fractures noted. Pain likely due to inflammation at the insertion of the posterior tibial tendon. - Prescribed oral steroid for one week. - Provided a boot for immobilization and rest; instructed to wear the boot for three weeks. - Advised icing the ankle by submerging in cold water for 10 minutes once or twice daily. - Provided an insert for the left shoe to maintain balance. - Educated on the risks of blood clots while in a boot; advised to seek immediate medical attention if experiencing shortness of breath, chest pain, or calf pain. - Follow-up appointment scheduled in three weeks to assess progress and consider transitioning out of the boot. - If pain persists, will consider physical therapy or further imaging such as an MRI. - Letter provided to employer stating patient can perform staff coordination duties while in the boot and should refrain from nursing-related duties. Recording using [employer] software for draft documentation of the visit was discussed with the patient/authorized b2b outside sales representative; all questions welcomed and answered. Patient/authorized b2b outside sales representative agreed to proceed Kristy Means DPM AMB ROOMING INTAKE FLOWSHEET DATA Pain Pain Level: 5 Pain Location: Foot-Right Description: Throbbing, Burning, Sharp Duration Amount of Time: 1.5 Duration Units: Weeks Frequency: Intermittent Intervention/Comfort measure: Reposition, Relaxation Patient presents with: Right Foot - New, Pain, Swelling Sheila Viera LPN documented in this encounter [facility] 11-09-2024 Note HNO ID: [id number] Author: KRISTY MEANS, ? Service: ? Author Type: Physician Type: Progress Notes Filed: 11/09/2024 15:24 Note Text: Consultation requested by Dr. Herrmann for an opinion regarding foot pain. My final recommendations will be communicated back to the requesting physician by way of shared Medical record or letter to requesting physician via US mail. Subjective Meghan Licea is a 34-year-old female, with a history of pulmonary embolism, presenting with right foot pain. Meghan reports a 1.5 week onset of right foot pain, described as a burning sensation, with associated swelling. The pain is localized to the medial aspect of the foot and radiates to the lower leg. She denies calf pain. 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 She notes that ibuprofen causes gastrointestinal discomfort. She has been wearing supportive tennis shoes, but wore Crocs today due to not having her tennis shoes available. She visited urgent care yesterday, where radiographs were taken, revealing a bone spur but no fractures. The urgent care provider suggested a possible ligamentous issue. She has a history of heel spurs and a fluid pocket behind her kneecap, for which she has a follow-up appointment with her PCP on 11/14/2022. She has a history of pulmonary embolism during a previous , for which she was treated with Lovenox and Coumadin. She is currently not on anticoagulants due to a Factor II gene mutation that does not require anticoagulation at this time. She denies any recent changes in activity level or footwear that could explain the onset of symptoms. 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 Musculoskeletal: (+) right foot pain, (+) right foot swelling, (+) right leg pain, (-) calf pain PAST MEDICAL HISTORY Diagnosis Date Abnormal weight loss Alopecia Anxiety state Cough Depressive disorder with anxiety Dysmenorrhea Generalized anxiety disorder Genital herpes in women Herpetic vulvovaginitis Acyclovir Hip pain Low back pain Pars intercularis issues Muscle pain Neuropathic pain Palpitations PACs Pleurisy Pleuritic pain Post herpetic neuralgia Ruptured ovarian cyst Seizure (HCC) Trochanteric bursitis Unspecified inflammatory disease of female pelvic organs and tissues Rocephin, Metronidazole, Doxycycline Current Outpatient Medications Medication Sig Dispense Refill methylPREDNISolone (MEDROL, RAJEEV,) 4 mg Dose-Pack Take as directed 21 tablet 0 omeprazole (PRILOSEC) 20 mg capsule Take 1 capsule by mouth daily before breakfast. 1/2 hr before meal. (Patient not taking: Reported on 11/08/2024) 30 capsule 5 fluticasone (FLONASE) 50 mcg/actuation nasal spray Use 2 Sprays in each nostril once daily. Rinse mouth after use. (Patient not taking: Reported on 11/08/2024) 1 Each 3 apixaban (ELIQUIS) 5 mg tab(s) Take 1 tablet by mouth twice daily. (Patient not taking: Reported on 11/08/2024) 60 tablet 2 predniSONE (DELTASONE) 10 mg tablet Take 4 tabs daily for 3 days, then 2 tabs daily for 3 days, then 1 tab daily for 3 days with food. (Patient not taking: Reported on 01/13/2023) 21 tablet 0 albuterol HFA (PROVENTIL HFA, VENTOLIN HFA) 90 mcg/actuation inhaler Inhale 2 Puffs as instructed every 4 hours as needed for wheezing/shortness of breath. (Patient not taking: Reported on 11/08/2024) 8 g 0 ARIPiprazole (ABILIFY) 10 mg tablet Take 1 tablet by mouth once daily. (Patient not taking: Reported on 11/08/2024) 30 tablet 5 enoxaparin (LOVENOX) 100 mg/mL syrg Inject 0.9 mL subcutaneously every 12 hours. (Patient not taking: Reported on 01/13/2023) 60 Each 1 warfarin (COUMADIN) 5 mg tablet 15 mg daily or as directed (Patient not taking: Reported on 01/13/2023) 90 tablet 11 levonorgestrel (MIRENA) 20 mcg/24 hours (5 yrs) 52 mg IUD 1 Each by INTRAUTERINE route one time only for 1 dose. (Patient not taking: Reported on 11/08/2024) 1 Each 0 No current facility-administered medications for this visit. Family History Problem Relation Age of Onset Breast Cancer Maternal Grandmother Cancer Maternal Grandmother ovarian Arthritis Mother RA other (Bipolar disorder) Mother other (Depressive disorder) Mother other (Systemic lupus) Mother Maternal GF other (gallbladder removed) Mother other (Heart disease) Maternal Grandfather Paternal GF other (Anxiety) Other other (Blood Clots) Other other (gallbladder removed) Sister Objective unknown if currently . - Cardiovascular: Dorsalis pedis and posterior tibial pulses palpable bilaterally; capillary refill <5 seconds; skin temperature warm from proximal to distal. - Skin: No open sores or calluses noted on bilateral feet; feet appear well-hydrated. - Musculoskeletal: - Left Ankle: No pain on palpation. - Rig (more content not included)... [facility] 11-09-2024 Instructions Kristy Means - 11/09/2024 3:17 PM EDT Powerstep Original Full length. Can purchase at [employer] and boots,shoes and more here in [place], [employer] in [place] or [place]. Also can find in [place] in [facility]. Powersteps can also be purchased online, starting around $45.00 If you have a metatarsal or dancer pad for your feet apply the pad directly to the insole so you can interchange between your shoes. Find a shoe with a removable insole and take this out and replace with your powerstep insole. 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 This is contributing to inflammation and pain in the tendon that supports your arch, likely causing insertional tendonitis. - There is no evidence of a fracture on your recent x-rays. The small lucency seen on imaging is consistent with your prior x-rays from 2021 and is part of the accessory navicular bone structure. To manage your symptoms, I recommend the following: - Boot: Wear a walking boot for the next 2-3 weeks to rest and reduce inflammation. - You may remove the boot for sleeping and showering. - Use an insert in your left shoe to maintain balance while wearing the boot. - Avoid driving while wearing the boot. Drive with your regular shoe, then switch to the boot after arriving at your destination. - Ice: Submerge your ankle in a cold water bath for 10 minutes once or twice daily to reduce inflammation. - Medication: Start an oral steroid (prescription sent to your preferred [facility] pharmacy) to help reduce inflammation. Take as directed. - Footwear: Transition to supportive lace-up sneakers (e.g., Hoka, Lynn, Asics, New Balance) after the boot. Avoid Crocs, Hey Dudes, barefoot walking, or unsupportive shoes. 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 Follow-Up: - Schedule a follow-up appointment in 3 weeks, either in person or virtually, to reassess your symptoms and determine if you can transition out of the boot. - If your pain persists at that time, we may consider further imaging, such as an MRI, or physical therapy. Important Precautions: - There is a small risk of blood clots while wearing the boot. If you experience shortness of breath, chest pain, or calf pain, go to the ER immediately. Your work note has been sent to your [employer] account, stating that you are permitted to perform staff coordination duties while wearing the boot but should avoid nursing-related tasks. Please follow these instructions and let us know if your symptoms worsen or if you have any concerns before your follow-up. documented in this encounter [facility] 11-09-2024 Note HNO ID: [id number] Author: SHEILA VIERA LPN Service: ? Author Type: LICENSED NURSE Type: Progress Notes Filed: 11/09/2024 15:24 Note Text: AMB ROOMING INTAKE FLOWSHEET DATA Pain Pain Level: 5 Pain Location: Foot-Right Description: Throbbing, Burning, Sharp Duration Amount of Time: 1.5 Duration Units: Weeks Frequency: Intermittent Intervention/Comfort measure: Reposition, Relaxation Patient presents with: Right Foot - New, Pain, Swelling Sheila Viera LPN [facility] 11-08-2024 Note HNO ID: [id number] Author: ILEANA HERRMANN APRN.CLOTH STRETCHER Service: ? Author Type: Nurse Practitioner Type: Progress Notes Filed: 11/08/2024 17:48 Note Text: [facility] Subjective Meghan Licea is a 34 year old female. Patient presents with: Trauma: Right foot injury x 1.5 weeks HPI Right Foot Pain: - Onset approximately 1.5 weeks ago. - Denies known trauma or injury. 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 - Wears tennis shoes at work. - Pain localized above the arch, radiating up the leg. - Denies pain in the heel, arch, or top of the foot. Review of Systems Musculoskeletal: (+) right medial arch foot pain, (-) heel pain, (-) dorsal foot pain, (-) lateral foot pain, (-) midfoot pain Objective BP 110/76 Pulse 85 Temp 36.4 ?C (97.6 ?F) Resp 17 Wt 77.1 kg (169 lb 15.6 oz) LMP (LMP Unknown) SpO2 98% BMI 26.62 kg/m? Physical Exam General: No acute distress. MSK/Ext: No tenderness to palpation over bone, back of heel, bottom of heel, middle of arch, top of foot, or lateral aspect of foot; tenderness to palpation over deep arch; mild swelling over deep arch, no discoloration; full range of motion, no pain with dorsiflexion or plantarflexion; intact sensation in toes, able to wiggle toes. { 1. Pain (R52) - Acute right foot pain with swelling over the medial arch; no discoloration, normal circulation, and full range of motion. - X-ray showed no fractures; small heel spur noted, but not believed to be the primary cause of pain. - Etiology likely tendon or ligament injury. - Advised rest and ice for symptom management. - Discussed trial of steroids for inflammation and comfort, with clarification that this would not address the underlying issue. - Referred to podiatry for further evaluation and management. and Recording using [employer] software for draft documentation of the visit was discussed with the patient/authorized b2b outside sales representative; all questions welcomed and answered. Patient/authorized b2b outside sales representative agreed to proceed MDM Procedures [facility] 11-08-2024 History of Present illness Narrative [facility] Subjective Meghan Licea is a 34 year old female. Patient presents with: Trauma: Right foot injury x 1.5 weeks HPI Right Foot Pain: - Onset approximately 1.5 weeks ago. - Denies known trauma or injury. 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 - Wears tennis shoes at work. - Pain localized above the arch, radiating up the leg. - Denies pain in the heel, arch, or top of the foot. Review of Systems Musculoskeletal: (+) right medial arch foot pain, (-) heel pain, (-) dorsal foot pain, (-) lateral foot pain, (-) midfoot pain Objective BP 110/76 Pulse 85 Temp 36.4 C (97.6 F) Resp 17 Wt 77.1 kg (169 lb 15.6 oz) LMP (LMP Unknown) SpO2 98% BMI 26.62 kg/m Physical Exam General: No acute distress. MSK/Ext: No tenderness to palpation over bone, back of heel, bottom of heel, middle of arch, top of foot, or lateral aspect of foot; tenderness to palpation over deep arch; mild swelling over deep arch, no discoloration; full range of motion, no pain with dorsiflexion or plantarflexion; intact sensation in toes, able to wiggle toes. { 1. Pain (R52) - Acute right foot pain with swelling over the medial arch; no discoloration, normal circulation, and full range of motion. - X-ray showed no fractures; small heel spur noted, but not believed to be the primary cause of pain. - Etiology likely tendon or ligament injury. - Advised rest and ice for symptom management. - Discussed trial of steroids for inflammation and comfort, with clarification that this would not address the underlying issue. - Referred to podiatry for further evaluation and management. and Recording using [employer] software for draft documentation of the visit was discussed with the patient/authorized b2b outside sales representative; all questions welcomed and answered. Patient/authorized b2b outside sales representative agreed to proceed MDM Procedures documented in this encounter [facility] 11-08-2024 History of Present illness Narrative Radiology Service Progress Note PATIENT NAME: Meghan Licea DATE OF SERVICE: November 08, 2024 TIME: 5:20 PM PATIENT IDENTITY VERIFICATION COMPLETED USING TWO (2) IDENTIFIERS: Name and Date of confirmed by patient verbally. FALL SCREENING: Has the patient had 2 falls in the last year or 1 fall with injury or currently using an Ambulatory Assistive Device (Walker, Cane, Wheelchair, Crutches, etc.)? No PATIENT GENDER DATA: Assigned female at . status: : No status: NO. PATIENT RELEVANT IMPLANT DATA REVIEWED: Yes PATIENT PRESENTS WITH AN IMPLANTABLE OR ATTACHED PACKAGING SALES CONSULTANT: No RADIOLOGY DEPARTMENT: General X-ray: Exam(s) Completed: Lower Extremity X-Ray(s): Foot, Right PERIPHERAL IV DATA: Not applicable SIGNED BY: RT Lester(R) November 08, 2024 5:20 PM documented in this encounter [facility] 11-08-2024 Note HNO ID: [id number] Author: DEBBIE SANTOYO RT(R) Service: ? Author Type: Technologist Type: Progress Notes Filed: 11/08/2024 17:27 Note Text: Radiology Service Progress Note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 productive. +nasal congestion Denies eye or ear complaints. Denies SOB or dyspnea Denies abdominal pain. Denies N/V/D Denies skin rash or lesions. +tobacco smoker, and states has not been able to smoke as much. Has used her sons inhaler with relief. The history is provided by the patient. No spool sorter was used. Cough This is a new problem. The current episode started more than 1 week ago. The problem occurs constantly. The problem has been gradually worsening. Cough characteristics: goes between productive and non productive. There has been no fever. Associated symptoms include chills, headaches, rhinorrhea, myalgias and shortness of breath. Pertinent negatives include no chest pain, no sweats, no weight loss, no ear congestion, no ear pain, no sore throat, no wheezing and no eye redness. The treatment provided no relief. She is a smoker. Her past medical history does not include bronchitis, pneumonia, bronchiectasis, COPD, emphysema or asthma. PAST MEDICAL HISTORY Diagnosis Date Abnormal weight loss Alopecia Anxiety state Cough Depressive disorder with anxiety Dysmenorrhea Generalized anxiety disorder Genital herpes in women Herpetic vulvovaginitis Acyclovir Hip pain Low back pain Pars intercularis issues Muscle pain Neuropathic pain Palpitations PACs Pleurisy Pleuritic pain Post herpetic neuralgia Ruptured ovarian cyst Seizure (HCC) Trochanteric bursitis Unspecified inflammatory disease of female pelvic organs and tissues Rocephin, Metronidazole, Doxycycline PAST SURGICAL HISTORY Procedure Laterality Date APPENDECTOMY HX 05/2018 PAST SURGICAL HISTORY OF 05/14/2010 left clavicle repair RHINOPLASTY 05/14/2010 fx ALLERGIES Morphine, Narcotics [Opioids - Morphine Analogues], and Tramadol MEDICATIONS ARIPiprazole (ABILIFY) 10 mg tablet Take 1 tablet by mouth once daily. enoxaparin (LOVENOX) 100 mg/mL syrg Inject 0.9 mL subcutaneously every 12 hours. predniSONE (DELTASONE) 10 mg tablet Take 4 tabs daily for 3 days, then 2 tabs daily for 3 days, then 1 tab daily for 3 days with food. albuterol HFA (PROVENTIL HFA, VENTOLIN HFA) 90 mcg/actuation inhaler Inhale 2 Puffs as instructed every 4 hours as needed for wheezing/shortness of breath. doxycycline monohydrate 100 mg tablet Take 1 tablet by mouth twice daily for 7 days. warfarin (COUMADIN) 5 mg tablet 15 mg daily or as directed (Patient taking differently: Take by mouth once daily. 10 mg. All other days 15mg) levonorgestrel (MIRENA) 20 mcg/24 hours (5 yrs) 52 mg IUD 1 Each by INTRAUTERINE route one time only for 1 dose. FAMILY HISTORY Problem Relation Age of Onset Breast Cancer Maternal Grandmother Cancer Maternal Grandmother ovarian Arthritis Mother RA other (Bipolar disorder) Mother other (Depressive disorder) Mother other (Systemic lupus) Mother Maternal GF other (gallbladder removed) Mother other (Heart disease) Maternal Grandfather Paternal GF other (Anxiety) Other other (Blood Clots) Other other (gallbladder removed) Sister Social History Tobacco Use Smoking status: Every Day Packs/day: 0.50 Years: 10.00 Pack years: 5.00 Types: Cigarettes Last attempt to quit: 05/27/2018 Years since quittin.1 Smokeless tobacco: Never Tobacco comments: Not smoking for 6 months. Vaping Use Vaping Use: Never used Substance Use Topics Alcohol use: Yes Comment: occ Drug use: No Types: Marijuana, Narcotics Comment: remi heoin addict stopped 8 months ago Review of Systems Constitutional: Positive for chills. Negative for weight loss. HENT: Positive for congestion, postnasal drip and rhinorrhea. Negative for ear pain and sore throat. Eyes: Negative for pain, discharge, redness and itching. Respiratory: Positive for cough and shortness of breath. Negative for apnea, choking, chest tightness and wheezing. Cardiovascular: Negative for chest pain. Gastrointestinal: Negative for abdominal pain. Musculoskeletal: Positive for myalgias. Negative for back pain. Skin: Negative for color change, pallor, rash and wound. Allergic/Immunologic: Negative for environmental allergies, food allergies and immunocompromised state. Neurological: Positive for headaches. Hematological: Negative for adenopathy. Does not bruise/bleed easily. Psychiatric/Behavioral: Negative for agitation and behavioral problems. Objective BP 122/80 Pulse 88 Temp 36.9 C (98.4 F) (Tympanic) Resp 18 Wt 85.5 kg (188 lb 9.6 oz) LMP(LMP Unknown) BMI 29.26 kg/m Physical Exam Vitals and nursing note reviewed. Constitutional: General: She is not in acute distress. Appearance: Normal appearance. She is normal weight. She is not ill-appearing, toxic-appearing or diaphoretic. HENT: Head: Normocephalic and atraumatic. Comments: +frontal sinus pressure Right Ear: Ear canal and external ear normal. Left Ear: Ear canal and external ear normal. Ears: Comments: Left TM erythematous Nose: Nose normal. No congestion or rhinorrhea. Mouth/Throat: Mouth: Mucous membranes are moist. Pharynx: No oropharyngeal exudate or posterior oropharyngeal erythema. Eyes: General: Right eye: No discharge. Left eye: No discharge. Extraocular Movements: Extraocular movements intact. Conjunctiva/sclera: Conjunctivae normal. Pupils: Pupils are equal, round, and reactive to light. Cardiovascular: Rate and Rhythm: Normal rate and regular rhythm. Pulses: Normal pulses. Heart sounds: Normal heart sounds. No murmur heard. No friction rub. Pulmonary: Effort: Pulmonary effort is normal. No respiratory distress. Breath sounds: Normal breath sounds. No stridor. No wheezing, rhonchi or rales. Comments: Harsh cough with deep inspiration Chest: Chest wall: No tenderness. Abdominal: General: Abdomen is flat. There is no distension. Palpations: Abdomen is soft. There is no mass. Tenderness: There is no abdominal tenderness. There is no right CVA tenderness, left CVA tenderness, guarding or rebound. Hernia: No hernia is present. Musculoskeletal: General: No swelling, tenderness, deformity or signs of injury. Normal range of motion. Cervical back: Normal range of motion and neck supple. No rigidity. Right lower leg: No edema. Left lower leg: No edema. Lymphadenopathy: Cervical: No cervical adenopathy. Skin: General: Skin is warm and dry. Capillary Refill: Capillary refill takes less than 2 seconds. Coloration: Skin is not jaundiced or pale. Findings: No bruising, erythema, lesion or rash. Neurological: General: No focal deficit present. Mental Status: She is alert and oriented to person, place, and time. Cranial Nerves: No cranial nerve deficit. Sensory: No sensory deficit. Motor: No weakness. Coordination: Coordination normal. Gait: Gait normal. Psychiatric: Mood and Affect: Mood normal. Behavior: Behavior normal. Thought Content: Thought content normal. Judgment: Judgment normal. Assessment and Plan ASSESSMENT/PLAN: 1. Acute cough - ICD9: 786.2, ICD10: R05.1 (primary diagnosis) X 2 weeks Harsh cough noted with deep inspiration No xray available at time of exam. 2. Rhinosinusitis - ICD9: 473.9, ICD10: J31.0, J32.9 - Will begin treatment with as per antibiotic as written, see orders - The patient should also be given OTC cough and cold meds as needed, warm salt water gargles, throat lozenges and/or OTC throat spray as needed, and nasal saline gtts and suction prn for the first 5-7 days of treatment. - Supportive care with plenty of fluids, rest, and analgesia prn. - Follow up in 3-5 days if symptoms persist or worsen. Deborah Mccain APRN.CLOTH STRETCHER documented in this encounterMadison Health04-14-2023 Miscellaneous Notes* Telephone Encounter - Juliane Perez LPN - 07/10/2022 5:07 PM EDT Spoke with pt. continue holding through the weekend and come in Wednesday morning for further testing.Order filed. Once labs drawn, she'll have to start on Lovenox injections since it takes days to getto therapeutic levels on Coumadin. If the results of the testing on Wednesday do not demonstrate a lupus anticoagulant then we can stop Lovenox and have her start on Eliquis. Pt. Voiced understanding Juliane Perez LPN * Telephone Encounter - Kiran Kelly DO - 07/10/2022 4:51 PM EDT She was supposed to have the labs drawn the day I saw her for OV. See my plan. The results were notgoing to matter if she was on Coumadin or not. But if she has been off Coumadin for a week then continue holding through the weekend and come in Wednesday morning for further testing. Order filed. Once labs drawn, she'll have to start on Lovenox injections since it takes days to get to therapeutic levels on Coumadin. If the results of the testing on Wednesday do not demonstrate a lupus anticoagulant then we can stop Lovenox and have her start on Eliquis. Kiran Kelly DO * Telephone Encounter - Alessandra Shirlene GREEN - 07/10/2022 4:41 PM EDT She does not feel comfortable with PCP managing her dose as her dose was not correct when he was prescribing. If she went to coumadin clinic would you still be willing to manage her dosing? She is also due for a refill. (Margy agarwal) She has none on hand. She has been off for a week and needs to restart and get back to a therapeutic level. Is coumadin the only thing you would recommend? She voices her frustration with weekly coumadin checks and difficulty getting to lab apt around her work schedule. Alessandra Garber LPN * Telephone Encounter - Kiran Kelly DO - 07/10/2022 4:34 PM EDT Sorry her lab work was resulted at 2:23 PM this afternoon. I had not had a chance to see it. Anywayshe still has a anticardiolipin antibody so she should remain on Coumadin. I recommend her PCP establish her with Coumadin clinic so that managing her Coumadin dosing will be much easier. Kiran Kelly DO * Telephone Encounter - Romi Owusu - 07/10/2022 4:08 PM EDT Pt asking about lab results so she knows if she should take her coumadin for not. Please advise documented in this encounterMadison Health04-14-2023 Miscellaneous Notes* Telephone Encounter - Talha Rogers MD - 07/10/2022 1:58 PM EDT Done by Nola Rogers MD * Telephone Encounter - Natasha Calzada Ma - 07/10/2022 12:16 PM EDT See mychart message 07/10/22, pt wants to increase dosage. Natasha Calzada Ma documented in this encounterMadison Health04-14-2023 Miscellaneous Notes* Telephone Encounter - Nola Cerna APRN.HOLLIS - 07/10/2022 12:40 PM EDT The following approved medication requests have been transmitted electronically. Requested Prescriptions Signed Prescriptions Disp Refills ARIPiprazole (ABILIFY) 10 mg tablet 30 tablet 5 Sig: Take 1 tablet by mouth once daily. Nola Cerna APRN.CNP documented in this encounterMadison Health03-22-2023 History of Present illness Narrative* Kiran Kelly, DO - 06/17/2022 4:05 PM EDT Hematologic problem(s): 1) PE during . 2) History of lupus anticoagulant. 3) Heterozygous mutation for prothrombin gene. HPI: The patient is a 32-year-old female with a past medical history significant for antiphospholipid antibody syndrome and pulmonary embolism. Patient was 13 weeks with her sixth when she presented to the ER at [facility] on 10/20/2018 with severe pain in the area of the right shoulder blade. CT demonstrated a large proximal right pulmonary embolism extending into the bilateral posterior segments with extension into the proximal right upper pulmonary arteries. Additionally there was a large proximal left lower pulmonary embolism extending to the basilar posterior segments. A duplex ultrasound was not performed at the time of her original diagnosis of pulmonary emboli. She was anticoagulated on Lovenox. She went on to deliver a healthy baby girl 04/22/2019. Following she was transitioned to apixaban. She established with Dr. Payne for ongoing hematologic management. Follow-up CT on 06/12/2019 demonstrated no evidence of pulmonary embolism. Testing for lupus anticoagulant through [facility] on 04/11/2020 was positive. IGM anticardiolipin antibody was indeterminate at 18. She was also found to have heterozygous mutation for prothrombin gene mutation. She was then transitioned to Coumadin. She is P2052. 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 Her mother, maternal grandfather maternal aunt all have lupus. Her mother also has prothrombin gene mutation. Presents for ongoing oncologic management. Interim history: Still has Mirena IUD. No menses. Smokes about 1/2 ppd. No dyspnea. No leg pain or swelling. Varicose veins. She had a rheumatology spring 2021 evaluation based on symptoms of arthralgia mainly of the hands and hips along with hair loss. She had been on hydroxychloroquine at that time. Labs demonstrated a positive HANNA at a titer of 1-1 60 in a speckled pattern. C3 slightly over normal range with normal C4. No DNA antibody or rheumatoid factor. CCP negative. CK normal. Repeat anticardiolipin and antibeta2 glycoprotein antibodies negative at that time in May 2020. Hips hurt majority of the time. No unusual bleeding or unexplained bruising. PMH, medications and allergies personally reviewed by me today. Any changes documented in appropriate section. ROS: Constitutional: Denies episodes of fever and night sweats. Not significantly fatigued. Normal appetite. Neuro: Denies ARGUELLO, vertigo, dizziness and imbalance. HEENT: No recent change in voice, vision or hearing. Resp: Denies cough, wheeze and hemoptysis. CVS: Denies exertional chest pain, PND, orthopnea and LE edema. GI: Denies dysgeusia. Denies symptoms of stomatitis. Denies dysphagia and odynophagia. Denies reflux, n/v, change in bowel habits and abdominal pain. : Denies dysuria or gross hematuria. No symptoms of bladder outlet obstruction. Endo: Denies hot flashes. Denies polyuria and polydipsia. Denies heat and cold intolerance. Musculoskeletal: See above. Derm: Denies rash. Denies jaundice and diffuse pruritis. Heme: See HPI. Psych: Normal mood. PHYSICAL EXAM: Vitals: Blood pressure 114/76, pulse 92, temperature 36.7 C (98.1 F), height 171 cm (5' 7.32), weight 86.9 kg (191 lb 8 oz), last menstrual period 07/23/2018, SpO2 98 %, unknown if currently . Well-appearing and in no acute distress. EYES: Sclerae are anicteric bilaterally. LYMPHATIC: There is no palpable cervical, supraclavicular, axillary or inguinal adenopathy. RESPIRATORY: Inspiratory breath sounds are of normal intensity in all rose. No rales, wheezes or rhonchi. CARDIOVASCULAR: Rhythm is regular. A few small varicose veins LEs b/l. No livedo. ABDOMEN: The abdomen is nondistended. No organomegaly. No tenderness. Extremities: No swelling or edema. SKIN: No jaundice or rash. NEUROLOGIC: utility manager II-XII are grossly intact. No focal motor weakness. MUSCULOSKELETAL: No muscle wasting. LABORATORY DATA: Component Latest Ref Rng & Units 07/16/2021 WBC 3.70 - 11.00 k/uL 6.17 RBC 3.90 - 5.20 m/uL 4.51 Hemoglobin 11.5 - 15.5 g/dL 14.2 Hematocrit 36.0 - 46.0 % 42.3 MCV 80.0 - 100.0 fL 93.8 MCH 26.0 - 34.0 pg 31.5 MCHC 30.5 - 36.0 g/dL 33.6 RDW-CV 11.5 - 15.0 % 13.4 Platelet Count 150 - 400 k/uL 260 MPV 9.0 - 12.7 fL 11.3 Neut% % 73.0 Abs Neut (ANC) 1.45 - 7.50 k/uL 4.51 Lymph% % 19.1 Abs Lymph 1.00 - 4.00 k/uL 1.18 Pettis% % 4.9 Abs Pettis <0.87 k/uL 0.30 Eosin% % 2.3 Abs Eosin <0.46 k/uL 0.14 Baso% % 0.5 Abs Baso <0.11 k/uL 0.03 Immature Gran % % 0.2 IMMATURE GRANS (ABS) <0.10 k/uL <0.03 NRBC /100 WBC 0.0 Absolute nRBC <0.01 k/uL <0.01 DTYPE Auto Protein, Total 6.3 - 8.0 g/dL 7.6 Albumin 3.9 - 4.9 g/dL 4.5 Calcium 8.5 - 10.2 mg/dL 9.5 Bilirubin, Total 0.2 - 1.3 mg/dL 0.2 Alkaline Phosphatase 34 - 123 U/L 86 AST 13 - 35 U/L 20 ALT 7 - 38 U/L 26 Glucose 74 - 99 mg/dL 90 BUN 7 - 21 mg/dL 11 Creatinine 0.58 - 0.96 mg/dL 0.65 Sodium 136 - 144 mmol/L 136 Potassium 3.7 - 5.1 mmol/L 4.1 Chloride 97 - 105 mmol/L 102 CO2 22 - 30 mmol/L 22 Anion Gap 9 - 18 mmol/L 12 eGFR >=60 mL/min/1.73m 120 APTT 23.0 - 32.4 sec 26.2 Cardiolipin Ab, IgA <12.0 APL <9.0 Cardiolipin Ab, IgG <15.0 GPL <9.0 Cardiolipin Ab, IgM <12.5 MPL 9.9 Beta 2 Glycoprotein, IgG <20 SGU <9 Beta 2 Glycoprotein, IgM <20 SMU 10 ASSESSMENT/PLAN: (D68.62) Lupus anticoagulant disorder (HCC) (primary encounter diagnosis) (D68.61) Antiphospholipid antibody syndrome (HCC) (D68.52) Prothrombin gene mutation (HCC) (Z86.711, Z87.59) History of pulmonary embolus during Assessment: -The patient is a 32-year-old female P2052 who developed provoked pulmonary emboli when 13 weeks in 2019. She was found to have a low level anticardiolipin antibody, lupus anticoagulant as well as heterozygous mutation for prothrombin gene on hypercoagulation testing 03/2020. -She has yadiel on Coumadin and INR has been difficult to maintain in therapeutic range. -Now has Mirena IUD. No menses or other bleeding issues. -Family history for lupus. -Underwent rheumatology evaluation 06/2021. Did not meet criteria for lupus. Repeat testing demonstrated no lupus anticoagulant and normal anticardiolipin and antibeta 2 glycoprotein antibodies. -Discussed plan with her at length. If no longer has evidence of anticardiolipin antibody or lupus anticoagulant activity, then she may not need anticoagulation. Other possibility is changing to DOACfor history of prothrombin gene mutation if needs ongoing anticoagulation in the absence of APLS and LAD. Will confer with vascular medicine about that after testing as outlined below. Plan: -Recheck anticardiolipin antibodies today. -If negative, then hold Coumadin and recheck for LA a week or so later. I spent a total of 45 minutes on the date of the service which included preparing to see the patient, [id number] patient care, completing clinical documentation, obtaining and/or reviewing separately obtained history, performing a medically appropriate examination, counseling and educating the pat ient/family/caregiver, ordering medications, tests, or procedures, communicating with other HCPs (not separately reported), independently interpreting results (not separately reported), and communicating results to the patient/family/caregiver. Kiran Kelly DO documented in this encounterAmanda Ville [id number] Miscellaneous Notes* Telephone Encounter - Rosita Hannah - 06/04/2022 11:53 AM EST Spoke with patient and scheduled. Rosita Hannah * Telephone Encounter - Kiran Kelly DO - 06/03/2022 4:58 PM EST I will need an established complex OV with her. Kiran Kelly DO * Telephone Encounter - Alessandra Garber LPN - 06/03/2022 4:30 PM EST Pt sent a my chart message in [employer] to discuss meds. I called pt to get more information. She states her PCP has been managing her coumadin. She does not feel confident that it is being managed correctly. She had been getting elevated INR readings at the coumadin clinic, and when re- checked with a peripheral draw, the number was quite different and pt felt if she was not getting accurate readings on the finger sticks, then she would continue to get peripheral draws. She has been getting weekly lab draw at [facility]. 2 weeks ago she had surgery for gall bladder and was bridged with coumadin and lovenox. currently she is on coumadin 15 mg a day and 10 mg on . She is looking for guidance on her INR and coumadin dosing and for reassurance on her current tx plan. please advise. Last visit here with you 05/27/20 Alessandra Garber LPN documented in this encounterMadison Health03-02-2023 Miscellaneous Notes* Telephone Encounter - Brittny Lawson LPN - 05/28/2022 2:38 PM EST Patient notified of recommendation from PCP, verbalizes understanding of instructions. Brittny Lawson LPN * Telephone Encounter - Talha Rogers MD - 05/28/2022 2:07 PM EST If she is concerned about GI bleeding she should go to ER for evaluation Talha Rogers MD * Telephone Encounter - Rosita Barkley RN - 05/28/2022 11:59 AM EST Patient calls and notified of Coumadin Instructions and dosing. Patient states that she is concerned because she is now having black liquid stools. Patient states that she has no abdominal pain. Patient states that she has been taking Protonix. Please review and advise, Rosita Barkley RN documented in this encounterMadison Health02-27-2023 Miscellaneous Notes* Telephone Encounter - Dang Pereyra Ma - 05/25/2022 6:32 PM EST Pt notified via [employer] the order has been faxed to [facility] and to continue regimen. She's to notify office if any issues. Dang Pereyra Ma * Telephone Encounter - Talha Rogers MD - 05/25/2022 6:23 PM EST INR order printed; may fax to [facility] Talha Rogers MD * Telephone Encounter - Dang Pereyra Ma - 05/25/2022 5:56 PM EST Call to pt and notified her of results. Pt is asking if we can fax over an order to [facility] for her to complete tomorrow before we adjust or have her hold any of her dosage. Due to the last time she had this done our INR said she was 6.4. She later went to the ED and they had her INR at 3.5. She is wanting to have accuracy and is concerned about adjusting her medication. Currently taking Coumadin 15 mg daily. She denies any issues at present time. Please advise pt via mychart of PCP's response. If okay with plan fax over INR order to [facility] she will complete tomorrow. Dang Pereyra Ma * Telephone Encounter - Talha Rogers MD - 05/25/2022 5:24 PM EST She should hold her coumadin for now. What dose of coumadin has she been taking the last few days, if she has been taking any? Recheck INR in 2 days Talha Rogers MD * Telephone Encounter - Dang Pereyra Ma - 05/25/2022 4:21 PM EST Last INR: INR 5.4 05/25/2022 Current dose of coumadin is: Pt was last told to hold her regimen due to critical INR. Pt then wentto local ED due to symptom she was having. Last date of dose change: 05/21/22. Previous INR (date and result): 6.4 on 05/21/22. Additional Clinical Information or narrative: yes: Pt was supposed to have INR checked on 05/22/22 but went into ED on 05/21/22. Advise. Dang Pereyra Ma documented in this encounterMadison Health02-23-[address] Alberto [facility] May 21, 2022 5:56pm Note Date/Time May 21, 2022 4:12pm [facility] Medical Records Department [address] [place] [address] Emergency Department Summary 05/21/22 MR#: [id number] Acct: [id number] Name: MEGHAN LICEA Rep #:[id number] : 1990 32 From: Rhett Alberto MD PCP: Dr. Talha Rogers MD Status:RE G ER Location: ED HPI History of Present Illness Chief Complaint: Abn Labs Narrative Narrative: 32-year-old female, past medical history of blood clotting disorder for which she takes 20 mg of Coumadin, presents with abnormal laboratory work. She relates history that she was having problems with her gallbladder and was seen in the emergency department on Wednesday, 6 days ago. At that time, her INR was low at 1.4, and she needed to have her cholecystectomy performed. She was admitted to the hospital and Dr. Hua reportedly performed a laparoscopic cholecystectomy. Patient states that she was discharged home on Lovenox and 15 mg of Coumadin daily. She had appropriate postoperative pain on Wednesday, but then the following day, 2 days ago, she felt very lightheaded and dizzy and feltas if she was going to pass out. She states she called EMS who evaluated her, and told her that her vital signs were normal, so she decided not to be transported, fell asleep, and awoke the next day. She has a standing order to have her INR checked because she states that her INR is tenuous and is always fluctuating. This morning, she had her INR drawn and it is elevated at 6.5. She was told to come to the emergency department for evaluation and to stop Coumadin and Lovenox. She states that she has been taking 15 mg daily and usingLovenox also and was supposed to do so until at least Wednesday, 4 days from now when she has follow-up with her surgeon. While she states she has appropriate abdominal pain she states that she does not feel right. [facility] Medical History Anemia BLOOD CLOTS Genital herpes Heroin use disorder, severe, in sustained remission contractions Pulmonary embolus Thyroid disease Home Medications omeprazole 20 mg capsule,delayed release 20 mg PO DAILY #30 caps 06/11/19 [Rx Last Taken Unknown] enoxaparin 100 mg/mL subcutaneous syringe (Lovenox) 90 mg (0.9 mL) subcut Q12H #10 mL 05/17/22 [Rx Last Taken Unknown] oxycodone-acetaminophen 5 mg-325 mg tablet 1 - 2 tab PO Q6H PRN pain 3 days #18 tabs 05/17/22 [Rx Last Taken Unknown] warfarin 5 mg tablet (Jantoven) 15 mg PO DINNER #0 tabs 05/17/22 [Rx Last Taken Unknown] ondansetron 4 mg disintegrating tablet 8 mg PO Q6H PRN nausea and vomiting #10 tabs 05/18/22 [Rx Last Taken Unknown] pantoprazole 40 mg tablet,delayed release (Protonix) 40 mg PO DAILY #30 tabs 05/18/22 [Rx Last Taken Unknown] Allergy/AdvReac Type Severity Reaction Status Date / Time morphine AdvReac HEADACHE Verified 05/21/22 15:39 AND IRRITABILITYH Family History Mother Anxiety Lupus Bleeding disorder Cancer Mental disorder Grandmother Cancer Aunt Cancer Other Psychiatric care Surgical History H/O dilation and curettage History of nasal surgery S/P laparoscopic appendectomy S/P laparoscopic cholecystectomy Social History Smoking Status: Former smoker alcohol intake: never substance use type: former substance user and heroin ROS ROS ED ROS Narrative Constitutional: No fever, no chills. Positive malaise. HEENT: No sore throat. No neck pain. No loss of vision. No rhinorrhea. Cardiovascular: No chest pain. No palpitations. No pedal edema. Respiratory: No cough, no shortness of breath. Abdominal: Right upper quadrant postoperative abdominal pain. No nausea. No vomiting. Genitourinary: No dysuria. No hematuria. Musculoskeletal: No myalgias. No arthralgias. Neurologic: No headaches. 2 days ago felt lightheaded and dizzy and near syncopal, but that has resolved. Skin: No rash. No change in color. Psychiatric: No depression. No anxiety. EXAM Physical Exam Narrative Exam Narrative: Afebrile. Vital signs noted. HEENT: Normocephalic. Atraumatic. PERRL, EOMI. Neck soft and supple. No pointtenderness or step off. Cardiovascular: Regular rate and rhythm. No murmurs, rubs, or gallops appreciated. Respiratory: No tachypnea. Lungs clear to auscultation bilaterally. Gastrointestinal: Abdomen soft, mild tenderness right upper quadrant, appropriate, with normoactive bowel sounds. No rebound or guarding. Steri-Strips over port incisions, clean, dry, and intact. Neurological: Awake. Alert. Nonfocal, nonlateralizing. Skin: No rash. Normal color. No pallor. Musculoskeletal: No pedal edema. Full range of motion extremities. Const Vital Signs: 05/21/22 15:31 05/21/22 15:37 Temperature 96.8 F L Temperature Source Oral Pulse Rate 74 Respiratory Rate 16 Respiratory Effort Normal Non-Labored Respiratory Pattern Normal Blood Pressure 135/87 H Blood Pressure Mean 103 Pulse Ox 98 Oxygen Delivery Method Room Air MDM MDM MDM Narrative Medical decision making narrative: Primary concern is for postoperative hemorrhage with reported elevated INR. I will repeat her INR here, and obtain CT imaging. I will obtain a CBC to rule out profound anemia requiring transfusion. We will also check her BUN and creatinine to make sure that she can handle the dye load. I reviewed the patient's laboratory work. She has normal white count of 5.4, and her hemoglobin is normal at 13.4 with platelet count normal at 299. Repeat of her INR today shows it to be at the top range of her therapeutic level at 3.5. CMP is grossly unremarkable except for AST of 218 and ALT of 371, but she is postoperative from laparoscopic cholecystectomy. There is no evidence of dehydration. CT of the abdomen pelvis was obtained with IV contrast which showsno postoperative intra-abdominal bleeding. At this point in time, I feel she can be discharged safely home with follow-up to her primary care physician regarding her use of Coumadin. She states that it ranges anywhere from 10 mg to20 at times. She will call him tomorrow to see how much she should be taking jorge INR is therapeutic currently. I did discuss the patient with her surgeon, Dr. Hua, who agrees with scheduled outpatient follow-up. I feel she be discharged safely home. Return instructions were reviewed. Disposition is discharged home in stable condition. Lab Data Attestation: I reviewed the patient's lab results. Labs: Laboratory Results - last 24 hr 05/21/22 05/21/22 05/21/22 16:15 16:15 16:15 WBC 5.4 RBC 4.38 Hgb 13.4 Hct 40.3 MCV 92.0 MCH 30.6 MCHC 33.3 RDW Std Deviation 43.0 RDW Coeff of Ziggy 12.9 Plt Count 299 MPV 10.5 Immature Gran % (Auto) 0.400 Neut % (Auto) 56.3 Lymph % (Auto) 35.9 Pettis % (Auto) 5.4 Eos % (Auto) 1.1 Baso % (Auto) 0.9 Absolute Neuts (auto) 3.1 Absolute Lymphs (auto) 1.94 Nucleated RBC % 0 PT 34.9 H INR 3.5 Sodium 141 Potassium 3.7 Chloride 107 Carbon Dioxide 26.0 Anion Gap 8 BUN 11 Creatinine 0.60 Estim Creat Clear Calc 129.69 Est GFR (MDRD) Af Amer 149 Est GFR (MDRD) Non-Af 124 BUN/Creatinine Ratio 18.5 Glucose 92 Calcium 9.3 Total Bilirubin 0.30 AST 218 H ALT 371 H Alkaline Phosphatase 101 Total Protein 7.3 Albumin 3.7 Globulin 3.6 Albumin/Globulin Ratio 1.0 Radiography Diagnostic Testing: Clinical Impression(s) from Imaging Studies Abdomen/Pelvis CT 05/21/22 16:03 IMPRESSION: Bilateral adnexal cysts measuring up to 3 cm on the left. IUD in the uterus. Punctate nonobstructing nephrolith on the right. Otherwise no acute disease. Pelvic ultrasound may be helpful if clinically warranted. Electronically Signed: Joo Vaughan MD at 17:16 EST Reading Location ID and State: [address] [place] [address] , Service support , Discharge Plan Triage Chief Complaint: Abn Labs ED Provider: Rhett Alberto Dx/Rx/DC Orders Clinical Impression: Postoperative abdominal pain, Encounter for monitoring Coumadin therapy Instructions: Managing Post-Op Pain at Home, ED Post Op Wound Check, Pain Prescriptions: No Action omeprazole 20 MG capsule 20 mg PO DAILY Qty: 30 0RF warfarin [Jantoven] 5 mg Tablet 15 mg PO DINNER Qty: 0 0RF enoxaparin [Lovenox] 100 mg/mL syringe 90 mg subcut Q12H Qty: 10 1RF oxycodone-acetaminophen 5-325 mg tablet 1 - 2 tab PO Q6H PRN (Reason: pain) 3 Days Qty: 18 0RF ondansetron 4 mg tablet,disintegrating 8 mg PO Q6H PRN (Reason: nausea and vomiting) Qty: 10 0RF pantoprazole [Protonix] 40 mg tablet,delayed release (DR/EC) 40 mg PO DAILY Qty: 30 2RF Primary Care Provider: Talha Rogers Referrals: Talha Rogers MD [Primary Care Provider] - 1 Day Activity Restrictions/Additional Instructions: Stop use of your Lovenox as your INR was measured at 3.[address] Rogers regarding how much Coumadin you should be taking now. Follow-up withDr. Hua on Wednesday as scheduled. Disposition Disposition: Home, Self Care What to do if you have Problems For any increased pain, shortness of breath, bleeding, nausea or vomiting, chestpain, or any unexpected problems, contact your Primary Care Provider. Call [facility] ([phone]) or report to the closest Emergency Room. Call 911 if necessary. 05/21/22 175 <Electronically signed by Rhett Alberto MD> Cosigner Signature (if applicable): CC: Dr. Talha Rogers MD ~ Signed [facility] Work Phone: 1(423) 706-432802-23-2023 Miscellaneous Notes* Telephone Encounter - Talha Rogers MD - 05/21/2022 3:47 PM EST Noted Talha Rogers MD * Telephone Encounter - Raven Paulino RN - 05/21/2022 3:12 PM EST This nurse spoke with patient for further triage. Dr. Rogers's orders below reviewed with patient and pt verbalized understanding. Pt states she feels like all her blood is draining out. Does not feel like going to pass out at this time but concerned she may get worse and pass out. Feels weak and lightheaded. States I just don't feel right. States concern for critical high INR result and not feeling right. Home alone with young child. ER advised. This nurse called 911 for patient as well as called pt's emergency contact/sister Amira and updated her. This nurse confirmed squad arrived to evaluate pt. Pt will be taken to [facility] ER. Raven Wurst, RN * Telephone Encounter - Lakeisha Ann LPN - 05/21/2022 2:59 PM EST Spoke with pt and information listed below given. Pt verbalizes understanding. Pt reports not feeling well, Transferred to RN for triaging. Lakeisha Ann LPN * Telephone Encounter - Sandra Pena LPN - 05/21/2022 2:50 PM EST Phoned patient and left message to return call and ask to speak to a nurse for coumadin instructions. * Telephone Encounter - Talha Rogers MD - 05/21/2022 2:41 PM EST INR is high at 6.4 Stop Lovenox and hold coumadin Recheck INR tomorrow Talha Rogers MD * Telephone Encounter - Sandra Pena LPN - 05/21/2022 2:31 PM EST Patient s identity has been confirmed by name and birthdate: Yes Call received from Syeda at 230 PM to report a critical value for INR with a result of 6.4 Dr Rogers phone note was sent to him of the result at 233 PM. Sandra Pena LPN Last INR: INR 6.4 05/21/2022 Current dose of coumadin is: 15 mg daily began 05/17/2022, Lovenox 0.9 mg twice daily . Last date of dose change: not known. Previous INR (date and result): Additional Clinical Information or narrative: no documented in this encounterMadison Health02-23-2023 Instructions* Patient Instructions* Nola Cerna APRN.CNP - 05/21/2022 9:23 AM EST Start Abilify 2 mg daily, increase to 5 mg after 7 days. Keep up coming appointment with surgeon Continue to take all medications as prescribed. Eat a well balanced diet, good sources of protein, stay well hydrated. Get INR checked Follow up in 1 month or sooner as needed. documented in this encounterMadison Health02-23-2023 History of Present illness Narrative* Nola Cerna APRN.CNP - 05/21/2022 9:03 AM EST This is a 32 year old female who presents today with: Patient presents with: Acute Visit: need more lovanox HISTORY OF PRESENT ILLNESS: Meghan Licea is a 32 year old female. Patient presents with: Acute Visit: need more lovanox Here after gall bladder removal. Went to [facility] ER last Wednesday due to pain and nausea. Surgery completed by Dr. Eaton, next follow up on Wednesday. Long time use of coumadin for PE and blood clotting disorder. Was placed on Lovenox after surgery. Increased anxiety due to worry about anticoagulants. History of anxiety, stopped taking abilify about a year ago. Used to see David Saucedo for therapy. Refers that she has had increase in anxiety since surgery, increased worry and refers she has a lot going on in her personal life. Refers that she is slowly recovering after her operation. Appetite slowly improving. 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 Pain was increased with activity. No hospital records for my review. PAST MEDICAL HISTORY: PAST MEDICAL HISTORY Diagnosis Date Abnormal weight loss Alopecia Anxiety state Cough Depressive disorder with anxiety Dysmenorrhea Generalized anxiety disorder Genital herpes in women Herpetic vulvovaginitis Acyclovir Hip pain Low back pain Pars intercularis issues Muscle pain Neuropathic pain Palpitations PACs Pleurisy Pleuritic pain Post herpetic neuralgia Ruptured ovarian cyst Seizure (HCC) Trochanteric bursitis Unspecified inflammatory disease of female pelvic organs and tissues Rocephin, Metronidazole, Doxycycline PAST SURGICAL HISTORY Procedure Laterality Date APPENDECTOMY HX 05/2018 PAST SURGICAL HISTORY OF 05/14/2010 left clavicle repair RHINOPLASTY 05/14/2010 fx ALLERGIES Morphine, Narcotics [Opioids - Morphine Analogues], and Tramadol MEDICATIONS Current Outpatient Medications Medication Sig warfarin (COUMADIN) 5 mg tablet 15 mg daily or as directed (Patient taking differently: and Wednesday 15 mg. The other days 20mg) atomoxetine (STRATTERA) 40 mg capsule Take one capsule daily for 3-4 days, then increase to 2 capsules daily if needed (Patient not taking: Reported on 12/05/2021) ARIPiprazole (ABILIFY) 5 mg tablet Take 1 tablet by mouth once daily. (Patient not taking: Reportedon 12/05/2021) venlafaxine ER (EFFEXOR XR) 75 mg 24 hr capsule Take 1 capsule by mouth once daily. (Patient not taking: Reported on 03/05/2022) nicotine (NICODERM) 7 mg/24 hr Apply 1 Patch as directed every 24 hours. (Patient not taking: Reported on 03/05/2022) nicotine (NICODERM) 14 mg/24 hr Apply 1 Patch as directed every 24 hours. No smoking with patch. (Patient not taking: Reported on 03/05/2022) gabapentin (NEURONTIN) 300 mg capsule gabapentin 300 mg capsule (Patient not taking: Reported on 12/05/2021) levonorgestrel (MIRENA) 20 mcg/24 hours (5 yrs) 52 mg IUD 1 Each by INTRAUTERINE route one time only for 1 dose. No current facility-administered medications for this visit. FAMILY HISTORY Problem Relation Age of Onset Breast Cancer Maternal Grandmother Cancer Maternal Grandmother ovarian Arthritis Mother RA other (Bipolar disorder) Mother other (Depressive disorder) Mother other (Systemic lupus) Mother Maternal GF other (gallbladder removed) Mother other (Heart disease) Maternal Grandfather Paternal GF other (Anxiety) Other other (Blood Clots) Other other (gallbladder removed) Sister Social History Tobacco Use Smoking status: Former Packs/day: 0.50 Years: 10.00 Pack years: 5.00 Types: Cigarettes Quit date: 05/27/2018 Years since quittin.9 Smokeless tobacco: Never Tobacco comments: Not smoking for 6 months. Vaping Use Vaping Use: Never used Substance Use Topics Alcohol use: No Comment: Non-drinker Drug use: No Types: Marijuana, Narcotics Comment: recovering heoin addict stopped 8 months ago REVIEW OF SYSTEMS GENERAL: No weight loss, malaise or fevers/chills HEENT: Negative for frequent or significant headaches, No changes in hearing or vision. NECK: Negative for lumps, goiter, pain and significant neck swelling RESPIRATORY: Negative for cough, hemoptysis, wheezing, dyspnea or shortness of breath CARDIOVASCULAR: Negative for chest pain, leg swelling, orthopnea, or palpitations GI: No nausea, vomiting, or diarrhea/constipation. No hematochezia/melena. No heartburn or reflux symptoms. : No history of dysuria, frequency or incontinence MUSCULOSKELETAL: Negative for joint pain or swelling. SKIN: Negative for lesions, rash, and itching ENDOCRINE: Negative for cold or heat intolerance, polyuria, polydipsia and goiter NEURO: No history of headaches, syncope, paralysis, seizures or tremors MOOD: + Anxiety/Worry EXAM: BP 126/90 Pulse 72 Resp 16 Wt 84.4 kg (186 lb) LMP 07/23/2018 (Approximate) SpO2 98% BMI 28.68 kg/m PHYSICAL EXAM: General Appearance: Well appearing, alert, in no acute distress, well-hydrated, well nourished. Skin: Skin color, texture, turgor normal, no suspicious rashes or lesions. Head: Normocephalic, no masses, lesions, tenderness or abnormalities. Eyes: Anicteric sclera. Extraocular movements are intact. Lungs: Lungs clear to auscultation. No wheezing, rhonchi, rales. Heart: RRR without murmur, gallop, or rubs. No ectopy. Abdomen: Abdomen soft. Bowel sounds normal. No masses, organomegaly. Steri strips present on surgical lacerations. Healing well. No erythema, crusting, or seeping noted. Extremities: No deformities, edema, skin discoloration, clubbing or cyanosis. Good capillary refill. Peripheral Pulses: Normal, Capillary refill <2secs, strong peripheral pulses, Pulses palpable. Neurologic: Gait normal. Sensation grossly intact. Mood: Pleasant, engaged, good eye contact. ASSESSMENT/PLAN: 1. ALICIA (generalized anxiety disorder) - ICD9: 300.02, ICD10: F41.1 - Start back on Abilify, start on 2 mg for 1 week and increase to 5 mg daily. - Discussed adding back on Effexor in the future. - Schedule with therapist. - Follow up in 1 month. - ARIPIPRAZOLE 2 MG TABLET - ARIPIPRAZOLE 5 MG TABLET 2. History of cholecystectomy - ICD9: V45.79, ICD10: Z90.49 - Healing well. - Continue with current medications. - Get INR completed. - Continue with supportive care at home. - Eat a well balanced diet and stay well hydrated. - Keep up coming appointment with Dr. Eaton. - Off work till Wednesday. Follow up in 1 month or sooner as needed. Discussed treatment plan and patient voices understanding. Patient's questions answered appropriately. Medications and potential side effects were discussed and patient voices understanding. Nola Cerna APRN.HOLLIS This note was partially generated using [employer] voice recognition system. Note was reviewed for accuracy. There may be minor misspellings or grammar miscues with [employer] voice recognition. documented in this encounterMadison Health02-23-2023 Hospital Discharge instructions Additional Instructions Stop use of your Lovenox as your INR was measured at 3.[address] Rogers regarding how much Coumadin you should be taking now. Follow-up with Dr. Hua on Wednesday as scheduled.[facility] Work Phone: 1(454) 435-407302-19-[address] Hua [facility] May 17, 2022 9:32am Note Date/Time May 17, 2022 9:26am [facility] Medical Records Department [address] [place] [id number] Instructions for Home/Discharge Instructions 05/17/22 0923 MR#: [id number] Acct: [id number] Name: MEGHAN LICEA Rep #:[id number] : 1990 32 From: Kristie Hua MD PCP: Dr. Talha Rogers MD Status:AD M REINALDO Discharge Instructions Diet Discharge Diet: No restrictions Activity Discharge Activity: May Shower (24 hr from surgery) Lifting Restrictions: < 20 lbs x 2 wk, <40 lbs for the next 2 wks- no strenuous exercise 5 wks Dressing / Incision Call your doctor if your incision/area has: Continuous Slow Oozing, Sudden Increased Bleeding, Increased Pain/ Swelling and Increased Redness Call your doctor if you observe: Fever of 101 or Higher Remove Dressing in: 2 days Cleanse incision/area with: Soap & Water Additional Dressing/Incision Instructions:: If still has not follow-up in 7 to 10 days okay to remove after 10 days. Follow Up Care Please Follow Up With: Kristie Hua MD When: Call the office for follow-up appointment in 2 weeks. [phone] Test Results: Test results from this visit will be discussed in further detail at your follow- up appointment, if applicable. Discharge Plan Admission Admit Date/Time: 05/16/22 11:57 Attending Provider: Kristie Hua Primary Care Provider: Talha Rogers Discharge Orders/Prescriptions Prescriptions: New warfarin [Jantoven] 5 mg Tablet 15 mg PO DINNER Qty: 0 0RF enoxaparin [Lovenox] 100 mg/mL syringe 90 mg subcut Q12H Qty: 10 1RF oxycodone-acetaminophen 5-325 mg tablet 1 - 2 tab PO Q6H PRN (Reason: pain) 3 Days Qty: 18 0RF Discontinued warfarin 5 mg tablet 20 mg PO QODAY Label Comments: TAKE 4 TABLETS BY MOUTH ONCE DAILY OR DIRECTED No Action omeprazole 20 MG capsule 20 mg PO DAILY Qty: 30 0RF Referrals / Follow Up: Talha Rogers MD [Primary Care Provider] - Disposition Disposition (needs filled in before D/C Order can be placed): Home, Self Care 05/17/22 0931<Electronically signed by Kristie Hua MD>Kristie Hua MD CC: Dr. Talha Rogers MD ~ Signed ADDENDUM by Dr. Kristie Hua MD on 05/17/22 at 0932 Follow-up with Dr. Rogers for INR check early this week 05/17/22 0932<Electronically signed by Kristie Hua MD>Kristie Hua MD cc: Dr. Talha Rogers MD ~* Signed [facility] Work Phone: 1(640) 400-238102-19-[address] Hua [facility] May 17, 2022 9:22am Note Date/Time May 17, 2022 8:40am [facility] Medical Records Department [address] [place] [address] Progress Note - Surgery 05/17/22838 MR#: [id number] Acct: [id number] Name: MEGHAN LICEA Rep #:[id number] : 1990 32 From: Kristie Hua MD PCP: Dr. Talha Rogers MD Status:AD M REINALDO Location: MS3 SZ324-0 Subjective Subjective Patient states her pain is controlled with the oxy currently complains of some bloating. Otherwise tolerating p.o. patient did not get Lovenox 40 mg subcu yesterday and also started her Coumadin 15 mg p.o. last night. Patient was concerned whether her insurance would be paying for her Lovenox for the bridge. Objective Data Objective Data Vital Signs: Vital Signs Temp Pulse Resp BP Pulse Ox O2 Del Method 97.6 F L 77 16 118/82 H 99 Room Air 05/17/22 07:50 05/17/22 07:50 05/17/22 07:50 05/17/22 07:50 05/17/22 07:50 05/17/22 07:50 Oxygen Delivery Method Room Air Weight: 190 lb Body Mass Index (BMI) 29.7 Intake & Output: Intake and Output for Last 24 Hours 05/15/22 05/16/22 05/17/22 23:59 23:59 23:59 Intake Total 1467.08 / 1467.08 1850 / 1850 Output Total 400 / 400 Balance 1467.08 / 1467.08 1450 / 1450 Lab / Micro Data Result Diagrams: 05/17/22 04:57 05/16/22 08:00 Labs: Laboratory Results - last 24 hr 05/16/22 08:00: WBC 3.8 L, RBC 4.89, Hgb 14.8, Hct 44.7, MCV 91.4, MCH 30.3, MCHC 33.1, RDW Std Deviation 44.1 H, RDW Coeff of Ziggy 13.0, Plt Count 259, MPV 10.8, Immature Gran % (Auto) 0.500, Neut % (Auto) 59.4, Lymph % (Auto) 28.2, Pettis % (Auto) 10.0, Eos % (Auto) 1.1, Baso % (Auto) 0.8, Absolute Neuts (auto) 2.3, Absolute Lymphs (auto) 1.07, Nucleated RBC % 0 05/16/22 08:00: PT 16.9 H, INR 1.4 05/16/22 08:00: Sodium 141, Potassium 3.6, Chloride 107, Carbon Dioxide 27.0, Anion Gap 7, BUN 13, Creatinine 0.73, Estim Creat Clear Calc 106.59, Est GFR (MDRD) Af Amer 118, Est GFR (MDRD) Non-Af 98, BUN/Creatinine Ratio 17.9, [id number], Calcium 8.8, Total Bilirubin 0.50, AST 20, ALT 30, Alkaline Phosphatase 80, Total Protein 7.8, Albumin 3.7, Globulin 4.1, Albumin/Globulin Ratio 0.9, [id number] 05/16/22 08:40: Urine Test Negative 05/17/22 04:57: PT 18.2 H, INR 1.5 05/17/22 04:57: WBC 5.1, RBC 3.84 L, Hgb 11.7 L, Hct 35.8 L, MCV 93.2, MCH 30.5,MCHC 32.7, RDW Std Deviation 45.1 H, RDW Coeff of Ziggy 13.2, Plt Count 204, MPV 10.8, Immature Gran % (Auto) 0.600, Neut % (Auto) 68.1, Lymph % (Auto) 22.6, Pettis % (Auto) 7.7, Eos % (Auto) 0.8, Baso % (Auto) 0.2, Absolute Neuts (auto) 3.5, Absolute Lymphs (auto) 1.15, Nucleated RBC % 0 Radiography Diagnostic Testing: Radiology Impression Gallbladder Ultrasound 05/16/22 08:49 IMPRESSION: Cholelithiasis with a large impacted gallstone in the gallbladder neck and a positive sonographic Prakash sign reported, raising the possibility of acute cholecystitis. Electronically Signed: Maribell Reyes MD at 10:43 EST Reading Location ID and State: [facility] / [place] Tel , Service support , Cholangiogram 05/16/22 12:26 IMPRESSION: Normal intraoperative cholangiogram, no filling defects or evidence of choledocholithiasis. Electronically Signed: Rigoberto Aly MD at 17:12 EST , Physical Exam Resp normal respiratory effort Cardio regular rate GI GI Narrative: Abdomen: Soft, nondistended, tender near incision's dressed clean dry and intact, no peritoneal signs Assessment & Plan Assessment/Plan (1) S/P laparoscopic cholecystectomy: (2) History of blood clotting disorder: PLAN: Plan Patient is tolerating p.o. pain is controlled with OxyIR. Okay to DC home. Patient insurance did cover her Lovenox 90 mg subcu twice daily until her INR istherapeutic. Patient will follow-up with her PCP to continue to monitor this. Kristie Hua M.D. Pager: [phone] [facility] [address] [place] [address], [address] [place] [address] Office: [phone] 05/17/22921 <Electronically signed by Kristie Hua MD> Cosigner Signature (if applicable): CC: ~ Signed [facility] Work Phone: 1(105) 159-442702-18-2023 History and physical note Author Dr. Hua [facility] May 16, 2022 12:52pm Note Date/Time May 16, 2022 12:34pm [facility] Medical Records Department [address] [place] [address] H&P Exam - Surgical 05/16/22 1232 MR#: [id number] Acct: [id number] Name: MEGHAN LICEA Rep #:[id number] : 1990 32 From: Kristie Hua MD PCP: Dr. Talha Rogers MD Status:AD M [facility] Location: [place] [address] HPI - General General Date of Admission: 05/16/22 HPI Narrative MEGHAN LICEA, is a 32 F who presents to the ER due to right upper quadrant pain nausea and vomiting. Patient has a history of known gallstones. She has been having gallbladder episodes for about the last year however the last month has been the worst and she has been having off-and-on nausea and vomiting. Patient is on Coumadin for history of PE/DVT. Have her INR at admission is 1.4 due to patient's nausea and vomiting. Ultrasound the gallbladder showed gallbladder stone at the neck of the gallbladder no pericholecystic fluid, normal common bile duct. Patient has what blood count 3.8, normal LFTs. [facility] Medical History Anemia BLOOD CLOTS Genital herpes Heroin use disorder, severe, in sustained remission contractions Pulmonary embolus Thyroid disease Home Medications omeprazole 20 mg capsule,delayed release 20 mg PO DAILY #30 caps 06/11/19 [Rx Last Taken Unknown] tizanidine 2 mg tablet 2 mg PO BID 11/11/19 [History Last Taken Unknown] venlafaxine 75 mg tablet 75 mg PO BID 11/11/19 [History Last Taken Unknown] warfarin 5 mg tablet 15 mg PO QODAY 05/28/21 [History Last Taken Unknown] warfarin 10 mg tablet 10 mg PO QODAY 12/05/21 [History Last Taken Unknown] Allergy/AdvReac Type Severity Reaction Status Date / Time morphine AdvReac Other Verified 05/16/22 08:38 Family History Mother Anxiety Lupus Bleeding disorder Cancer Mental disorder Grandmother Cancer Aunt Cancer Other Psychiatric care Social History Smoking Status: Former smoker alcohol intake: never substance use type: former substance user and heroin Vital Signs Vital Signs Vital Signs: 05/16/22 08:36 05/16/22 10:35 05/16/22 12:29 Temperature 98.3 F 97.8 F Temperature Source Temporal Temporal Pulse Rate 100 78 78 Respiratory Rate 18 16 16 Blood Pressure 142/84 H 134/78 H 134/78 H Blood Pressure Mean 103 96 96 Pulse Ox 98 98 98 Oxygen Delivery Method Room Air Room Air Room Air 05/16/22 12:31 Temperature Temperature Source Pulse Rate 78 Respiratory Rate 16 Blood Pressure 139/64 H Blood Pressure Mean 89 Pulse Ox 98 Oxygen Delivery Method Room Air Weight Weight: 190 lb Body Mass Index (BMI) 29.7 Physical Exam Const alert, oriented x3 and no apparent distress HEENT normocephalic and head/scalp atraumatic Resp normal respiratory effort Cardio regular rate GI soft to palpation; Negative for non-distended Palpation: tender RUQ; Negative for guarding Extremity no clubbing, cyanosis or edema Neuro CN's II-XII intact bilaterally Psych mental status grossly normal Results Lab / Micro Data Result Diagrams: 05/16/22 08:00 05/16/22 08:00 Labs: Laboratory Results - last 24 hr 05/16/22 08:00: WBC 3.8 L, RBC 4.89, Hgb 14.8, Hct 44.7, MCV 91.4, MCH 30.3, MCHC 33.1, RDW Std Deviation 44.1 H, RDW Coeff of Ziggy 13.0, Plt Count 259, MPV 10.8, Immature Gran % (Auto) 0.500, Neut % (Auto) 59.4, Lymph % (Auto) 28.2, Pettis % (Auto) 10.0, Eos % (Auto) 1.1, Baso % (Auto) 0.8, Absolute Neuts (auto) 2.3, Absolute Lymphs (auto) 1.07, Nucleated RBC % 0 05/16/22 08:00: PT 16.9 H, INR 1.4 05/16/22 08:00: Sodium 141, Potassium 3.6, Chloride 107, Carbon Dioxide 27.0, Anion Gap 7, BUN 13, Creatinine 0.73, Estim Creat Clear Calc 106.59, Est GFR (MDRD) Af Amer 118, Est GFR (MDRD) Non-Af 98, BUN/Creatinine Ratio 17.9, [id number], Calcium 8.8, Total Bilirubin 0.50, AST 20, ALT 30, Alkaline Phosphatase 80, Total Protein 7.8, Albumin 3.7, Globulin 4.1, Albumin/Globulin Ratio 0.9, [id number] 05/16/22 08:40: Urine Test Negative Radiology Impression Gallbladder Ultrasound 05/16/22 08:49 IMPRESSION: Cholelithiasis with a large impacted gallstone in the gallbladder neck and a positive sonographic Prakash sign reported, raising the possibility of acute cholecystitis. Electronically Signed: Maribell Reyes MD at 10:43 EST , Assessment & Plan Assessment/Plan (1) Acute cholecystitis: (2) History of blood clotting disorder: PLAN: Plan Plan to get patient started back on her anticoagulation postoperatively would likely bridge with Lovenox starting tomorrow. Reviewed the anatomy with the patient and discussed the procedure: laparoscopic cholecystectomy with possible cholangiograms, possible open. Review risks including but not limited to bleeding, infection, hernia, bile leak, retained gallstones requiring another procedure ERCP- Endoscopic Retrograde Cholangiopancreatography, injury to another organ (bile ducts, common bile duct, small bowel, etc.) and conversion to an open procedure. All questions were answered. Patient no further question this time. Kristie Hua M.D. Pager: [phone] [facility] [address] [place] [address], [address] [place] [address] Office: [phone] 05/16/22 1252 <Electronically signed by Kristie Hua MD> Cosigner Signature (if applicable): CC: Dr. Talha Rogers MD; Dr. Kristie Hua MD~ Signed [facility] Work Phone: 1(497) 647-694802-18-2023 Procedure [facility] 05-16-[address] Hanson [facility] May 16, 2022 12:03pm Note Date/Time May 16, 2022 8:55am [facility] Medical Records Department [address] [place] [address] Emergency Department Summary 05/16/22 MR#: [id number] Acct: [id number] Name: MEGHAN LICEA Rep #:[id number] : 1990 32 From: Horace Hanson MD PCP: Dr. Talha Rogers MD Status:RE G ER Location: ED HPI HPI - GI History of Present Illness Chief Complaint: Abd Pain Detail of Chief Complaint: Upper quadrant abdominal pain with known history of gallstones. Informant: patient Abdominal Pain/Flank Pain Onset: Days Context: Gradual Onset Timing: Intermittent Location: RUQ Current Severity: Mild Maximum Severity: Moderate Worsened by: Food Relieved by: Nothing Nausea/Vomiting/Emesis GI Symptom: Positive for Nausea and Vomiting Onset: Days Severity: Mild Diarrhea/Melena/Hematochezia GI Symptom: Negative for Diarrhea, Melena or Hematochezia Associated Symptoms Associated Symptoms: Negative for Dysuria, Frequency, Hematuria or Urgency Narrative Narrative: 32-year-old female history of antiphospholipid antibody syndrome with prior DVT and PEs on Coumadin. Also has a history of known gallstones diagnosed on ultrasound. They discussed with her having her gallbladder taken out in the past she was just concerned due to her clotting disorder and was hoping she would not need that. States over the last several months she has had recurrent right upper quadrant abdominal pain nausea and vomiting. Denies fever. The symptoms she had attributes to when she eats. She had about a 10 pound weight loss in the last several months. She states she feels bloated. She has had a prior appendectomy. Prior similar symptoms: Yes Recent Illness/Hospitalization: No PFSH PFS Medical History Anemia BLOOD CLOTS Genital herpes Heroin use disorder, severe, in sustained remission contractions Pulmonary embolus Thyroid disease Home Medications omeprazole 20 mg capsule,delayed release 20 mg PO DAILY #30 caps 06/11/19 [Rx Last Taken Unknown] tizanidine 2 mg tablet 2 mg PO BID 11/11/19 [History Last Taken Unknown] venlafaxine 75 mg tablet 75 mg PO BID 11/11/19 [History Last Taken Unknown] warfarin 5 mg tablet 15 mg PO QODAY 05/28/21 [History Last Taken Unknown] warfarin 10 mg tablet 10 mg PO QODAY 12/05/21 [History Last Taken Unknown] Allergy/AdvReac Type Severity Reaction Status Date / Time morphine AdvReac Other Verified 05/16/22 08:38 Family History Mother Anxiety Lupus Bleeding disorder Cancer Mental disorder Grandmother Cancer Aunt Cancer Other Psychiatric care Social History Smoking Status: Former smoker alcohol intake: never substance use type: former substance user and heroin ROS ROS ED ROS Narrative Right upper quadrant abdominal pain nausea and vomiting. Review of Systems ROS Unobtainable: Denies due to encephalopathy Constitutional Constitutional ED: Denies chills or fever(s) ENT ENT ED: Denies ear pain Cardiovascular Cardiovascular: Denies chest pain Respiratory/Chest Respiratory/Chest: Denies cough or dyspnea Gastrointestinal Gastrointestinal: Reports abdominal pain, nausea and vomiting; Denies constipation, diarrhea or melena Genitourinary Genitourinary ED: Denies dysuria or hematuria Musculoskeletal Musculoskeletal: Denies arthralgias Integumentary Denies abscess Neurologic Neurologic: Denies headache(s) Psychiatric Psychiatric: Denies anxiety Endocrine Endocrinology: Denies polydipsia Hematologic/Lymphatic Hematologic/Lymphatic: Denies easy bleeding Allergic/Immunologic Allergic/Immunologic ED: Denies mouth swelling or tongue swelling EXAM Physical Exam Narrative Exam Narrative: 32-year-old female vital signs stable afebrile. She does not look septic or toxic. She does not look dehydrated. H EENT exam unremarkable. Lungs clear. Heart regular rhythm rate about 95 no murmur. Chest were nontender. Abdomen soft nondistended normal bowel sounds no peritoneal signs. Right upper quadranttenderness. Left- sided abdomen right lower quadrant unremarkable. No hernia ormass. No obstruction. Back nontender. Moving all 4 extremities. Neurologically awake and alert with no focal motor deficits. Const Vital Signs: 05/16/22 08:36 Temperature 98.3 F Temperature Source Temporal Pulse Rate 100 Respiratory Rate 18 Blood Pressure 142/84 H Blood Pressure Mean 103 Pulse Ox 98 Oxygen Delivery Method Room Air Positive well nourished and well developed; Negative for cachectic, contracturesor unkempt General Appearance ED: well developed and NAD; Negative for unkempt, cachectic, contractures or pallor Nutritional Appearance: Negative for cachectic HEENT Reports moist mucous membranes normocephalic and atraumatic; Negative for trauma or tenderness Eyes PERRL and EOMs intact bilaterally General Eye ED: Negative for pale conjunctiva or scleral icterus Neck no lymphadenopathy, supple and no JVD Lymph Lymphatic: Negative for other Resp normal respiratory effort and clear to auscultation bilaterally Effort and Inspection: Negative for respiratory distress Auscultation: Negative for rales, rhonchi or wheezes Cardio regular rate, regular rhythm, S1 normal heart sound, S2 normal heart sound and no murmurs Rate: Negative for bradycardia Rhythm: Negative for abnormal rhythm GI non-distended and no masses; Negative for non-tender Inspection: Negative for abdominal distention Auscultation: normoactive bowel sounds Palpation: soft and tender; Negative for guarding, rigid, hepatomegaly, splenomegaly, hernia, mass, pulsatile mass or rebound tenderness present Back/Spine no CVA tenderness Extremity full ROM General Extremety ED: Negative for edema or tenderness General Extremity: Negative for edema Neuro CN's II-XII intact bilaterally and moves all extremities Sensorium / Orientation: alert, oriented to person, oriented to place and oriented to time; Negative for orientation impaired, confused, lethargic or stuporous Motor Exam: strength 5/5 throughout Psych mental status grossly normal and thought process normal Appearance: Negative for unkempt Attitude: No agitated Mood & Affect: Negative for depressed, anxious or tearful Skin no wounds General Skin Exam: Negative for jaundice or pallor Lesions: no lesions Rashes: no rashes Trauma: Negative for abrasion Nails: Negative for discolored MDM MDM MDM Narrative Medical decision making narrative: 32-year-old female with a right upper quadrant abdominal pain with nausea vomiting. This been going on for several weeks to months. She has a known history of gallstones. She strongly would like her gallbladder removed. The complicating factor is that she has a clotting disorder is on Coumadin. The appropriate abdominal labs will be obtained along with a right upper quadrant ultrasound. She did not anything for pain she will be given 4 mg of Zofran. Her INR will also be checked due to being on Coumadin. Exam no significant change at 11:39 AM. Patient still has right upper quadrant abdominal pain. She and I discussed all of her test results her labs are unremarkable but the ultrasound does show a gallstone stuck in the gallbladder neck and also signs of cholecystitis. I discussed the patient's case and care with general surgeon on-call Dr. Lydia Hua. She will admit the patient. Patient be started on IV Zosyn. She will be given Dilaudid for pain. Surgery will determine when they can do her cholecystectomy. Lab Data Attestation: I reviewed the patient's lab results. Lab results narrative: CBC shows a white count of 3.8. H&H 14 and 44. Platelets 259. Electrolytes unremarkable gap of 7 normal BUN and creatinine. Liver enzymes are unremarkable. Lipase is 122. test is negative. Labs: Laboratory Results - last 24 hr 05/16/22 05/16/22 05/16/22 08:00 08:00 08:00 WBC 3.8 L RBC 4.89 Hgb 14.8 Hct 44.7 MCV 91.4 MCH 30.3 MCHC 33.1 RDW Std Deviation 44.1 H RDW Coeff of Ziggy 13.0 Plt Count 259 MPV 10.8 Immature Gran % (Auto) 0.500 Neut % (Auto) 59.4 Lymph % (Auto) 28.2 Pettis % (Auto) 10.0 Eos % (Auto) 1.1 Baso % (Auto) 0.8 Absolute Neuts (auto) 2.3 Absolute Lymphs (auto) 1.07 Nucleated RBC % 0 PT 16.9 H INR 1.4 Sodium 141 Potassium 3.6 Chloride 107 Carbon Dioxide 27.0 Anion Gap 7 BUN 13 Creatinine 0.73 Estim Creat Clear Calc 106.59 Est GFR (MDRD) Af Amer 118 Est GFR (MDRD) Non-Af 98 BUN/Creatinine Ratio 17.9 Glucose 99 Calcium 8.8 Total Bilirubin 0.50 AST 20 ALT 30 Alkaline Phosphatase 80 Total Protein 7.8 Albumin 3.7 Globulin 4.1 Albumin/Globulin Ratio 0.9 Lipase 122 Urine Test 05/16/22 08:40 WBC RBC Hgb Hct MCV MCH MCHC RDW Std Deviation RDW Coeff of Ziggy Plt Count MPV Immature Gran % (Auto) Neut % (Auto) Lymph % (Auto) Pettis % (Auto) Eos % (Auto) Baso % (Auto) Absolute Neuts (auto) Absolute Lymphs (auto) Nucleated RBC % PT INR Sodium Potassium Chloride Carbon Dioxide Anion Gap BUN Creatinine Estim Creat Clear Calc Est GFR (MDRD) Af Amer Est GFR (MDRD) Non-Af BUN/Creatinine Ratio Glucose Calcium Total Bilirubin AST ALT Alkaline Phosphatase Total Protein Albumin Globulin Albumin/Globulin Ratio Lipase Urine Test Negative Radiography Diagnostic Testing: Clinical Impression(s) from Imaging Studies Gallbladder Ultrasound 05/16/22 08:49 IMPRESSION: Cholelithiasis with a large impacted gallstone in the gallbladder neck and a positive sonographic Prakash sign reported, raising the possibility of acute cholecystitis. Electronically Signed: Maribell Reyes MD at 10:43 EST , Discharge Plan Dx/Rx/DC Orders Clinical Impression: Acute cholecystitis, Cholelithiasis, History of blood clotting disorder Disposition Disposition: Acute Care Hospital [facility] What to do if you have Problems For any increased pain, shortness of breath, bleeding, nausea or vomiting, chestpain, or any unexpected problems, contact your Primary Care Provider. Call [facility] ([phone]) or report to the closest Emergency Room. Call 911 if necessary. 05/16/22 1203 <Electronically signed by Horace Hanson MD> Cosigner Signature (if applicable): CC: Dr. Talha Rogers MD ~ Signed [facility] Work Phone: [phone] 550-725602-18-[address] Hanson [facility] May 16, 2022 12:03pm Note Date/Time May 16, 2022 8:55am [facility] Medical Records Department [address] [place] [address] Emergency Department Summary 05/16/22 MR#: [id number] Acct: [id number] Name: MEGHAN LICEA Rep #:[id number] : 1990 32 From: Horace Hanson MD PCP: Dr. Talha Rogers MD Status:RE G ER Location: ED HPI HPI - GI History of Present Illness Chief Complaint: Abd Pain Detail of Chief Complaint: Upper quadrant abdominal pain with known history of gallstones. Informant: patient Abdominal Pain/Flank Pain Onset: Days Context: Gradual Onset Timing: Intermittent Location: RUQ Current Severity: Mild Maximum Severity: Moderate Worsened by: Food Relieved by: Nothing Nausea/Vomiting/Emesis GI Symptom: Positive for Nausea and Vomiting Onset: Days Severity: Mild Diarrhea/Melena/Hematochezia GI Symptom: Negative for Diarrhea, Melena or Hematochezia Associated Symptoms Associated Symptoms: Negative for Dysuria, Frequency, Hematuria or Urgency Narrative Narrative: 32-year-old female history of antiphospholipid antibody syndrome with prior DVT and PEs on Coumadin. Also has a history of known gallstones diagnosed on ultrasound. They discussed with her having her gallbladder taken out in the past she was just concerned due to her clotting disorder and was hoping she would not need that. States over the last several months she has had recurrent right upper quadrant abdominal pain nausea and vomiting. Denies fever. The symptoms she had attributes to when she eats. She had about a 10 pound weight loss in the last several months. She states she feels bloated. She has had a prior appendectomy. Prior similar symptoms: Yes Recent Illness/[facility]ospital[facility]: [facility] Medical History Anemia BLOOD CLOTS Genital herpes Heroin use disorder, severe, in sustained remission contractions Pulmonary embolus Thyroid disease Home Medications omeprazole 20 mg capsule,delayed release 20 mg PO DAILY #30 caps 06/11/19 [Rx Last Taken Unknown] tizanidine 2 mg tablet 2 mg PO BID 11/11/19 [History Last Taken Unknown] venlafaxine 75 mg tablet 75 mg PO BID 11/11/19 [History Last Taken Unknown] warfarin 5 mg tablet 15 mg PO QODAY 05/28/21 [History Last Taken Unknown] warfarin 10 mg tablet 10 mg PO QODAY 12/05/21 [History Last Taken Unknown] Allergy/AdvReac Type Severity Reaction Status Date / Time morphine AdvReac Other Verified 05/16/22 08:38 Family History Mother Anxiety Lupus Bleeding disorder Cancer Mental disorder Grandmother Cancer Aunt Cancer Other Psychiatric care Social History Smoking Status: Former smoker alcohol intake: never substance use type: former substance user and heroin ROS ROS ED ROS Narrative Right upper quadrant abdominal pain nausea and vomiting. Review of Systems ROS Unobtainable: Denies due to encephalopathy Constitutional Constitutional ED: Denies chills or fever(s) ENT ENT ED: Denies ear pain Cardiovascular Cardiovascular: Denies chest pain Respiratory/Chest Respiratory/Chest: Denies cough or dyspnea Gastrointestinal Gastrointestinal: Reports abdominal pain, nausea and vomiting; Denies constipation, diarrhea or melena Genitourinary Genitourinary ED: Denies dysuria or hematuria Musculoskeletal Musculoskeletal: Denies arthralgias Integumentary Denies abscess Neurologic Neurologic: Denies headache(s) Psychiatric Psychiatric: Denies anxiety Endocrine Endocrinology: Denies polydipsia Hematologic/Lymphatic Hematologic/Lymphatic: Denies easy bleeding Allergic/Immunologic Allergic/Immunologic ED: Denies mouth swelling or tongue swelling EXAM Physical Exam Narrative Exam Narrative: 32-year-old female vital signs stable afebrile. She does not look septic or toxic. She does not look dehydrated. H EENT exam unremarkable. Lungs clear. Heart regular rhythm rate about 95 no murmur. Chest were nontender. Abdomen soft nondistended normal bowel sounds no peritoneal signs. Right upper quadranttenderness. Left- sided abdomen right lower quadrant unremarkable. No hernia ormass. No obstruction. Back nontender. Moving all 4 extremities. Neurologically awake and alert with no focal motor deficits. Const Vital Signs: 05/16/22 08:36 Temperature 98.3 F Temperature Source Temporal Pulse Rate 100 Respiratory Rate 18 Blood Pressure 142/84 H Blood Pressure Mean 103 Pulse Ox 98 Oxygen Delivery Method Room Air Positive well nourished and well developed; Negative for cachectic, contracturesor unkempt General Appearance ED: well developed and NAD; Negative for unkempt, cachectic, contractures or pallor Nutritional Appearance: Negative for cachectic HEENT Reports moist mucous membranes normocephalic and atraumatic; Negative for trauma or tenderness Eyes PERRL and EOMs intact bilaterally General Eye ED: Negative for pale conjunctiva or scleral icterus Neck no lymphadenopathy, supple and no JVD Lymph Lymphatic: Negative for other Resp normal respiratory effort and clear to auscultation bilaterally Effort and Inspection: Negative for respiratory distress Auscultation: Negative for rales, rhonchi or wheezes Cardio regular rate, regular rhythm, S1 normal heart sound, S2 normal heart sound and no murmurs Rate: Negative for bradycardia Rhythm: Negative for abnormal rhythm GI non-distended and no masses; Negative for non-tender Inspection: Negative for abdominal distention Auscultation: normoactive bowel sounds Palpation: soft and tender; Negative for guarding, rigid, hepatomegaly, splenomegaly, hernia, mass, pulsatile mass or rebound tenderness present Back/Spine no CVA tenderness Extremity full ROM General Extremety ED: Negative for edema or tenderness General Extremity: Negative for edema Neuro CN's II-XII intact bilaterally and moves all extremities Sensorium / Orientation: alert, oriented to person, oriented to place and oriented to time; Negative for orientation impaired, confused, lethargic or stuporous Motor Exam: strength 5/5 throughout Psych mental status grossly normal and thought process normal Appearance: Negative for unkempt Attitude: No agitated Mood & Affect: Negative for depressed, anxious or tearful Skin no wounds General Skin Exam: Negative for jaundice or pallor Lesions: no lesions Rashes: no rashes Trauma: Negative for abrasion Nails: Negative for discolored MDM MDM MDM Narrative Medical decision making narrative: 32-year-old female with a right upper quadrant abdominal pain with nausea vomiting. This been going on for several weeks to months. She has a known history of gallstones. She strongly would like her gallbladder removed. The complicating factor is that she has a clotting disorder is on Coumadin. The appropriate abdominal labs will be obtained along with a right upper quadrant ultrasound. She did not anything for pain she will be given 4 mg of Zofran. Her INR will also be checked due to being on Coumadin. Exam no significant change at 11:39 AM. Patient still has right upper quadrant abdominal pain. She and I discussed all of her test results her labs are unremarkable but the ultrasound does show a gallstone stuck in the gallbladder neck and also signs of cholecystitis. I discussed the patient's case and care with general surgeon on-call Dr. Lydia Hua. She will admit the patient. Patient be started on IV Zosyn. She will be given Dilaudid for pain. Surgery will determine when they can do her cholecystectomy. Lab Data Attestation: I reviewed the patient's lab results. Lab results narrative: CBC shows a white count of 3.8. H&H 14 and 44. Platelets 259. Electrolytes unremarkable gap of 7 normal BUN and creatinine. Liver enzymes are unremarkable. Lipase is 122. test is negative. Labs: Laboratory Results - last 24 hr 05/16/22 05/16/22 05/16/22 08:00 08:00 08:00 WBC 3.8 L RBC 4.89 Hgb 14.8 Hct 44.7 MCV 91.4 MCH 30.3 MCHC 33.1 RDW Std Deviation 44.1 H RDW Coeff of Ziggy 13.0 Plt Count 259 MPV 10.8 Immature Gran % (Auto) 0.500 Neut % (Auto) 59.4 Lymph % (Auto) 28.2 Pettis % (Auto) 10.0 Eos % (Auto) 1.1 Baso % (Auto) 0.8 Absolute Neuts (auto) 2.3 Absolute Lymphs (auto) 1.07 Nucleated RBC % 0 PT 16.9 H INR 1.4 Sodium 141 Potassium 3.6 Chloride 107 Carbon Dioxide 27.0 Anion Gap 7 BUN 13 Creatinine 0.73 Estim Creat Clear Calc 106.59 Est GFR (MDRD) Af Amer 118 Est GFR (MDRD) Non-Af 98 BUN/Creatinine Ratio 17.9 Glucose 99 Calcium 8.8 Total Bilirubin 0.50 AST 20 ALT 30 Alkaline Phosphatase 80 Total Protein 7.8 Albumin 3.7 Globulin 4.1 Albumin/Globulin Ratio 0.9 Lipase 122 Urine Test 05/16/22 08:40 WBC RBC Hgb Hct MCV MCH MCHC RDW Std Deviation RDW Coeff of Ziggy Plt Count MPV Immature Gran % (Auto) Neut % (Auto) Lymph % (Auto) Pettis % (Auto) Eos % (Auto) Baso % (Auto) Absolute Neuts (auto) Absolute Lymphs (auto) Nucleated RBC % PT INR Sodium Potassium Chloride Carbon Dioxide Anion Gap BUN Creatinine Estim Creat Clear Calc Est GFR (MDRD) Af Amer Est GFR (MDRD) Non-Af BUN/Creatinine Ratio Glucose Calcium Total Bilirubin AST ALT Alkaline Phosphatase Total Protein Albumin Globulin Albumin/Globulin Ratio Lipase Urine Test Negative Radiography Diagnostic Testing: Clinical Impression(s) from Imaging Studies Gallbladder Ultrasound 05/16/22 08:49 IMPRESSION: Cholelithiasis with a large impacted gallstone in the gallbladder neck and a positive sonographic Prakash sign reported, raising the possibility of acute cholecystitis. Electronically Signed: Maribell Reyes MD at 10:43 EST , Discharge Plan Dx/Rx/DC Orders Clinical Impression: Acute cholecystitis, Cholelithiasis, History of blood clotting disorder Disposition Disposition: [facility] What to do if you have Problems For any increased pain, shortness of breath, bleeding, nausea or vomiting, chestpain, or any unexpected problems, contact your Primary Care Provider. Call [facility] ([phone]) or report to the closest Emergency Room. Call 911 if necessary. 05/16/22 1203 <Electronically signed by Horace Hanson MD> Cosigner Signature (if applicable): CC: Dr. Talha Rogers MD ~ Signed [facility] Work Phone: [phone]) 947-736012-12-2022 Miscellaneous Notes* Telephone Encounter - Natasha Calzada Ma - 03/09/2022 11:52 AM EST Pt notified of results via mychart. Natasha Calzada Ma * Telephone Encounter - Raven Paulino RN - 03/06/2022 10:35 AM EST VM left for patient to call PCP office for message below. Raven Paulino RN * Telephone Encounter - Nola Cerna APRN.CNP - 03/06/2022 8:07 AM EST Can you please call the patient and let her know that her COVID/flu was negative. I would continue the Augmentin to treat the ear infection. She can use any [id number] cold and cough medication as needed. Stay well-hydrated. Please let me know if she has any questions. Thank you. Nola Cerna APRN.HOLLIS [facility]12-[facility]22 Instructions* Patient Instructions* Nola Cerna APRN.CNP - 03/05/2022 7:11 AM EST Covid/Flu results will be back tomorrow. Start Augmentin for ear infection. Take with food. May continue supportive care at home. Stay well hydrated. May use over the counter cold and cough medication as needed. Try to eat smaller meals/snacks during the day. Follow up as needed. documented in [facility]12-[facility]-2022 History of Present illness Narrative* Nola Cerna APRN.CNP - 03/05/2022 7:00 AM EST This is a 31 year old female who presents today with: Patient presents with: Acute Visit: ear pain HISTORY OF PRESENT ILLNESS: Meghan Licea is a 31 year old female. Patient presents with: Acute Visit: ear pain Here in the office for bilateral ear pain, headache, myalgias, and fever. On going nausea. Has beenusing OTC cold medication. Pain started Wednesday. Low grade fevers that waxe and wane. Denies no SOB or difficulty breathing. PAST MEDICAL HISTORY: PAST MEDICAL HISTORY Diagnosis Date Abnormal weight loss Alopecia Anxiety state Cough Depressive disorder with anxiety Dysmenorrhea Generalized anxiety disorder Genital herpes in women Herpetic vulvovaginitis Acyclovir Hip pain Low back pain Pars intercularis issues Muscle pain Neuropathic pain Palpitations PACs Pleurisy Pleuritic pain Post herpetic neuralgia Ruptured ovarian cyst Seizure (HCC) Trochanteric bursitis Unspecified inflammatory disease of female pelvic organs and tissues Rocephin, Metronidazole, Doxycycline PAST SURGICAL HISTORY Procedure Laterality Date APPENDECTOMY HX 05/2018 PAST SURGICAL HISTORY OF 05/14/2010 left clavicle repair RHINOPLASTY 05/14/2010 fx ALLERGIES Morphine, Narcotics [Opioids - Morphine Analogues], and Tramadol MEDICATIONS Current Outpatient Medications Medication Sig atomoxetine (STRATTERA) 40 mg capsule Take one capsule daily for 3-4 days, then increase to 2 capsules daily if needed (Patient not taking: Reported on 12/05/2021) hydrOXYchloroQUINE (PLAQUENIL) 200 mg tablet Take 1 tablet by mouth twice daily. (Patient not taking: Reported on 12/05/2021) ARIPiprazole (ABILIFY) 5 mg tablet Take 1 tablet by mouth once daily. (Patient not taking: Reportedon 12/05/2021) venlafaxine ER (EFFEXOR XR) 75 mg 24 hr capsule Take 1 capsule by mouth once daily. nicotine (NICODERM) 7 mg/24 hr Apply 1 Patch as directed every 24 hours. nicotine (NICODERM) 14 mg/24 hr Apply 1 Patch as directed every 24 hours. No smoking with patch. warfarin (COUMADIN) 5 mg tablet 15 mg daily or as directed (Patient taking differently: and Wednesday 15 mg. The other days 20mg) gabapentin (NEURONTIN) 300 mg capsule gabapentin 300 mg capsule (Patient not taking: Reported on 12/05/2021) levonorgestrel (MIRENA) 20 mcg/24 hours (5 yrs) 52 mg IUD 1 Each by INTRAUTERINE route one time only for 1 dose. No current facility-administered medications for this visit. FAMILY HISTORY Problem Relation Age of Onset Breast Cancer Maternal Grandmother Cancer Maternal Grandmother ovarian Arthritis Mother RA other (Bipolar disorder) Mother other (Depressive disorder) Mother other (Systemic lupus) Mother Maternal GF other (gallbladder removed) Mother other (Heart disease) Maternal Grandfather Paternal GF other (Anxiety) Other other (Blood Clots) Other other (gallbladder removed) Sister Social History Tobacco Use Smoking status: Former Packs/day: 0.50 Years: 10.00 Pack years: 5.00 Types: Cigarettes Quit date: 05/27/2018 Years since quittin.7 Smokeless tobacco: Never Tobacco comments: Not smoking for 6 months. Vaping Use Vaping Use: Never used Substance Use Topics Alcohol use: No Comment: Non-drinker Drug use: No Types: Marijuana, Narcotics Comment: recovering heoin addict stopped 8 months ago REVIEW OF SYSTEMS GENERAL: Myalgias, fever HEENT: + Bilateral ear pain NECK: Negative for lumps, goiter, pain and significant neck swelling RESPIRATORY: Negative for cough, hemoptysis, wheezing, dyspnea or shortness of breath CARDIOVASCULAR: Negative for chest pain, leg swelling, orthopnea, or palpitations GI: No nausea, vomiting, or diarrhea/constipation. No hematochezia/melena. No heartburn or reflux symptoms. : No history of dysuria, frequency or incontinence MUSCULOSKELETAL: Negative for joint pain or swelling. SKIN: Negative for lesions, rash, and itching ENDOCRINE: Negative for cold or heat intolerance, polyuria, polydipsia and goiter NEURO: + Headache MOOD: Negative for depression, anxiety, or suicidal ideation. EXAM: BP 120/84 Pulse 90 Temp 37.4 C (99.4 F) (Left Tympanic) Resp 16 Wt 86.2 kg (190 lb) LMP 07/23/2018 (Approximate) SpO2 98% BMI 29.30 kg/m PHYSICAL EXAM: General Appearance: Ill appearing, alert, in no acute distress, well-hydrated, well nourished. Skin: Skin color, texture, turgor normal, no suspicious rashes or lesions. Head: Normocephalic, no masses, lesions, tenderness or abnormalities. Eyes: Anicteric sclera. Extraocular movements are intact. Ears: External ears normal, canals clear, Positive findings: R TM: erythematous, L TM: normal. Nose/Sinuses: Nares normal, septum midline, mucosa normal, no drainage or sinus tenderness. Oropharynx: Lips, mucosa, and tongue normal, teeth and gums normal, oropharynx normal. Neck: Supple, no adenopathy; thyroid symmetric, normal size, no bruits. Lungs: Lungs clear to auscultation. No wheezing, rhonchi, rales. Heart: RRR without murmur, gallop, or rubs. No ectopy. Extremities: No deformities, edema, skin discoloration, clubbing or cyanosis. Good capillary refill. Peripheral Pulses: Normal, Capillary refill <2secs, strong peripheral pulses, Pulses palpable. Neurologic: Gait normal. Sensation grossly intact. ASSESSMENT/PLAN: 1. URI, acute - ICD9: 465.9, ICD10: J06.9 (primary diagnosis) - Discussed viral etiology and rationale for treatment. - Symptomatic treatment with prn analgesia - Supportive care with fluids and rest - COVID WITH FLUA+B, ROUTINE 2. Acute otitis media, right - ICD9: 382.9, ICD10: H66.91 - Will begin treatment with Augmentin 875 mg PO BID for 10 days - Supportive care with plenty of fluids, rest, and analgesia prn. - AMOXICILLIN 875 MG-POTASSIUM CLAVULANATE 125 MG TABLET 3. Nausea - ICD9: 787.02, ICD10: R11.0 - May use Zofran as needed for nausea. - ONDANSETRON 4 MG DISINTEGRATING TABLET Follow up pending test results or sooner as needed. Discussed treatment plan and patient voices understanding. Patient's questions answered appropriately. Medications and potential side effects were discussed and patient voices understanding. Nola Cerna APRN.CLOTH STRETCHER This note was partially generated using [employer] recognition system. Note was reviewed for accuracy. There may be minor misspellings or grammar miscues with [employer] voice recognition. documented in this encounterMadison Health10-18-2022 History of Present illness Narrative* Talha Rogers MD - 01/13/2022 2:40 PM EDT Chief Complaint Patient presents with: Abdominal Pain HPI Meghan Licea is a 31 year old female who presents here today for abdominal pain. Pt here today with complaints of recent gallbladder pain/issues. Intermittent RUQ pain that occurs 1-2 x per month or every other month. Was seen in the past for this issue and had US and HIDA scan done that showed multiple gallstones with normal function gallbladder. Pt states that she saw Dr Aguilar who agreed to take the stones out, but she did not follow through with this due to chickening out because of her complex history of antiphospholipid antibody syndrome and hypercoagulable state.. She has FHx of gallbladder issues and cholecystectomy. 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 Pt states that the episodes double her over in pain, but her most recent episode was the worst by far. Pt reports during these episodes her pain is sharp, stabbing to the point she feels she is have a heart attack. Pt at this time states she has no pain but has really bad heartburn. She's belching often due to her heartburn. Tries to avoid nuts and greasy foods, but occasionally indulges. During these attacks, pt reports bright green diarrhea with urgency but denies any bouts of incontinence. Also severe heartburn. She currently uses Pepcid for heartburn. Pt most concerned due to wanting to be able to do something prophylactic to avoid an emergency typesurgery due to her history. Pt does not have appendix, this was removed in the past. Past medical history, appointments, medications, allergies reviewed. Previous Medical History PAST MEDICAL HISTORY Diagnosis Date Abnormal weight loss Alopecia Anxiety state Cough Depressive disorder with anxiety Dysmenorrhea Generalized anxiety disorder Genital herpes in women Herpetic vulvovaginitis Acyclovir Hip pain Low back pain Pars intercularis issues Muscle pain Neuropathic pain Palpitations PACs Pleurisy Pleuritic pain Post herpetic neuralgia Ruptured ovarian cyst Seizure (HCC) Trochanteric bursitis Unspecified inflammatory disease of female pelvic organs and tissues Rocephin, Metronidazole, Doxycycline Previous Surgical History PAST SURGICAL HISTORY Procedure Laterality Date APPENDECTOMY HX 05/2018 PAST SURGICAL HISTORY OF 05/14/2010 left clavicle repair RHINOPLASTY 05/14/2010 fx Family History FAMILY HISTORY Problem Relation Age of Onset Breast Cancer Maternal Grandmother Cancer Maternal Grandmother ovarian Arthritis Mother RA other (Bipolar disorder) Mother other (Depressive disorder) Mother other (Systemic lupus) Mother Maternal GF other (gallbladder removed) Mother other (Heart disease) Maternal Grandfather Paternal GF other (Anxiety) Other other (Blood Clots) Other other (gallbladder removed) Sister Patient Allergies ALLERGIES Allergen Reactions Morphine Other: See Comments Severe headache Narcotics [Opioids * Other: See Comments Pt is a recovering addict Tramadol Other: See Comments headache Current Medications Current Outpatient Medications on File Prior to Visit Medication Sig atomoxetine (STRATTERA) 40 mg capsule Take one capsule daily for 3-4 days, then increase to 2 capsules daily if needed (Patient not taking: Reported on 12/05/2021) hydrOXYchloroQUINE (PLAQUENIL) 200 mg tablet Take 1 tablet by mouth twice daily. (Patient not taking: Reported on 12/05/2021) ARIPiprazole (ABILIFY) 5 mg tablet Take 1 tablet by mouth once daily. (Patient not taking: Reportedon 12/05/2021) venlafaxine ER (EFFEXOR XR) 75 mg 24 hr capsule Take 1 capsule by mouth once daily. nicotine (NICODERM) 7 mg/24 hr Apply 1 Patch as directed every 24 hours. nicotine (NICODERM) 14 mg/24 hr Apply 1 Patch as directed every 24 hours. No smoking with patch. (Patient not taking: Reported on 12/05/2021) warfarin (COUMADIN) 5 mg tablet 15 mg daily or as directed (Patient taking differently: and Wednesday 15 mg. The other days 20mg) gabapentin (NEURONTIN) 300 mg capsule gabapentin 300 mg capsule (Patient not taking: Reported on 12/05/2021) levonorgestrel (MIRENA) 20 mcg/24 hours (5 yrs) 52 mg IUD 1 Each by INTRAUTERINE route one time only for 1 dose. No current facility-administered medications on file prior to visit. Social History Social History Tobacco Use Smoking status: Former Packs/day: 0.50 Years: 10.00 Pack years: 5.00 Types: Cigarettes Quit date: 05/27/2018 Years since quittin.6 Smokeless tobacco: Never Tobacco comments: Not smoking for 6 months. Vaping Use Vaping Use: Never used Substance Use Topics Alcohol use: No Comment: Non-drinker Drug use: No Types: Marijuana, Narcotics Comment: recovering heoin addict stopped 8 months ago EXAM: BP 122/86 (BP Site: Left Arm, BP Position: Sitting, BP Cuff Size: Regular Adult) Pulse 88 Resp 16 Wt 87.5 kg (192 lb 14.2 oz) LMP 07/23/2018 (Approximate) BMI 29.75 kg/m O2 sat 95% on RA atrst General Appearance: Well appearing, alert, in no acute distress, well-hydrated, well nourished. andOverweight. Lungs: Lungs clear to auscultation. No wheezing, rhonchi, rales.. Heart: RRR without murmur, gallop, or rubs. No ectopy. Abdomen: Abdomen soft, slight tenderness to RUQ. Bowel sounds normal. No masses, organomegaly. Health Maintenance List HEPATITIS B(1 of 3 - 3-dose series) Never done PNEUMOCOCCAL(1 - PCV) Never done SHINGRIX VACCINE(1 of 2) Never done HPV TESTING Never done COVID-19 VACCINE(2 - Pfizer risk series) due on 07/02/2021 INFLUENZA(1) due on 11/27/2021 PAP TESTING due on 08/25/2023 DTAP,TDAP,TD(3 - Td or Tdap) due on 02/06/2029 HEPATITIS C SCREENING Completed HIV SCREENING Completed Data reviewed Epic ASSESSMENT/PLAN: 1. RUQ abdominal pain - ICD9: 789.01, ICD10: R10.11 (primary diagnosis) - US order, complete 2. Hx of gallstones - ICD9: V12.79, ICD10: Z87.19 - complete US 3. Heartburn - ICD9: 787.1, ICD10: R12 - Cont using Pepcid. 4. Antiphospholipid antibody syndrome Complete imaging as scheduled; refer to Dr Aguilar. I agree with the Chief Complaint, ROS, and Past Histories independently gathered by the clinical cryptologic support specialist and the remaining scribed note accurately describes my personal service to the patient. Medical Decision Making: Problems: Moderate: 1+ chronic illnesses with change Data: Unique test(s) ordered: 1 Risk: Moderate: Moderate risk from testing/treatment Medical Decision Making Level: 4 - Moderate Talha Rogers MD The documentation for this note was completed by Dang Pereyra Ma acting as scribe for Talha Rogers MD. January 13, 2022 3:03 PM. Dang Pereyra Ma documented in this encounterMadison Health08-22-2022 Miscellaneous Notes* Telephone Encounter - Dang Pereyra Ma - 11/17/2021 3:25 PM EDT Called and notified pt of message below from PCP. Pt verbalized understanding. Pt noted that she was having some increased bleeding in her gums. Notified pt to monitor and change to dosage give to her. Pt verbalized understanding. Dang Pereyra Ma * Telephone Encounter - Talha Rogers MD - 11/17/2021 3:02 PM EDT Go to 15 mg on and Wed; 20 mg all other days Recheck in 1 week Talha Rogers MD * Telephone Encounter - Dang Pereyra Ma - 11/17/2021 10:33 AM EDT Last INR: INR 1.0 11/15/2021 Current dose of coumadin is: 20 mg MWF and 15 mg all other days. Last date of dose change: 11/04/21. Previous INR (date and result): 0.9 on 11/04/21 Additional Clinical Information or narrative: yes: Pt is non compliant. Was to have recheck in 1 week. Dang Pereyra Ma documented in this encounterMadison Health08-09-2022 Miscellaneous Notes* Telephone Encounter - Sandra Pena LPN - 11/04/2021 2:53 PM EDT Patient returned call and went over notes from Dr Rogers with understanding. Patient said she thinks she missed 2 to 3 doses of 15 mg daily. She will take coumadin 20 mg and 15 mg other days and recheck INR in one week with understanding. * Telephone Encounter - Natasha Calzada Ma - 11/04/2021 2:44 PM EDT Message left for pt to call back. Natasha Calzada MA * Telephone Encounter - Talha Rogers MD - 11/04/2021 2:40 PM EDT Has she been taking coumadin 15 mg daily? If so, she should go to 20 mg on Mon, Weds, Wed; 15 mg all other days Recheck in 1 week Talha Rogers MD * Telephone Encounter - Dang Pereyra Ma - 11/04/2021 2:31 PM EDT Last INR: INR 0.9 11/04/2021 Current dose of coumadin is: 15 mg daily. Last date of dose change: 11/06/20 Previous INR (date and result): 1.0 on 07/16/21 Additional Clinical Information or narrative: yes: pt was to have her INR rechecked in 1 week from previous INR. Dang Pereyra Ma documented in this encounterMadison Health04-21-2022 Miscellaneous Notes* Telephone Encounter - Natasha Calzada Ma - 07/17/2021 8:32 AM EDT Pt notified. Tracker and med list updated. Natasha Calzada Ma * Telephone Encounter - Talha Rogers MD - 07/16/2021 6:41 PM EDT In that case stay on 15 mg daily Recheck INR after she is able to keep meds down for one week Talha Rogers MD * Telephone Encounter - Brittny Lawson LPN - 07/16/2021 6:20 PM EDT Patient notified of results, verbalizes understanding of instructions. Pt stated she has been vomiting sick since last week and unable to hold meds down. She went to see her specialist today. Brittny Lawson LPN * Telephone Encounter - Talha Rogers MD - 07/16/2021 5:35 PM EDT INR low at 1.0 Has she been taking 15 mg daily of the coumadin? Talha Rogers MD * Telephone Encounter - Natasha Calzada Ma - 07/16/2021 2:08 PM EDT Last INR: INR 1.0 07/16/2021 Current dose of coumadin is: 15 mg daily. Last date of dose change: 11/06/20. Previous INR (date and result): 12/17/20 INR: 3.3 Additional Clinical Information or narrative: no documented in this encounterMadison Health04-20-2022 History of Present illness Narrative* Britt Cabrera, RT(R) - 07/16/2021 2:30 PM EDT Radiology Service Progress Note PATIENT NAME: Meghan Licea DATE OF SERVICE: July 16, 2021 TIME: 12:52 PM PATIENT IDENTITY VERIFICATION COMPLETED USING TWO (2) IDENTIFIERS: Name and Date of confirmedby patient verbally. FALL SCREENING: Has the patient had 2 falls in the last year or 1 fall with injury or currently using an Ambulatory Assistive Device (Walker, Cane, Wheelchair, Crutches, etc.)? No PATIENT GENDER DATA: Female. status: : No status: NO. PATIENT RELEVANT IMPLANT DATA REVIEWED: Not Applicable RADIOLOGY DEPARTMENT: General X-ray: Exam(s) Completed: Lower Extremity X- Ray(s): Feet, Bilateral and Wt. 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 08/29/2009 documented as of this encounter (statuses as of 06/21/2022) [facility] History of Past illness Narrative* Problem Noted Date Resolved Date Acute cor pulmonale without pulmonary embolism 0 04/29/2020 06/21/2022 Hypercoagulable state 04/26/2020 06/21/2022 Tachycardia 03/20/2019 06/21/2022 Acute appendicitis with loca lized peritonitis, without perforation, abscess, or gangrene 06/10/2018 06/10/2018 Pars defect, 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 08/29/2009 documented as of this encounter (statuses as of 07/11/2022) [facility] History of Past illness Narrative* Problem Noted Date Resolved Date Acute cor pulmonale without pulmonary embolism 0 04/29/2020 06/21/2022 Hypercoagulable state 04/26/2020 06/21/2022 Tachycardia 03/20/2019 06/21/2022 Acute appendicitis with loca lized peritonitis, without perforation, abscess, or gangrene 06/10/2018 06/10/2018 Pars defect, 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 08/29/2009 documented as of this encounter (statuses as of 07/11/2022) [facility] of Past illness Narrative* Problem Noted Date Resolved Date Acute cor pulmonale without pulmonary embolism 0 04/29/2020 06/21/2022 Hypercoagulable state 04/26/2020 06/21/2022 Tachycardia 03/20/2019 06/21/2022 Acute appendicitis with loca lized peritonitis, without perforation, abscess, or gangrene 06/10/2018 06/10/2018 Pars defect, 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 08/29/2009 documented as of this encounter (statuses as of 07/12/2022) [facility] History of Past illness Narrative* Problem Noted Date Resolved Date Acute cor pulmonale without pulmonary embolism 0 04/29/2020 06/21/2022 Hypercoagulable state 04/26/2020 06/21/2022 Tachycardia 03/20/2019 06/21/2022 Acute appendicitis with loca lized peritonitis, without perforation, abscess, or gangrene 06/10/2018 06/10/2018 Pars defect, 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 08/29/2009 documented as of this encounter (statuses as of 07/17/2022) [facility] of Past illness Narrative* Problem Noted Date Resolved Date Acute cor pulmonale without pulmonary embolism 0 04/29/2020 06/21/2022 Hypercoagulable state 04/26/2020 06/21/2022 Tachycardia 03/20/2019 06/21/2022 Acute appendicitis with loca lized peritonitis, without perforation, abscess, or gangrene 06/10/2018 06/10/2018 Pars defect, 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 08/29/2009 documented as of this encounter (statuses as of 08/05/2022) [facility] of Past illness Narrative* Problem Noted Date Resolved Date Acute cor pulmonale without pulmonary embolism 0 04/29/2020 06/21/2022 Hypercoagulable state 04/26/2020 06/21/2022 Tachycardia 03/20/2019 06/21/2022 Acute appendicitis with loca lized peritonitis, without perforation, abscess, or gangrene 06/10/2018 06/10/2018 Pars defect, 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 08/29/2009 documented as of this encounter (statuses as of 09/19/2022) [facility] of Past illness Narrative* Problem Noted Date Diagnosed Date Resolved Date Acute cor pulmonale without pulmonary embolism 04/29/2020 06/21/2022 Hypercoagulable state 04/26/20202022 Tachycardia 03/20/2019 06/21/2022 Acute appendicitis with loca lized peritonitis, without perforation, abscess, or gangrene 06/10/2018 06/10/2018 Pars defect, 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 08/29/2009 documented as of this encounter (statuses as of 01/13/2023) [facility] of Past illness Narrative* Problem Noted Date Diagnosed Date Resolved Date Acute cor pulmonale without pulmonary embolism 04/29/2020 06/21/2022 Hypercoagulable state 04/26/20202022 Tachycardia 03/20/2019 06/21/2022 Acute appendicitis with loca lized peritonitis, without perforation, abscess, or gangrene 06/10/2018 06/10/2018 Pars defect, 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 08/29/2009 documented as of this encounter (statuses as of 06/03/2023) [facility] of Past illness Narrative* Problem Noted Date Diagnosed Date Resolved Date Acute cor pulmonale without pulmonary embolism 04/29/2020 06/21/2022 Hypercoagulable state 04/26/20202022 Tachycardia 03/20/2019 06/21/2022 Acute appendicitis with loca lized peritonitis, without perforation, abscess, or gangrene 06/10/2018 06/10/2018 Pars defect, 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 08/29/2009 documented as of this encounter (statuses as of 06/05/2023) [facility] of Past illness Narrative* Problem Noted Date Diagnosed Date Resolved Date Acute cor pulmonale without pulmonary embolism 04/29/2020 06/21/2022 Hypercoagulable state 04/26/20202022 Tachycardia 03/20/2019 06/21/2022 Acute appendicitis with loca lized peritonitis, without perforation, abscess, or gangrene 06/10/2018 06/10/2018 Pars defect, 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 08/29/2009 documented as of this encounter (statuses as of 06/28/2023) [facility] of Past illness Narrative* Problem Noted Date Diagnosed Date Resolved Date Acute cor pulmonale without pulmonary embolism 04/29/2020 06/21/2022 Hypercoagulable state 04/26/20202022 Tachycardia 03/20/2019 06/21/2022 Acute appendicitis with loca lized peritonitis, without perforation, abscess, or gangrene 06/10/2018 06/10/2018 Pars defect, 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 08/29/2009 documented as of this encounter (statuses as of 07/03/2023) [facility] of Past illness Narrative* Problem Noted Date Diagnosed Date Resolved Date Acute cor pulmonale without pulmonary embolism 04/29/2020 06/21/2022 Hypercoagulable state 04/26/20202022 Tachycardia 03/20/2019 06/21/2022 Acute appendicitis with loca lized peritonitis, without perforation, abscess, or gangrene 06/10/2018 06/10/2018 Pars defect, 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 08/29/2009 documented as of this encounter (statuses as of 07/03/2023) [facility] of Past illness Narrative* Problem Noted Date Diagnosed Date Resolved Date Acute cor pulmonale without pulmonary embolism 04/29/2020 06/21/2022 Hypercoagulable state 04/26/20202022 Tachycardia 03/20/2019 06/21/2022 Acute appendicitis with loca lized peritonitis, without perforation, abscess, or gangrene 06/10/2018 06/10/2018 Pars defect, 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 08/29/2009 documented as of this encounter (statuses as of 07/05/2023) [facility] History of Past illness Narrative* Problem Noted Date Resolved Date Acute appendicitis with loca lized peritonitis, without perforation, abscess, or gangrene 06/10/2018 06/10/2018 Pars defect, 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 08/29/2009 documented as of this encounter (statuses as of 07/17/2021) [facility] of [facility] Narrative* Problem Noted Date Resolved Date Acute appendicitis with loca lized peritonitis, without perforation, abscess, or gangrene 06/10/2018 06/10/2018 Pars defect, 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 08/29/2009 documented as of this encounter (statuses as of 07/17/2021) [facility] of [facility] illness Narrative* Problem Noted Date Resolved Date Acute appendicitis with loca lized peritonitis, without perforation, abscess, or gangrene 06/10/2018 06/10/2018 Pars defect, 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 08/29/2009 documented as of this encounter (statuses as of 11/04/2021) [facility] of [facility] illness Narrative* Problem Noted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
[2025-03-04 08:24] VITALS: BP 102/78; PULSE 118; RESP 18; TEMP 36.8; O2SAT 99
== END 2025-03-04 08:15 | disposition home or self-care (01) ==
PROVIDERS: Emergency Provider Emergency Medicine; PCP Internal Medicine; Visit Provider Emergency Medicine
DX: M77.51 Other enthesopathy of right foot and ankle (principal); M25.571 Pain in right ankle and joints of right foot; F17.210 Nicotine dependence, cigarettes, uncomplicated
CPT/HCPCS: 99282